=== PATIENT | female | born 1960 | race Caucasian/White ===

== ENCOUNTER → 2016-10-02 | Outpatient (CLI) | payer MEDICAID ==
--- NOTE | 2016-10-05 10:38 | CR ---
EXAM DATE: 10/02/16 PATIENT'S AGE: 55 Patient: EMILY ESCOBAR Facility: [place], [place] Site . Site : 1960 Study: XRay Extremity Right [id number]/10/2017 10:13:00 AM Ordering Physician: Clovis Ruvalcaba Final Report: Indication: Fracture of right lower leg. Technique: Right ankle three views. Comparison: Right ankle September 01, 2016. Findings: Lateral plate and screw fixation of the distal fibula shows no evidence of complication. No evidence of acute fracture or hardware complication. Mild degenerative changes of the tibiotalar joint. Calcaneal enthesopathy. Soft tissues as imaged are unremarkable. Impression: No evidence of hardware complication. Dictated by Omar Jackman MD @ Oct 05 2016 12:32AM (Electronic Signature) Report Signed by Proxy and Original Signed Document filed in the Medical Record. MTDRosa
== END ==
LOC: MW.CHORTHO 07:53
PROVIDERS: ATTEND Physician Assistant
DX: S82.891A Other fracture of right lower leg, initial encounter for closed fracture (principal); Z96.7 Presence of other bone and tendon implants
CPT/HCPCS: 73610-26-RT; 73610-RT

== ENCOUNTER 2016-10-26 15:06 | Emergency (ER) | payer MEDICAID ==
--- NOTE | 2016-10-26 16:01 | EDM.PDOC ---
ED HISTORY OF PRESENT ILLNESS - General Chief Complaint: Respiratory Problem Stated Complaint: HARD TIME BREATHING Time Seen by Provider: 10/26/16 15:40 Source of Information: Reports: Patient History Limitations: Reports: No limitations - History of Present Illness INITIAL COMMENTS - FREE TEXT/NARRATIVE: History of present illness: [55-year-old female comes in complaining of a sharp painful cough. Patient has been seen by her PCP and has started on antibiotics but she perceives the cough to be stronger and now her throat is sore. Patient does have an inhaler that she started this morning that she acknowledged was helpful but she has come for cough relief] Review of systems: As per history of present illness and below otherwise all systems reviewed and negative. Past medical history: As per history of present illness and as reviewed below otherwise noncontributory. Surgical history: As per history of present illness and as reviewed below otherwise noncontributory. Social history: No reported history of drug or alcohol abuse. Family history: As per history of present illness and as reviewed below otherwise noncontributory. Physical exam: HEENT: Atraumatic, normocephalic, pupils reactive, negative for conjunctival pallor or scleral icterus, mucous membranes moist, throat clear, neck supple, nontender, trachea midline. Lungs: Clear to auscultation, breath sounds equal bilaterally, chest nontender. Heart: S1S2, regular, negative for clicks, rubs, or JVD. Abdomen: Soft, nondistended, nontender. Negative for masses or hepatosplenomegaly. Negative for costovertebral tenderness. Pelvis: Stable nontender. 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: Deferred. Rectal: Deferred. Extremities: Atraumatic, negative for cords or calf pain. Neurovascular unremarkable. Neuro: Awake, alert, oriented. Cranial nerves II through XII unremarkable. Cerebellum unremarkable. Motor and sensory unremarkable throughout. Exam nonfocal. Gen. assessment is benign save for a random brief cough Diagnostics: [] Therapeutics: [] Impression: [Cough] Plan: [spacer for inhaler, Tessalon José Miguel, followup tomorrow as it] Definitive disposition and diagnosis as appropriate pending reevaluation and review of above. - Related Data Allergies/ADRs: Allergies Allergy/AdvReac Type Severity Reaction Status Date / Time doxepin [Doxepin] Allergy Blurred Verified 09/01/16 11:10 Vision lisinopril Allergy Rash Verified 09/01/16 11:10 Plpswae-Ukt-Ogd Reductase Allergy Cannot Verified 09/01/16 11:10 Inhibitor Remember Home Meds: Home Meds Estrogens, Conjugated [Premarin Vaginal Crm] 1 applic VAG Q48H 12/14/13 [History ] Losartan/Hydrochlorothiazide [Losartan-HCTZ 100-12.5 MG] 1 each PO DAILY [History] Levothyroxine Sodium [Synthroid] 25 mcg PO ACBREAKFAST 04/06/14 [History] Levothyroxine Sodium [Synthroid] 200 mcg PO ACBREAKFAST 04/06/14 [History] ALPRAZolam [Xanax] 2 mg PO TID PRN 04/17/14 [History] Rosuvastatin [Crestor] 20 mg PO BEDTIME 04/17/14 [History] metFORMIN [Glucophage] 1,000 mg PO BID 04/17/14 [History] traMADol [Ultram] 50 mg PO Q6H PRN 04/17/14 [History] Celecoxib [CeleBREX] 100 mg PO BID PRN 04/01/15 [History] Sertraline HCl 100 mg PO DAILY 04/01/15 [History] Prochlorperazine Maleate 10 mg PO DAILY PRN 12/20/15 [History] amLODIPine Besylate [Norvasc] 5 mg PO DAILY 12/20/15 [History] Lidocaine 5% [Lidoderm 5%] 1 each TOP ASDIRECTED PRN 01/04/16 [History] Ranitidine HCl [Zantac] 300 mg PO BEDTIME 01/07/16 [History] Mometasone/Formoterol [Dulera 100-5 MCG] 2 puff INH BID PRN 07/31/16 [History] Benzonatate 100 - 200 mg PO TID PRN 08/26/16 [History] Elviteg/Lucero/Emtric/Tenofo Ala [Genvoya Tablet] 1 each PO DAILY 08/26/16 [ History] Erythromycin Base [Erythromycin 0.5% Ophth Oint] 0.5 gm EYEBOTH BEDTIME [History] Levocetirizine Dihydrochloride 5 mg PO BEDTIME 08/26/16 [History] Orphenadrine Citrate 100 mg PO BID PRN 02/01/17 [History] Benzonatate [Tessalon Perles] 200 mg PO TID #45 cap 10/26/16 [Rx] Inhaler, Assist Devices [Space Chamber Plus] 1 each ASDIRECTED #1 spacer 10/09 [Rx] Past Medical History - Past Health History Medical/Surgical History: Denies Medical/Surgical History HEENT History: Reports: Impaired vision Other HEENT History: uses reading glasses, has upper and lower dentures but only uses the upper Cardiovascular History: Reports: High cholesterol, Hypertension Respiratory History: Reports: Asthma Other Respiratory History: recent sinus infection, just finished antibiotic Gastrointestinal History: Reports: GERD, Hemorrhoids 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 History: Reports: None 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: Musculoskeletal History: Reports: Back pain, chronic, Fracture Other Musculoskeletal History: hx fx right ankle Neurological History: Reports: Other (see below) Other Neuro History: was told she had a "mini stroke" many years ago, no residual Psychiatric History: Reports: Anxiety, Depression Endocrine/Metabolic History: Reports: Diabetes, type II, Hypothyroidism, Obesity /BMI 30+ Hematologic History: Reports: None Immunologic History: Reports: HIV Oncologic (Cancer) History: Reports: Basal cell carcinoma Dermatologic History: Reports: None - Infectious Disease History Infectious Disease History: Reports: Chicken pox - Past Surgical History Head Surgeries/Procedures: Reports: None HEENT Surgical History: Reports: Adenoidectomy, Tonsillectomy Cardiovascular Surgical History: Reports: None Respiratory Surgical History: Reports: None Female Surgical History: Reports: Hysterectomy, Salpingo-oophorectomy Endocrine Surgical History: Reports: None Neurological Surgical History: Reports: None Social & Family History - Family History Family Medical History: Noncontributory - Tobacco Use Smoking Status *Q: Never Smoker Years of Tobacco use: 25 Used Tobacco, but Quit: Yes Month Tobacco Last Used: 15 years Second Hand Smoke Exposure: No - Caffeine Use Caffeine Use: Reports: Coffee Caffeine Use Comment: 2/day - Alcohol Use Days Per Week of Alcohol Use: 0 Number of Drinks Per Day: 0 Total Drinks Per Week: 0 - Recreational Drug Use Recreational Drug Use: No Drug Use in Last 12 Months: No ED ROS GENERAL - Review of Systems Review Of Systems: See Below (History of present illness) ED EXAM, GENERAL - Physical Exam Exam: See Below (The history of present illness) Departure - Departure Time of Disposition: 16:00 Disposition: Home, Self-Care 01 Condition: good Clinical Impression: Cough in adult patient Prescriptions: Benzonatate [Tessalon Perles] 200 mg PO TID #45 cap Inhaler, Assist Devices [Space Chamber Plus] 1 each ASDIRECTED #1 spacer Forms: ED Department Discharge Additional Instructions: The following information is given to patients seen in the emergency department who are being discharged to home. This information is to outline your options for follow-up care. We provide all patients seen in our emergency department with a follow-up referral. The need for follow-up, as well as the timing and circumstances, are variable depending upon the specifics of your emergency department visit. If you don't have a primary care physician on staff, we will provide you with a referral. We always advise you to contact your personal physician following an emergency department visit to inform them of the circumstance of the visit and for follow-up with them and/or the need for any referrals to a consulting specialist. The emergency department will also refer you to a specialist when appropriate. This referral assures that you have the opportunity for follow-up care with a specialist. All of these measure are taken in an effort to provide you with optimal care, which includes your follow-up. Under all circumstances we always encourage you to contact your private physician who remains a resource for coordinating your care. When calling for follow-up care, please make the office aware that this follow-up is from your recent emergency room visit. If for any reason you are refused follow-up, please contact the [facility] Emergency Department at and asked to speak to the emergency department charge nurse. 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
[2016-10-26 16:19] VITALS: BP 143/75
== END 2016-10-26 16:14 | disposition home or self-care (01) ==
LOC: MW.ED 15:06
DX: R05 Cough (principal); I10 Essential (primary) hypertension; E78.00 Pure hypercholesterolemia, unspecified; K21.9 Gastro-esophageal reflux disease without esophagitis; F41.8 Other specified anxiety disorders; E11.9 Type 2 diabetes mellitus without complications; E03.9 Hypothyroidism, unspecified; E66.9 Obesity, unspecified; Z68.30 Body mass index [BMI] 30.0-30.9, adult; Z87.891 Personal history of nicotine dependence; Z90.710 Acquired absence of both cervix and uterus; Z98.890 Other specified postprocedural states; Z79.899 Other long term (current) drug therapy; Z79.84 Long term (current) use of oral hypoglycemic drugs; Z88.8 Allergy status to other drugs, medicaments and biological substances
CPT/HCPCS: 99282

== ENCOUNTER 2016-10-31 17:21 | Emergency (ER) | payer MEDICAID ==
[2016-10-31] MEDS ORDERED: Ketorolac 60 MG/2 ML SDV IM ONE (17:48)
--- NOTE | 2016-10-31 17:54 | EDM.PDOC ---
ED HISTORY OF PRESENT ILLNESS - General Chief Complaint: Respiratory Problem Stated Complaint: SHORTNESS OF BREATH Time Seen by Provider: 10/31/16 17:26 - History of Present Illness INITIAL COMMENTS - FREE TEXT/NARRATIVE: HISTORY AND PHYSICAL: History of present illness: The patient is a 55-year-old female with a history of hypertension hypercholesterolemia [id number] diabetes hypothyroidism and HIV who is taken care of in our family practice clinic and presents with a two-week history of cough congestion feeling short of breath on-and-off and feeling like she has difficulty moving air on and off. The patient states has been constant for 2 weeks and she's become more congested and has had more nasal sinus pressure over last few days. The patient was seen in the clinic on October 26 and placed on [address] Mitchell and has also been using an inhaler and nebulizer which she states has been helping. Patient was then seen later that evening here in the ER for a cough which she was given Tessalon Perles. The patient followed up in the clinic on October 28 and had a negative influenza swab and presents today for symptoms which have been persistent for 2 weeks and she does not feel that they are improving. She finished her antibiotic course yesterday. She has no anterior chest pain and has some bodyaches including lower back pain and extremity discomfort but she is more concerned about the cough and shortness of breath. The patient denies any abdominal pain or vomiting and has had some loose stools but not excessive amount. She denies any urinary complaints or flank pain. She has had some inner ear pressure and hasn't nasal drainage/postnasal drip. She does not have a sore throat or neck pain and no headache. She has no lower extremity swelling or asymmetry. Patient states that she has not had a chest x-ray or blood work performed with this treatment that has been finished yesterday Review of systems: As per history of present illness and below otherwise all systems reviewed and negative. Past medical history: As per history of present illness and as reviewed below otherwise noncontributory. Surgical history: As per history of present illness and as reviewed below otherwise noncontributory. Social history: No reported history of drug or alcohol abuse. Family history: As per history of present illness and as reviewed below otherwise noncontributory. Physical exam: General: Well-developed overweight female who is nontoxic and speaking clearly in the ER without breathlessness but she does have nasal quality to voice. Vital signs of been noted by me and she is in no respiratory distress. HEENT: Atraumatic, normocephalic, pupils reactive, negative for conjunctival pallor or scleral icterus, mucous membranes moist, throat clear, neck supple, nontender, trachea midline. There is no cervical adenopathy or nuchal rigidity. The patient has no focal sinus tenderness on palpation but does complain of sinus pressure and nasal turbinates are mildly boggy bilaterally with clear drainage Lungs: Clear to auscultation, breath sounds equal bilaterally, chest nontender. There is no work or breathing or sensory muscle use stridor or wheezing Heart: S1S2, regular, negative for clicks, rubs, or JVD. Abdomen: Soft, nondistended, nontender. Negative for masses or hepatosplenomegaly. Negative for costovertebral tenderness. Pelvis: Stable nontender. 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: Deferred. Rectal: Deferred. Extremities: Atraumatic, negative for cords or calf pain. Neurovascular unremarkable. No pedal edema or leg asymmetry Neuro: Awake, alert, oriented. Cranial nerves II through XII unremarkable. Cerebellum unremarkable. Motor and sensory unremarkable throughout. Exam nonfocal. Diagnostics: CBC CMP lactic acid UA urine culture indicated chest x-ray Therapeutics: Toradol All testing results were discussed with the patient and recommendation for followup with primary care next week was made. I will go ahead and treat her sinusitis. It is unclear what antibiotic the patient took for 5 days as the pharmacy is closed and unable to obtain that information the patient is unsure. Impression: Sinusitis, bronchitis Definitive disposition and diagnosis as appropriate pending reevaluation and review of above. - Related Data Allergies/ADRs: Allergies Allergy/AdvReac Type Severity Reaction Status Date / Time doxepin [Doxepin] Allergy Blurred Verified 09/01/16 11:10 Vision lisinopril Allergy Rash Verified 09/01/16 11:10 Ienzowg-Znq-Sfw Reductase Allergy Cannot Verified 09/01/16 11:10 Inhibitor Remember Home Meds: Home Meds Estrogens, Conjugated [Premarin Vaginal Crm] 1 applic VAG Q48H 12/14/13 [History ] Losartan/Hydrochlorothiazide [Losartan-HCTZ 100-12.5 MG] 1 each PO DAILY [History] Levothyroxine Sodium [Synthroid] 25 mcg PO ACBREAKFAST 04/06/14 [History] Levothyroxine Sodium [Synthroid] 200 mcg PO ACBREAKFAST 04/06/14 [History] ALPRAZolam [Xanax] 2 mg PO TID PRN 04/17/14 [History] Rosuvastatin [Crestor] 20 mg PO BEDTIME 04/17/14 [History] metFORMIN [Glucophage] 1,000 mg PO BID 04/17/14 [History] traMADol [Ultram] 50 mg PO Q6H PRN 04/17/14 [History] Celecoxib [CeleBREX] 100 mg PO BID PRN 04/01/15 [History] Sertraline HCl 100 mg PO DAILY 04/01/15 [History] Prochlorperazine Maleate 10 mg PO DAILY PRN 12/20/15 [History] amLODIPine Besylate [Norvasc] 5 mg PO DAILY 12/20/15 [History] Lidocaine 5% [Lidoderm 5%] 1 each [facility] ASDIRECTED PRN 01/04/16 [History] Ranitidine HCl [Zantac] 300 mg PO BEDTIME 01/07/16 [History] Mometasone/Formoterol [Dulera 100-5 MCG] 2 puff INH BID PRN 07/31/16 [History] Benzonatate 100 - 200 mg PO TID PRN 08/26/16 [History] Elviteg/Lucero/Emtric/Tenofo Ala [Genvoya Tablet] 1 each PO DAILY 08/26/16 [ History] Erythromycin Base [Erythromycin 0.5% Ophth Oint] 0.5 gm EYEBOTH BEDTIME [History] Levocetirizine Dihydrochloride 5 mg PO BEDTIME 08/26/16 [History] Orphenadrine Citrate 100 mg PO BID PRN 08/26/16 [History] Benzonatate [Tessalon Perles] 200 mg PO TID #45 cap 10/26/16 [Rx] Inhaler, Assist Devices [Space Chamber Plus] 1 each MC ASDIRECTED #1 spacer 10/09 [Rx] Albuterol Sulfate 1 - 2 puff INH Q4H PRN 10/31/16 [History] Past Medical History - Past Health History Medical/Surgical History: Denies Medical/Surgical History HEENT History: Reports: Impaired vision Other HEENT History: uses reading glasses, has upper and lower dentures but only uses the upper Cardiovascular History: Reports: High cholesterol, Hypertension Respiratory History: Reports: Other (see below) Other Respiratory History: recent sinus infection Gastrointestinal History: Reports: GERD, Hemorrhoids 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 History: Reports: None 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: Musculoskeletal History: Reports: Back pain, chronic, Fracture Other Musculoskeletal History: hx fx right ankle Neurological History: Reports: Other (see below) Other Neuro History: was told she had a "mini stroke" many years ago, no residual Psychiatric History: Reports: Anxiety, Depression Endocrine/Metabolic History: Reports: Diabetes, type II, Hypothyroidism, Obesity /BMI 30+ Hematologic History: Reports: None Immunologic History: Reports: HIV Oncologic (Cancer) History: Reports: Basal cell carcinoma Dermatologic History: Reports: None - Infectious Disease History Infectious Disease History: Reports: HIV-Human immunodeficiency virus - Past Surgical History Head Surgeries/Procedures: Reports: None HEENT Surgical History: Reports: Adenoidectomy, Tonsillectomy Cardiovascular Surgical History: Reports: None Female Surgical History: Reports: Hysterectomy, Salpingo-oophorectomy Endocrine Surgical History: Reports: None Neurological Surgical History: Reports: None Social & Family History - Family History Family Medical History: Noncontributory - Tobacco Use Smoking Status *Q: Former Smoker Years of Tobacco use: 25 Packs/Tins Daily: 2.5 Used Tobacco, but Quit: Yes Month Tobacco Last Used: 17 years ago Second Hand Smoke Exposure: No - Caffeine Use Caffeine Use: Reports: Coffee Caffeine Use Comment: 2/day - Alcohol Use Days Per Week of Alcohol Use: 0 Number of Drinks Per Day: 0 Total Drinks Per Week: 0 - Recreational Drug Use Recreational Drug Use: No Drug Use in Last 12 Months: No ED ROS GENERAL - Review of Systems Review Of Systems: ROS reveals no pertinent complaints other than HPI. ED EXAM, GENERAL - Physical Exam Exam: See Below (See dictation) Course - Vital Signs Last Recorded V/S: Last Vital Signs Temp 35.8 C 10/31/16 17:30 Pulse 90 10/31/16 17:30 Resp 16 10/31/16 17:30 BP 161/82 H 10/31/16 17:30 Pulse Ox 95 10/31/16 17:30 - Orders/Labs/Meds Orders: Active Orders 24 hr Category Date Time Status Chest 2V [CR] Stat Exams 10/31/16 17:48 Taken Labs: Laboratory Tests 10/31/16 10/31/16 10/31/16 Range/Units 17:55 18:00 18:00 WBC 7.73 (4.0-11.0) K/uL RBC 3.87 L (4.30-5.90) M/uL Hgb 11.5 L (12.0-16.0) g/dL Hct 35.2 L (36.0-46.0) % MCV 91.0 (80.0-98.0) fL MCH 29.7 (27.0-32.0) pg MCHC 32.7 (31.0-37.0) g/dL RDW Std Deviation 46.4 (28.0-62.0) fl RDW Coeff of Edgar 14 (11.0-15.0) % Plt Count 186 (150-400) K/uL MPV 9.40 (7.40-12.00) fL Neut % (Auto) 71.1 (48.0-80.0) % Lymph % (Auto) 23.5 (16.0-40.0) % [place] % (Auto) 3.2 (0.0-15.0) % Eos % (Auto) 1.9 (0.0-7.0) % Baso % (Auto) 0.3 (0.0-1.5) % Neut # (Auto) 5.5 (1.4-5.7) K/uL Lymph # (Auto) 1.8 (0.6-2.4) K/uL [place] # (Auto) 0.3 (0.0-0.8) K/uL Eos # (Auto) 0.2 (0.0-0.7) K/uL Baso # (Auto) 0.0 (0.0-0.1) K/uL Nucleated RBC % 0.0 /100WBC Nucleated RBCs # 0 K/uL Lactate 1.7 (0.20-2.00) mmol/L Sodium (136-146) mmol/L Potassium (3.5-5.1) mmol/L Chloride (98-110) mmol/L Carbon Dioxide (21-31) mmol/L BUN (6.0-23.0) mg/dL Creatinine (0.6-1.5) mg/dL Est Cr Clr Drug Dosing mL/min Estimated GFR (MDRD) ml/min Glucose (60-110) mg/dL Calcium (8.8-10.8) mg/dL Total Bilirubin (0.1-1.5) mg/dL AST (5-40) IU/L ALT (8-54) IU/L Alkaline Phosphatase (40-150) Total Protein (6.0-8.0) g/dL Albumin (3.5-5.0) g/dL Globulin (2.0-3.5) g/dL Albumin/Globulin Ratio (1.3-2.8) Urine Color YELLOW Urine Appearance CLEAR Urine pH 5.5 (5.0-8.0) Ur Specific [place] >= 1.030 (1.001-1.035) Urine Protein NEGATIVE (NEGATIVE) mg/dL Urine Glucose (UA) 250 H (NEGATIVE) mg/dL Urine Ketones NEGATIVE (NEGATIVE) mg/dL Urine Occult Blood NEGATIVE (NEGATIVE) Urine Nitrite NEGATIVE (NEGATIVE) Urine Bilirubin NEGATIVE (NEGATIVE) Urine Urobilinogen 0.2 (<2.0) EU/dL Ur Leukocyte Esterase NEGATIVE (NEGATIVE) Urine RBC 0-1 (0-2/HPF) Urine WBC 0-2 (0-5/HPF) Ur Epithelial Cells FEW (NONE-FEW) Calcium Oxalate Crystal FEW (NEGATIVE) Urine Bacteria FEW (NEGATIVE) 10/31/16 Range/Units 18:00 WBC (4.0-11.0) K/uL RBC (4.30-5.90) M/uL Hgb (12.0-16.0) g/dL Hct (36.0-46.0) % MCV (80.0-98.0) fL MCH (27.0-32.0) pg MCHC (31.0-37.0) g/dL RDW Std Deviation (28.0-62.0) fl RDW Coeff of Edgar (11.0-15.0) % Plt Count (150-400) K/uL MPV (7.40-12.00) fL Neut % (Auto) (48.0-80.0) % Lymph % (Auto) (16.0-40.0) % [place] % (Auto) (0.0-15.0) % Eos % (Auto) (0.0-7.0) % Baso % (Auto) (0.0-1.5) % Neut # (Auto) (1.4-5.7) K/uL Lymph # (Auto) (0.6-2.4) K/uL [place] # (Auto) (0.0-0.8) K/uL Eos # (Auto) (0.0-0.7) K/uL Baso # (Auto) (0.0-0.1) K/uL Nucleated RBC % /100WBC Nucleated RBCs # K/uL Lactate (0.20-2.00) mmol/L Sodium 142 (136-146) mmol/L Potassium 4.2 (3.5-5.1) mmol/L Chloride 109 (98-110) mmol/L Carbon Dioxide 23 (21-31) mmol/L BUN 14 (6.0-23.0) mg/dL Creatinine 0.9 (0.6-1.5) mg/dL Est Cr Clr Drug Dosing 66.12 mL/min Estimated GFR (MDRD) > 60.0 ml/min Glucose 274 H (60-110) mg/dL Calcium 9.1 (8.8-10.8) mg/dL Total Bilirubin 0.3 (0.1-1.5) mg/dL AST 17 (5-40) IU/L ALT 23 (8-54) IU/L Alkaline Phosphatase 66 (40-150) Total Protein 6.9 (6.0-8.0) g/dL Albumin 3.7 (3.5-5.0) g/dL Globulin 3.2 (2.0-3.5) g/dL Albumin/Globulin Ratio 1.2 L (1.3-2.8) Urine Color Urine Appearance Urine pH (5.0-8.0) Ur Specific [place] (1.001-1.035) Urine Protein (NEGATIVE) mg/dL Urine Glucose (UA) (NEGATIVE) mg/dL Urine Ketones (NEGATIVE) mg/dL Urine Occult Blood (NEGATIVE) Urine Nitrite (NEGATIVE) Urine Bilirubin (NEGATIVE) Urine Urobilinogen (<2.0) EU/dL Ur Leukocyte Esterase (NEGATIVE) Urine RBC (0-2/HPF) Urine WBC (0-5/HPF) Ur Epithelial Cells (NONE-FEW) Calcium Oxalate Crystal (NEGATIVE) Urine Bacteria (NEGATIVE) Meds: Medications Discontinued Medications Generic Name Dose Route Start Last Admin Trade Name Jrq PRN Reason Stop Dose Admin Ketorolac Tromethamine 60 mg 10/31/16 17:48 10/31/16 18:01 Toradol IM 10/31/16 17:49 60 mg ONETIME ONE Administration Departure - Departure Time of Disposition: 18:42 Disposition: Home, Self-Care 01 Condition: good Clinical Impression: Bronchitis Sinusitis Qualifiers: Sinusitis location: other Chronicity: unspecified Qualified Code(s): J32.9 - Chronic sinusitis, unspecified Forms: ED Department Discharge Additional Instructions: The following information is given to patients seen in the emergency department who are being discharged to home. This information is to outline your options for follow-up care. We provide all patients seen in our emergency department with a follow-up referral. The need for follow-up, as well as the timing and circumstances, are variable depending upon the specifics of your emergency department visit. If you don't have a primary care physician on staff, we will provide you with a referral. We always advise you to contact your personal physician following an emergency department visit to inform them of the circumstance of the visit and for follow-up with them and/or the need for any referrals to a consulting specialist. The emergency department will also refer you to a specialist when appropriate. This referral assures that you have the opportunity for followup care with a specialist. All of these measure are taken in an effort to provide you with optimal care, which includes your followup. Under all circumstances we always encourage you to contact your private physician who remains a resource for coordinating your care. When calling for followup care, please make the office aware that this follow-up is from your recent emergency room visit. If for any reason you are refused follow-up, please contact the [facility] emergency department at and ask to speak to the emergency department charge nurse. [facility] Primary care- Internal Medicine and Family [address] [id number] Please continue to use the nebulizer and inhaler for cough every 6-8 hours. Push hydration and take antibiotics as directed. Please followup with primary care provider next week and return to ER as needed and as discussed. Use the Tessalon Perles were given earlier this week for cough and cold mist humidifier at sleep times. - My Orders Last 24 Hours: My Active Orders 10/31/16 17:48 Chest 2V [CR] Stat - Assessment/Plan Last 24 Hours: My Active Orders 10/31/16 17:48 Chest 2V [CR] Stat
[2016-10-31 18:31] LABS: CHLORIDE,CL 109 mmol/L (98-110); SODIUM,NA 142 mmol/L (136-146)
[2016-10-31 19:08] VITALS: BP 124/69
--- NOTE | 2016-11-02 10:43 | CR ---
EXAM DATE: 10/31/16 PATIENT'S AGE: 55 Patient: EMILY ESCOBAR Facility: [place], [place] Site . Site : 1960 Study: XRay Chest [id number]/8/2017 6:23:50 PM Ordering Physician: Tatiana Lisa Final Report: CHEST 2 VIEWS INDICATION: Cough. COMPARISON: July 2016. IMPRESSION: Lungs are clear. No pneumothorax or pleural abnormality. Possible mild some pulmonary vascular engorgement. The azygos vein is slightly prominent. Early fluid overload or congestive heart failure could be considered. Heart upper normal size. No change. No consolidation or effusions. Dictated by Raheem Barajas MD @ Oct 31 2016 6:34PM (Electronic Signature) Report Signed by Proxy and Original Signed Document filed in the Medical Record. MTDD
== END 2016-10-31 19:05 | disposition home or self-care (01) ==
LOC: MW.ED 17:21
DX: J32.9 Chronic sinusitis, unspecified (principal); J40 Bronchitis, not specified as acute or chronic; E78.00 Pure hypercholesterolemia, unspecified; I10 Essential (primary) hypertension; K21.9 Gastro-esophageal reflux disease without esophagitis; E11.9 Type 2 diabetes mellitus without complications; E03.9 Hypothyroidism, unspecified; E66.9 Obesity, unspecified; Z88.6 Allergy status to analgesic agent; Z88.8 Allergy status to other drugs, medicaments and biological substances; Z79.899 Other long term (current) drug therapy; Z68.30 Body mass index [BMI] 30.0-30.9, adult; Z90.89 Acquired absence of other organs; Z98.890 Other specified postprocedural states; Z90.710 Acquired absence of both cervix and uterus; Z87.891 Personal history of nicotine dependence
CPT/HCPCS: 36415; 71020; 80053; 81001; 83605; 85025; 96372; 99283; J1885

== ENCOUNTER 2017-02-07 21:53 | Emergency (ER) | payer MEDICAID ==
[2017-02-07] MEDS ORDERED: Ketorolac 60 MG/2 ML SDV IM ONE (22:41)
--- NOTE | 2017-02-07 22:45 | EDM.PDOC ---
ED HPI GENERAL MEDICAL PROBLEM - General Chief Complaint: Lower Extremity Injury/Pain Stated Complaint: LEFT LEG AND FOOT SWOLLEN Time Seen by Provider: 02/07/17 22:32 - History of Present Illness INITIAL COMMENTS - FREE TEXT/NARRATIVE: HISTORY AND PHYSICAL: History of present illness: The patient is a 56-year-old female with a history of hypertension hypercholesterolemia diabetes hypothyroidism anxiety and is well known to the ER and myself for frequent ER visits and presents with complaints of pain to her left lower leg and ankle that started 3 days ago after she had a fall. According to the patient she is in the process of moving and in that process she fell landing on all fours but did not pass out or black out. She had immediate pain to her lower leg or ankle and has been using a walker keep pressure off of it. She's been using vhpd-gba-amntigl pain medications and she denies any associated injury to the other extremities and no head neck or back pain and no loss of consciousness. Neurosensory is intact in the distal foot and there is no proximal knee thigh or hip pain on that side. The patient states she has been laying in bed for the last 3 days not doing much activity and there still swelling and pain. She has no history of injury to that leg or ankle in the past. Review of systems: As per history of present illness and below otherwise all systems reviewed and negative. Past medical history: As per history of present illness and as reviewed below otherwise noncontributory. Surgical history: As per history of present illness and as reviewed below otherwise noncontributory. Social history: No reported history of drug or alcohol abuse. Family history: As per history of present illness and as reviewed below otherwise noncontributory. Physical exam: Gen.: Well-developed overweight female who is nontoxic and speaking clearly and easily in the ED. Vital signs have been reviewed by me HEENT: Atraumatic, normocephalic, negative for conjunctival pallor or scleral icterus, mucous membranes moist, throat clear, neck supple, nontender, trachea midline. Lungs: Clear to auscultation, breath sounds equal bilaterally, chest nontender. Heart: S1S2, regular rate and rhythm no overt murmurs Abdomen: Soft, nondistended, nontender. NABS Pelvis: Stable nontender. 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: Deferred. Rectal: Deferred. Extremities: Atraumatic appearing with the exception of the left lower leg where distally there is some soft tissue swelling and ill-defined erythema and tenderness on palpation without any bony deformities. The ankle has some diffuse soft tissue swelling and tenderness but it does not lateralize and there is no distal foot tenderness defects or deformities and neurovascular is intact. There is dependent edema and some dependent ecchymosis seen at the foot. There is no proximal tib-fib discomfort knee pain on palpation or proximal thigh or hip tenderness. All other extremities have full range of motion without defects or deficits. The legs are, negative for cords or calf pain. Neurovascular unremarkable. Neuro: Awake, alert, oriented. Cranial nerves II through XII unremarkable. Cerebellum unremarkable. Motor and sensory unremarkable throughout. Exam nonfocal. Diagnostics: X-ray of left tib-fib and ankle Therapeutics: Toradol Patient is aware of testing results and need to continue to ice and elevate use her walker and follow-up with her provider in the clinic Impression: Left lower leg/ankle contusion subacute stable Definitive disposition and diagnosis as appropriate pending reevaluation and review of above. Left Lower Ankle Pain Score (Numeric/FACES): 10 - Related Data Allergies Allergy/AdvReac Type Severity Reaction Status Date / Time doxepin [Doxepin] Allergy Blurred Verified 02/07/17 22:42 Vision lisinopril Allergy Rash Verified 02/07/17 22:42 Qvdeujl-Bgv-Nix Reductase Allergy Cannot Verified 02/07/17 22:42 Inhibitor Remember Home Meds: Home Meds Estrogens, Conjugated [Premarin Vaginal Crm] 1 applic VAG Q48H 12/14/13 [History ] Losartan/Hydrochlorothiazide [Losartan-HCTZ 100-12.5 MG] 1 each PO DAILY [History] Levothyroxine Sodium [Synthroid] 25 mcg PO ACBREAKFAST 04/06/14 [History] Levothyroxine Sodium [Synthroid] 200 mcg PO ACBREAKFAST 04/06/14 [History] ALPRAZolam [Xanax] 2 mg PO TID PRN 04/17/14 [History] Rosuvastatin [Crestor] 20 mg PO BEDTIME 04/17/14 [History] metFORMIN [Glucophage] 1,000 mg PO BID 04/17/14 [History] traMADol [Ultram] 50 mg PO Q6H PRN 04/17/14 [History] Celecoxib [CeleBREX] 100 mg PO BID PRN 04/01/15 [History] Sertraline HCl 100 mg PO DAILY 04/01/15 [History] Prochlorperazine Maleate 10 mg PO DAILY PRN 12/20/15 [History] amLODIPine Besylate [Norvasc] 5 mg PO DAILY 12/20/15 [History] Lidocaine 5% [Lidoderm 5%] 1 each [facility] ASDIRECTED PRN 01/04/16 [History] Ranitidine HCl [Zantac] 300 mg PO BEDTIME 01/07/16 [History] Mometasone/Formoterol [Dulera 100-5 MCG] 2 puff INH BID PRN 07/31/16 [History] Benzonatate 100 - 200 mg PO TID PRN 08/26/16 [History] Elviteg/Lucero/Emtric/Tenofo Ala [Genvoya Tablet] 1 each PO DAILY 08/26/16 [ History] Erythromycin Base [Erythromycin 0.5% Ophth Oint] 0.5 gm EYEBOTH BEDTIME [History] Levocetirizine Dihydrochloride 5 mg PO BEDTIME 08/26/16 [History] Orphenadrine Citrate 100 mg PO BID PRN 08/26/16 [History] Benzonatate [Tessalon Perles] 200 mg PO TID #45 cap 10/26/16 [Rx] Inhaler, Assist Devices [Space Chamber Plus] 1 each ASDIRECTED #1 spacer 10/09 [Rx] Albuterol Sulfate 1 - 2 puff INH Q4H PRN 10/31/16 [History] Past Medical History - Past Health History Medical/Surgical History: Denies Medical/Surgical History HEENT History: Reports: Impaired Vision Other HEENT History: uses reading glasses, has upper and lower dentures but only uses the upper Cardiovascular History: Reports: High Cholesterol, Hypertension Respiratory History: Reports: Other (See Below) Other Respiratory History: recent sinus infection Gastrointestinal History: Reports: GERD, Hemorrhoids 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 History: Reports: None [employer]STER History: Reports: Musculoskeletal History: Reports: Back Pain, Chronic, Fracture Other Musculoskeletal History: hx fx right ankle Neurological History: Reports: Other (See Below) Other Neuro History: was told she had a "mini stroke" many years ago, no residual Psychiatric History: Reports: Anxiety, Depression Endocrine/Metabolic History: Reports: Diabetes, Type II, Hypothyroidism, Obesity /BMI 30+ Hematologic History: Reports: None Immunologic History: Reports: HIV Oncologic (Cancer) History: Reports: Basal Cell Carcinoma Dermatologic History: Reports: None - Infectious Disease History Infectious Disease History: Reports: HIV-Human Immunodeficiency Virus - Past Surgical History Female Surgical History: Reports: Hysterectomy, Salpingo-Oophorectomy Dermatological Surgical History: Reports: Other (See Below) Social & Family History - Family History Family Medical History: Noncontributory - Tobacco Use Smoking Status *Q: Former Smoker Years of Tobacco use: 25 Packs/Tins Daily: 2.5 Used Tobacco, but Quit: Yes Month Tobacco Last Used: 17 years ago Second Hand Smoke Exposure: No - Caffeine Use Caffeine Use: Reports: Coffee Caffeine Use Comment: 2/day - Alcohol Use Days Per Week of Alcohol Use: 0 Number of Drinks Per Day: 0 Total Drinks Per Week: 0 - Recreational Drug Use Recreational Drug Use: No Drug Use in Last 12 Months: No Review of Systems - Review of Systems Review Of Systems: ROS reveals no pertinent complaints other than HPI. ED EXAM, GENERAL - Physical Exam Exam: See Below (See dictation) Course - Vital Signs Last Recorded V/S: Last Vital Signs Temp 36.2 C 02/07/17 22:38 Pulse 94 02/07/17 22:38 Resp 20 02/07/17 22:38 BP 138/78 02/07/17 22:38 Pulse Ox 96 02/07/17 22:38 - Orders/Labs/Meds Orders: Active Orders 24 hr Category Date Time Status Ankle Min 3V Lt [CR] Stat Exams 02/07/17 22:41 Taken Tibia Fibula Lt [CR] Stat Exams 02/07/17 22:41 Taken Meds: Medications Discontinued Medications Generic Name Dose Route Start Last Admin Trade Name Freq PRN Reason Stop Dose Admin Ketorolac Tromethamine 60 mg 02/07/17 22:41 02/07/17 22:47 Toradol IM 02/07/17 22:42 60 mg ONETIME ONE Administration Departure - Departure Time of Disposition: 23:59 Disposition: Home, Self-Care 01 Condition: Good Clinical Impression: Contusion of leg, left Qualifiers: Encounter type: initial encounter Qualified Code(s): S80.12XA - Contusion of left lower leg, initial encounter Contusion of ankle, left Qualifiers: Encounter type: initial encounter Qualified Code(s): S90.02XA - Contusion of left ankle, initial encounter - Discharge Information Forms: ED Department Discharge Additional Instructions: The following information is given to patients seen in the emergency department who are being discharged to home. This information is to outline your options for follow-up care. We provide all patients seen in our emergency department with a follow-up referral. The need for follow-up, as well as the timing and circumstances, are variable depending upon the specifics of your emergency department visit. If you don't have a primary care physician on staff, we will provide you with a referral. We always advise you to contact your personal physician following an emergency department visit to inform them of the circumstance of the visit and for follow-up with them and/or the need for any referrals to a consulting specialist. The emergency department will also refer you to a specialist when appropriate. This referral assures that you have the opportunity for followup care with a specialist. All of these measure are taken in an effort to provide you with optimal care, which includes your followup. Under all circumstances we always encourage you to contact your private physician who remains a resource for coordinating your care. When calling for followup care, please make the office aware that this follow-up is from your recent emergency room visit. If for any reason you are refused follow-up, please contact the [facility] emergency department at and ask to speak to the emergency department charge nurse. Primary care- Internal Medicine and Family [place] [phone] Please call and follow-up with your provider this week as needed and ice and elevate the area as we discussed. Continue to use the walker but also tried to put some weight on it and start using the leg slowly. Return to ER as needed and as discussed. Continue to use atsx-nhf-facevqw medications such as Tylenol and ibuprofen for pain. - My Orders Last 24 Hours: My Active Orders 02/07/17 22:41 Ankle Min 3V Lt [CR] Stat Tibia Fibula Lt [CR] Stat - Assessment/Plan Last 24 Hours: My Active Orders 02/07/17 22:41 Ankle Min 3V Lt [CR] Stat Tibia Fibula Lt [CR] Stat
[2017-02-08 01:49] VITALS: BP 140/68
--- NOTE | 2017-02-08 12:57 | CR ---
EXAM DATE: 02/07/17 PATIENT'S AGE: 56 Patient: EMILY ESCOBAR Facility: [place], [place] Site . Site : 1960 Study: XRay Extremity Left ANKLE [id number]/16/2017 11:34:15 PM Ordering Physician: Tatiana Lisa Final Report: Indication: Fall 3 days ago. Pain. Technique: Left ankle three views. Comparison: Left ankle November 19, 2015. Findings: No acute fracture or dislocation. Cortical irregularities about the medial malleolus consistent with prior trauma or unfused secondary ossification centers. Calcaneal enthesopathy as before. No additional osseous abnormality. Soft tissue swelling about the ankle. Impression: No acute osseous abnormality. Soft tissue swelling about the ankle. Dictated by Omar Jackman MD @ 02/07/2017 11:54:27 PM Dictated by: Omar Jackman MD @ 02/07/2017 23:54:34 (Electronic Signature) Report Signed by Proxy. NARCISO
--- NOTE | 2017-02-08 12:58 | CR ---
EXAM DATE: 02/07/17 PATIENT'S AGE: 56 Patient: EMILY ESCOBAR Facility: [place], [place] Site . Site : 1960 Study: XRay Extremity Left TIB FIB [id number]/16/2017 11:34:48 PM Ordering Physician: Tatiana Lisa Final Report: Indication: Fall 3 days ago. Pain. Technique: Left tibia fibula two views. Comparison: Left ankle same day. Findings: No acute fracture or dislocation. No additional osseous abnormality. No radio- opaque foreign body evident in the soft tissues. Impression: No acute osseous abnormality. Dictated by Omar Jackman MD @ 02/07/2017 11:56:01 PM Dictated by: Omar Jackman MD @ 02/07/2017 23:56:09 (Electronic Signature) Report Signed by Proxy. NARCISO
== END 2017-02-08 00:45 | disposition home or self-care (01) ==
LOC: MW.ED 21:53
DX: S80.12XA Contusion of left lower leg, initial encounter (principal); S90.02XA Contusion of left ankle, initial encounter; I10 Essential (primary) hypertension; E78.00 Pure hypercholesterolemia, unspecified; E03.9 Hypothyroidism, unspecified; F41.9 Anxiety disorder, unspecified; K21.9 Gastro-esophageal reflux disease without esophagitis; E11.9 Type 2 diabetes mellitus without complications; E66.9 Obesity, unspecified; Z88.8 Allergy status to other drugs, medicaments and biological substances; Z79.899 Other long term (current) drug therapy; Z79.84 Long term (current) use of oral hypoglycemic drugs; Z90.710 Acquired absence of both cervix and uterus; Z87.891 Personal history of nicotine dependence; Z68.42 Body mass index [BMI] 45.0-49.9, adult; W19.XXXA Unspecified fall, initial encounter
CPT/HCPCS: 73590; 73610; 96372; 99283; J1885

== ENCOUNTER 2017-02-12 01:41 | Emergency (ER) | payer MEDICAID ==
[2017-02-12] MEDS ORDERED: Ketorolac 30 MG/ML SDV IM ONE (02:50)
--- NOTE | 2017-02-12 02:51 | EDM.PDOC ---
ED HPI GENERAL MEDICAL PROBLEM - General Chief Complaint: Lower Extremity Injury/Pain Stated Complaint: PAIN/SWELLING IN BOTH KNEES,ANKLES,LEGS Time Seen by Provider: 02/12/17 02:47 Source of Information: Reports: Patient - History of Present Illness INITIAL COMMENTS - FREE TEXT/NARRATIVE: she was seen earlier t his week after a fall . Soft tissue injury left ankle suspected. Now with right ankle pain. She had prior ORIF right ankle fracture both feet and both knees Pain Score (Numeric/FACES): 9 - Related Data Allergies Allergy/AdvReac Type Severity Reaction Status Date / Time doxepin [Doxepin] Allergy Blurred Verified 02/12/17 02:02 Vision lisinopril Allergy Rash Verified 02/12/17 02:02 Hlncayn-Kbu-Yog Reductase Allergy Cannot Verified 02/12/17 02:02 Inhibitor Remember Home Meds: Home Meds Estrogens, Conjugated [Premarin Vaginal Crm] 1 applic VAG Q48H 12/14/13 [History ] Losartan/Hydrochlorothiazide [Losartan-HCTZ 100-12.5 MG] 1 each PO DAILY [History] Levothyroxine Sodium [Synthroid] 25 mcg PO ACBREAKFAST 04/06/14 [History] Levothyroxine Sodium [Synthroid] 200 mcg PO ACBREAKFAST 04/06/14 [History] ALPRAZolam [Xanax] 2 mg PO TID PRN 04/17/14 [History] Rosuvastatin [Crestor] 20 mg PO BEDTIME 04/17/14 [History] metFORMIN [Glucophage] 1,000 mg PO BID 04/17/14 [History] traMADol [Ultram] 50 mg PO Q6H PRN 04/17/14 [History] Celecoxib [CeleBREX] 100 mg PO BID PRN 04/01/15 [History] Sertraline HCl 100 mg PO DAILY 04/01/15 [History] Prochlorperazine Maleate 10 mg PO DAILY PRN 12/20/15 [History] amLODIPine Besylate [Norvasc] 5 mg PO DAILY 12/20/15 [History] Lidocaine 5% [Lidoderm 5%] 1 each [facility] ASDIRECTED PRN 01/04/16 [History] Ranitidine HCl [Zantac] 300 mg PO BEDTIME 01/07/16 [History] Mometasone/Formoterol [Dulera 100-5 MCG] 2 puff INH BID PRN 07/31/16 [History] Benzonatate 100 - 200 mg PO TID PRN 08/26/16 [History] Elviteg/Lucero/Emtric/Tenofo Ala [Genvoya Tablet] 1 each PO DAILY 08/26/16 [ History] Erythromycin Base [Erythromycin 0.5% Ophth Oint] 0.5 gm EYEBOTH BEDTIME [History] Levocetirizine Dihydrochloride 5 mg PO BEDTIME 08/26/16 [History] Orphenadrine Citrate 100 mg PO BID PRN 08/26/16 [History] Benzonatate [Tessalon Perles] 200 mg PO TID #45 cap 10/26/16 [Rx] Inhaler, Assist Devices [Space Chamber Plus] 1 each [facility] ASDIRECTED #1 spacer 10/09 [Rx] Albuterol Sulfate 1 - 2 puff INH Q4H PRN 10/31/16 [History] Past Medical History - Past Health History Medical/Surgical History: Denies Medical/Surgical History HEENT History: Reports: Impaired Vision Other HEENT History: uses reading glasses, has upper and lower dentures but only uses the upper Cardiovascular History: Reports: High Cholesterol, Hypertension Respiratory History: Reports: Asthma, Other (See Below) Other Respiratory History: recent sinus infection Gastrointestinal History: Reports: GERD, Hemorrhoids 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 History: Reports: None [employer]ING [employer]IP History: Reports: Musculoskeletal History: Reports: Back Pain, Chronic, Fracture Other Musculoskeletal History: hx fx right ankle Neurological History: Reports: Other (See Below) Other Neuro History: was told she had a "mini stroke" many years ago, no residual Psychiatric History: Reports: Anxiety, Depression Endocrine/Metabolic History: Reports: Diabetes, Type II, Hypothyroidism, Obesity /BMI 30+ Hematologic History: Reports: None Immunologic History: Reports: HIV Oncologic (Cancer) History: Reports: Basal Cell Carcinoma Dermatologic History: Reports: None - Infectious Disease History Infectious Disease History: Reports: HIV-Human Immunodeficiency Virus - Past Surgical History Head Surgeries/Procedures: Reports: None Female Surgical History: Reports: Hysterectomy, Salpingo-Oophorectomy Dermatological Surgical History: Reports: Other (See Below) Social & Family History - Family History Family Medical History: Noncontributory - Tobacco Use Smoking Status *Q: Never Smoker Years of Tobacco use: 25 Packs/Tins Daily: 2.5 Used Tobacco, but Quit: Yes Month Tobacco Last Used: 17 years ago Second Hand Smoke Exposure: No - Caffeine Use Caffeine Use: Reports: Coffee Caffeine Use Comment: 2/day - Alcohol Use Days Per Week of Alcohol Use: 0 Number of Drinks Per Day: 0 Total Drinks Per Week: 0 - Recreational Drug Use Recreational Drug Use: No Drug Use in Last 12 Months: No Review of Systems - Review of Systems Review Of Systems: See Below (she states that she hit her back with a door knob tonight; she is able to ambulate.) ED EXAM, GENERAL - Physical Exam Exam: See Below Free Text/Narrative:: alert 2 plus bilateral ankle edema able to bear weight both lower extremities surgical scar lateral right ankle right ankle without bony tenderness or deformity low back: without bony tenderness Course - Vital Signs Last Recorded V/S: Last Vital Signs Temp 97 F 02/12/17 02:00 Pulse 88 02/12/17 02:00 Resp 18 02/12/17 02:00 BP 151/81 H 02/12/17 02:00 Pulse Ox 94 L 02/12/17 02:00 - Orders/Labs/Meds Orders: Active Orders 24 hr Category Date Time Status Ankle 2V Rt [CR] Stat Exams 02/12/17 02:46 Taken Meds: Medications Discontinued Medications Generic Name Dose Route Start Last Admin Trade Name Tierra PRN Reason Stop Dose Admin Ketorolac Tromethamine 30 mg 02/12/17 02:50 02/12/17 03:14 Toradol IM 02/12/17 02:51 30 mg ONETIME ONE Administration - Re-Assessments/Exams Free Text/Narrative Re-Assessment/Exam: 02/12/17 03:15 XRay shows surgical changes; no acute bony injury Departure - Departure Time of Disposition: 03:21 Disposition: Home, Self-Care 01 Condition: Fair Clinical Impression: Right ankle pain - Discharge Information Referrals: PCP,None [Primary Care Provider] - Forms: ED Department Discharge Additional Instructions: your blood pressure was elevated tonight; a recheck with your doctor is recommended no new prescriptions; recheck as needed - My Orders Last 24 Hours: My Active Orders 02/12/17 02:46 Ankle 2V Rt [CR] Stat - Assessment/Plan Last 24 Hours: My Active Orders 02/12/17 02:46 Ankle 2V Rt [CR] Stat
[2017-02-12 03:54] VITALS: BP 133/80
--- NOTE | 2017-02-12 09:37 | CR ---
EXAM DATE: 02/12/17 PATIENT'S AGE: 56 Patient: EMILY ESCOBAR Facility: [place], [place] Site . Site : 1960 Study: XRay Extremity Right [id number]/21/2017 3:06:16 AM Ordering Physician: Doctor Fitzgerald Final Report: INDICATION: prior ORIF, now with pain TECHNIQUE: Two views of the right ankle COMPARISON: October 02, 2016. FINDINGS/IMPRESSION: Bones: Stable prior ORIF of the distal fibula with no evidence of hardware complication. Age indeterminate nonunited fracture fragment along the posterior malleolus which is new when compared to the previous examination. Enthesophyte formation on the plantar aspect of the calcaneus and Achilles tendon insertion to the calcaneus. Joint spaces: Unremarkable. Soft tissues: Unremarkable. Dictated by Jerry Pitts MD @ 02/12/2017 3:12:50 AM Dictated by: Jerry Pitts MD @ 02/12/2017 03:12:56 (Electronic Signature) Report Signed by Proxy. NARCISO
== END 2017-02-12 03:40 | disposition home or self-care (01) ==
LOC: MW.ED 01:41
DX: M25.571 Pain in right ankle and joints of right foot (principal); E78.00 Pure hypercholesterolemia, unspecified; I10 Essential (primary) hypertension; J45.909 Unspecified asthma, uncomplicated; F41.9 Anxiety disorder, unspecified; F32.9 Major depressive disorder, single episode, unspecified; K21.9 Gastro-esophageal reflux disease without esophagitis; E11.9 Type 2 diabetes mellitus without complications; E03.9 Hypothyroidism, unspecified; E66.9 Obesity, unspecified; Z88.8 Allergy status to other drugs, medicaments and biological substances; Z79.84 Long term (current) use of oral hypoglycemic drugs; Z79.899 Other long term (current) drug therapy; Z90.710 Acquired absence of both cervix and uterus
CPT/HCPCS: 73600; 96372; 99283; J1885

== ENCOUNTER 2017-03-21 00:14 | Emergency (ER) | payer MEDICAID ==
--- NOTE | 2017-03-21 00:53 | EDM.PDOC ---
ED HPI GENERAL MEDICAL PROBLEM - General Chief Complaint: General Stated Complaint: SICK WITH COLD Time Seen by Provider: 03/21/17 00:30 - History of Present Illness INITIAL COMMENTS - FREE TEXT/NARRATIVE: HISTORY AND PHYSICAL: History of present illness: Patient is 56-year-old white female presents with concern of nonproductive cough and congestion over last several days her daughters had the same no fever chills nausea vomiting or other complaints Review of systems: As per history of present illness and below otherwise all systems reviewed and negative. Past medical history: As per history of present illness and as reviewed below otherwise noncontributory. Surgical history: As per history of present illness and as reviewed below otherwise noncontributory. Social history: No reported history of drug or alcohol abuse. Family history: As per history of present illness and as reviewed below otherwise noncontributory. Physical exam: HEENT: Atraumatic, normocephalic, pupils reactive, negative for conjunctival pallor or scleral icterus, mucous membranes moist, throat clear, neck supple, nontender, trachea midline. Lungs: Clear to auscultation, breath sounds equal bilaterally, chest nontender. Heart: S1S2, regular, negative for clicks, rubs, or JVD. Abdomen: Soft, nondistended, nontender. Negative for masses or hepatosplenomegaly. Negative for costovertebral tenderness. Pelvis: Stable nontender. 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: Deferred. Rectal: Deferred. Extremities: Atraumatic, negative for cords or calf pain. Neurovascular unremarkable. Neuro: Awake, alert, oriented. Cranial nerves II through XII unremarkable. Cerebellum unremarkable. Motor and sensory unremarkable throughout. Exam nonfocal. Diagnostics: Chest x-ray Therapeutics: None Impression: #1 pneumonitis Definitive disposition and diagnosis as appropriate pending reevaluation and review of above. - Related Data Allergies Allergy/AdvReac Type Severity Reaction Status Date / Time doxepin [Doxepin] Allergy Blurred Verified 02/12/17 02:02 Vision lisinopril Allergy Rash Verified 02/12/17 02:02 Vejdkrb-Hgp-Dri Reductase Allergy Cannot Verified 02/12/17 02:02 Inhibitor Remember Home Meds: Home Meds Estrogens, Conjugated [Premarin Vaginal Crm] 1 applic VAG Q48H 12/14/13 [History ] Losartan/Hydrochlorothiazide [Losartan-HCTZ 100-12.5 MG] 1 each PO DAILY [History] Levothyroxine Sodium [Synthroid] 25 mcg PO ACBREAKFAST 04/06/14 [History] Levothyroxine Sodium [Synthroid] 200 mcg PO ACBREAKFAST 04/06/14 [History] ALPRAZolam [Xanax] 2 mg PO TID PRN 04/17/14 [History] Rosuvastatin [Crestor] 20 mg PO BEDTIME 04/17/14 [History] metFORMIN [Glucophage] 1,000 mg PO BID 04/17/14 [History] traMADol [Ultram] 50 mg PO Q6H PRN 04/17/14 [History] Celecoxib [CeleBREX] 100 mg PO BID PRN 04/01/15 [History] Sertraline HCl 100 mg PO DAILY 04/01/15 [History] Prochlorperazine Maleate 10 mg PO DAILY PRN 12/20/15 [History] amLODIPine Besylate [Norvasc] 5 mg PO DAILY 12/20/15 [History] Lidocaine 5% [Lidoderm 5%] 1 each [facility] ASDIRECTED PRN 01/04/16 [History] Ranitidine HCl [Zantac] 300 mg PO BEDTIME 01/07/16 [History] Mometasone/Formoterol [Dulera 100-5 MCG] 2 puff INH BID PRN 07/31/16 [History] Benzonatate 100 - 200 mg PO TID PRN 08/26/16 [History] Elviteg/Lucero/Emtric/Tenofo Ala [Genvoya Tablet] 1 each PO DAILY 08/26/16 [ History] Erythromycin Base [Erythromycin 0.5% Ophth Oint] 0.5 gm EYEBOTH BEDTIME [History] Levocetirizine Dihydrochloride 5 mg PO BEDTIME 08/26/16 [History] Orphenadrine Citrate 100 mg PO BID PRN 08/26/16 [History] Benzonatate [Tessalon Perles] 200 mg PO TID #45 cap 10/26/16 [Rx] Inhaler, Assist Devices [Space Chamber Plus] 1 each ASDIRECTED #1 spacer 10/09 [Rx] Albuterol Sulfate 1 - 2 puff INH Q4H PRN 10/31/16 [History] Past Medical History - Past Health History Medical/Surgical History: Denies Medical/Surgical History HEENT History: Reports: Impaired Vision Other HEENT History: uses reading glasses, has upper and lower dentures but only uses the upper Cardiovascular History: Reports: High Cholesterol, Hypertension Respiratory History: Reports: Asthma, Other (See Below) Other Respiratory History: recent sinus infection Gastrointestinal History: Reports: GERD, Hemorrhoids 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 History: Reports: None 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: Musculoskeletal History: Reports: Back Pain, Chronic, Fracture Other Musculoskeletal History: hx fx right ankle Neurological History: Reports: Other (See Below) Other Neuro History: was told she had a "mini stroke" many years ago, no residual Psychiatric History: Reports: Anxiety, Depression Endocrine/Metabolic History: Reports: Diabetes, Type II, Hypothyroidism, Obesity /BMI 30+ Hematologic History: Reports: None Immunologic History: Reports: HIV Oncologic (Cancer) History: Reports: Basal Cell Carcinoma Dermatologic History: Reports: None - Infectious Disease History Infectious Disease History: Reports: HIV-Human Immunodeficiency Virus - Past Surgical History Head Surgeries/Procedures: Reports: None Female Surgical History: Reports: Hysterectomy, Salpingo-Oophorectomy Dermatological Surgical History: Reports: Other (See Below) Social & Family History - Family History Family Medical History: Noncontributory - Tobacco Use Smoking Status *Q: Never Smoker Years of Tobacco use: 25 Packs/Tins Daily: 2.5 Used Tobacco, but Quit: Yes Month Tobacco Last Used: 17 years ago Second Hand Smoke Exposure: No - Caffeine Use Caffeine Use: Reports: Coffee Caffeine Use Comment: 2/day - Alcohol Use Days Per Week of Alcohol Use: 0 Number of Drinks Per Day: 0 Total Drinks Per Week: 0 - Recreational Drug Use Recreational Drug Use: No Drug Use in Last 12 Months: No ED ROS GENERAL - Review of Systems Review Of Systems: ROS reveals no pertinent complaints other than HPI. ED EXAM, GENERAL - Physical Exam Exam: See Below (See dictation) Course - Orders/Labs/Meds Orders: Active Orders 24 hr Category Date Time Status Chest 2V [CR] Stat Exams 03/21/17 00:32 Ordered Departure - Departure Time of Disposition: 00:52 Disposition: Home, Self-Care 01 Condition: Good Clinical Impression: Pneumonitis - Discharge Information Referrals: Chas Mitchell MD [Primary Care Provider] - Additional Instructions: The following information is given to patients seen in the emergency department who are being discharged to home. This information is to outline your options for follow-up care. We provide all patients seen in our emergency department with a follow-up referral. The need for follow-up, as well as the timing and circumstances, are variable depending upon the specifics of your emergency department visit. If you don't have a primary care physician on staff, we will provide you with a referral. We always advise you to contact your personal physician following an emergency department visit to inform them of the circumstance of the visit and for follow-up with them and/or the need for any referrals to a consulting specialist. The emergency department will also refer you to a specialist when appropriate. This referral assures that you have the opportunity for followup care with a specialist. All of these measure are taken in an effort to provide you with optimal care, which includes your followup. Under all circumstances we always encourage you to contact your private physician who remains a resource for coordinating your care. When calling for followup care, please make the office aware that this follow-up is from your recent emergency room visit. If for any reason you are refused follow-up, please contact the emergency department at and asked to speak to the emergency department charge nurse. Z-Junito as prescribed follow-up primary medical doctor wanted today's return as needed as discussed - My Orders Last 24 Hours: My Active Orders 03/21/17 00:32 Chest 2V [CR] Stat - Assessment/Plan Last 24 Hours: My Active Orders 03/21/17 00:32 Chest 2V [CR] Stat
[2017-03-21 02:21] VITALS: BP 153/68
--- NOTE | 2017-03-22 13:09 | CR ---
EXAM DATE: 03/21/17 PATIENT'S AGE: 56 Patient: EMILY ESCOBAR Facility: [place], [place] Site . Site : [id number] Study: XRay Chest [id number]/27/2017 12:54:38 AM Ordering Physician: Brayan Benoit Final Report: INDICATIONS: Cough. Cold. Shortness of breath. TECHNIQUE: Chest 2 view. COMPARISON: Chest radiograph October 31, 2016. FINDINGS: No pneumothorax, pleural effusion or airspace consolidation. Cardiac and mediastinal contours are within normal limits. Upper abdomen and osseous structures show no acute abnormality. IMPRESSION: No evidence of acute cardiopulmonary disease. Dictated by Omar Jackman MD @ 03/21/2017 1:50:00 AM Dictated by: Omar Jackman MD @ 03/21/2017 01:50:03 (Electronic Signature) Report Signed by Proxy. NARCISO
== END 2017-03-21 02:06 | disposition home or self-care (01) ==
LOC: MW.ED 00:14
DX: J18.9 Pneumonia, unspecified organism (principal); E78.00 Pure hypercholesterolemia, unspecified; I10 Essential (primary) hypertension; K21.9 Gastro-esophageal reflux disease without esophagitis; F41.9 Anxiety disorder, unspecified; F32.9 Major depressive disorder, single episode, unspecified; E11.9 Type 2 diabetes mellitus without complications; E03.9 Hypothyroidism, unspecified; E66.9 Obesity, unspecified; Z88.8 Allergy status to other drugs, medicaments and biological substances; Z79.899 Other long term (current) drug therapy; Z79.84 Long term (current) use of oral hypoglycemic drugs; Z90.710 Acquired absence of both cervix and uterus
CPT/HCPCS: 71020; 71020-26; 99284

== ENCOUNTER 2017-04-14 10:20 | Emergency (ER) | payer MEDICAID ==
[2017-04-14] MEDS ORDERED: Ketorolac 30 MG/ML SDV IVPUSH ONE (10:34)
--- NOTE | 2017-04-14 10:44 | EDM.PDOC ---
ED HPI GENERAL MEDICAL PROBLEM - General Chief Complaint: Chest Pain Stated Complaint: CHEST PAIN Time Seen by Provider: 04/14/17 10:25 Source of Information: Reports: Patient History Limitations: Reports: No Limitations - History of Present Illness INITIAL COMMENTS - FREE TEXT/NARRATIVE: History of present illness: []Patient was the [employer] line for bread when she developed at 9 AM left- sided upper chest pain that was sharp. She stated she felt her usual anxiety.She denies any shortness of breath, dizziness, nausea, vomiting or syncope. She takes alprazolam every morning for anxiety and did not take her meds this morning. He is recently seen here and diagnosed with pneumonitis put on a Z-Junito. She followed up in clinic in her antibiotics were changed to doxycycline which she feels is working better. She denies any fevers, cough, chills or diarrhea. Her pain is 0 out of 10 while in the ED. Review of systems: As per history of present illness and below otherwise all systems reviewed and negative. Past medical history: As per history of present illness and as reviewed below otherwise noncontributory. Surgical history: As per history of present illness and as reviewed below otherwise noncontributory. Social history: No reported history of drug or alcohol abuse. Family history: As per history of present illness and as reviewed below otherwise noncontributory. Physical exam: General: Well developed, well nourished in NAD HEENT: Atraumatic, normocephalic, pupils reactive, negative for conjunctival pallor or scleral icterus, mucous membranes moist, throat clear, neck supple, nontender, trachea midline. Lungs: Clear to auscultation, breath sounds equal bilaterally, chest with reproducible chest pain with palpation of the left upper chest there is no crepitance or ecchymosis. Heart: S1S2, regular, negative for clicks, rubs, or JVD. Abdomen: Soft, nondistended, nontender. Negative for masses or hepatosplenomegaly. Negative for costovertebral tenderness. Pelvis: Stable nontender. 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: Deferred. Rectal: Deferred. Extremities: Atraumatic, negative for cords or calf pain. Neurovascular unremarkable. Neuro: Awake, alert, oriented. Cranial nerves II through XII unremarkable. Cerebellum unremarkable. Motor and sensory unremarkable throughout. Exam nonfocal. Diagnostics: []EKG shows normal sinus rhythm without ischemic changes, Reviewed chart from previous visit, patient is well-known to this ED and is stable Therapeutics: []Toradol Impression: []Anxiety with chest wall pain Plan: []Follow-up PMD Definitive disposition and diagnosis as appropriate pending reevaluation and review of above. chest Pain Score (Numeric/FACES): 3 - Related Data Allergies Allergy/AdvReac Type Severity Reaction Status Date / Time doxepin [Doxepin] Allergy Blurred Verified 04/14/17 10:23 Vision lisinopril Allergy Rash Verified 04/14/17 10:23 Lnmdpbk-Aew-Qyb Reductase Allergy Cannot Verified 04/14/17 10:23 Inhibitor Remember Home Meds: Home Meds Estrogens, Conjugated [Premarin Vaginal Crm] 1 applic VAG Q48H 12/14/13 [History ] Losartan/Hydrochlorothiazide [Losartan-HCTZ 100-12.5 MG] 1 each PO DAILY [History] Levothyroxine Sodium [Synthroid] 25 mcg PO ACBREAKFAST 04/06/14 [History] Levothyroxine Sodium [Synthroid] 200 mcg PO ACBREAKFAST 04/06/14 [History] ALPRAZolam [Xanax] 2 mg PO TID PRN 04/17/14 [History] Rosuvastatin [Crestor] 20 mg PO BEDTIME 04/17/14 [History] metFORMIN [Glucophage] 1,000 mg PO BID 04/17/14 [History] traMADol [Ultram] 50 mg PO Q6H PRN 04/17/14 [History] Celecoxib [CeleBREX] 100 mg PO BID PRN 04/01/15 [History] Sertraline HCl 100 mg PO DAILY 04/01/15 [History] Prochlorperazine Maleate 10 mg PO DAILY PRN 12/20/15 [History] amLODIPine Besylate [Norvasc] 5 mg PO DAILY 12/20/15 [History] Lidocaine 5% [Lidoderm 5%] 1 each [facility] ASDIRECTED PRN 01/04/16 [History] Ranitidine HCl [Zantac] 300 mg PO BEDTIME 01/07/16 [History] Mometasone/Formoterol [Dulera 100-5 MCG] 2 puff INH BID PRN 07/31/16 [History] Benzonatate 100 - 200 mg PO TID PRN 08/26/16 [History] Elviteg/Lucero/Emtric/Tenofo Ala [Genvoya Tablet] 1 each PO DAILY 08/26/16 [ History] Erythromycin Base [Erythromycin 0.5% Ophth Oint] 0.5 gm EYEBOTH BEDTIME [History] Levocetirizine Dihydrochloride 5 mg PO BEDTIME 08/26/16 [History] Orphenadrine Citrate 100 mg PO BID PRN 08/26/16 [History] Benzonatate [Tessalon Perles] 200 mg PO TID #45 cap 10/26/16 [Rx] Inhaler, Assist Devices [Space Chamber Plus] 1 each [facility] ASDIRECTED #1 spacer 10/09 [Rx] Albuterol Sulfate 1 - 2 puff INH Q4H PRN 10/31/16 [History] Past Medical History - Past Health History Medical/Surgical History: Denies Medical/Surgical History HEENT History: Reports: Impaired Vision Other HEENT History: uses reading glasses, has upper and lower dentures but only uses the upper Cardiovascular History: Reports: High Cholesterol, Hypertension Respiratory History: Reports: Asthma, Pneumonia, Recurrent, Other (See Below) Other Respiratory History: recent sinus infection Gastrointestinal History: Reports: GERD, Hemorrhoids 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 History: Reports: 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: Musculoskeletal History: Reports: Back Pain, Chronic, Fracture Other Musculoskeletal History: hx fx right ankle Neurological History: Reports: Other (See Below) Other Neuro History: was told she had a "mini stroke" many years ago, no residual Psychiatric History: Reports: Anxiety, Depression Endocrine/Metabolic History: Reports: Diabetes, Type II, Hypothyroidism, Obesity /BMI 30+ Hematologic History: Reports: None Immunologic History: Reports: HIV Oncologic (Cancer) History: Reports: Basal Cell Carcinoma Dermatologic History: Reports: None - Infectious Disease History Infectious Disease History: Reports: HIV-Human Immunodeficiency Virus - Past Surgical History Head Surgeries/Procedures: Reports: None Female Surgical History: Reports: Hysterectomy, Salpingo-Oophorectomy Dermatological Surgical History: Reports: Other (See Below) Social & Family History - Family History Family Medical History: Noncontributory - Tobacco Use Smoking Status *Q: Never Smoker Years of Tobacco use: 25 Packs/Tins Daily: 2.5 Used Tobacco, but Quit: Yes Month Tobacco Last Used: 17 years ago Second Hand Smoke Exposure: No - Caffeine Use Caffeine Use: Reports: Coffee Caffeine Use Comment: 2/day - Alcohol Use Days Per Week of Alcohol Use: 0 Number of Drinks Per Day: 0 Total Drinks Per Week: 0 - Recreational Drug Use Recreational Drug Use: No Drug Use in Last 12 Months: No ED ROS GENERAL - Review of Systems Review Of Systems: See Below (See history of present illness) ED EXAM, GENERAL - Physical Exam Exam: See Below (See history of present illness) Course - Vital Signs Last Recorded V/S: Last Vital Signs Temp 36.1 C 04/14/17 10:24 Pulse 69 04/14/17 10:24 Resp 18 04/14/17 10:24 BP 153/92 H 04/14/17 10:24 Pulse Ox 96 04/14/17 10:24 - Orders/Labs/Meds Orders: Active Orders 24 hr Category Date Time Status EKG Documentation Completion [RC] STAT Care 04/14/17 10:33 Active Meds: Medications Discontinued Medications Generic Name Dose Route Start Last Admin Trade Name Tierra PRN Reason Stop Dose Admin Ketorolac Tromethamine 30 mg 04/14/17 10:34 Toradol IVPUSH 04/14/17 10:35 ONETIME ONE Departure - Departure Time of Disposition: 10:42 Disposition: Home, Self-Care 01 Condition: Good Clinical Impression: Chest wall pain - Discharge Information Referrals: PCP,Unknown [Primary Care Provider] - Additional Instructions: The following information is given to patients seen in the emergency department who are being discharged to home. This information is to outline your options for follow-up care. We provide all patients seen in our emergency department with a follow-up referral. The need for follow-up, as well as the timing and circumstances, are variable depending upon the specifics of your emergency department visit. If you don't have a primary care physician on staff, we will provide you with a referral. We always advise you to contact your personal physician following an emergency department visit to inform them of the circumstance of the visit and for follow-up with them and/or the need for any referrals to a consulting specialist. The emergency department will also refer you to a specialist when appropriate. This referral assures that you have the opportunity for follow-up care with a specialist. All of these measure are taken in an effort to provide you with optimal care, which includes your follow-up. Under all circumstances we always encourage you to contact your private physician who remains a resource for coordinating your care. When calling for follow-up care, please make the office aware that this follow-up is from your recent emergency room visit. If for any reason you are refused follow-up, please contact the [facility] Emergency Department at and asked to speak to the emergency department charge nurse. Continue meds as directed Return if symptoms worsen or change - My Orders Last 24 Hours: My Active Orders 04/14/17 10:33 EKG Documentation Completion [RC] STAT - Assessment/Plan Last 24 Hours: My Active Orders 04/14/17 10:33 EKG Documentation Completion [RC] STAT
[2017-04-14 11:09] VITALS: BP 147/69
== END 2017-04-14 11:02 | disposition home or self-care (01) ==
LOC: MW.ED 10:20
DX: F41.9 Anxiety disorder, unspecified (principal); R07.89 Other chest pain; B20 Human immunodeficiency virus [HIV] disease; I10 Essential (primary) hypertension; E78.00 Pure hypercholesterolemia, unspecified; J45.909 Unspecified asthma, uncomplicated; K21.9 Gastro-esophageal reflux disease without esophagitis; F32.9 Major depressive disorder, single episode, unspecified; E11.9 Type 2 diabetes mellitus without complications; E03.9 Hypothyroidism, unspecified; E66.9 Obesity, unspecified; Z85.828 Personal history of other malignant neoplasm of skin; Z90.710 Acquired absence of both cervix and uterus; Z87.891 Personal history of nicotine dependence; Z79.84 Long term (current) use of oral hypoglycemic drugs; Z79.899 Other long term (current) drug therapy; Z88.8 Allergy status to other drugs, medicaments and biological substances; Z68.42 Body mass index [BMI] 45.0-49.9, adult
CPT/HCPCS: 93005; 96374; 99284; J1885; 99283

== ENCOUNTER 2017-06-16 18:05 | Emergency (ER) | payer MEDICAID ==
--- NOTE | 2017-06-16 18:17 | EDM.PDOC ---
ED HPI GENERAL MEDICAL PROBLEM - General Stated Complaint: FALL/PAIN HIP Time Seen by Provider: 06/16/17 18:12 Source of Information: Reports: Patient, EMS, EMS Notes Reviewed History Limitations: Reports: No Limitations - History of Present Illness INITIAL COMMENTS - FREE TEXT/NARRATIVE: HISTORY AND PHYSICAL: []56-year-old female presenting with injury to her right leg History of Present Illness: []Patient states that she fell on her stairs and pain is noted to the lower right leg. She is also complaining of right hip pain, after some discussion she states that the pain in her right hip started 2 days ago feels worse now after she fell. Ambulance states the patient met them walking outside Review of Systems: As per history of present illness and below otherwise all systems reviewed and negative. Past medical history: As per history of present illness and as reviewed below otherwise noncontributory. Surgical history: As per history of present illness and as reviewed below otherwise noncontributory. Social history: No reported history of drug or alcohol abuse. Family history: As per history of present illness and as reviewed below otherwise noncontributory. Physical exam: Alert and oriented female denies any loss of consciousness. Speaking in full sentences without any shortness of breath. HEENT: Atraumatic, normocehpalic, pupils reactive, negative for conjunctival pallor or scleral icterus, mucous membranes moist, throat clear, neck supple, nontender, trachea midline. Lungs: Clear to auscultation, breath sounds equal bilaterally, chest non tender. Heart: S1S2, regular, negative for clicks, rubs, or JVD. Abdomen: Soft, nondistended, nontender. Negative for masses or hepatossplenmegaly. Negative for costovertebral tenderness. Pelvis: Stable nontender. 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: Deferred. Rectal: Deferred Extremities: Ecchymosis noted to the lower right leg anterior, negative for cords or calf pain. Tenderness noted to the right hip with palpation for range of motion is present. Good flexion and extension to her foot very minimal edema at the lateral malleolus. Skin is warm and dry. No heat radiating no erythema. Neurovascular unremarkable. Neuro: Awake, alert, oriented. Cranial nerves II through XII., neurological intact unremarkable. Cerebellum unremarkable. Motor and sensory unremarkable throughout. Exam nonfocal. Discussed with patient no fractures or dislocations were noted on x-ray examination Diagnostics: [1 view AP right hip x-ray Tib-fib right] Therapeutics: [] Impression: [Injury contusion to right lower leg Right hip pain] Plan: [Follow-up with your primary care provider Tylenol alternating with ibuprofen [id number] as needed for pain every 3- 4 hours.] Definitive disposition and diagnosis as appropriate pending reevaluation and review of above. left leg Pain Score (Numeric/FACES): 8 - Related Data Allergies Allergy/AdvReac Type Severity Reaction Status Date / Time doxepin [Doxepin] Allergy Blurred Verified 04/14/17 10:23 Vision lisinopril Allergy Rash Verified 04/14/17 10:23 [id number]-Vio-[id number] Reductase Allergy Cannot Verified 04/14/17 10:23 Inhibitor Remember Home Meds: Home Meds Estrogens, Conjugated [Premarin Vaginal Crm] 1 applic VAG Q48H 12/14/13 [History ] Losartan/Hydrochlorothiazide [Losartan-HCTZ 100-12.5 MG] 1 each PO DAILY [History] Levothyroxine Sodium [Synthroid] 25 mcg PO ACBREAKFAST 04/06/14 [History] Levothyroxine Sodium [Synthroid] 200 mcg PO ACBREAKFAST 04/06/14 [History] ALPRAZolam [Xanax] 2 mg PO TID PRN 04/17/14 [History] Rosuvastatin [Crestor] 20 mg PO BEDTIME 04/17/14 [History] metFORMIN [Glucophage] 1,000 mg PO BID 04/17/14 [History] traMADol [Ultram] 50 mg PO Q6H PRN 04/17/14 [History] Celecoxib [CeleBREX] 100 mg PO BID PRN 04/01/15 [History] Sertraline HCl 100 mg PO DAILY 04/01/15 [History] Prochlorperazine Maleate 10 mg PO DAILY PRN 12/20/15 [History] amLODIPine Besylate [Norvasc] 5 mg PO DAILY 12/20/15 [History] Lidocaine 5% [Lidoderm 5%] 1 each TOP ASDIRECTED PRN 01/04/16 [History] Ranitidine HCl [Zantac] 300 mg PO BEDTIME 01/07/16 [History] Mometasone/Formoterol [Dulera 100-5 MCG] 2 puff INH BID PRN 07/31/16 [History] Benzonatate 100 - 200 mg PO TID PRN 08/26/16 [History] Elviteg/Lucero/Emtric/Tenofo Ala [Genvoya Tablet] 1 each PO DAILY 08/26/16 [ History] Erythromycin Base [Erythromycin 0.5% Ophth Oint] 0.5 gm EYEBOTH BEDTIME [History] Levocetirizine Dihydrochloride 5 mg PO BEDTIME 08/26/16 [History] Orphenadrine Citrate 100 mg PO BID PRN 08/26/16 [History] Benzonatate [Tessalon Perles] 200 mg PO TID #45 cap 10/26/16 [Rx] Inhaler, Assist Devices [Space Chamber Plus] 1 each MC ASDIRECTED #1 spacer 10/09 [Rx] Albuterol Sulfate 1 - 2 puff INH Q4H PRN 10/31/16 [History] Past Medical History - Past Health History Medical/Surgical History: Denies Medical/Surgical History HEENT History: Reports: Impaired Vision Other HEENT History: uses reading glasses, has upper and lower dentures but only uses the upper Cardiovascular History: Reports: High Cholesterol, Hypertension Respiratory History: Reports: Asthma, Pneumonia, Recurrent, Other (See Below) Other Respiratory History: recent sinus infection Gastrointestinal History: Reports: GERD, Hemorrhoids 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 History: Reports: None 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: Musculoskeletal History: Reports: Back Pain, Chronic, Fracture Other Musculoskeletal History: hx fx right ankle Neurological History: Reports: Other (See Below) Other Neuro History: was told she had a "mini stroke" many years ago, no residual Psychiatric History: Reports: Anxiety, Depression Endocrine/Metabolic History: Reports: Diabetes, Type II, Hypothyroidism, Obesity /BMI 30+ Hematologic History: Reports: None Immunologic History: Reports: HIV Oncologic (Cancer) History: Reports: Basal Cell Carcinoma Dermatologic History: Reports: None - Infectious Disease History Infectious Disease History: Reports: HIV-Human Immunodeficiency Virus - Past Surgical History Female Surgical History: Reports: Hysterectomy, Salpingo-Oophorectomy Dermatological Surgical History: Reports: Other (See Below) Social & Family History - Family History Family Medical History: Noncontributory - Tobacco Use Smoking Status *Q: Never Smoker Years of Tobacco use: 25 Packs/Tins Daily: 2.5 Used Tobacco, but Quit: Yes Month Tobacco Last Used: 17 years ago Second Hand Smoke Exposure: No - Caffeine Use Caffeine Use: Reports: Coffee Caffeine Use Comment: 2/day - Alcohol Use Days Per Week of Alcohol Use: 0 Number of Drinks Per Day: 0 Total Drinks Per Week: 0 - Recreational Drug Use Recreational Drug Use: No Drug Use in Last 12 Months: No Review of Systems - Review of Systems Review Of Systems: ROS reveals no pertinent complaints other than HPI. ED EXAM, GENERAL - Physical Exam Exam: See Below (See dictation) Course - Vital Signs Last Recorded V/S: Last Vital Signs Temp 36.3 C 06/16/17 18:14 Pulse 84 06/16/17 18:14 Resp 18 06/16/17 18:14 BP 137/68 06/16/17 18:14 Pulse Ox 99 06/16/17 18:14 - Orders/Labs/Meds Orders: Active Orders 24 hr Category Date Time Status Hip Min 1V Rt [CR] Stat Exams 06/16/17 18:11 Taken Tibia Fibula Rt [CR] Stat Exams 06/16/17 18:11 Taken Departure - Departure Time of Disposition: 19:05 Disposition: Home, Self-Care 01 Condition: Good Clinical Impression: Contusion of hip, Contusion - Discharge Information - My Orders Last 24 Hours: My Active Orders 06/16/17 18:11 Hip Min 1V Rt [CR] Stat Tibia Fibula Rt [CR] Stat - Assessment/Plan Last 24 Hours: My Active Orders 06/16/17 18:11 Hip Min 1V Rt [CR] Stat Tibia Fibula Rt [CR] Stat
[2017-06-16] MEDS ORDERED: Ketorolac 60 MG/2 ML SDV IM ONE (19:09)
[2017-06-16 19:17] VITALS: BP 137/64
--- NOTE | 2017-06-18 11:40 | CR ---
EXAM DATE: 06/16/17 PATIENT'S AGE: 56 Patient: EMILY ESCOBAR Facility: [place], [place] Site . Site : 1960 Study: XRay Extremity tib/fib [id number]/22/2017 6:32:38 PM Ordering Physician: Doctor Fitzgerald Final Report: INDICATION: Fall, leg pain TECHNIQUE: Tibia-fibula radiograph 2 views COMPARISON: 02/15/2017 FINDINGS: Bones: There is a nondisplaced fracture in the posterior malleolus present without interval change. ORIF of the distal fibula and lateral malleolus with metallic side plate and multiple cortical screws are noted without interval change. Joints: The visualized knee and ankle joints are unremarkable. No significant joint effusion is seen. Soft tissue: Unremarkable. No radiopaque foreign bodies are seen. IMPRESSION: 1. No acute osseous injuries or abnormalities are noted. Dictated by Moo Mcdermott MD @ 06/16/2017 7:24:29 PM Dictated by: Moo Mcdermott MD @ 06/16/2017 19:24:32 (Electronic Signature) Report Signed by Proxy. [facility]
--- NOTE | 2017-06-18 11:41 | CR ---
EXAM DATE: 06/16/17 PATIENT'S AGE: 56 Patient: EMILY ESCOBAR Facility: [place], [place] Site . Site : 1960 Study: XRay Hip [id number]/22/2017 6:32:58 PM Ordering Physician: Doctor Fitzgerald Final Report: INDICATION: Fall, hip pain TECHNIQUE: Hip radiograph 1 view right COMPARISON: None FINDINGS: Bones: No acute fractures or aggressive bone lesions are identified. Joints: The hip joint is unremarkable. No significant hip effusion is seen. The visualized sacroiliac joints are unremarkable in appearance. The pubic symphysis is normal in appearance. Soft tissues: Unremarkable. No radiopaque foreign bodies are seen. IMPRESSIONS: 1. No acute osseous injuries or abnormalities are noted. 2. Complete radiographic assessment will require at least 1 additional orthogonal view of the hip. Dictated by Moo Mcdermott MD @ 06/16/2017 7:25:38 PM Dictated by: Moo Mcdermott MD @ 06/16/2017 19:25:43 (Electronic Signature) Report Signed by Proxy. [facility]
== END 2017-06-16 19:25 | disposition home or self-care (01) ==
LOC: MW.ED 18:05
DX: S80.11XA Contusion of right lower leg, initial encounter (principal); S70.01XA Contusion of right hip, initial encounter; I10 Essential (primary) hypertension; E11.9 Type 2 diabetes mellitus without complications; Z88.8 Allergy status to other drugs, medicaments and biological substances; Z79.899 Other long term (current) drug therapy; Z79.84 Long term (current) use of oral hypoglycemic drugs; W10.9XXA Fall (on) (from) unspecified stairs and steps, initial encounter
CPT/HCPCS: 73501; 73590; 96372; 99283; J1885

== ENCOUNTER 2017-06-27 10:02 | Emergency (ER) | payer MEDICAID ==
[2017-06-27] MEDS ORDERED: Albuterol/Ipratropium 3.0-0.5 MG/3 ML Neb Soln NEB ONE (10:21)
--- NOTE | 2017-06-27 10:24 | EDM.PDOC ---
ED HPI GENERAL MEDICAL PROBLEM - General Chief Complaint: Respiratory Problem Stated Complaint: HARD TIME BREATHING Time Seen by Provider: 06/27/17 10:17 Source of Information: Reports: Patient History Limitations: Reports: No Limitations - History of Present Illness INITIAL COMMENTS - FREE TEXT/NARRATIVE: HISTORY AND PHYSICAL: []56-year-old female presenting with cough and sinus pressure, sob History of Present Illness: []Patient isn't sick for approximately 1 week and is is worsening in her symptoms Review of Systems: As per history of present illness and below otherwise all systems reviewed and negative. Past medical history: As per history of present illness and as reviewed below otherwise noncontributory. Surgical history: As per history of present illness and as reviewed below otherwise noncontributory. Social history: No reported history of drug or alcohol abuse. Family history: As per history of present illness and as reviewed below otherwise noncontributory. Physical exam: Alert and oriented female who sounds worse when she is speaking she is speaking about 4 words sentences slight shortness of breath HEENT: Atraumatic, normocehpalic, pupils reactive, negative for conjunctival pallor or scleral icterus, mucous membranes moist, throat red, neck supple, nontender, trachea midline. Sinuses are exquisitely tender upon palpation tympanic membrane on the left is mildly erythematous . Lungs: Clear to auscultation, breath sounds equal bilaterally, chest non tender. Poor inspiratory eccentric effort Heart: S1S2, regular, negative for clicks, rubs, or JVD. Abdomen: Soft, nondistended, nontender. Negative for masses or hepatossplenmegaly. Negative for costovertebral tenderness. Pelvis: Stable nontender. 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: Deferred. Rectal: Deferred Extremities: Atraumatic, negative for cords or calf pain. Neurovascular unremarkable. Neuro: Awake, alert, oriented. Cranial nerves II through XII unremarkable. Cerebellum unremarkable. Motor and sensory unremarkable throughout. Exam nonfocal. Diagnostics: [] Therapeutics: [RT treatments DuoNeb] Impression: [1 acute sinusitis 2 bronchitis] Plan: [] Definitive disposition and diagnosis as appropriate pending reevaluation and review of above. Headache Pain Score (Numeric/FACES): 8 - Related Data Allergies Allergy/AdvReac Type Severity Reaction Status Date / Time doxepin [Doxepin] Allergy Blurred Verified 06/27/17 10:14 Vision lisinopril Allergy Rash Verified 06/27/17 10:14 [id number]-Bvr-Qbf Reductase Allergy Cannot Verified 06/27/17 10:14 Inhibitor Remember Home Meds: Home Meds Estrogens, Conjugated [Premarin Vaginal Crm] 1 applic VAG Q48H 12/14/13 [History ] Losartan/Hydrochlorothiazide [Losartan-HCTZ 100-12.5 MG] 1 each PO DAILY [History] Levothyroxine Sodium [Synthroid] 25 mcg PO ACBREAKFAST 04/06/14 [History] Levothyroxine Sodium [Synthroid] 200 mcg PO ACBREAKFAST 04/06/14 [History] ALPRAZolam [Xanax] 2 mg PO TID PRN 04/17/14 [History] Rosuvastatin [Crestor] 20 mg PO BEDTIME 04/17/14 [History] metFORMIN [Glucophage] 1,000 mg PO BID 04/17/14 [History] traMADol [Ultram] 50 mg PO Q6H PRN 04/17/14 [History] Celecoxib [CeleBREX] 100 mg PO BID PRN 04/01/15 [History] Sertraline HCl 100 mg PO DAILY 04/01/15 [History] Prochlorperazine Maleate 10 mg PO DAILY PRN 12/20/15 [History] amLODIPine Besylate [Norvasc] 5 mg PO DAILY 12/20/15 [History] Lidocaine 5% [Lidoderm 5%] 1 each TOP ASDIRECTED PRN 01/04/16 [History] Ranitidine HCl [Zantac] 300 mg PO BEDTIME 01/07/16 [History] Mometasone/Formoterol [Dulera 100-5 MCG] 2 puff INH BID PRN 07/31/16 [History] Benzonatate 100 - 200 mg PO TID PRN 08/26/16 [History] Elviteg/Lucero/Emtric/Tenofo Ala [Genvoya Tablet] 1 each PO DAILY 08/26/16 [ History] Erythromycin Base [Erythromycin 0.5% Ophth Oint] 0.5 gm EYEBOTH BEDTIME [History] Levocetirizine Dihydrochloride 5 mg PO BEDTIME 08/26/16 [History] Orphenadrine Citrate 100 mg PO BID PRN 08/26/16 [History] Benzonatate [Tessalon Perles] 200 mg PO TID #45 cap 10/26/16 [Rx] Inhaler, Assist Devices [Space Chamber Plus] 1 each MC ASDIRECTED #1 spacer 10/09 [Rx] Albuterol Sulfate 1 - 2 puff INH Q4H PRN 10/31/16 [History] Amoxicillin/Potassium Clav [Augmentin 875-125 Tablet] 1 each PO BID #14 tablet 06/27/17 [Rx] Benzonatate [Tessalon Perles] 100 mg PO QID #40 cap 06/27/17 [Rx] methylPREDNISolone [Medrol] 4 mg PO ASDIRECTED #1 dosepk 06/27/17 [Rx] Past Medical History - Past Health History Medical/Surgical History: Denies Medical/Surgical History HEENT History: Reports: Impaired Vision Other HEENT History: uses reading glasses, has upper and lower dentures but only uses the upper Cardiovascular History: Reports: High Cholesterol, Hypertension Respiratory History: Reports: Asthma, Pneumonia, Recurrent, Other (See Below) Other Respiratory History: recent sinus infection Gastrointestinal History: Reports: GERD, Hemorrhoids 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 History: Reports: None 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: Musculoskeletal History: Reports: Back Pain, Chronic, Fracture Other Musculoskeletal History: hx fx right ankle Neurological History: Reports: Other (See Below) Other Neuro History: was told she had a "mini stroke" many years ago, no residual Psychiatric History: Reports: Anxiety, Depression Endocrine/Metabolic History: Reports: Diabetes, Type II, Hypothyroidism, Obesity /BMI 30+ Hematologic History: Reports: None Immunologic History: Reports: HIV Oncologic (Cancer) History: Reports: Basal Cell Carcinoma Dermatologic History: Reports: None - Infectious Disease History Infectious Disease History: Reports: Chicken Pox, HIV-Human Immunodeficiency Virus, Measles, Mumps - Past Surgical History Head Surgeries/Procedures: Reports: None Female Surgical History: Reports: Hysterectomy, Salpingo-Oophorectomy Social & Family History - Family History Family Medical History: Noncontributory - Tobacco Use Smoking Status *Q: Never Smoker Years of Tobacco use: 25 Packs/Tins Daily: 2.5 Used Tobacco, but Quit: Yes Month Tobacco Last Used: 17 years ago Second Hand Smoke Exposure: No - Caffeine Use Caffeine Use: Reports: Coffee Caffeine Use Comment: 2/day - Alcohol Use Days Per Week of Alcohol Use: 0 Number of Drinks Per Day: 0 Total Drinks Per Week: 0 - Recreational Drug Use Recreational Drug Use: No Drug Use in Last 12 Months: No ED ROS GENERAL - Review of Systems Review Of Systems: ROS reveals no pertinent complaints other than HPI. ED EXAM, GENERAL - Physical Exam Exam: See Below (see dictation) Course - Vital Signs Last Recorded V/S: Last Vital Signs Temp 36.2 C 06/27/17 10:12 Pulse 75 06/27/17 10:12 Resp 20 06/27/17 10:12 BP 139/67 06/27/17 10:12 Pulse Ox 93 L 06/27/17 10:12 Departure - Departure Time of Disposition: 10:24 Disposition: Home, Self-Care 01 Condition: Good Clinical Impression: Bronchitis Sinusitis Qualifiers: Sinusitis location: frontal Chronicity: acute Recurrence: not specified as recurrent Qualified Code(s): J01.10 - Acute frontal sinusitis, unspecified - Discharge Information Prescriptions: Amoxicillin/Potassium Clav [Augmentin 875-125 Tablet] 1 each PO BID #14 tablet Benzonatate [Tessalon Perles] 100 mg PO QID #40 cap methylPREDNISolone [Medrol] 4 mg PO ASDIRECTED #1 dosepk Instructions: Upper Respiratory Infection, Adult, [id number] Referrals: PCP,None [Primary Care Provider] - Additional Instructions: The following information is given to patients seen in the emergency department who are being discharged to home. This information is to outline your options for follow-up care. We provide all patients seen in our emergency department with a follow-up referral. The need for follow-up, as well as the timing and circumstances, are variable depending upon the specifics of your emergency department visit. If you don't have a primary care physician on staff, we will provide you with a referral. We always advise you to contact your personal physician following an emergency department visit to inform them of the circumstance of the visit and for follow-up with them and/or the need for any referrals to a consulting specialist. The emergency department will also refer you to a specialist when appropriate. This referral assures that you have the opportunity for followup care with a specialist. All of these measure are taken in an effort to provide you with optimal care, which includes your followup. Under all circumstances we always encourage you to contact your private physician who remains a resource for coordinating your care. When calling for followup care, please make the office aware that this follow-up is from your recent emergency room visit. If for any reason you are refused follow-up, please contact the [facility] emergency department at and asked to speak to the emergency department charge nurse. On your visit to the emergency room today your found to have acute sinusitis, and an upper respiratory infection History of cough been prescribed Tessalon José Miguel Infection process within prescribed Augmentin Medrol Dosepak is to reduce the inflammation that is in her chest and lungs Follow-up with your primary care provider next week
[2017-06-27 10:56] VITALS: BP 156/74
== END 2017-06-27 10:53 | disposition home or self-care (01) ==
LOC: MW.ED 10:02
DX: J01.90 Acute sinusitis, unspecified (principal); J40 Bronchitis, not specified as acute or chronic; E78.00 Pure hypercholesterolemia, unspecified; I10 Essential (primary) hypertension; E11.9 Type 2 diabetes mellitus without complications; Z88.8 Allergy status to other drugs, medicaments and biological substances; Z79.84 Long term (current) use of oral hypoglycemic drugs; Z79.899 Other long term (current) drug therapy
CPT/HCPCS: 94640; 99282; 99283-25

== ENCOUNTER 2017-09-22 22:15 | Emergency (ER) | payer MEDICAID ==
--- NOTE | 2017-09-22 22:29 | EDM.PDOC ---
ED HPI GENERAL MEDICAL PROBLEM - General Chief Complaint: Lower Extremity Injury/Pain Stated Complaint: AMB Time Seen by Provider: 09/22/17 22:27 - History of Present Illness INITIAL COMMENTS - FREE TEXT/NARRATIVE: HISTORY AND PHYSICAL: History of present illness: Patient 56-year-old white female presents status post fall at home which she injured her right lower extremity this is restricted to her leg patient is some chronic foot pain from prior fracture she denies any head or neck pain or trauma other concern she states this was strictly a mechanical fall Review of systems: As per history of present illness and below otherwise all systems reviewed and negative. Past medical history: As per history of present illness and as reviewed below otherwise noncontributory. Surgical history: As per history of present illness and as reviewed below otherwise noncontributory. Social history: No reported history of drug or alcohol abuse. Family history: As per history of present illness and as reviewed below otherwise noncontributory. Physical exam: HEENT: Atraumatic, normocephalic, pupils reactive, negative for conjunctival pallor or scleral icterus, mucous membranes moist, throat clear, neck supple, nontender, trachea midline. Lungs: Clear to auscultation, breath sounds equal bilaterally, chest nontender. Heart: S1S2, regular, negative for clicks, rubs, or JVD. Abdomen: Soft, nondistended, nontender. Negative for masses or hepatosplenomegaly. Negative for costovertebral tenderness. Pelvis: Stable nontender. 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: Deferred. Rectal: Deferred. Extremities: Patient had some mild tenderness to palpation of her leg and foot this is without gross deformity without point tenderness CMS in neurovascular exams unremarkable is no significant swelling or erythema Neuro: Awake, alert, oriented. Cranial nerves II through XII unremarkable. Cerebellum unremarkable. Motor and sensory unremarkable throughout. Exam nonfocal. Diagnostics: X-ray right foot/tib-fib Therapeutics: To be determined Impression: #1 observation status post fall #2 acute right lower extremity injury Definitive disposition and diagnosis as appropriate pending reevaluation and review of above. right arm/leg Pain Score (Numeric/FACES): 10 - Related Data Allergies Allergy/AdvReac Type Severity Reaction Status Date / Time doxepin [Doxepin] Allergy Blurred Verified 09/22/17 22:22 Vision lisinopril Allergy Rash Verified 09/22/17 22:22 Ayauirn-Xsz-Ydv Reductase Allergy Cannot Verified 09/22/17 22:22 Inhibitor Remember Home Meds: Home Meds Estrogens, Conjugated [Premarin Vaginal Crm] 1 applic VAG Q48H 12/14/13 [History ] Losartan/Hydrochlorothiazide [Losartan-HCTZ 100-12.5 MG] 1 each PO DAILY [History] Levothyroxine Sodium [Synthroid] 25 mcg PO ACBREAKFAST 04/06/14 [History] Levothyroxine Sodium [Synthroid] 200 mcg PO ACBREAKFAST 04/06/14 [History] ALPRAZolam [Xanax] 2 mg PO TID PRN 04/17/14 [History] Rosuvastatin [Crestor] 20 mg PO BEDTIME 04/17/14 [History] metFORMIN [Glucophage] 1,000 mg PO BID 04/17/14 [History] traMADol [Ultram] 50 mg PO Q6H PRN 04/17/14 [History] Celecoxib [CeleBREX] 100 mg PO BID PRN 04/01/15 [History] Sertraline HCl 100 mg PO DAILY 04/01/15 [History] Prochlorperazine Maleate 10 mg PO DAILY PRN 12/20/15 [History] amLODIPine Besylate [Norvasc] 5 mg PO DAILY 12/20/15 [History] Lidocaine 5% [Lidoderm 5%] 1 each TOP ASDIRECTED PRN 01/04/16 [History] Ranitidine HCl [Zantac] 300 mg PO BEDTIME 01/07/16 [History] Mometasone/Formoterol [Dulera 100-5 MCG] 2 puff INH BID PRN 07/31/16 [History] Benzonatate 100 - 200 mg PO TID PRN 08/26/16 [History] Elviteg/Lucero/Emtric/Tenofo Ala [Genvoya Tablet] 1 each PO DAILY 08/26/16 [ History] Erythromycin Base [Erythromycin 0.5% Ophth Oint] 0.5 gm EYEBOTH BEDTIME [History] Levocetirizine Dihydrochloride 5 mg PO BEDTIME 08/26/16 [History] Orphenadrine Citrate 100 mg PO BID PRN 08/26/16 [History] Benzonatate [Tessalon Perles] 200 mg PO TID #45 cap 10/26/16 [Rx] Inhaler, Assist Devices [Space Chamber Plus] 1 each MC ASDIRECTED #1 spacer 10/09 [Rx] Albuterol Sulfate 1 - 2 puff INH Q4H PRN 10/31/16 [History] Amoxicillin/Potassium Clav [Augmentin 875-125 Tablet] 1 each PO BID #14 tablet 06/27/17 [Rx] Benzonatate [Tessalon Perles] 100 mg PO QID #40 cap 06/27/17 [Rx] methylPREDNISolone [Medrol] 4 mg PO ASDIRECTED #1 dosepk 06/27/17 [Rx] Past Medical History - Past Health History Medical/Surgical History: Denies Medical/Surgical History HEENT History: Reports: Impaired Vision Other HEENT History: uses reading glasses, has upper and lower dentures but only uses the upper Cardiovascular History: Reports: High Cholesterol, Hypertension Respiratory History: Reports: Asthma, Pneumonia, Recurrent, Other (See Below) Other Respiratory History: recent sinus infection Gastrointestinal History: Reports: GERD, Hemorrhoids 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 History: Reports: None BAKER BREAD History: Reports: Musculoskeletal History: Reports: Back Pain, Chronic, Fracture Other Musculoskeletal History: hx fx right ankle Neurological History: Reports: Other (See Below) Other Neuro History: was told she had a "mini stroke" many years ago, no residual Psychiatric History: Reports: Anxiety, Depression Endocrine/Metabolic History: Reports: Diabetes, Type II, Hypothyroidism, Obesity /BMI 30+ Hematologic History: Reports: None Immunologic History: Reports: HIV Oncologic (Cancer) History: Reports: Basal Cell Carcinoma Dermatologic History: Reports: None - Infectious Disease History Infectious Disease History: Reports: HIV-Human Immunodeficiency Virus - Past Surgical History Head Surgeries/Procedures: Reports: None Female Surgical History: Reports: Hysterectomy, Salpingo-Oophorectomy Social & Family History - Family History Family Medical History: Noncontributory - Tobacco Use Smoking Status *Q: Never Smoker Years of Tobacco use: 25 Packs/Tins Daily: 2.5 Used Tobacco, but Quit: Yes Month Tobacco Last Used: 17 years ago Second Hand Smoke Exposure: No - Caffeine Use Caffeine Use: Reports: None Caffeine Use Comment: 2/day - Alcohol Use Days Per Week of Alcohol Use: 0 Number of Drinks Per Day: 0 Total Drinks Per Week: 0 - Recreational Drug Use Recreational Drug Use: No Drug Use in Last 12 Months: No Review of Systems - Review of Systems Review Of Systems: ROS reveals no pertinent complaints other than HPI. ED EXAM, GENERAL - Physical Exam Exam: See Below (The dictation) Course - Vital Signs Last Recorded V/S: Last Vital Signs Temp 36.6 C 09/23/17 00:10 Pulse 78 09/23/17 00:10 Resp 20 09/23/17 00:10 BP 121/62 09/23/17 00:10 Pulse Ox 94 L 09/23/17 00:10 - Orders/Labs/Meds Orders: Active Orders 24 hr Category Date Time Status Chest 1V Frontal [CR] Stat Exams 09/22/17 22:41 Taken Foot 2V Rt [CR] Stat Exams 09/22/17 22:41 Taken Pelvis 1V or 2V [CR] Stat Exams 09/22/17 22:41 Taken Tibia Fibula Rt [CR] Stat Exams 09/22/17 22:30 Taken Meds: Medications Discontinued Medications Generic Name Dose Route Start Last Admin Trade Name Tierra PRN Reason Stop Dose Admin Acetaminophen 1,000 mg 09/23/17 00:02 09/23/17 00:07 Tylenol Extra Strength PO 09/23/17 00:03 1,000 mg ONETIME ONE Administration Departure - Departure Time of Disposition: 00:47 Disposition: Home, Self-Care 01 Clinical Impression: Pain of right lower leg, Fall - Discharge Information Instructions: Fall Prevention in the Home, [id number], Hip Pain, Ankle Pain Referrals: Chas Mitchell MD [Primary Care Provider] - Forms: ED Department Discharge - My Orders Last 24 Hours: My Active Orders 09/22/17 22:30 Tibia Fibula Rt [CR] Stat 09/22/17 22:41 Chest 1V Frontal [CR] Stat Foot 2V Rt [CR] Stat Pelvis 1V or 2V [CR] Stat - Assessment/Plan Last 24 Hours: My Active Orders 09/22/17 22:30 Tibia Fibula Rt [CR] Stat 09/22/17 22:41 Chest 1V Frontal [CR] Stat Foot 2V Rt [CR] Stat Pelvis 1V or 2V [CR] Stat
[2017-09-23] MEDS ORDERED: Acetaminophen 500 MG Tab PO ONE (00:02)
[2017-09-23 00:14] VITALS: BP 121/62
--- NOTE | 2017-09-23 11:16 | CR ---
EXAM DATE: 09/22/17 PATIENT'S AGE: 56 Patient: EMILY ESCOBAR Facility: [place], [place] Site . Site : 1960 Study: XRay Pelvis [id number]/28/2018 11:23:43 PM Ordering Physician: Brayan Benoit Final Report: INDICATION: injury from fall TECHNIQUE: Single AP view of the bony pelvis COMPARISON: None FINDINGS: Bones: No fractures or bone lesions. Joint spaces: Degenerative changes. Soft tissues: Unremarkable. IMPRESSION: No gross evidence for acute bony abnormality on this single AP view of the bony pelvis. Dictated by Jerry Pitts MD @ 09/22/2017 11:25:51 PM Dictated by: Jerry Pitts MD @ 09/22/2017 23:26:04 (Electronic Signature) Report Signed by Proxy. [facility]
--- NOTE | 2017-09-23 11:17 | CR ---
EXAM DATE: 09/22/17 PATIENT'S AGE: 56 Patient: EMILY ESCOBAR Facility: [place], [place] Site . Site : 1960 Study: XRay Chest [id number]/28/2018 11:24:15 PM Ordering Physician: Brayan Benoit Final Report: INDICATION: fell TECHNIQUE: Chest 1 view COMPARISON: March 21, 2017 FINDINGS: Cardiovascular and mediastinum: Heart size and vasculature are normal in caliber and appearance. Mediastinum is within normal limits. Lungs and pleural space: No focal consolidation. No sign of pleural effusion. No pneumothorax. Bones and soft tissues: No significant findings. IMPRESSION: No acute cardiopulmonary disease. Dictated by Jerry Pitts MD @ 09/22/2017 11:27:19 PM Dictated by: Jerry Pitts MD @ 09/22/2017 23:27:27 (Electronic Signature) Report Signed by Proxy. [facility]
--- NOTE | 2017-09-23 11:18 | CR ---
EXAM DATE: 09/22/17 PATIENT'S AGE: 56 Patient: EMILY ESCOBAR Facility: [place], [place] Site . Site : 1960 Study: XRay Extremity Right [id number]/28/2018 11:25:10 PM Ordering Physician: Brayan Benoit Final Report: INDICATION: fell TECHNIQUE: Two views of the right foot COMPARISON: December 16, 2015 FINDINGS: Bones: Partially imaged prior ORIF of the distal fibula. Remote posttraumatic deformity of the posterior malleolus. Enthesophyte formation along the plantar aspect of the calcaneus and Achilles tendon insertion to the calcaneus. No fractures or bone lesions. Joint spaces: Hallux valgus deformity with associated bunion. Soft tissues: Unremarkable. IMPRESSION: No acute bony abnormality Dictated by Jerry Pitts MD @ 09/22/2017 11:30:09 PM Dictated by: Jerry Pitts MD @ 09/22/2017 23:31:00 (Electronic Signature) Report Signed by Proxy. NARC[facility]
--- NOTE | 2017-09-23 11:19 | CR ---
EXAM DATE: 09/22/17 PATIENT'S AGE: 56 Patient: EMILY ESCOBAR Facility: [place], [place] Site . Site : 1960 Study: XRay Extremity Right [id number]/28/2018 11:27:11 PM Ordering Physician: Brayan Benoit Final Report: INDICATION: fell TECHNIQUE: Right tibia/ fibula radiographs COMPARISON: Right foot radiographs performed earlier the same day FINDINGS: Bones: Partially imaged prior ORIF of the distal fibula. Remote posttraumatic deformity of the posterior malleolus. No fractures or bone lesions. Enthesophyte formation along the plantar aspect of the calcaneus and Achilles tendon insertion to the calcaneus. Joint spaces: Degenerative changes Soft tissues: Unremarkable. IMPRESSION: No acute bony abnormality. Dictated by Jerry Pitts MD @ 09/22/2017 11:32:51 PM Dictated by: Jerry Pitts MD @ 09/22/2017 23:33:20 (Electronic Signature) Report Signed by Proxy. NARC[facility]
== END 2017-09-23 00:10 | disposition home or self-care (01) ==
LOC: MW.ED 22:15
DX: S89.91XA Unspecified injury of right lower leg, initial encounter (principal); E78.00 Pure hypercholesterolemia, unspecified; I10 Essential (primary) hypertension; E11.9 Type 2 diabetes mellitus without complications; E03.9 Hypothyroidism, unspecified; Z88.8 Allergy status to other drugs, medicaments and biological substances; Z79.84 Long term (current) use of oral hypoglycemic drugs; Z79.899 Other long term (current) drug therapy; Z87.891 Personal history of nicotine dependence; W19.XXXA Unspecified fall, initial encounter
CPT/HCPCS: 71045; 72170; 73590; 73620; 99283; A9270; 99284

== ENCOUNTER 2017-10-21 11:20 | Emergency (ER) | payer MEDICAID ==
--- NOTE | 2017-10-21 11:32 | EDM.PDOC ---
ED HPI GENERAL MEDICAL PROBLEM - General Chief Complaint: General Stated Complaint: PAT. FELLED Time Seen by Provider: 10/21/17 11:31 Source of Information: Reports: Patient History Limitations: Reports: No Limitations - History of Present Illness INITIAL COMMENTS - FREE TEXT/NARRATIVE: HISTORY AND PHYSICAL: History of present illness: Patient is a 56-year-old female who presents to the emergency room with complaints of generalized body pain and concern of a "brain bleed" after a fall. Patient states she was using her walker to get up out of bed when she tripped and fell landing on her left side. She states that she hit her head on the floor but did not have any loss of consciousness. She is here requesting a head CT further evaluation. She denies any change in vision, headache, nausea or vomiting. She denies any chest pain, shortness of breath, abdominal pain or GI/ symptoms. She denies any fever or chills. Past medical history of retention, hypothyroidism, anxiety, diabetes, HIV, and chronic back pain. Review of systems: As per history of present illness and below otherwise all systems reviewed and negative. Past medical history: As per history of present illness and as reviewed below otherwise noncontributory. Surgical history: As per history of present illness and as reviewed below otherwise noncontributory. Social history: No reported history of drug or alcohol abuse. Family history: As per history of present illness and as reviewed below otherwise noncontributory. Physical exam: General: Well-developed and well-nourished 56-year-old female. Alert and oriented. Nontoxic appearing and in no acute distress. HEENT: Nontender with palpation no obvious deformities or crepitus noted. Normocephalic, pupils equal and reactive bilaterally, negative for conjunctival pallor or scleral icterus, mucous membranes moist, throat clear, neck supple, nontender, trachea midline. No drooling or trismus noted. No meningeal signs Lungs: Clear to auscultation, breath sounds equal bilaterally, chest nontender. Heart: S1S2, regular rate and rhythm without overt murmur Abdomen: Soft, nondistended, nontender. Negative for masses or hepatosplenomegaly. Negative for costovertebral tenderness. Pelvis: Stable nontender. 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: Deferred. Rectal: Deferred. Skin: Intact, warm, dry. No lesions or rashes noted. Extremities: Moves all extremities per self. She does use a walker for ambulation. No tenderness with palpation of upper or lower extremities. She is negative for cords or calf pain. Neurovascular unremarkable. C-spine/Back: Pending point vertebral tenderness upon palpation. No crepitus, step-offs or obvious deformities noted. Patient is ambulatory with her walker. Neuro: Awake, alert, oriented. Cranial nerves II through XII unremarkable. Cerebellum unremarkable. Motor and sensory unremarkable throughout. Exam nonfocal. Notes: Physical examination is within normal limits. She does complain of chronic knee pain which she has had for several months and sees Dr. Pardo for routinely. No tenderness or pain with weightbearing/ambulation. At this time she is agreeable for a head CT (per her request). Head CT shows no acute intracranial findings. I did review supportive care measures with her to do at home. For her generalized body aches and pains, this appears chronic and encouraged her to continue seeing the orthopedic provider. Agreeable to plan of care. Voices understanding. Denies any questions at this time. Diagnostics: Head CT Therapeutics: Toradol IM Impression: Head Injury Fall Plan: 1. Rest, ice, elevate the affected extremities. Please review the head injury instructions that have been printed for you 2. Tylenol and/or ibuprofen as needed for pain management. 3. Follow-up with your primary caregiver in the next days. Return to the ED as needed and as discussed. Definitive disposition and diagnosis as appropriate pending reevaluation and review of above. Onset: Today Duration: Hour(s): Location: Reports: Head Generalized Pain Score (Numeric/FACES): 8 - Related Data Allergies Allergy/AdvReac Type Severity Reaction Status Date / Time doxepin [Doxepin] Allergy Blurred Verified 10/21/17 11:32 Vision lisinopril Allergy Rash Verified 10/21/17 11:32 Tsmhivo-Mam-Zaf Reductase Allergy Cannot Verified 10/21/17 11:32 Inhibitor Remember Home Meds: Home Meds Estrogens, Conjugated [Premarin Vaginal Crm] 1 applic VAG Q48H 12/14/13 [History ] Losartan/Hydrochlorothiazide [Losartan-HCTZ 100-12.5 MG] 1 each PO DAILY [History] Levothyroxine Sodium [Synthroid] 25 mcg PO ACBREAKFAST 04/06/14 [History] Levothyroxine Sodium [Synthroid] 200 mcg PO ACBREAKFAST 04/06/14 [History] ALPRAZolam [Xanax] 2 mg PO TID PRN 04/17/14 [History] Rosuvastatin [Crestor] 20 mg PO BEDTIME 04/17/14 [History] metFORMIN [Glucophage] 1,000 mg PO BID 04/17/14 [History] traMADol [Ultram] 50 mg PO Q6H PRN 04/17/14 [History] Celecoxib [CeleBREX] 100 mg PO BID PRN 04/01/15 [History] Sertraline HCl 100 mg PO DAILY 04/01/15 [History] Prochlorperazine Maleate 10 mg PO DAILY PRN 12/20/15 [History] amLODIPine Besylate [Norvasc] 5 mg PO DAILY 12/20/15 [History] Lidocaine 5% [Lidoderm 5%] 1 each [facility] ASDIRECTED PRN 01/04/16 [History] Ranitidine HCl [Zantac] 300 mg PO BEDTIME 01/07/16 [History] Mometasone/Formoterol [Dulera 100-5 MCG] 2 puff INH BID PRN 07/31/16 [History] Benzonatate 100 - 200 mg PO TID PRN 08/26/16 [History] Elviteg/Lucero/Emtric/Tenofo Ala [Genvoya Tablet] 1 each PO DAILY 08/26/16 [ History] Erythromycin Base [Erythromycin 0.5% Ophth Oint] 0.5 gm EYEBOTH BEDTIME [History] Levocetirizine Dihydrochloride 5 mg PO BEDTIME 08/26/16 [History] Orphenadrine Citrate 100 mg PO BID PRN 08/26/16 [History] Benzonatate [Tessalon Perles] 200 mg PO TID #45 cap 10/26/16 [Rx] Inhaler, Assist Devices [Space Chamber Plus] 1 each ASDIRECTED #1 spacer 10/09 [Rx] Albuterol Sulfate 1 - 2 puff INH Q4H PRN 10/31/16 [History] Benzonatate [Tessalon Perles] 100 mg PO QID #40 cap 06/27/17 [Rx] methylPREDNISolone [Medrol] 4 mg PO ASDIRECTED #1 dosepk 06/27/17 [Rx] Past Medical History - Past Health History Medical/Surgical History: Denies Medical/Surgical History HEENT History: Reports: Impaired Vision Other HEENT History: uses reading glasses, has upper and lower dentures but only uses the upper Cardiovascular History: Reports: High Cholesterol, Hypertension Respiratory History: Reports: Asthma, Pneumonia, Recurrent, Other (See Below) Other Respiratory History: recent sinus infection Gastrointestinal History: Reports: GERD, Hemorrhoids 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 History: Reports: None 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: Musculoskeletal History: Reports: Back Pain, Chronic, Fracture Other Musculoskeletal History: hx fx right ankle Neurological History: Reports: Other (See Below) Other Neuro History: was told she had a "mini stroke" many years ago, no residual Psychiatric History: Reports: Anxiety, Depression Endocrine/Metabolic History: Reports: Diabetes, Type II, Hypothyroidism, Obesity /BMI 30+ Hematologic History: Reports: None Immunologic History: Reports: HIV Oncologic (Cancer) History: Reports: Basal Cell Carcinoma Dermatologic History: Reports: None - Infectious Disease History Infectious Disease History: Reports: HIV-Human Immunodeficiency Virus - Past Surgical History Head Surgeries/Procedures: Reports: None Female Surgical History: Reports: Hysterectomy, Salpingo-Oophorectomy Social & Family History - Family History Family Medical History: Noncontributory - Tobacco Use Smoking Status *Q: Never Smoker Years of Tobacco use: 25 Packs/Tins Daily: 2.5 Used Tobacco, but Quit: Yes Month/Year Tobacco Last Used: 17 years ago Second Hand Smoke Exposure: No - Caffeine Use Caffeine Use: Reports: None Caffeine Use Comment: 2/day - Alcohol Use Days Per Week of Alcohol Use: 0 Number of Drinks Per Day: 0 Total Drinks Per Week: 0 - Recreational Drug Use Recreational Drug Use: No Drug Use in Last 12 Months: No ED ROS GENERAL - Review of Systems Review Of Systems: ROS reveals no pertinent complaints other than HPI. ED EXAM, GENERAL - Physical Exam Exam: See Below (See dictation) Course - Vital Signs Last Recorded V/S: Last Vital Signs Temp 97.2 F 10/21/17 11:36 Pulse 98 10/21/17 11:36 Resp 14 10/21/17 11:36 BP 130/80 10/21/17 11:36 Pulse Ox 95 10/21/17 11:36 - Orders/Labs/Meds Orders: Active Orders 24 hr Category Date Time Status Head wo Cont [CT] Stat Exams 10/21/17 11:42 Taken Meds: Medications Discontinued Medications Generic Name Dose Route Start Last Admin Trade Name Tierra PRN Reason Stop Dose Admin Ketorolac Tromethamine 60 mg 10/21/17 11:55 10/21/17 12:05 Toradol IM 10/21/17 11:56 60 mg ONETIME ONE Administration Departure - Departure Time of Disposition: 13:15 Disposition: Home, Self-Care 01 Clinical Impression: Head injury Qualifiers: Encounter type: initial encounter Qualified Code(s): S09.90XA - Unspecified injury of head, initial encounter Fall at home Qualifiers: Encounter type: initial encounter Qualified Code(s): W19.XXXA - Unspecified fall, initial encounter - Discharge Information Referrals: PCP,Unknown [Primary Care Provider] - Forms: ED Department Discharge Additional Instructions: The following information is given to patients seen in the emergency department who are being discharged to home. This information is to outline your options for follow-up care. We provide all patients seen in our emergency department with a follow-up referral. The need for follow-up, as well as the timing and circumstances, are variable depending upon the specifics of your emergency department visit. If you don't have a primary care physician on staff, we will provide you with a referral. We always advise you to contact your personal physician following an emergency department visit to inform them of the circumstance of the visit and for follow-up with them and/or the need for any referrals to a consulting specialist. The emergency department will also refer you to a specialist when appropriate. This referral assures that you have the opportunity for follow-up care with a specialist. All of these measure are taken in an effort to provide you with optimal care, which includes your follow-up. Under all circumstances we always encourage you to contact your private physician who remains a resource for coordinating your care. When calling for follow-up care, please make the office aware that this follow-up is from your recent emergency room visit. If for any reason you are refused follow-up, please contact the [facility] Emergency Department at and asked to speak to the emergency department charge nurse. [facility] [address] [place] [id number] 1. Rest, ice, elevate the affected extremities. Please review the head injury instructions that have been printed for you 2. Tylenol and/or ibuprofen as needed for pain management. 3. Follow-up with your primary caregiver in the next days. Return to the ED as needed and as discussed. - My Orders Last 24 Hours: My Active Orders 10/21/17 11:42 Head wo Cont [CT] Stat - Assessment/Plan Last 24 Hours: My Active Orders 10/21/17 11:42 Head wo Cont [CT] Stat
[2017-10-21] MEDS ORDERED: Ketorolac 60 MG/2 ML SDV IM ONE (11:55)
--- NOTE | 2017-10-21 13:48 | CT ---
EXAMINATION: Non contrast CT head. Coronal and sagittal reformats. HISTORY: Pain FINDINGS: No evidence of intra or extra axial hemorrhage, mass, midline shift, hydrocephalus or edema. Old rig ht frontal lacunar infarct. Mild periventricular white matter hypodensities noted. No hypoattenuation changes in the major vascular territories to suggest acute infarct. No abnormal intracranial calcifications are detected. No evidence of substantial vascular calcificat ions. Paranasal sinuses and mastoid air cells are well aerated without substantial findings. Pituitary fossa appears unremarkable. Calvarium is intact. No evidence of skull fracture. IMPRESSION: 1. No acute intracranial findings. 2. Small old right frontal lacunar infarct and mild small vessel ischemic changes.
[2017-10-21 14:21] VITALS: BP 128/61
== END 2017-10-21 13:32 | disposition home or self-care (01) ==
LOC: MW.ED 11:20
DX: S09.90XA Unspecified injury of head, initial encounter (principal); M25.569 Pain in unspecified knee; E78.00 Pure hypercholesterolemia, unspecified; I10 Essential (primary) hypertension; E11.9 Type 2 diabetes mellitus without complications; E03.9 Hypothyroidism, unspecified; Z88.8 Allergy status to other drugs, medicaments and biological substances; Z79.899 Other long term (current) drug therapy; Z79.84 Long term (current) use of oral hypoglycemic drugs; Z87.891 Personal history of nicotine dependence; W06.XXXA Fall from bed, initial encounter; Y92.009 Unspecified place in unspecified non-institutional (private) residence as the place of occurrence of the external cause
CPT/HCPCS: 70450; 96372; 99283; J1885

== ENCOUNTER 2017-12-12 15:27 | Emergency (ER) | payer MEDICAID ==
--- NOTE | 2017-12-12 15:46 | EDM.PDOC ---
ED HPI GENERAL MEDICAL PROBLEM - General Chief Complaint: Respiratory Problem Stated Complaint: TROUBLE BREATHING Time Seen by Provider: 12/12/17 15:46 Source of Information: Reports: Patient History Limitations: Reports: No Limitations - History of Present Illness INITIAL COMMENTS - FREE TEXT/NARRATIVE: HISTORY AND PHYSICAL: []57-year-old female presenting with complaints of sinus pain and thinks she has a sinusitis History of Present Illness: []Recently this patient has been treated for C. difficile and that has seemed to resolve with refusal of her physician to administer antibiotics for her sinusitis a week ago. She has been taking her medications she denies any diarrhea denies any abdominal pain Complaining the exudate in her throat makes it difficult breathing Review of Systems: As per history of present illness and below otherwise all systems reviewed and negative. Past medical history: As per history of present illness and as reviewed below otherwise noncontributory. Surgical history: As per history of present illness and as reviewed below otherwise noncontributory. Social history: No reported history of drug or alcohol abuse. Family history: As per history of present illness and as reviewed below otherwise noncontributory. Physical exam: This patient has allergies and is on medication for this she is speaking in full sentences with out any shortness of breath she has been sniffling during this examination. HEENT: Atraumatic, normocehpalic, pupils reactive, negative for conjunctival pallor or scleral icterus, mucous membranes moist, throat clear, neck supple, nontender, trachea midline. Exquisitely tender across her maxillary sinus area. Membranes are dull bilaterally. No cervical adenopathy. Lungs: Clear to auscultation, breath sounds equal bilaterally, chest non tender. Low breath sounds Heart: S1S2, regular, negative for clicks, rubs, or JVD. Abdomen: Soft, nondistended, nontender. Negative for masses or hepatossplenmegaly. Negative for costovertebral tenderness. Pelvis: Stable nontender. 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: Deferred. Rectal: Deferred Extremities: Atraumatic, negative for cords or calf pain. Neurovascular unremarkable. Neuro: Awake, alert, oriented. Cranial nerves II through XII unremarkable. Cerebellum unremarkable. Motor and sensory unremarkable throughout. Exam nonfocal. This consolidation to the maxillary area also to the right nare Diagnostics: []Sinus x-rays Therapeutics: [] Impression: []Acute sinusitis Plan: []Discharge home Amoxicillin Follow-up with your primary care provider next week Definitive disposition and diagnosis as appropriate pending reevaluation and review of above. Onset: Gradual Duration: Day(s):, Getting Worse Location: Reports: Head, Face Quality: Reports: Ache, Pressure Severity: Moderate Improves with: Reports: None Worsens with: Reports: None throat Pain Score (Numeric/FACES): 8 - Related Data Allergies Allergy/AdvReac Type Severity Reaction Status Date / Time doxepin [Doxepin] Allergy Blurred Verified 10/21/17 11:32 Vision lisinopril Allergy Rash Verified 10/21/17 11:32 Nfaqxll-Rqr-Fjs Reductase Allergy Cannot Verified 10/21/17 11:32 Inhibitor Remember Home Meds: Home Meds Estrogens, Conjugated [Premarin Vaginal Crm] 1 applic VAG Q48H 12/14/13 [History ] Losartan/Hydrochlorothiazide [Losartan-HCTZ 100-12.5 MG] 1 each PO DAILY [History] Levothyroxine Sodium [Synthroid] 25 mcg PO ACBREAKFAST 04/06/14 [History] Levothyroxine Sodium [Synthroid] 200 mcg PO ACBREAKFAST 04/06/14 [History] ALPRAZolam [Xanax] 2 mg PO TID PRN 04/17/14 [History] Rosuvastatin [Crestor] 20 mg PO BEDTIME 04/17/14 [History] metFORMIN [Glucophage] 1,000 mg PO BID 04/17/14 [History] traMADol [Ultram] 50 mg PO Q6H PRN 04/17/14 [History] Celecoxib [CeleBREX] 100 mg PO BID PRN 04/01/15 [History] Sertraline HCl 100 mg PO DAILY 04/01/15 [History] Prochlorperazine Maleate 10 mg PO DAILY PRN 12/20/15 [History] amLODIPine Besylate [Norvasc] 5 mg PO DAILY 12/20/15 [History] Lidocaine 5% [Lidoderm 5%] 1 each TOP ASDIRECTED PRN 01/04/16 [History] Ranitidine HCl [Zantac] 300 mg PO BEDTIME 01/07/16 [History] Mometasone/Formoterol [Dulera 100-5 MCG] 2 puff INH BID PRN 07/31/16 [History] Benzonatate 100 - 200 mg PO TID PRN 08/26/16 [History] Elviteg/Lucero/Emtric/Tenofo Ala [Genvoya Tablet] 1 each PO DAILY 08/26/16 [ History] Erythromycin Base [Erythromycin 0.5% Ophth Oint] 0.5 gm EYEBOTH BEDTIME [History] Levocetirizine Dihydrochloride 5 mg PO BEDTIME 08/26/16 [History] Orphenadrine Citrate 100 mg PO BID PRN 08/26/16 [History] Benzonatate [Tessalon Perles] 200 mg PO TID #45 cap 10/26/16 [Rx] Inhaler, Assist Devices [Space Chamber Plus] 1 each MC ASDIRECTED #1 spacer 10/09 [Rx] Albuterol Sulfate 1 - 2 puff INH Q4H PRN 10/31/16 [History] Benzonatate [Tessalon Perles] 100 mg PO QID #40 cap 06/27/17 [Rx] methylPREDNISolone [Medrol] 4 mg PO ASDIRECTED #1 dosepk 06/27/17 [Rx] Amoxicillin 875 mg PO BID #28 tablet 12/12/17 [Rx] Past Medical History - Past Health History Medical/Surgical History: Denies Medical/Surgical History HEENT History: Reports: Impaired Vision Other HEENT History: uses reading glasses, has upper and lower dentures but only uses the upper Cardiovascular History: Reports: High Cholesterol, Hypertension Respiratory History: Reports: Asthma, Pneumonia, Recurrent, Other (See Below) Other Respiratory History: recent sinus infection Gastrointestinal History: Reports: GERD, Hemorrhoids 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 History: Reports: 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: Musculoskeletal History: Reports: Back Pain, Chronic, Fracture Other Musculoskeletal History: hx fx right ankle Neurological History: Reports: Other (See Below) Other Neuro History: was told she had a "mini stroke" many years ago, no residual Psychiatric History: Reports: Anxiety, Depression Endocrine/Metabolic History: Reports: Diabetes, Type II, Hypothyroidism, Obesity /BMI 30+ Hematologic History: Reports: None Immunologic History: Reports: HIV Oncologic (Cancer) History: Reports: Basal Cell Carcinoma Dermatologic History: Reports: None - Infectious Disease History Infectious Disease History: Reports: HIV-Human Immunodeficiency Virus - Past Surgical History Head Surgeries/Procedures: Reports: None Female Surgical History: Reports: Hysterectomy, Salpingo-Oophorectomy Social & Family History - Family History Family Medical History: Noncontributory - Caffeine Use Caffeine Use: Reports: None Caffeine Use Comment: 2/day ED ROS GENERAL - Review of Systems Review Of Systems: ROS reveals no pertinent complaints other than HPI. ED EXAM, GENERAL - Physical Exam Exam: See Below (see dictation) Course - Vital Signs Last Recorded V/S: Last Vital Signs Temp 36.3 C 12/12/17 15:57 Pulse 86 12/12/17 15:57 Resp 16 12/12/17 15:57 BP 135/74 12/12/17 15:57 Pulse Ox 94 L 12/12/17 15:57 - Orders/Labs/Meds Orders: Active Orders 24 hr Category Date Time Status Sinus Comp Min 3V [CR] Stat Exams 12/12/17 15:52 Taken Departure - Departure Time of Disposition: 16:48 Disposition: Home, Self-Care 01 Condition: Good Clinical Impression: Sinusitis, acute maxillary Qualifiers: Recurrence: not specified as recurrent Qualified Code(s): J01.00 - Acute maxillary sinusitis, unspecified - Discharge Information Prescriptions: Amoxicillin 875 mg PO BID #28 tablet Referrals: PCP,None [Primary Care Provider] - Forms: ED Department Discharge Additional Instructions: HISTORY AND PHYSICAL: [] The following information is given to patients seen in the emergency department who are being discharged to home. This information is to outline your options for follow-up care. We provide all patients seen in our emergency department with a follow-up referral. The need for follow-up, as well as the timing and circumstances, are variable depending upon the specifics of your emergency department visit. If you don't have a primary care physician on staff, we will provide you with a referral. We always advise you to contact your personal physician following an emergency department visit to inform them of the circumstance of the visit and for follow-up with them and/or the need for any referrals to a consulting specialist. The emergency department will also refer you to a specialist when appropriate. This referral assures that you have the opportunity for followup care with a specialist. All of these measure are taken in an effort to provide you with optimal care, which includes your followup. Under all circumstances we always encourage you to contact your private physician who remains a resource for coordinating your care. When calling for followup care, please make the office aware that this follow-up is from your recent emergency room visit. If for any reason you are refused follow-up, please contact the [facility] emergency department at and asked to speak to the emergency department charge nurse. Therapeutics: []Amoxicillin 875 by mouth in the emergency room prescription written for filled tomorrow Impression: []Acute sinusitis Plan: []Discharged home Follow up with your primary care next week Return to emergency department as is redirected and discussed Definitive disposition and diagnosis as appropriate pending reevaluation and review of above. - My Orders Last 24 Hours: My Active Orders 12/12/17 15:52 Sinus Comp Min 3V [CR] Stat - Assessment/Plan Last 24 Hours: My Active Orders 12/12/17 15:52 Sinus Comp Min 3V [CR] Stat
[2017-12-12] MEDS ORDERED: Amoxicillin 500 MG Cap PO ONE (16:52)
[2017-12-12 17:24] VITALS: BP 137/79
--- NOTE | 2017-12-13 14:49 | CR ---
EXAM DATE: 12/12/17 PATIENT'S AGE: 57 Patient: EMILY ESCOBAR Facility: [place], [place] Site . Site : 1960 Study: XRay Sinus [id number]/20/2018 4:40:02 PM Ordering Physician: Doctor Fitzgerald Final Report: HISTORY: Sinus pressure and pain. TECHNIQUE: Three views of the paranasal sinuses. COMPARISON: No prior. FINDINGS: The right maxillary sinus appears clear. The left maxillary sinus is likely partially opacified which may indicate changes of sinusitis. The frontal sinuses are grossly clear. Multiple absent teeth. IMPRESSION: Suspected partial opacification of the left maxillary sinus which may indicate sinusitis changes. Dictated by Roderick Esquivel MD @ 12/12/2017 5:05:16 PM Dictated by: Roderick Esquivel MD @ 12/12/2017 17:05:20 (Electronic Signature) Report Signed by Proxy. NARCISO
== END 2017-12-12 17:15 | disposition home or self-care (01) ==
LOC: MW.ED 15:27
DX: J01.00 Acute maxillary sinusitis, unspecified (principal); E78.00 Pure hypercholesterolemia, unspecified; I10 Essential (primary) hypertension; J45.909 Unspecified asthma, uncomplicated; F41.9 Anxiety disorder, unspecified; F32.9 Major depressive disorder, single episode, unspecified; K21.9 Gastro-esophageal reflux disease without esophagitis; E11.9 Type 2 diabetes mellitus without complications; E03.9 Hypothyroidism, unspecified; Z79.899 Other long term (current) drug therapy; Z87.01 Personal history of pneumonia (recurrent); Z90.710 Acquired absence of both cervix and uterus; Z79.84 Long term (current) use of oral hypoglycemic drugs; Z88.8 Allergy status to other drugs, medicaments and biological substances
CPT/HCPCS: 70220; 99283; A9270

== ENCOUNTER 2017-12-19 12:08 | Emergency (ER) | payer MEDICAID ==
--- NOTE | 2017-12-19 12:23 | EDM.PDOC ---
ED HPI GENERAL MEDICAL PROBLEM - General Stated Complaint: LEFT SIDE ABDOMINAL PAIN Time Seen by Provider: 12/19/17 12:17 - History of Present Illness INITIAL COMMENTS - FREE TEXT/NARRATIVE: HISTORY AND PHYSICAL: History of present illness: The patient is a 57-year-old female who is well known to this emergency department and has multiple medical problems including hypertension atypical chest pain hypercholesterolemia dkg-pyqgycj-kfzkbbuiy diabetes multiple extremity complaints and issues in the past, hypothyroidism, C. difficile and was seen here just one week ago for sinusitis and placed on antibiotics; Patient presents today with complaints of pain in her left lower abdomen/pelvic area that started when she woke up this morning. The patient uses a walker regularly because she has had gait instability and frequent falls and says that she has not had a fall recently and although she told triage that she was having hip pain she indicates her abdomen as the site of the discomfort. She has no joint pain in her hip no recent trauma and no pain with range of motion at her left hip. The patient that she came today because she is concerned about her intestines as she had a history of C. difficile and still has loose stools because of it. The patient tells me that the loose stools are not new or different and they are not black or bloody. She is also stating to me that she still has her sinus complaints and a cough which she realizes that she is on antibiotics prescribed a week ago here and she has one more week of care plan to complete. She has not seen Dr. hebert in the last 1 weeks since she was seen here. She has no flank pain no back pain no extremity complaints and no weakness in her extremities. She is not lightheaded or dizzy and has no chest pain or shortness of breath. She is eating and drinking normally. Patient denies any urinary complaints. Review of systems: As per history of present illness and below otherwise all systems reviewed and negative. Past medical history: As per history of present illness and as reviewed below otherwise noncontributory. Surgical history: As per history of present illness and as reviewed below otherwise noncontributory. Social history: No reported history of drug or alcohol abuse. Family history: As per history of present illness and as reviewed below otherwise noncontributory. Physical exam: General: Well-developed well-nourished overweight female who is nontoxic and who was up and walking around the ED, on my entrance into her room, without difficulty or ataxia. She is not exhibiting any sign of a limp comfort. Vital signs are noted by me HEENT: Atraumatic, normocephalic, pupils reactive, negative for conjunctival pallor or scleral icterus, mucous membranes moist, throat clear, neck supple, nontender, trachea midline. Lungs: Clear to auscultation, breath sounds equal bilaterally, chest nontender. Heart: S1S2, regular rate and rhythm no overt murmurs Abdomen: Soft, nondistended, bowel sounds are hypoactive and on deep palpation on the left side of her abdomen there is no tenderness rebound or guarding appreciated. When I percuss there is tympany in the left upper mid and lower quadrants. Negative for masses or hepatosplenomegaly. Negative for costovertebral tenderness. Pelvis: Stable nontender. 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: Deferred. Rectal: Deferred. Extremities: Atraumatic, negative for cords or calf pain. Neurovascular unremarkable. The patient has full range of motion at the left hip both passively and actively and has no discomfort with full flexion and internal or external rotation. There are no palpable deformities or tenderness of the pelvis or the left hip femur knee or tib-fib. Neuro: Awake, alert, oriented. Cranial nerves II through XII unremarkable. Cerebellum unremarkable. Motor and sensory unremarkable throughout. Exam nonfocal. Diagnostics: CBC CMP abdominal x-rays Therapeutics: Toradol Impression: Right lower quadrant pain/colicky pain with history of diarrhea stable Definitive disposition and diagnosis as appropriate pending reevaluation and review of above. left hip Pain Score (Numeric/FACES): 9 - Related Data Allergies Allergy/AdvReac Type Severity Reaction Status Date / Time doxepin [Doxepin] Allergy Blurred Verified 12/19/17 12:19 Vision lisinopril Allergy Rash Verified 12/19/17 12:19 Qecqdoe-Nyn-Krk Reductase Allergy Cannot Verified 12/19/17 12:19 Inhibitor Remember Home Meds: Home Meds Estrogens, Conjugated [Premarin Vaginal Crm] 1 applic VAG Q48H 12/14/13 [History ] Losartan/Hydrochlorothiazide [Losartan-HCTZ 100-12.5 MG] 1 each PO DAILY [History] Levothyroxine Sodium [Synthroid] 25 mcg PO ACBREAKFAST 04/06/14 [History] Levothyroxine Sodium [Synthroid] 200 mcg PO ACBREAKFAST 04/06/14 [History] ALPRAZolam [Xanax] 2 mg PO TID PRN 04/17/14 [History] Rosuvastatin [Crestor] 20 mg PO BEDTIME 04/17/14 [History] metFORMIN [Glucophage] 1,000 mg PO BID 04/17/14 [History] traMADol [Ultram] 50 mg PO Q6H PRN 04/17/14 [History] Celecoxib [CeleBREX] 100 mg PO BID PRN 04/01/15 [History] Sertraline HCl 100 mg PO DAILY 04/01/15 [History] Prochlorperazine Maleate 10 mg PO DAILY PRN 12/20/15 [History] amLODIPine Besylate [Norvasc] 5 mg PO DAILY 12/20/15 [History] Lidocaine 5% [Lidoderm 5%] 1 each [facility] ASDIRECTED PRN 01/04/16 [History] Ranitidine HCl [Zantac] 300 mg PO BEDTIME 01/07/16 [History] Mometasone/Formoterol [Dulera 100-5 MCG] 2 puff INH BID PRN 07/31/16 [History] Benzonatate 100 - 200 mg PO TID PRN 08/26/16 [History] Elviteg/Lucero/Emtric/Tenofo Ala [Genvoya Tablet] 1 each PO DAILY 08/26/16 [ History] Erythromycin Base [Erythromycin 0.5% Ophth Oint] 0.5 gm EYEBOTH BEDTIME [History] Levocetirizine Dihydrochloride 5 mg PO BEDTIME 08/26/16 [History] Orphenadrine Citrate 100 mg PO BID PRN 08/26/16 [History] Benzonatate [Tessalon Perles] 200 mg PO TID #45 cap 10/26/16 [Rx] Inhaler, Assist Devices [Space Chamber Plus] 1 each ASDIRECTED #1 spacer 10/09 [Rx] Albuterol Sulfate 1 - 2 puff INH Q4H PRN 10/31/16 [History] Benzonatate [Tessalon Perles] 100 mg PO QID #40 cap 06/27/17 [Rx] methylPREDNISolone [Medrol] 4 mg PO ASDIRECTED #1 dosepk 06/27/17 [Rx] Amoxicillin 875 mg PO BID #28 tablet 12/12/17 [Rx] Amoxicillin 875 mg PO BID 12/19/17 [History] Past Medical History - Past Health History Medical/Surgical History: Denies Medical/Surgical History HEENT History: Reports: Impaired Vision Other HEENT History: uses reading glasses, has upper and lower dentures but only uses the upper Cardiovascular History: Reports: High Cholesterol, Hypertension Respiratory History: Reports: Asthma, Pneumonia, Recurrent, Other (See Below) Other Respiratory History: recent sinus infection Gastrointestinal History: Reports: GERD, Hemorrhoids 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 History: Reports: 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: Musculoskeletal History: Reports: Back Pain, Chronic, Fracture Other Musculoskeletal History: hx fx right ankle Neurological History: Reports: Other (See Below) Other Neuro History: was told she had a "mini stroke" many years ago, no residual Psychiatric History: Reports: Anxiety, Depression Endocrine/Metabolic History: Reports: Diabetes, Type II, Hypothyroidism, Obesity /BMI 30+ Hematologic History: Reports: None Immunologic History: Reports: HIV Oncologic (Cancer) History: Reports: Basal Cell Carcinoma Dermatologic History: Reports: None - Infectious Disease History Infectious Disease History: Reports: HIV-Human Immunodeficiency Virus - Past Surgical History Head Surgeries/Procedures: Reports: None Female Surgical History: Reports: Hysterectomy, Salpingo-Oophorectomy Social & Family History - Family History Family Medical History: Noncontributory - Caffeine Use Caffeine Use: Reports: None Caffeine Use Comment: 2/day ED ROS GENERAL - Review of Systems Review Of Systems: ROS reveals no pertinent complaints other than HPI. ED EXAM, GENERAL - Physical Exam Exam: See Below (See dictation) Course - Vital Signs Last Recorded V/S: Last Vital Signs Temp 35.3 C 12/19/17 12:22 Pulse 84 12/19/17 13:20 Resp 16 12/19/17 13:20 BP 113/63 12/19/17 13:20 Pulse Ox 95 12/19/17 13:20 - Orders/Labs/Meds Orders: Active Orders 24 hr Category Date Time Status Abdomen 2V AP Flat Upright [CR] Stat Exams 12/19/17 12:35 Taken Labs: Laboratory Tests 12/19/17 12/19/17 Range/Units 12:45 12:45 WBC 10.05 (4.0-11.0) K/uL RBC 5.00 (4.30-5.90) M/uL Hgb 14.7 (12.0-16.0) g/dL Hct 44.6 (36.0-46.0) % MCV 89.2 (80.0-98.0) fL MCH 29.4 (27.0-32.0) pg MCHC 33.0 (31.0-37.0) g/dL RDW Std Deviation 48.7 (28.0-62.0) fl RDW Coeff of Degar 15 (11.0-15.0) % Plt Count 199 (150-400) K/uL MPV 9.60 (7.40-12.00) fL Neut % (Auto) 73.7 (48.0-80.0) % Lymph % (Auto) 21.7 (16.0-40.0) % [place] % (Auto) 3.0 (0.0-15.0) % Eos % (Auto) 1.4 (0.0-7.0) % Baso % (Auto) 0.2 (0.0-1.5) % Neut # (Auto) 7.4 H (1.4-5.7) K/uL Lymph # (Auto) 2.2 (0.6-2.4) K/uL [place] # (Auto) 0.3 (0.0-0.8) K/uL Eos # (Auto) 0.1 (0.0-0.7) K/uL Baso # (Auto) 0.0 (0.0-0.1) K/uL Nucleated RBC % 0.0 /100WBC Nucleated RBCs # 0 K/uL Sodium 140 (136-145) mmol/L Potassium 4.3 (3.5-5.1) mmol/L Chloride 102 (98-107) mmol/L Carbon Dioxide 29.8 (21.0-32.0) mmol/L BUN 19 H (7.0-18.0) mg/dL Creatinine 1.0 (0.6-1.0) mg/dL Est Cr Clr Drug Dosing 58.11 mL/min Estimated GFR (MDRD) 57.1 ml/min Glucose 219 H (74-106) mg/dL Calcium 9.4 (8.5-10.1) mg/dL Total Bilirubin 0.4 (0.2-1.0) mg/dL AST 19 (15-37) IU/L ALT 31 (14-63) IU/L Alkaline Phosphatase 77 (46-116) U/L Total Protein 7.7 (6.4-8.2) g/dL Albumin 3.6 (3.4-5.0) g/dL Globulin 4.1 H (2.0-3.5) g/dL Albumin/Globulin Ratio 0.9 L (1.3-2.8) Meds: Medications Discontinued Medications Generic Name Dose Route Start Last Admin Trade Name Freq PRN Reason Stop Dose Admin Ketorolac Tromethamine 60 mg 12/19/17 12:35 12/19/17 12:51 Toradol IM 12/19/17 12:36 60 mg ONETIME ONE Administration Departure - Departure Time of Disposition: 13:40 Disposition: Home, Self-Care 01 Condition: Good Clinical Impression: Colicky LLQ abdominal pain - Discharge Information Additional Instructions: The following information is given to patients seen in the emergency department who are being discharged to home. This information is to outline your options for follow-up care. We provide all patients seen in our emergency department with a follow-up referral. The need for follow-up, as well as the timing and circumstances, are variable depending upon the specifics of your emergency department visit. If you don't have a primary care physician on staff, we will provide you with a referral. We always advise you to contact your personal physician following an emergency department visit to inform them of the circumstance of the visit and for follow-up with them and/or the need for any referrals to a consulting specialist. The emergency department will also refer you to a specialist when appropriate. This referral assures that you have the opportunity for followup care with a specialist. All of these measure are taken in an effort to provide you with optimal care, which includes your followup. Under all circumstances we always encourage you to contact your private physician who remains a resource for coordinating your care. When calling for followup care, please make the office aware that this follow-up is from your recent emergency room visit. If for any reason you are refused follow-up, please contact the [facility] emergency department at and ask to speak to the emergency department charge nurse. [facility] Primary care- Internal Medicine and Family [facility] [address] [place] [phone] Please call and follow-up with your provider in the clinic over the next few days and continue all home medications. You may add the Bentyl you have been prescribed today as needed for crampy abdominal pain. Please try to reduce coffee intake as well as constipating foods and gas producing foods. Return to ER as needed and as discussed. Return to ER as needed and as discussed - My Orders Last 24 Hours: My Active Orders 12/19/17 12:35 Abdomen 2V AP Flat Upright [CR] Stat - Assessment/Plan Last 24 Hours: My Active Orders 12/19/17 12:35 Abdomen 2V AP Flat Upright [CR] Stat
[2017-12-19] MEDS ORDERED: Ketorolac 60 MG/2 ML SDV IM ONE (12:35)
[2017-12-19 14:21] VITALS: BP 122/50
--- NOTE | 2017-12-21 13:13 | CR ---
EXAM DATE: 12/19/17 PATIENT'S AGE: 57 Patient: EMILY ESCOBAR Facility: [place], [place] Site . Site : 1960 Study: XRay Abdomen [id number]/27/2018 12:56:17 PM Ordering Physician: Tatiana Lisa Final Report: INDICATION: abd pain FINDINGS: Two views of the abdomen show no dilated loops of bowel. No evidence of free intraperitoneal air. No other bony or soft tissue abnormalities identified. Impression : 1. Nonobstructive nonspecific bowel gas pattern. Dictated by Prashant Peralta MD @ 12/19/2017 1:26:31 PM Dictated by: Prashant Peralta MD @ 12/19/2017 13:26:40 (Electronic Signature) Report Signed by Proxy. [facility]
== END 2017-12-19 14:17 | disposition home or self-care (01) ==
LOC: MW.ED 12:08
DX: R10.32 Left lower quadrant pain (principal); R10.31 Right lower quadrant pain; E78.00 Pure hypercholesterolemia, unspecified; I10 Essential (primary) hypertension; E11.9 Type 2 diabetes mellitus without complications; E03.9 Hypothyroidism, unspecified; Z88.8 Allergy status to other drugs, medicaments and biological substances; Z79.84 Long term (current) use of oral hypoglycemic drugs; Z79.899 Other long term (current) drug therapy
CPT/HCPCS: 36415; 74019; 80053; 85025; 96372; 99284; J1885; 99283

== ENCOUNTER 2018-02-14 15:48 | Emergency (ER) | payer MEDICAID ==
[2018-02-14 16:18] VITALS: BP 118/58
[2018-02-14] MEDS ORDERED: Ketorolac 60 MG/2 ML SDV IM ONE (16:23)
--- NOTE | 2018-02-14 16:23 | EDM.PDOC ---
ED HPI GENERAL MEDICAL PROBLEM - General Chief Complaint: General Stated Complaint: FALL Time Seen by Provider: 02/14/18 15:49 Source of Information: Reports: Patient History Limitations: Reports: No Limitations - History of Present Illness INITIAL COMMENTS - FREE TEXT/NARRATIVE: HISTORY AND PHYSICAL: History of present illness: Patient is a 57-year-old female who is well-known for emergency room. Today she had tripped while walking on uneven concrete landing on her left knee and onto her side. She is complaining of generalized body pain, left knee pain and left rib pain and a small bump to her left scalp. She did not lose consciousness. To the emergency room. Denies any fever, chills, chest pain or shortness of breath. His any abdominal pain, nausea, vomiting, diarrhea or constipation. He denies any headache or change in vision. Review of systems: As per history of present illness and below otherwise all systems reviewed and negative. Past medical history: As per history of present illness and as reviewed below otherwise noncontributory. Surgical history: As per history of present illness and as reviewed below otherwise noncontributory. Social history: No reported history of drug or alcohol abuse. Family history: As per history of present illness and as reviewed below otherwise noncontributory. Physical exam: General: Well-developed and well-nourished 57-year-old female. Alert and oriented. Nontoxic appearing and in no acute distress. HEENT: Nontender to palpation normocephalic, pupils equal and reactive bilaterally, negative for conjunctival pallor or scleral icterus, mucous membranes moist, throat clear, neck supple, nontender, trachea midline. No drooling or trismus noted. No meningeal signs Lungs: Clear to auscultation, breath sounds equal bilaterally, chest nontender. Heart: S1S2, regular rate and rhythm without overt murmur Abdomen: Soft, nondistended, nontender. Negative for masses or hepatosplenomegaly. Negative for costovertebral tenderness. Pelvis: Stable nontender. 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: Deferred. Rectal: Deferred. Skin: Intact, warm, dry. No lesions or rashes noted. Extremities: Tenderness to palpating over the left patella, and no knee instability. Patient is fully ambulatory without difficulty. Moves all extremities per self. negative for cords or calf pain. Neurovascular unremarkable. Neuro: Awake, alert, oriented. Cranial nerves II through XII unremarkable. Cerebellum unremarkable. Motor and sensory unremarkable throughout. Exam nonfocal. Notes: Discussed with patient imaging. At this time we do not need to perform a head CT as she did not lose consciousness and has no symptoms. Vital signs are stable. We'll give her shot of Toradol at this time for discomfort. X-ray shows no evidence of fracture or dislocation. We'll provide her with a atilio wrap. She already uses a walker for ambulation. Supportive care measures were reviewed and discussed. Encouraged her to follow-up with the orthopedic provider if she continues to have pain or problems. He voices understanding and is agreeable to plan of care. Denies any further questions or concerns at this time. Diagnostics: X-ray left knee, chest x-ray Therapeutics: Toradol Impression: Knee Injury, right Plan: 1. Rest, ice, elevate the painful extremities. 2. Tylenol and/or ibuprofen as needed for pain management. You may use the Tramadol for moderate to severe pain. This medication may cause drowsiness a do not take it will driving her needing to be functioning outside of the house. 3. Follow-up with your primary caregiver in the next 1-2 days. Return to the ED as needed and as discussed. Definitive disposition and diagnosis as appropriate pending reevaluation and review of above. - Related Data Allergies Allergy/AdvReac Type Severity Reaction Status Date / Time doxepin [Doxepin] Allergy Blurred Verified 02/14/18 16:17 Vision lisinopril Allergy Rash Verified 02/14/18 16:17 Rrltxqj-Iba-Ycw Reductase Allergy Cannot Verified 02/14/18 16:17 Inhibitor Remember Home Meds: Home Meds Estrogens, Conjugated [Premarin Vaginal Crm] 1 applic VAG Q48H 12/14/13 [History ] Losartan/Hydrochlorothiazide [Losartan-HCTZ 100-12.5 MG] 1 each PO DAILY [History] Levothyroxine Sodium [Synthroid] 200 mcg PO ACBREAKFAST 04/06/14 [History] ALPRAZolam [Xanax] 2 mg PO TID PRN 04/17/14 [History] Rosuvastatin [Crestor] 20 mg PO BEDTIME 04/17/14 [History] metFORMIN [Glucophage] 1,000 mg PO BID 04/17/14 [History] traMADol [Ultram] 50 mg PO Q6H PRN 04/17/14 [History] Sertraline HCl 100 mg PO DAILY 04/01/15 [History] Prochlorperazine Maleate 10 mg PO DAILY PRN 12/20/15 [History] amLODIPine Besylate [Norvasc] 5 mg PO DAILY 12/20/15 [History] Lidocaine 5% [Lidoderm 5%] 1 each TOP ASDIRECTED PRN 01/04/16 [History] Ranitidine HCl [Zantac] 300 mg PO BEDTIME 01/07/16 [History] Mometasone/Formoterol [Dulera 100-5 MCG] 2 puff INH BID PRN 07/31/16 [History] Benzonatate 100 - 200 mg PO TID PRN 08/26/16 [History] Elviteg/Lucero/Emtric/Tenofo Ala [Genvoya Tablet] 1 each PO DAILY 08/26/16 [ History] Levocetirizine Dihydrochloride 5 mg PO BEDTIME 08/26/16 [History] Orphenadrine Citrate 100 mg PO BID PRN 08/26/16 [History] Inhaler, Assist Devices [Space Chamber Plus] 1 each MC ASDIRECTED #1 spacer 10/09 [Rx] Albuterol Sulfate 1 - 2 puff INH Q4H PRN 10/31/16 [History] Past Medical History - Past Health History Medical/Surgical History: Denies Medical/Surgical History HEENT History: Reports: Impaired Vision Other HEENT History: uses reading glasses, has upper and lower dentures but only uses the upper Cardiovascular History: Reports: High Cholesterol, Hypertension Respiratory History: Reports: Asthma, Pneumonia, Recurrent, Other (See Below) Other Respiratory History: recent sinus infection Gastrointestinal History: Reports: GERD, Hemorrhoids 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 History: Reports: None [employer] History: Reports: Musculoskeletal History: Reports: Back Pain, Chronic, Fracture Other Musculoskeletal History: hx fx right ankle Neurological History: Reports: Other (See Below) Other Neuro History: was told she had a "mini stroke" many years ago, no residual Psychiatric History: Reports: Anxiety, Depression Endocrine/Metabolic History: Reports: Diabetes, Type II, Hypothyroidism, Obesity /BMI 30+ Hematologic History: Reports: None Immunologic History: Reports: HIV Oncologic (Cancer) History: Reports: Basal Cell Carcinoma Dermatologic History: Reports: None - Infectious Disease History Infectious Disease History: Reports: HIV-Human Immunodeficiency Virus - Past Surgical History Head Surgeries/Procedures: Reports: None Female Surgical History: Reports: Hysterectomy, Salpingo-Oophorectomy Social & Family History - Family History Family Medical History: Noncontributory - Caffeine Use Caffeine Use: Reports: None Caffeine Use Comment: 2/day ED ROS GENERAL - Review of Systems Review Of Systems: ROS reveals no pertinent complaints other than HPI. ED EXAM, GENERAL - Physical Exam Exam: See Below (See dictation) Course - Vital Signs Last Recorded V/S: Last Vital Signs Temp 96.0 F 02/14/18 16:14 Pulse 98 02/14/18 16:14 Resp 18 02/14/18 16:14 BP 118/58 L 02/14/18 16:14 Pulse Ox 95 02/14/18 16:14 - Orders/Labs/Meds Orders: Active Orders 24 hr Category Date Time Status Chest 2V [CR] Stat Exams 02/14/18 16:18 Taken Knee 3V Lt [CR] Stat Exams 02/14/18 16:18 Ordered DME for Discharge [COMM] Stat Oth 02/14/18 16:55 Ordered Meds: Medications Discontinued Medications Generic Name Dose Route Start Last Admin Trade Name Tierra PRN Reason Stop Dose Admin Ketorolac Tromethamine 60 mg 02/14/18 16:23 02/14/18 16:57 Toradol IM 02/14/18 16:24 60 mg ONETIME ONE Administration Departure - Departure Time of Disposition: 16:57 Disposition: Home, Self-Care 01 Clinical Impression: Knee injury Qualifiers: Encounter type: initial encounter Laterality: left Qualified Code(s): S89.92XA - Unspecified injury of left lower leg, initial encounter - Discharge Information Referrals: PCP,None [Primary Care Provider] - Forms: ED Department Discharge Additional Instructions: The following information is given to patients seen in the emergency department who are being discharged to home. This information is to outline your options for follow-up care. We provide all patients seen in our emergency department with a follow-up referral. The need for follow-up, as well as the timing and circumstances, are variable depending upon the specifics of your emergency department visit. If you don't have a primary care physician on staff, we will provide you with a referral. We always advise you to contact your personal physician following an emergency department visit to inform them of the circumstance of the visit and for follow-up with them and/or the need for any referrals to a consulting specialist. The emergency department will also refer you to a specialist when appropriate. This referral assures that you have the opportunity for follow-up care with a specialist. All of these measure are taken in an effort to provide you with optimal care, which includes your follow-up. Under all circumstances we always encourage you to contact your private physician who remains a resource for coordinating your care. When calling for follow-up care, please make the office aware that this follow-up is from your recent emergency room visit. If for any reason you are refused follow-up, please contact the [facility] Emergency Department at and asked to speak to the emergency department charge nurse. [facility] [address] [place] [id number] 1. Rest, ice, elevate the painful extremities. 2. Tylenol and/or ibuprofen as needed for pain management. You may use the Tramadol for moderate to severe pain. This medication may cause drowsiness a do not take it will driving her needing to be functioning outside of the house. 3. Follow-up with your primary caregiver in the next 1-2 days. Return to the ED as needed and as discussed. - My Orders Last 24 Hours: My Active Orders 02/14/18 16:18 Chest 2V [CR] Stat Knee 3V Lt [CR] Stat 02/14/18 16:55 DME for Discharge [COMM] Stat - Assessment/Plan Last 24 Hours: My Active Orders 02/14/18 16:18 Chest 2V [CR] Stat Knee 3V Lt [CR] Stat 02/14/18 16:55 DME for Discharge [COMM] Stat
--- NOTE | 2018-02-15 09:17 | CR ---
EXAM DATE: 02/14/18 PATIENT'S AGE: 57 Patient: EMILY ESCOBAR Facility: [place], [place] Site . Site : 1960 Study: XRay Chest [id number]/[id number] 4:58:51 PM Ordering Physician: Doctor Fitzgerald Final Report: INDICATION: Chest pain and shortness of breath TECHNIQUE: Chest 2 views COMPARISON: September 22, 2017 FINDINGS: Cardiovascular and mediastinum: Heart size and vasculature are normal in caliber and appearance. Lungs and pleural spaces: Lungs are clear. No sign of infiltrate or mass. No sign of pleural effusion. No pneumothorax. Bones and soft tissues: No significant findings. IMPRESSION: No acute findings and no significant changes from the prior exam. Dictated by Miguel Tse MD @ Feb 14 2018 5:09PM (Electronic Signature) Report Signed by Proxy. NARCISO
--- NOTE | 2018-02-15 09:19 | CR ---
EXAM DATE: 02/14/18 PATIENT'S AGE: 57 Patient: EMILY ESCOBAR Facility: [place], [place] Site . Site : 1960 Study: XRay Knee [id number]/23/[id number] 5:00:02 PM Ordering Physician: Doctor Fitzgerald Final Report: INDICATION: PAIN TECHNIQUE: Three views of the left knee COMPARISON: None FINDINGS: Bones: No fractures or bone lesions. Joint spaces: Mild degenerative changes of the patellofemoral compartment. Soft tissues: Unremarkable. IMPRESSION: No acute bony abnormality. Dictated by Jerry Pitts MD @ 02/14/2018 5:15:17 PM Dictated by: Jerry Pitts MD @ 02/14/2018 17:15:22 (Electronic Signature) Report Signed by Proxy. [facility]ITAL[facility]
== END 2018-02-14 17:35 | disposition home or self-care (01) ==
LOC: MW.ED 15:48
DX: S89.92XA Unspecified injury of left lower leg, initial encounter (principal); K21.9 Gastro-esophageal reflux disease without esophagitis; E78.00 Pure hypercholesterolemia, unspecified; I10 Essential (primary) hypertension; J45.909 Unspecified asthma, uncomplicated; E03.9 Hypothyroidism, unspecified; E11.9 Type 2 diabetes mellitus without complications; F32.9 Major depressive disorder, single episode, unspecified; F41.9 Anxiety disorder, unspecified; Z21 Asymptomatic human immunodeficiency virus [HIV] infection status; Z87.01 Personal history of pneumonia (recurrent); Z88.8 Allergy status to other drugs, medicaments and biological substances; Z79.899 Other long term (current) drug therapy; W01.0XXA Fall on same level from slipping, tripping and stumbling without subsequent striking against object, initial encounter; Z79.84 Long term (current) use of oral hypoglycemic drugs
CPT/HCPCS: 71046; 73562; 96372; 99283; J1885

== ENCOUNTER 2018-04-19 16:27 | Emergency (ER) | payer MEDICAID ==
[2018-04-19 17:04] VITALS: BP 140/77
--- NOTE | 2018-04-19 17:14 | EDM.PDOC ---
ED HPI GENERAL MEDICAL PROBLEM - General Chief Complaint: ENT Problem Stated Complaint: SINUS INFECTION Time Seen by Provider: 04/19/18 17:10 Source of Information: Reports: Patient History Limitations: Reports: No Limitations - History of Present Illness INITIAL COMMENTS - FREE TEXT/NARRATIVE: HISTORY AND PHYSICAL: History of present illness: Patient is a 57-year-old female here with concern for possible sinus infection. She states she has had sinus pressure and nasal congestion x 2 weeks. She states she can feel the drainage in her throat which is causing her to cough. She reports she's felt chills on and off. She denies any chest pain, SOB, productive cough, nausea, vomiting, abdominal pain. She is taking tylenol for her sinus pain which she states is no longer helping. Review of systems: As per history of present illness and below otherwise all systems reviewed and negative. Past medical history: As per history of present illness and as reviewed below otherwise noncontributory. Surgical history: As per history of present illness and as reviewed below otherwise noncontributory. Social history: No reported history of drug or alcohol abuse. Family history: As per history of present illness and as reviewed below otherwise noncontributory. Physical exam: General: Patient sitting comfortably in no acute distress and nontoxic appearing HEENT: Maxillary sinus tenderness to palpation bilaterally. Nasal turbinates are edematous with purulent drainage. Atraumatic, normocephalic, pupils reactive , negative for conjunctival pallor or scleral icterus, mucous membranes moist, throat clear, neck supple, nontender, trachea midline. No meningeal signs. Lungs: Clear to auscultation, breath sounds equal bilaterally, chest nontender. Heart: S1S2, regular, negative for clicks, rubs, or overt murmur. Abdomen: Soft, nondistended, nontender. Negative for masses or hepatosplenomegaly. Negative for costovertebral tenderness. Pelvis: Stable nontender. 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: Deferred. Rectal: Deferred. Extremities: Atraumatic, negative for cords or calf pain. Neurovascular unremarkable. Neuro: Awake, alert, oriented. Cranial nerves II through XII unremarkable. Cerebellum unremarkable. Motor and sensory unremarkable throughout. Exam nonfocal. Notes: Diagnostics: None Therapeutics: None Prescriptions: Augmentin Impression: Acute sinusitis Plan: 1. Take antibiotic as directed, decongestants as needed 2. Follow up with primary care provider 3. Return to ED as needed as discussed Definitive disposition and diagnosis as appropriate pending reevaluation and review of above. sinuses/headache Pain Score (Numeric/FACES): 8 - Related Data Allergies Allergy/AdvReac Type Severity Reaction Status Date / Time doxepin [Doxepin] Allergy Blurred Verified 04/19/18 17:04 Vision lisinopril Allergy Rash Verified 04/19/18 17:04 Rembunq-Pdh-Rzh Reductase Allergy Cannot Verified 04/19/18 17:04 Inhibitor Remember sulfamethoxazole Allergy Weakness Verified 04/19/18 17:04 [From Bactrim] trimethoprim [From Bactrim] Allergy Weakness Verified 04/19/18 17:04 Home Meds: Home Meds Estrogens, Conjugated [Premarin Vaginal Crm] 1 applic VAG Q48H 12/14/13 [History ] Losartan/Hydrochlorothiazide [Losartan-HCTZ 100-12.5 MG] 1 each PO DAILY [History] Levothyroxine Sodium [Synthroid] 200 mcg PO ACBREAKFAST 04/06/14 [History] ALPRAZolam [Xanax] 2 mg PO TID PRN 04/17/14 [History] Rosuvastatin [Crestor] 20 mg PO BEDTIME 04/17/14 [History] metFORMIN [Glucophage] 1,000 mg PO BID 04/17/14 [History] traMADol [Ultram] 50 mg PO Q6H PRN 04/17/14 [History] Sertraline HCl 100 mg PO DAILY 04/01/15 [History] Prochlorperazine Maleate 10 mg PO DAILY PRN 12/20/15 [History] amLODIPine Besylate [Norvasc] 5 mg PO DAILY 12/20/15 [History] Lidocaine 5% [Lidoderm 5%] 1 each TOP ASDIRECTED PRN 01/04/16 [History] Ranitidine HCl [Zantac] 300 mg PO BEDTIME 01/07/16 [History] Mometasone/Formoterol [Dulera 100-5 MCG] 2 puff INH BID PRN 07/31/16 [History] Benzonatate 100 - 200 mg PO TID PRN 08/26/16 [History] Elviteg/Lucero/Emtric/Tenofo Ala [Genvoya Tablet] 1 each PO DAILY 08/26/16 [ History] Levocetirizine Dihydrochloride 5 mg PO BEDTIME 08/26/16 [History] Orphenadrine Citrate 100 mg PO BID PRN 08/26/16 [History] Inhaler, Assist Devices [Space Chamber Plus] 1 each MC ASDIRECTED #1 spacer 10/09 [Rx] Albuterol Sulfate 1 - 2 puff INH Q4H PRN 10/31/16 [History] Amoxicillin/Clavulanate K [Augmentin 875-125 MG] 1 tab PO BID 7 Days #14 tablet 04/19/18 [Rx] Past Medical History - Past Health History Medical/Surgical History: Denies Medical/Surgical History HEENT History: Reports: Impaired Vision Other HEENT History: uses reading glasses, has upper and lower dentures but only uses the upper Cardiovascular History: Reports: High Cholesterol, Hypertension Respiratory History: Reports: Asthma, Pneumonia, Recurrent, Other (See Below) Other Respiratory History: recent sinus infection Gastrointestinal History: Reports: GERD, Hemorrhoids 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 History: Reports: None [employer] DIRECTOR History: Reports: Musculoskeletal History: Reports: Back Pain, Chronic, Fracture Other Musculoskeletal History: hx fx right ankle Neurological History: Reports: Other (See Below) Other Neuro History: was told she had a "mini stroke" many years ago, no residual Psychiatric History: Reports: Anxiety, Depression Endocrine/Metabolic History: Reports: Diabetes, Type II, Hypothyroidism, Obesity /BMI 30+ Hematologic History: Reports: None Immunologic History: Reports: HIV Oncologic (Cancer) History: Reports: Basal Cell Carcinoma Dermatologic History: Reports: None - Infectious Disease History Infectious Disease History: Reports: HIV-Human Immunodeficiency Virus - Past Surgical History Head Surgeries/Procedures: Reports: None Female Surgical History: Reports: Hysterectomy, Salpingo-Oophorectomy Social & Family History - Family History Family Medical History: Noncontributory - Tobacco Use Smoking Status *Q: Never Smoker Second Hand Smoke Exposure: No - Caffeine Use Caffeine Use: Reports: None Caffeine Use Comment: 2/day - Recreational Drug Use Recreational Drug Use: No ED ROS ENT - Review of Systems Review Of Systems: ROS reveals no pertinent complaints other than HPI. ED EXAM, ENT - Physical Exam Exam: See Below (see dictation) Course - Vital Signs Last Recorded V/S: Last Vital Signs Temp 35.6 C 04/19/18 17:02 Pulse 93 04/19/18 17:02 Resp 20 04/19/18 17:02 BP 140/77 04/19/18 17:02 Pulse Ox 94 L 04/19/18 17:02 Departure - Departure Time of Disposition: 17:13 Disposition: Home, Self-Care 01 Condition: Good Clinical Impression: Acute sinusitis - Discharge Information Prescriptions: Amoxicillin/Clavulanate K [Augmentin 875-125 MG] 1 tab PO BID 7 Days #14 tablet Referrals: PCP,None [Primary Care Provider] - Additional Instructions: The following information is given to patients seen in the emergency department who are being discharged to home. This information is to outline your options for follow-up care. We provide all patients seen in our emergency department with a follow-up referral. The need for follow-up, as well as the timing and circumstances, are variable depending upon the specifics of your emergency department visit. If you don't have a primary care physician on staff, we will provide you with a referral. We always advise you to contact your personal physician following an emergency department visit to inform them of the circumstance of the visit and for follow-up with them and/or the need for any referrals to a consulting specialist. The emergency department will also refer you to a specialist when appropriate. This referral assures that you have the opportunity for follow-up care with a specialist. All of these measure are taken in an effort to provide you with optimal care, which includes your follow-up. Under all circumstances we always encourage you to contact your private physician who remains a resource for coordinating your care. When calling for follow-up care, please make the office aware that this follow-up is from your recent emergency room visit. If for any reason you are refused follow-up, please contact the [facility] Emergency Department at and asked to speak to the emergency department charge nurse. [facility] [address] [place] [phone] 1. Take antibiotic as directed, decongestants as needed 2. Follow up with primary care provider 3. Return to ED as needed as discussed
== END 2018-04-19 17:38 | disposition home or self-care (01) ==
LOC: MW.ED 16:27
DX: J01.90 Acute sinusitis, unspecified (principal); I10 Essential (primary) hypertension; E11.9 Type 2 diabetes mellitus without complications; E03.9 Hypothyroidism, unspecified; E78.00 Pure hypercholesterolemia, unspecified; K21.9 Gastro-esophageal reflux disease without esophagitis; Z21 Asymptomatic human immunodeficiency virus [HIV] infection status; Z88.2 Allergy status to sulfonamides; Z88.1 Allergy status to other antibiotic agents; Z88.8 Allergy status to other drugs, medicaments and biological substances; Z79.84 Long term (current) use of oral hypoglycemic drugs; Z79.899 Other long term (current) drug therapy
CPT/HCPCS: 99282; 99283

== ENCOUNTER 2018-10-31 17:51 | Emergency (ER) | payer MEDICARE, MEDICAID ==
[2018-10-31 18:19] VITALS: BP 158/78
[2018-10-31] MEDS ORDERED: Ketorolac 60 MG/2 ML SDV IM ONE (18:28)
--- NOTE | 2018-10-31 18:30 | EDM.PDOC ---
ED HPI GENERAL MEDICAL PROBLEM - General Chief Complaint: ENT Problem Stated Complaint: SINUS INFECTION Time Seen by Provider: 10/31/18 18:17 Source of Information: Reports: Patient History Limitations: Reports: No Limitations - History of Present Illness INITIAL COMMENTS - FREE TEXT/NARRATIVE: HISTORY AND PHYSICAL: History of present illness: Patient is a 57-year-old female who presents to the ED today for concern for sinus pain 14 days. Patient states she is taking [id number] Mucinex without relief of symptoms. Patient does have an appointment tomorrow with her primary care provider but states that she wanted to be treated today. Patient denies any other symptoms at this time. Patient denies fever, chills, chest pain, shortness of breath, or cough. Denies headache, neck stiff ness, change in vision, syncope, or near syncope. Denies nausea, vomiting, abdominal pain, diarrhea, constipation, or dysuria. Has not noted any blood in urine or stool. Patient has been eating and drinking appropriately. Patient does have a history of diabetes. Review of systems: As per history of present illness and below otherwise all systems reviewed and negative. Past medical history: As per history of present illness and as reviewed below otherwise noncontributory. Surgical history: As per history of present illness and as reviewed below otherwise noncontributory. Social history: See social history for further information Family history: As per history of present illness and as reviewed below otherwise noncontributory. Physical exam: General: Patient is alert, oriented, and in no acute distress. Patient sitting comfortably on exam table. HEENT: Atraumatic, normocephalic, pupils equal and reactive bilaterally, negative for conjunctival pallor or scleral icterus, mucous membranes moist, TMs normal bilaterally, throat clear, neck supple, nontender, trachea midline. No drooling or trismus noted. No meningeal signs. No hot potato voice noted. Moderate pain to palpation of the maxillary sinuses. The frontal sinuses are negative pain to palpation. Clear nasal drainage bilaterally. Lungs: Clear to auscultation, breath sounds equal bilaterally, chest nontender. Heart: S1S2, regular rate and rhythm. Patient does have a grade 3 systolic ejection murmur best heard at the right upper sternal border. Abdomen: Morbidly obese, soft, nondistended, nontender. Negative for masses or hepatosplenomegaly. Negative for costovertebral tenderness. Pelvis: Stable nontender. 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: Deferred. Rectal: Deferred. Skin: Intact, warm, dry. No lesions or rashes noted. Extremities: Atraumatic, negative for cords or calf pain. Neurovascular unremarkable. Neuro: Awake, alert, oriented. Cranial nerves II through XII unremarkable. Cerebellum unremarkable. Motor and sensory unremarkable throughout. Exam nonfocal. Notes: Discussed the importance for follow-up with a primary care provider. Supportive care measures were reviewed and discussed. Voices understanding and is agreeable to plan of care. Denies any further questions or concerns at this time. Diagnostics: None Therapeutics: Toradol Prescription: Augmentin Impression: Acute sinusitis, maxillary Plan: 1. Take medication as prescribed. You can alternate ibuprofen and Tylenol as directed for pain and discomfort. 2. Follow-up with the primary care provider as discussed. 3. Return to the ED as needed and as discussed. Definitive disposition and diagnosis as appropriate pending reevaluation and review of above. Right Face/Facial Pain Score (Numeric/FACES): 8 - Related Data Allergies Allergy/AdvReac Type Severity Reaction Status Date / Time doxepin [Doxepin] Allergy Blurred Verified 10/31/18 18:20 Vision lisinopril Allergy Rash Verified 10/31/18 18:20 Awriarr-Htm-Zdb Reductase Allergy Cannot Verified 10/31/18 18:20 Inhibitor Remember sulfamethoxazole Allergy Weakness Verified 10/31/18 18:20 [From Bactrim] trimethoprim [From Bactrim] Allergy Weakness Verified 10/31/18 18:20 Home Meds: Home Meds Estrogens, Conjugated [Premarin Vaginal Crm] 1 applic VAG Q48H 12/14/13 [History ] Losartan/Hydrochlorothiazide [Losartan-HCTZ 100-12.5 MG] 1 each PO DAILY [History] Levothyroxine Sodium [Synthroid] 300 mcg PO ACBREAKFAST 04/06/14 [History] ALPRAZolam [Xanax] 2 mg PO TID PRN 04/17/14 [History] Rosuvastatin [Crestor] 20 mg PO BEDTIME 04/17/14 [History] metFORMIN [Glucophage] 1,000 mg PO BID 04/17/14 [History] traMADol [Ultram] 50 mg PO Q6H PRN 04/17/14 [History] Sertraline HCl 100 mg PO DAILY 04/01/15 [History] Prochlorperazine Maleate 10 mg PO DAILY PRN 12/20/15 [History] amLODIPine Besylate [Norvasc] 5 mg PO DAILY 12/20/15 [History] Lidocaine 5% [Lidoderm 5%] 1 each TOP ASDIRECTED PRN 01/04/16 [History] Ranitidine HCl [Zantac] 300 mg PO BEDTIME 01/07/16 [History] Mometasone/Formoterol [Dulera 100-5 MCG] 2 puff INH BID PRN 07/31/16 [History] Elviteg/Lucero/Emtric/Tenofo Ala [Genvoya Tablet] 1 each PO DAILY 08/26/16 [ History] Levocetirizine Dihydrochloride 5 mg PO BEDTIME 08/26/16 [History] Albuterol Sulfate 1 - 2 puff INH Q4H PRN 10/31/16 [History] Amoxicillin/Potassium Clav [Augmentin 875-125 Tablet] 1 each PO BID 5 Days #10 tablet 10/31/18 [Rx] Past Medical History - Past Health History Medical/Surgical History: Denies Medical/Surgical History HEENT History: Reports: Impaired Vision Other HEENT History: uses reading glasses, has upper and lower dentures but only uses the upper Cardiovascular History: Reports: High Cholesterol, Hypertension Respiratory History: Reports: Asthma, Pneumonia, Recurrent, Other (See Below) Other Respiratory History: recent sinus infection Gastrointestinal History: Reports: GERD, Hemorrhoids 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 History: Reports: None 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: Musculoskeletal History: Reports: Back Pain, Chronic, Fracture Other Musculoskeletal History: hx fx right ankle Neurological History: Reports: Other (See Below) Other Neuro History: was told she had a "mini stroke" many years ago, no residual Psychiatric History: Reports: Anxiety, Depression Endocrine/Metabolic History: Reports: Diabetes, Type II, Hypothyroidism, Obesity /BMI 30+ Hematologic History: Reports: None Immunologic History: Reports: HIV Oncologic (Cancer) History: Reports: Basal Cell Carcinoma Dermatologic History: Reports: None - Infectious Disease History Infectious Disease History: Reports: HIV-Human Immunodeficiency Virus - Past Surgical History Head Surgeries/Procedures: Reports: None Female Surgical History: Reports: Hysterectomy, Salpingo-Oophorectomy Social & Family History - Family History Family Medical History: Noncontributory - Tobacco Use Smoking Status *Q: Former Smoker Used Tobacco, but Quit: Yes Month/Year Tobacco Last Used: 2000 - Caffeine Use Caffeine Use: Reports: Coffee, Energy Drinks Caffeine Use Comment: 2/day - Recreational Drug Use Recreational Drug Use: No ED ROS ENT - Review of Systems Review Of Systems: ROS reveals no pertinent complaints other than HPI. ED EXAM, ENT - Physical Exam Exam: See Below (see dictation) Course - Vital Signs Last Recorded V/S: Last Vital Signs Temp 35.6 C 10/31/18 18:17 Pulse 92 10/31/18 18:17 Resp BP 158/78 H 10/31/18 18:17 Pulse Ox 95 10/31/18 18:17 - Orders/Labs/Meds Meds: Medications Discontinued Medications Generic Name Dose Route Start Last Admin Trade Name Freq PRN Reason Stop Dose Admin Ketorolac Tromethamine 60 mg 10/31/18 18:28 10/31/18 18:43 Toradol IM 10/31/18 18:29 60 mg ONETIME ONE Administration Departure - Departure Time of Disposition: 18:36 Disposition: Home, Self-Care 01 Clinical Impression: Acute sinusitis Qualifiers: Sinusitis location: maxillary Recurrence: not specified as recurrent Qualified Code(s): J01.00 - Acute maxillary sinusitis, unspecified - Discharge Information Prescriptions: Amoxicillin/Potassium Clav [Augmentin 875-125 Tablet] 1 each PO BID 5 Days #10 tablet Referrals: Chas Mitchell MD [Primary Care Provider] - Forms: ED Department Discharge Additional Instructions: The following information is given to patients seen in the emergency department who are being discharged to home. This information is to outline your options for follow-up care. We provide all patients seen in our emergency department with a follow-up referral. The need for follow-up, as well as the timing and circumstances, are variable depending upon the specifics of your emergency department visit. If you don't have a primary care physician on staff, we will provide you with a referral. We always advise you to contact your personal physician following an emergency department visit to inform them of the circumstance of the visit and for follow-up with them and/or the need for any referrals to a consulting specialist. The emergency department will also refer you to a specialist when appropriate. This referral assures that you have the opportunity for follow-up care with a specialist. All of these measure are taken in an effort to provide you with optimal care, which includes your follow-up. Under all circumstances we always encourage you to contact your private physician who remains a resource for coordinating your care. When calling for follow-up care, please make the office aware that this follow-up is from your recent emergency room visit. If for any reason you are refused follow-up, please contact the [facility] Emergency Department at and asked to speak to the emergency department charge nurse. [facility] [address] [place] [id number] [facility] [address] [place] [id number] 1. Take medication as prescribed. You can alternate ibuprofen and Tylenol as directed for pain and discomfort. 2. Follow-up with the primary care provider as discussed. 3. Return to the ED as needed and as discussed.
== END 2018-10-31 19:11 | disposition home or self-care (01) ==
LOC: MW.ED 17:51
DX: J01.00 Acute maxillary sinusitis, unspecified (principal); E78.00 Pure hypercholesterolemia, unspecified; I10 Essential (primary) hypertension; K21.9 Gastro-esophageal reflux disease without esophagitis; F41.9 Anxiety disorder, unspecified; F32.9 Major depressive disorder, single episode, unspecified; Z87.891 Personal history of nicotine dependence; Z88.8 Allergy status to other drugs, medicaments and biological substances; Z79.899 Other long term (current) drug therapy
CPT/HCPCS: 96372; 99282; J1885

== ENCOUNTER 2018-11-04 17:41 | Emergency (ER) | payer MEDICARE, MEDICAID ==
[2018-11-04 18:01] VITALS: BP 108/60
--- NOTE | 2018-11-04 18:35 | EDM.PDOC ---
ED HPI GENERAL MEDICAL PROBLEM - General Chief Complaint: Headache Stated Complaint: HEADACHES Time Seen by Provider: 11/04/18 18:33 Source of Information: Reports: Patient - History of Present Illness INITIAL COMMENTS - FREE TEXT/NARRATIVE: HISTORY AND PHYSICAL: History of present illness: []Patient with sinus infection on Levaquin presents with headache 5 out of 10 nonradiating no fever nausea vomiting chills sweats no chest pain shortness breath dizziness or palpitation no bowel or urine symptoms Reproduce or worsen headache with pushing on supraorbital sinuses as well as maxillary sinus left greater than right Review of systems: As per history of present illness and below otherwise all systems reviewed and negative. Past medical history: As per history of present illness and as reviewed below otherwise noncontributory. Surgical history: As per history of present illness and as reviewed below otherwise noncontributory. Social history: No reported history of drug or alcohol abuse. Family history: As per history of present illness and as reviewed below otherwise noncontributory. Physical exam: HEENT: Atraumatic, normocephalic, pupils reactive, negative for conjunctival pallor or scleral icterus, mucous membranes moist, throat clear, neck supple, nontender, trachea midline.Pansinusitis/tenderness on exam Lungs: Clear to auscultation, breath sounds equal bilaterally, chest nontender. Heart: S1S2, regular, negative for clicks, rubs, or JVD. Abdomen: Soft, nondistended, nontender. Negative for masses or hepatosplenomegaly. Negative for costovertebral tenderness. Pelvis: Stable nontender. 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: Deferred. Rectal: Deferred. Extremities: Atraumatic, negative for cords or calf pain. Neurovascular unremarkable. Neuro: Awake, alert, oriented. Cranial nerves II through XII unremarkable. Cerebellum unremarkable. Motor and sensory unremarkable throughout. Exam nonfocal. Diagnostics: [Clinical] Therapeutics: [Continue Levaquin Tylenol No. 3 ] Impression: [Sinusitis Headache secondary to above] Definitive disposition and diagnosis as appropriate pending reevaluation and review of above. Headache Pain Score (Numeric/FACES): 9 - Related Data Allergies Allergy/AdvReac Type Severity Reaction Status Date / Time doxepin [Doxepin] Allergy Blurred Verified 11/04/18 18:01 Vision lisinopril Allergy Rash Verified 11/04/18 18:01 Aekrqzy-Ars-Che Reductase Allergy Cannot Verified 11/04/18 18:01 Inhibitor Remember sulfamethoxazole Allergy Weakness Verified 11/04/18 18:01 [From Bactrim] trimethoprim [From Bactrim] Allergy Weakness Verified 11/04/18 18:01 Home Meds: Home Meds Estrogens, Conjugated [Premarin Vaginal Crm] 1 applic VAG Q48H 12/14/13 [History ] Losartan/Hydrochlorothiazide [Losartan-HCTZ 100-12.5 MG] 1 each PO DAILY [History] Levothyroxine Sodium [Synthroid] 300 mcg PO ACBREAKFAST 04/06/14 [History] ALPRAZolam [Xanax] 2 mg PO TID PRN 04/17/14 [History] Rosuvastatin [Crestor] 20 mg PO BEDTIME 04/17/14 [History] metFORMIN [Glucophage] 1,000 mg PO BID 04/17/14 [History] traMADol [Ultram] 50 mg PO Q6H PRN 04/17/14 [History] Sertraline HCl 100 mg PO DAILY 04/01/15 [History] Prochlorperazine Maleate 10 mg PO DAILY PRN 12/20/15 [History] amLODIPine Besylate [Norvasc] 5 mg PO DAILY 12/20/15 [History] Lidocaine 5% [Lidoderm 5%] 1 each TOP ASDIRECTED PRN 01/04/16 [History] Ranitidine HCl [Zantac] 300 mg PO BEDTIME 01/07/16 [History] Mometasone/Formoterol [Dulera 100-5 MCG] 2 puff INH BID PRN 07/31/16 [History] Elviteg/Lucero/Emtric/Tenofo Ala [Genvoya Tablet] 1 each PO DAILY 08/26/16 [ History] Levocetirizine Dihydrochloride 5 mg PO BEDTIME 08/26/16 [History] Albuterol Sulfate 1 - 2 puff INH Q4H PRN 10/31/16 [History] Amoxicillin/Potassium Clav [Augmentin 875-125 Tablet] 1 each PO BID 5 Days #10 tablet 10/31/18 [Rx] Past Medical History - Past Health History Medical/Surgical History: Denies Medical/Surgical History HEENT History: Reports: Impaired Vision Other HEENT History: uses reading glasses, has upper and lower dentures but only uses the upper Cardiovascular History: Reports: High Cholesterol, Hypertension Respiratory History: Reports: Asthma, Pneumonia, Recurrent, Other (See Below) Other Respiratory History: recent sinus infection Gastrointestinal History: Reports: GERD, Hemorrhoids 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 History: Reports: 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: Musculoskeletal History: Reports: Back Pain, Chronic, Fracture Other Musculoskeletal History: hx fx right ankle Neurological History: Reports: Other (See Below) Other Neuro History: was told she had a "mini stroke" many years ago, no residual Psychiatric History: Reports: Anxiety, Depression Endocrine/Metabolic History: Reports: Diabetes, Type II, Hypothyroidism, Obesity /BMI 30+ Hematologic History: Reports: None Immunologic History: Reports: HIV Oncologic (Cancer) History: Reports: Basal Cell Carcinoma Dermatologic History: Reports: None - Infectious Disease History Infectious Disease History: Reports: HIV-Human Immunodeficiency Virus - Past Surgical History Head Surgeries/Procedures: Reports: None Female Surgical History: Reports: Hysterectomy, Salpingo-Oophorectomy Social & Family History - Family History Family Medical History: Noncontributory - Tobacco Use Smoking Status *Q: Never Smoker Second Hand Smoke Exposure: No - Caffeine Use Caffeine Use: Reports: None Caffeine Use Comment: 2/day - Recreational Drug Use Recreational Drug Use: No ED ROS GENERAL - Review of Systems Review Of Systems: See Below ED EXAM, GENERAL - Physical Exam Exam: See Below Course - Vital Signs Last Recorded V/S: Last Vital Signs Temp 98.2 F 11/04/18 18:00 Pulse 97 11/04/18 18:00 Resp 20 11/04/18 18:00 BP 108/60 11/04/18 18:00 Pulse Ox 98 11/04/18 18:00 Departure - Departure Time of Disposition: 18:35 Disposition: Home, Self-Care 01 Condition: Good Clinical Impression: Sinus headache Sinusitis Qualifiers: Sinusitis location: frontal Chronicity: acute Recurrence: not specified as recurrent Qualified Code(s): J01.10 - Acute frontal sinusitis, unspecified - Discharge Information Referrals: PCP,None [Primary Care Provider] - Additional Instructions: The following information is given to patients seen in the emergency department who are being discharged to home. This information is to outline your options for follow-up care. We provide all patients seen in our emergency department with a follow-up referral. The need for follow-up, as well as the timing and circumstances, are variable depending upon the specifics of your emergency department visit. If you don't have a primary care physician on staff, we will provide you with a referral. We always advise you to contact your personal physician following an emergency department visit to inform them of the circumstance of the visit and for follow-up with them and/or the need for any referrals to a consulting specialist. The emergency department will also refer you to a specialist when appropriate. This referral assures that you have the opportunity for follow-up care with a specialist. All of these measure are taken in an effort to provide you with optimal care, which includes your follow-up. Under all circumstances we always encourage you to contact your private physician who remains a resource for coordinating your care. When calling for follow-up care, please make the office aware that this follow-up is from your recent emergency room visit. If for any reason you are refused follow-up, please contact the [facility] emergency department at and asked to speak to the emergency department charge nurse.
[2018-11-04] MEDS ORDERED: Ketorolac 30 MG/ML SDV IM ONE (18:48)
== END 2018-11-04 19:12 | disposition home or self-care (01) ==
LOC: MW.ED 17:41
DX: J01.10 Acute frontal sinusitis, unspecified (principal); E11.9 Type 2 diabetes mellitus without complications; E03.9 Hypothyroidism, unspecified; I10 Essential (primary) hypertension; E78.00 Pure hypercholesterolemia, unspecified; F41.9 Anxiety disorder, unspecified; F32.9 Major depressive disorder, single episode, unspecified; K21.9 Gastro-esophageal reflux disease without esophagitis; Z88.8 Allergy status to other drugs, medicaments and biological substances; Z88.2 Allergy status to sulfonamides; Z88.1 Allergy status to other antibiotic agents; Z79.899 Other long term (current) drug therapy; Z79.84 Long term (current) use of oral hypoglycemic drugs
CPT/HCPCS: 96372; 99283; J1885

== ENCOUNTER 2019-03-06 17:33 | Emergency (ER) | payer MEDICARE, MEDICAID ==
[2019-03-06] MEDS ORDERED: Sodium Chloride 0.9% 1,000 ML IV ONE (17:59)
[2019-03-06 18:30] LABS: BLOOD UREA NITROGEN,BUN 17 mg/dL (7.0-18.0); CARBON DIOXIDE,CO2 31.9 mmol/L (21.0-32.0); CHLORIDE,CL 106 mmol/L (98-107); GLUCOSE RANDOM 224 mg/dL (74-106); POTASSIUM,K 4.2 mmol/L (3.5-5.1); SODIUM,NA 144 mmol/L (136-145)
[2019-03-06] MEDS ORDERED: Ketorolac 30 MG/ML SDV IVPUSH ONE (19:23)
--- NOTE | 2019-03-06 19:25 | EDM.PDOC ---
ED HPI GENERAL MEDICAL PROBLEM - General Chief Complaint: General Stated Complaint: COUGH, CHEST PAIN Time Seen by Provider: 03/06/19 17:40 Source of Information: Reports: Patient History Limitations: Reports: No Limitations - History of Present Illness INITIAL COMMENTS - FREE TEXT/NARRATIVE: HISTORY AND PHYSICAL: History of present illness: Patient is a 58-year-old female who presents to the emergency room with complaints of cough, chest pain and shortness of breath 3-4 days. She states that she recently quit smoking and since then has been having a painful cough. States the chest pain is associated with her cough. Feels like she is short of breath with ambulation or physical activity. Does have a nebulizer which she has been using over the past 2 days without much improvement. The chest pain is localized to the left anterior chest and does not radiate, only present with coughing. Patient also states that she has had some dysuria, concerned she may have a UTI as she does frequently get these. Patient denies any fever, chills, headache, change in vision, syncope or near syncope. Denies any neck or back pain. Denies any abdominal pain, nausea, vomiting, diarrhea, or constipation. Has not noted any blood in urine or stool. Patient has been eating and drinking appropriately. Review of systems: As per history of present illness and below otherwise all systems reviewed and negative. Past medical history: As per history of present illness and as reviewed below otherwise noncontributory. Surgical history: As per history of present illness and as reviewed below otherwise noncontributory. Social history: See social history for further information Family history: As per history of present illness and as reviewed below otherwise noncontributory. Physical exam: General: Well-developed and well-nourished 59-year-old female. Alert and oriented. Nontoxic appearing and in no acute distress. HEENT: Atraumatic, normocephalic, pupils equal and reactive bilaterally, negative for conjunctival pallor or scleral icterus, mucous membranes moist, TMs normal bilaterally, throat clear, neck supple, nontender, trachea midline. No drooling or trismus noted. No meningeal signs. No hot potato voice noted. Lungs: Fine expiratory wheezes noted to bases bilaterally, breath sounds equal bilaterally, chest nontender. Heart: S1S2, regular rate and rhythm without overt murmur Abdomen: Soft, nondistended, nontender. Negative for masses or hepatosplenomegaly. Negative for costovertebral tenderness. Pelvis: Stable nontender. 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: Deferred. Rectal: Deferred. Skin: Intact, warm, dry. No lesions or rashes noted. Extremities: Atraumatic, moves all extremities per self without difficulty or deficits, negative for cords or calf pain. Neurovascular unremarkable. Neuro: Awake, alert, oriented. Cranial nerves II through XII unremarkable. Cerebellum unremarkable. Motor and sensory unremarkable throughout. Exam nonfocal. Notes: Lab work is unremarkable chest x-ray shows no acute findings. EKG is within normal limits. Her vital signs remain stable. Admission was offered to patient, she declines. Due to patient's history and will treat her with azithromycin. Continues to be chest pain free. Supportive care measures were reviewed and discussed. Voices understanding and is agreeable to plan of care. Denies any further questions or concerns at this time. Diagnostics: CBC, CMP, EKG, 2 view chest, troponin, UA Therapeutics: IV fluids, Toradol Prescription: Zithromax Impression: Chest pain, nonspecific Bronchitis Plan: 1. Good job on quitting smoking. Continue to abstain from tobacco use. 2. Take the antibiotic as directed. Use your inhaler and nebulizer at home as needed 3. Follow up with your primary care provider. Return to the ED as needed as discussed. Definitive disposition and diagnosis as appropriate pending reevaluation and review of above. Chest Pain Score (Numeric/FACES): 9 - Related Data Allergies Allergy/AdvReac Type Severity Reaction Status Date / Time doxepin [Doxepin] Allergy Blurred Verified 11/04/18 18:01 Vision lisinopril Allergy Rash Verified 11/04/18 18:01 Osrudgn-Ytr-Coa Reductase Allergy Cannot Verified 11/04/18 18:01 Inhibitor Remember sulfamethoxazole Allergy Weakness Verified 11/04/18 18:01 [From Bactrim] trimethoprim [From Bactrim] Allergy Weakness Verified 11/04/18 18:01 Home Meds: Home Meds Estrogens, Conjugated [Premarin Vaginal Crm] 1 applic VAG Q48H 12/14/13 [History ] Losartan/Hydrochlorothiazide [Losartan-HCTZ 100-12.5 MG] 1 each PO DAILY [History] Levothyroxine Sodium [Synthroid] 300 mcg PO ACBREAKFAST 04/06/14 [History] ALPRAZolam [Xanax] 2 mg PO TID PRN 04/17/14 [History] Rosuvastatin [Crestor] 20 mg PO BEDTIME 04/17/14 [History] metFORMIN [Glucophage] 1,000 mg PO BID 04/17/14 [History] traMADol [Ultram] 50 mg PO Q6H PRN 04/17/14 [History] Sertraline HCl 100 mg PO DAILY 04/01/15 [History] Prochlorperazine Maleate 10 mg PO DAILY PRN 12/20/15 [History] amLODIPine Besylate [Norvasc] 5 mg PO DAILY 12/20/15 [History] Lidocaine 5% [Lidoderm 5%] 1 each TOP ASDIRECTED PRN 01/04/16 [History] Ranitidine HCl [Zantac] 300 mg PO BEDTIME 01/07/16 [History] Mometasone/Formoterol [Dulera 100-5 MCG] 2 puff INH BID PRN 07/31/16 [History] Elviteg/Lucero/Emtric/Tenofo Ala [Genvoya Tablet] 1 each PO DAILY 08/26/16 [ History] Levocetirizine Dihydrochloride 5 mg PO BEDTIME 08/26/16 [History] Albuterol Sulfate 1 - 2 puff INH Q4H PRN 10/31/16 [History] Amoxicillin/Potassium Clav [Augmentin 875-125 Tablet] 1 each PO BID 5 Days #10 tablet 10/31/18 [Rx] Azithromycin [Zithromax] 250 mg PO DAILY 4 Days #4 tab 03/06/19 [Rx] Past Medical History - Past Health History Medical/Surgical History: Denies Medical/Surgical History HEENT History: Reports: Impaired Vision Other HEENT History: uses reading glasses, has upper and lower dentures but only uses the upper Cardiovascular History: Reports: High Cholesterol, Hypertension Respiratory History: Reports: Asthma, Pneumonia, Recurrent, Other (See Below) Other Respiratory History: recent sinus infection Gastrointestinal History: Reports: GERD, Hemorrhoids 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 History: Reports: 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: Musculoskeletal History: Reports: Back Pain, Chronic, Fracture Other Musculoskeletal History: hx fx right ankle Neurological History: Reports: Other (See Below) Other Neuro History: was told she had a "mini stroke" many years ago, no residual Psychiatric History: Reports: Anxiety, Depression Endocrine/Metabolic History: Reports: Diabetes, Type II, Hypothyroidism, Obesity /BMI 30+ Hematologic History: Reports: None Immunologic History: Reports: HIV Oncologic (Cancer) History: Reports: Basal Cell Carcinoma Dermatologic History: Reports: None - Infectious Disease History Infectious Disease History: Reports: None - Past Surgical History Head Surgeries/Procedures: Reports: None Female Surgical History: Reports: Hysterectomy, Salpingo-Oophorectomy Social & Family History - Family History Family Medical History: Noncontributory - Tobacco Use Smoking Status *Q: Former Smoker Used Tobacco, but Quit: Yes Month/Year Tobacco Last Used: 2018 - Caffeine Use Caffeine Use: Reports: Coffee, Energy Drinks Caffeine Use Comment: 2/day - Recreational Drug Use Recreational Drug Use: No ED ROS GENERAL - Review of Systems Review Of Systems: ROS reveals no pertinent complaints other than HPI. ED EXAM, GENERAL - Physical Exam Exam: See Below (See dictation) Course - Vital Signs Last Recorded V/S: Last Vital Signs Temp 97.0 F 03/06/19 19:58 Pulse 81 03/06/19 19:58 Resp 18 03/06/19 19:58 BP 113/45 L 03/06/19 19:58 Pulse Ox 93 L 03/06/19 19:58 - Orders/Labs/Meds Orders: Active Orders 24 hr Category Date Time Status EKG 12 Lead [EKG Documentation Completion] [RC] STAT Care 03/06/19 17:54 Active CULTURE URINE [RM] Stat Lab 03/06/19 17:38 Received Labs: Laboratory Tests 03/06/19 03/06/19 03/06/19 Range/Units 17:38 17:55 17:55 WBC 11.51 H (4.0-11.0) K/uL RBC 4.41 (4.30-5.90) M/uL Hgb 12.6 (12.0-16.0) g/dL Hct 38.9 (36.0-46.0) % MCV 88.2 (80.0-98.0) fL MCH 28.6 (27.0-32.0) pg MCHC 32.4 (31.0-37.0) g/dL RDW Std Deviation 55.1 (28.0-62.0) fl RDW Coeff of Edgar 17 H (11.0-15.0) % Plt Count 202 (150-400) K/uL MPV 9.70 (7.40-12.00) fL Neut % (Auto) 77.0 (48.0-80.0) % Lymph % (Auto) 18.2 (16.0-40.0) % [place] % (Auto) 2.9 (0.0-15.0) % Eos % (Auto) 1.6 (0.0-7.0) % Baso % (Auto) 0.3 (0.0-1.5) % Neut # (Auto) 8.9 H (1.4-5.7) K/uL Lymph # (Auto) 2.1 (0.6-2.4) K/uL [place] # (Auto) 0.3 (0.0-0.8) K/uL Eos # (Auto) 0.2 (0.0-0.7) K/uL Baso # (Auto) 0.0 (0.0-0.1) K/uL Nucleated RBC % 0.0 /100WBC Nucleated RBCs # 0 K/uL Sodium 144 (136-145) mmol/L Potassium 4.2 (3.5-5.1) mmol/L Chloride 106 (98-107) mmol/L Carbon Dioxide 31.9 (21.0-32.0) mmol/L BUN 17 (7.0-18.0) mg/dL Creatinine 0.7 (0.6-1.0) mg/dL Est Cr Clr Drug Dosing 82.01 mL/min Estimated GFR (MDRD) > 60.0 ml/min Glucose 224 H (74-106) mg/dL Calcium 9.2 (8.5-10.1) mg/dL Total Bilirubin 0.2 (0.2-1.0) mg/dL AST 12 L (15-37) IU/L ALT 25 (14-63) IU/L Alkaline Phosphatase 67 (46-116) U/L Troponin I < 0.050 (0.000-0.056) ng/mL Total Protein 6.5 (6.4-8.2) g/dL Albumin 3.0 L (3.4-5.0) g/dL Globulin 3.5 (2.6-4.0) g/dL Albumin/Globulin Ratio 0.9 (0.9-1.6) Urine Color YELLOW Urine Appearance SLT CLOUDY Urine pH 6.5 (5.0-8.0) Ur Specific [place] 1.020 (1.001-1.035) Urine Protein NEGATIVE (NEGATIVE) mg/dL Urine Glucose (UA) NEGATIVE (NEGATIVE) mg/dL Urine Ketones NEGATIVE (NEGATIVE) mg/dL Urine Occult Blood NEGATIVE (NEGATIVE) Urine Nitrite NEGATIVE (NEGATIVE) Urine Bilirubin NEGATIVE (NEGATIVE) Urine Urobilinogen 0.2 (<2.0) EU/dL Ur Leukocyte Esterase TRACE H (NEGATIVE) Urine RBC 0-2 (0-2/HPF) Urine WBC 0-2 (0-5/HPF) Ur Epithelial Cells FEW (NONE-FEW) Urine Bacteria FEW (NEGATIVE) Meds: Medications Discontinued Medications Generic Name Dose Route Start Last Admin Trade Name Freq PRN Reason Stop Dose Admin Azithromycin 500 mg 03/06/19 19:39 03/06/19 19:48 Zithromax PO 03/06/19 19:40 500 mg NOW STA Administration Sodium Chloride 1,000 mls @ 125 mls/hr 03/06/19 17:59 03/06/19 18:44 Normal Saline IV 03/07/19 01:58 125 mls/hr STAT ONE Administration Ketorolac Tromethamine 30 mg 03/06/19 19:23 03/06/19 19:36 Toradol IVPUSH 03/06/19 19:24 30 mg ONETIME ONE Administration Departure - Departure Time of Disposition: 19:48 Disposition: Home, Self-Care 01 Clinical Impression: Bronchitis, Nonspecific chest pain - Discharge Information Prescriptions: Azithromycin [Zithromax] 250 mg PO DAILY 4 Days #4 tab Instructions: Acute Bronchitis, Adult Referrals: PCP,Unknown [Primary Care Provider] - Forms: ED Department Discharge Additional Instructions: The following information is given to patients seen in the emergency department who are being discharged to home. This information is to outline your options for follow-up care. We provide all patients seen in our emergency department with a follow-up referral. The need for follow-up, as well as the timing and circumstances, are variable depending upon the specifics of your emergency department visit. If you don't have a primary care physician on staff, we will provide you with a referral. We always advise you to contact your personal physician following an emergency department visit to inform them of the circumstance of the visit and for follow-up with them and/or the need for any referrals to a consulting specialist. The emergency department will also refer you to a specialist when appropriate. This referral assures that you have the opportunity for follow-up care with a specialist. All of these measure are taken in an effort to provide you with optimal care, which includes your follow-up. Under all circumstances we always encourage you to contact your private physician who remains a resource for coordinating your care. When calling for follow-up care, please make the office aware that this follow-up is from your recent emergency room visit. If for any reason you are refused follow-up, please contact the [facility] Emergency Department at and asked to speak to the emergency department charge nurse. [facility] [address] [place] [id number] [place] [address] 1. Good job on quitting smoking. Continue to abstain from tobacco use. 2. Take the antibiotic as directed. Use your inhaler and nebulizer at home as needed 3. Follow up with your primary care provider. Return to the ED as needed as discussed.
--- NOTE | 2019-03-06 19:31 | CR ---
INDICATION: cough, chest pain TECHNIQUE: Chest 2 views. COMPARISON: 02/14/18 FINDINGS: Cardiovascular and mediastinum: Heart size and vasculature are normal in caliber and appearance. Mediastinum is within normal limits. Lungs and pleural spaces: Lungs are clear. No sign of infiltrate or mass. No sign of pleural effusion. No pneumothorax. Bones and soft tissues: No significant findings. IMPRESSION: Unremarkable chest. Dictated by: Chavo Davis MD @ 03/06/2019 19:29:30 (Electronically Signed)
[2019-03-06] MEDS ORDERED: Azithromycin 250 MG Tab PO STA (19:39)
[2019-03-06 19:58] VITALS: BP 113/45; PULSE 81
== END 2019-03-06 19:59 | disposition home or self-care (01) ==
LOC: MW.ED 17:33
DX: J40 Bronchitis, not specified as acute or chronic (principal); E78.00 Pure hypercholesterolemia, unspecified; I10 Essential (primary) hypertension; K21.9 Gastro-esophageal reflux disease without esophagitis; F41.9 Anxiety disorder, unspecified; F32.9 Major depressive disorder, single episode, unspecified; E11.9 Type 2 diabetes mellitus without complications; E03.9 Hypothyroidism, unspecified; Z88.8 Allergy status to other drugs, medicaments and biological substances; Z79.899 Other long term (current) drug therapy; Z79.84 Long term (current) use of oral hypoglycemic drugs; Z87.891 Personal history of nicotine dependence; Z88.1 Allergy status to other antibiotic agents; Z88.2 Allergy status to sulfonamides
CPT/HCPCS: 36415; 71046; 80053; 81001; 84484; 85025; 87086; 87088; 87186; 93005; 96361; 96374; 99285; A9270; J1885; J7040; 99283

== ENCOUNTER 2019-03-31 12:31 | Emergency (ER) | payer MEDICARE, MEDICAID ==
--- NOTE | 2019-03-31 13:12 | EDM.PDOC ---
ED HPI GENERAL MEDICAL PROBLEM - General Chief Complaint: 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 Problem Stated Complaint: UTI Time Seen by Provider: 03/31/19 12:36 Source of Information: Reports: Patient History Limitations: Reports: No Limitations - History of Present Illness INITIAL COMMENTS - FREE TEXT/NARRATIVE: HISTORY AND PHYSICAL: History of present illness: Patient is a 58-year-old female who presents to the emergency room today with complaints of dysuria. She states that she does have a history of frequent UTIs and is concerned she has a bladder infection currently. Patient denies any fever , chills, headache, change in vision, syncope or near syncope. Denies any chest pain, back pain, shortness of breath or cough. Denies any abdominal pain, nausea , vomiting, diarrhea, constipation. She denies any vaginal discharge or bleeding. Has not noted any blood in urine or stool. Patient has been eating and drinking appropriately. Review of systems: As per history of present illness and below otherwise all systems reviewed and negative. Past medical history: As per history of present illness and as reviewed below otherwise noncontributory. Surgical history: As per history of present illness and as reviewed below otherwise noncontributory. Social history: See social history for further information Family history: As per history of present illness and as reviewed below otherwise noncontributory. Physical exam: General: Well-developed and well-nourished 58 year old female. Alert and oriented. Nontoxic appearing and in no acute distress. HEENT: Atraumatic, normocephalic, pupils equal and reactive bilaterally, negative for conjunctival pallor or scleral icterus, mucous membranes moist, trachea midline. No drooling or trismus noted. No meningeal signs. No hot potato voice noted. Lungs: Clear to auscultation, breath sounds equal bilaterally, chest nontender. Heart: S1S2, regular rate and rhythm without overt murmur Abdomen: Soft, nondistended, nontender. Negative for masses or hepatosplenomegaly. Negative for costovertebral tenderness. Pelvis: Stable nontender. Skin: Intact, warm, dry. No lesions or rashes noted. Extremities: Atraumatic, moves all extremities per self without difficulty or deficits, negative for cords or calf pain. Neurovascular unremarkable. Neuro: Awake, alert, oriented. Cranial nerves II through XII unremarkable. Cerebellum unremarkable. Motor and sensory unremarkable throughout. Exam nonfocal. Notes: Since the patient does have frequent urinary tract infections and may be leaning towards a UTI will treat with short course of Cipro. She is taken this in the past with good results. Supportive care measures were reviewed and discussed. Voices understanding and is agreeable to plan of care. Denies any further questions or concerns at this time. Diagnostics: UA Therapeutics: None Prescription: Cipro Diflucan Impression: Dysuria Plan: 1. Please use Tylenol and/or Ibuprofen as needed for pain and fever management. 2. Get plenty of Rest. Encourage fluids to prevent dehydration. Take the antibiotic as prescribed. You may use Azo [id number] for symptom relief. 3. Please follow up with your primary care provider. Return to the ED as needed as discussed. Definitive disposition and diagnosis as appropriate pending reevaluation and review of above. Bladder Pain Score (Numeric/FACES): 9 - Related Data Allergies Allergy/AdvReac Type Severity Reaction Status Date / Time doxepin [Doxepin] Allergy Blurred Verified 03/31/19 13:18 Vision lisinopril Allergy Rash Verified 03/31/19 13:18 Awhryhm-Tph-Obb Reductase Allergy Cannot Verified 03/31/19 13:18 Inhibitor Remember sulfamethoxazole Allergy Weakness Verified 03/31/19 13:18 [From Bactrim] trimethoprim [From Bactrim] Allergy Weakness Verified 03/31/19 13:18 Home Meds: Home Meds Estrogens, Conjugated [Premarin Vaginal Crm] 1 applic VAG Q48H 12/14/13 [History ] Losartan/Hydrochlorothiazide [Losartan-HCTZ 100-12.5 MG] 1 each PO DAILY [History] Levothyroxine Sodium [Synthroid] 300 mcg PO ACBREAKFAST 04/06/14 [History] ALPRAZolam [Xanax] 2 mg PO TID PRN 04/17/14 [History] Rosuvastatin [Crestor] 20 mg PO BEDTIME 04/17/14 [History] metFORMIN [Glucophage] 1,000 mg PO BID 04/17/14 [History] traMADol [Ultram] 50 mg PO Q6H PRN 04/17/14 [History] Sertraline HCl 100 mg PO DAILY 04/01/15 [History] Prochlorperazine Maleate 10 mg PO DAILY PRN 12/20/15 [History] amLODIPine Besylate [Norvasc] 5 mg PO DAILY 12/20/15 [History] Lidocaine 5% [Lidoderm 5%] 1 each TOP ASDIRECTED PRN 01/04/16 [History] Ranitidine HCl [Zantac] 300 mg PO BEDTIME 01/07/16 [History] Mometasone/Formoterol [Dulera 100-5 MCG] 2 puff INH BID PRN 07/31/16 [History] Elviteg/Lucero/Emtric/Tenofo Ala [Genvoya Tablet] 1 each PO DAILY 08/26/16 [ History] Levocetirizine Dihydrochloride 5 mg PO BEDTIME 08/26/16 [History] Albuterol Sulfate 1 - 2 puff INH Q4H PRN 10/31/16 [History] Amoxicillin/Potassium Clav [Augmentin 875-125 Tablet] 1 each PO BID 5 Days #10 tablet 10/31/18 [Rx] Azithromycin [Zithromax] 250 mg PO DAILY 4 Days #4 tab 03/06/19 [Rx] Ciprofloxacin HCl [Cipro] 500 mg PO BID 5 Days #10 tablet 03/31/19 [Rx] Fluconazole [Diflucan] 150 mg PO ONETIME #1 tab 03/31/19 [Rx] Past Medical History - Past Health History Medical/Surgical History: Denies Medical/Surgical History HEENT History: Reports: Impaired Vision Other HEENT History: uses reading glasses, has upper and lower dentures but only uses the upper Cardiovascular History: Reports: High Cholesterol, Hypertension Respiratory History: Reports: Asthma, Pneumonia, Recurrent, Other (See Below) Other Respiratory History: recent sinus infection Gastrointestinal History: Reports: GERD, Hemorrhoids 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 History: Reports: 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: Musculoskeletal History: Reports: Back Pain, Chronic, Fracture Other Musculoskeletal History: hx fx right ankle Neurological History: Reports: Other (See Below) Other Neuro History: was told she had a "mini stroke" many years ago, no residual Psychiatric History: Reports: Anxiety, Depression Endocrine/Metabolic History: Reports: Diabetes, Type II, Hypothyroidism, Obesity /BMI 30+ Hematologic History: Reports: None Immunologic History: Reports: HIV Oncologic (Cancer) History: Reports: Basal Cell Carcinoma Dermatologic History: Reports: None - Infectious Disease History Infectious Disease History: Reports: None - Past Surgical History Head Surgeries/Procedures: Reports: None Female Surgical History: Reports: Hysterectomy, Salpingo-Oophorectomy Social & Family History - Family History Family Medical History: Noncontributory - Caffeine Use Caffeine Use: Reports: Coffee, Energy Drinks Caffeine Use Comment: 2/day ED ROS GENERAL - Review of Systems Review Of Systems: ROS reveals no pertinent complaints other than HPI. ED EXAM, RENAL/ - Physical Exam Exam: See Below (See dictation) Course - Vital Signs Last Recorded V/S: Last Vital Signs Temp Pulse 80 03/31/19 13:15 Resp 18 03/31/19 13:15 BP 154/84 H 03/31/19 13:15 Pulse Ox 93 L 03/31/19 13:15 - Orders/Labs/Meds Labs: Laboratory Tests 03/31/19 Range/Units 13:01 Urine Color YELLOW Urine Appearance HAZY Urine pH 5.0 (5.0-8.0) Ur Specific [place] >= 1.030 (1.001-1.035) Urine Protein NEGATIVE (NEGATIVE) mg/dL Urine Glucose (UA) NEGATIVE (NEGATIVE) mg/dL Urine Ketones TRACE H (NEGATIVE) mg/dL Urine Occult Blood TRACE-INTACT H (NEGATIVE) Urine Nitrite NEGATIVE (NEGATIVE) Urine Bilirubin NEGATIVE (NEGATIVE) Urine Urobilinogen 0.2 (<2.0) EU/dL Ur Leukocyte Esterase NEGATIVE (NEGATIVE) Urine RBC 2-4 (0-2/HPF) Urine WBC 0-3 (0-5/HPF) Ur Epithelial Cells FEW (NONE-FEW) Urine Bacteria RARE (NEGATIVE) Urine Mucus LIGHT (NONE-MOD) Departure - Departure Time of Disposition: 13:53 Disposition: Home, Self-Care 01 Clinical Impression: Dysuria - Discharge Information Prescriptions: Ciprofloxacin HCl [Cipro] 500 mg PO BID 5 Days #10 tablet Fluconazole [Diflucan] 150 mg PO ONETIME #1 tab Instructions: Dysuria Referrals: PCP,Unknown [Primary Care Provider] - Forms: ED Department Discharge Additional Instructions: The following information is given to patients seen in the emergency department who are being discharged to home. This information is to outline your options for follow-up care. We provide all patients seen in our emergency department with a follow-up referral. The need for follow-up, as well as the timing and circumstances, are variable depending upon the specifics of your emergency department visit. If you don't have a primary care physician on staff, we will provide you with a referral. We always advise you to contact your personal physician following an emergency department visit to inform them of the circumstance of the visit and for follow-up with them and/or the need for any referrals to a consulting specialist. The emergency department will also refer you to a specialist when appropriate. This referral assures that you have the opportunity for follow-up care with a specialist. All of these measure are taken in an effort to provide you with optimal care, which includes your follow-up. Under all circumstances we always encourage you to contact your private physician who remains a resource for coordinating your care. When calling for follow-up care, please make the office aware that this follow-up is from your recent emergency room visit. If for any reason you are refused follow-up, please contact the [facility] Emergency Department at and asked to speak to the emergency department charge nurse. [facility] [address] [place] [id number] [id number] 1. Please use Tylenol and/or Ibuprofen as needed for pain and fever management. 2. Get plenty of Rest. Encourage fluids to prevent dehydration. Take the antibiotic as prescribed. You may use Azo [id number] for symptom relief. 3. Please follow up with your primary care provider. Return to the ED as needed as discussed.
[2019-03-31 14:15] VITALS: BP 154/89
== END 2019-03-31 14:15 | disposition home or self-care (01) ==
LOC: MW.ED 12:31
DX: R30.0 Dysuria (principal); I10 Essential (primary) hypertension; E78.00 Pure hypercholesterolemia, unspecified; K21.9 Gastro-esophageal reflux disease without esophagitis; F41.9 Anxiety disorder, unspecified; F32.9 Major depressive disorder, single episode, unspecified; E11.9 Type 2 diabetes mellitus without complications; E03.9 Hypothyroidism, unspecified; Z21 Asymptomatic human immunodeficiency virus [HIV] infection status; Z88.8 Allergy status to other drugs, medicaments and biological substances; Z88.2 Allergy status to sulfonamides; Z88.1 Allergy status to other antibiotic agents; Z79.899 Other long term (current) drug therapy; Z79.84 Long term (current) use of oral hypoglycemic drugs
CPT/HCPCS: 81001; 99283

== ENCOUNTER 2019-05-01 14:41 | Emergency (ER) | payer MEDICARE, MEDICAID ==
--- NOTE | 2019-05-01 15:02 | EDM.PDOC ---
ED HPI GENERAL MEDICAL PROBLEM - General Chief Complaint: Respiratory Problem Stated Complaint: SHPRTNESS OF BREATH, COUGH Time Seen by Provider: 05/01/19 15:02 Source of Information: Reports: Patient History Limitations: Reports: No Limitations - History of Present Illness INITIAL COMMENTS - FREE TEXT/NARRATIVE: HISTORY AND PHYSICAL: History of present illness: Patient is a 58-year-old female presents to the ED with complaint of cough and chest pain. She states she has had a cough x 1 week, developed shortness of breath and chest pain x 3 days. She states she is having nasal congestion and sinus pressure as well. She denies fevers, chills, nausea, vomiting, abdominal pain. Past medical history of hypertension, diabetes. Review of systems: As per history of present illness and below otherwise all systems reviewed and negative. Past medical history: As per history of present illness and as reviewed below otherwise noncontributory. Surgical history: As per history of present illness and as reviewed below otherwise noncontributory. Social history: No reported history of drug or alcohol abuse. Family history: As per history of present illness and as reviewed below otherwise noncontributory. Physical exam: General: Patient sitting comfortably in no acute distress and nontoxic appearing HEENT: Atraumatic, normocephalic, pupils reactive, negative for conjunctival pallor or scleral icterus, mucous membranes moist, throat clear, neck supple, nontender, trachea midline. No meningeal signs. Lungs: wheezing noted at lung bases, chest nontender. Heart: S1S2, regular, negative for clicks, rubs, or overt murmur. Abdomen: Soft, nondistended, nontender. Negative for masses or hepatosplenomegaly. Negative for costovertebral tenderness. No rigidity, rebound , guarding. Pelvis: Stable nontender. 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: Deferred. Rectal: Deferred. Extremities: Atraumatic, negative for cords or calf pain. Neurovascular unremarkable. Neuro: Awake, alert, oriented. Cranial nerves II through XII unremarkable. Cerebellum unremarkable. Motor and sensory unremarkable throughout. Exam nonfocal. Notes: Patient offered admission for chest pain which she declined. Diagnostics: CBC, CMP, troponin, EKG, CXR Therapeutics: DuoNeb Prescriptions: Azithromycin Impression: Acute bronchitis Plan: Take antibiotic as instructed. Continue nebulizer or inhaler as discussed. Follow up with primary care provider Return to ED as needed as discussed Definitive disposition and diagnosis as appropriate pending reevaluation and review of above. Chest Pain Score (Numeric/FACES): 9 - Related Data Allergies Allergy/AdvReac Type Severity Reaction Status Date / Time doxepin [Doxepin] Allergy Blurred Verified 05/01/19 14:53 Vision lisinopril Allergy Rash Verified 05/01/19 14:53 [id number]-Cas-Uqx Reductase Allergy Cannot Verified 05/01/19 14:53 Inhibitor Remember sulfamethoxazole Allergy Weakness Verified 05/01/19 14:53 [From Bactrim] trimethoprim [From Bactrim] Allergy Weakness Verified 05/01/19 14:53 Home Meds: Home Meds Estrogens, Conjugated [Premarin Vaginal Crm] 1 applic VAG Q48H 12/14/13 [History ] Losartan/Hydrochlorothiazide [Losartan-HCTZ 100-12.5 MG] 1 each PO DAILY [History] Levothyroxine Sodium [Synthroid] 300 mcg PO ACBREAKFAST 04/06/14 [History] ALPRAZolam [Xanax] 2 mg PO TID PRN 04/17/14 [History] Rosuvastatin [Crestor] 20 mg PO BEDTIME 04/17/14 [History] metFORMIN [Glucophage] 1,000 mg PO BID 04/17/14 [History] traMADol [Ultram] 50 mg PO Q6H PRN 04/17/14 [History] Sertraline HCl 100 mg PO DAILY 04/01/15 [History] Prochlorperazine Maleate 10 mg PO DAILY PRN 12/20/15 [History] amLODIPine Besylate [Norvasc] 5 mg PO DAILY 12/20/15 [History] Lidocaine 5% [Lidoderm 5%] 1 each TOP ASDIRECTED PRN 01/04/16 [History] Ranitidine HCl [Zantac] 300 mg PO BEDTIME 01/07/16 [History] Mometasone/Formoterol [Dulera 100-5 MCG] 2 puff INH BID PRN 07/31/16 [History] Elviteg/Lucero/Emtric/Tenofo Ala [Genvoya Tablet] 1 each PO DAILY 08/26/16 [ History] Levocetirizine Dihydrochloride 5 mg PO BEDTIME 08/26/16 [History] Albuterol Sulfate 1 - 2 puff INH Q4H PRN 10/31/16 [History] Fluconazole [Diflucan] 150 mg PO ONETIME #1 tab 03/31/19 [Rx] Azithromycin [Zithromax] 250 mg PO ASDIRECTED #1 dosepk 05/01/19 [Rx] Past Medical History - Past Health History Medical/Surgical History: Denies Medical/Surgical History HEENT History: Reports: Impaired Vision Other HEENT History: uses reading glasses, has upper and lower dentures but only uses the upper Cardiovascular History: Reports: High Cholesterol, Hypertension Respiratory History: Reports: Asthma, Pneumonia, Recurrent, Other (See Below) Other Respiratory History: recent sinus infection Gastrointestinal History: Reports: GERD, Hemorrhoids 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 History: Reports: 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: Musculoskeletal History: Reports: Back Pain, Chronic, Fracture Other Musculoskeletal History: hx fx right ankle Neurological History: Reports: Other (See Below) Other Neuro History: was told she had a "mini stroke" many years ago, no residual Psychiatric History: Reports: Anxiety, Depression Endocrine/Metabolic History: Reports: Diabetes, Type II, Hypothyroidism, Obesity /BMI 30+ Hematologic History: Reports: None Immunologic History: Reports: HIV Oncologic (Cancer) History: Reports: Basal Cell Carcinoma Dermatologic History: Reports: None - Infectious Disease History Infectious Disease History: Reports: None - Past Surgical History Head Surgeries/Procedures: Reports: None Female Surgical History: Reports: Hysterectomy, Salpingo-Oophorectomy Social & Family History - Family History Family Medical History: Noncontributory - Tobacco Use Smoking Status *Q: Current Every Day Smoker Years of Tobacco use: 25 Packs/Tins Daily: 1 - Caffeine Use Caffeine Use: Reports: Coffee, Energy Drinks Caffeine Use Comment: 2/day ED ROS GENERAL - Review of Systems Review Of Systems: ROS reveals no pertinent complaints other than HPI. ED EXAM, GENERAL - Physical Exam Exam: See Below (see dictation) Course - Vital Signs Last Recorded V/S: Last Vital Signs Temp 95.5 F 05/01/19 14:50 Pulse 105 H 05/01/19 14:50 Resp 18 05/01/19 14:50 BP 165/81 H 05/01/19 14:50 Pulse Ox 95 05/01/19 14:50 - Orders/Labs/Meds Orders: Active Orders 24 hr Category Date Time Status EKG Documentation Completion [RC] STAT Care 05/01/19 14:57 Active RT Aerosol Therapy [RC] ASDIRECTED Care 05/01/19 15:45 Active Labs: Laboratory Tests 05/01/19 05/01/19 05/01/19 Range/Units 15:04 15:04 15:04 WBC 11.92 H (4.0-11.0) K/uL RBC 5.04 (4.30-5.90) M/uL Hgb 14.7 (12.0-16.0) g/dL Hct 44.7 (36.0-46.0) % MCV 88.7 (80.0-98.0) fL MCH 29.2 (27.0-32.0) pg MCHC 32.9 (31.0-37.0) g/dL RDW Std Deviation 50.9 (28.0-62.0) fl RDW Coeff of Edgar 16 H (11.0-15.0) % Plt Count 229 (150-400) K/uL MPV 9.80 (7.40-12.00) fL Neut % (Auto) 77.2 (48.0-80.0) % Lymph % (Auto) 18.2 (16.0-40.0) % [place] % (Auto) 2.8 (0.0-15.0) % Eos % (Auto) 1.6 (0.0-7.0) % Baso % (Auto) 0.2 (0.0-1.5) % Neut # (Auto) 9.2 H (1.4-5.7) K/uL Lymph # (Auto) 2.2 (0.6-2.4) K/uL [place] # (Auto) 0.3 (0.0-0.8) K/uL Eos # (Auto) 0.2 (0.0-0.7) K/uL Baso # (Auto) 0.0 (0.0-0.1) K/uL Nucleated RBC % 0.0 /100WBC Nucleated RBCs # 0 K/uL INR 0.99 Sodium 141 (136-145) mmol/L Potassium 3.5 (3.5-5.1) mmol/L Chloride 105 (98-107) mmol/L Carbon Dioxide 25.8 (21.0-32.0) mmol/L BUN 13 (7.0-18.0) mg/dL Creatinine 0.8 (0.6-1.0) mg/dL Est Cr Clr Drug Dosing 68.97 mL/min Estimated GFR (MDRD) > 60.0 ml/min Glucose 207 H (74-106) mg/dL Calcium 8.9 (8.5-10.1) mg/dL Total Bilirubin 0.3 (0.2-1.0) mg/dL AST 11 L (15-37) IU/L ALT 19 (14-63) IU/L Alkaline Phosphatase 67 (46-116) U/L Troponin I < 0.050 (0.000-0.056) ng/mL Total Protein 6.8 (6.4-8.2) g/dL Albumin 3.0 L (3.4-5.0) g/dL Globulin 3.8 (2.6-4.0) g/dL Albumin/Globulin Ratio 0.8 L (0.9-1.6) Meds: Medications Discontinued Medications Generic Name Dose Route Start Last Admin Trade Name Freq PRN Reason Stop Dose Admin Albuterol/Ipratropium 3 ml 05/01/19 15:45 05/01/19 15:58 Duoneb 3.0-0.5 Mg/3 Ml NEB 05/01/19 15:46 3 ml ONETIME ONE Administration Departure - Departure Time of Disposition: 16:09 Disposition: Home, Self-Care 01 Condition: Good Clinical Impression: Acute bronchitis - Discharge Information Prescriptions: Azithromycin [Zithromax] 250 mg PO ASDIRECTED #1 dosepk Instructions: Acute Bronchitis, Adult, [id number] Referrals: PCP,Unknown [Primary Care Provider] - Forms: ED Department Discharge Additional Instructions: The following information is given to patients seen in the emergency department who are being discharged to home. This information is to outline your options for follow-up care. We provide all patients seen in our emergency department with a follow-up referral. The need for follow-up, as well as the timing and circumstances, are variable depending upon the specifics of your emergency department visit. If you don't have a primary care physician on staff, we will provide you with a referral. We always advise you to contact your personal physician following an emergency department visit to inform them of the circumstance of the visit and for follow-up with them and/or the need for any referrals to a consulting specialist. The emergency department will also refer you to a specialist when appropriate. This referral assures that you have the opportunity for follow-up care with a specialist. All of these measure are taken in an effort to provide you with optimal care, which includes your follow-up. Under all circumstances we always encourage you to contact your private physician who remains a resource for coordinating your care. When calling for follow-up care, please make the office aware that this follow-up is from your recent emergency room visit. If for any reason you are refused follow-up, please contact the [facility] Emergency Department at and asked to speak to the emergency department charge nurse. [facility] [address] [place] [id number] [place] [address] Take antibiotic as instructed. Continue nebulizer or inhaler as discussed. Follow up with primary care provider Return to ED as needed as discussed - My Orders Last 24 Hours: My Active Orders 05/01/19 14:57 EKG Documentation Completion [RC] STAT 05/01/19 15:45 RT Aerosol Therapy [RC] ASDIRECTED - Assessment/Plan Last 24 Hours: My Active Orders 05/01/19 14:57 EKG Documentation Completion [RC] STAT 05/01/19 15:45 RT Aerosol Therapy [RC] ASDIRECTED
[2019-05-01 15:37] LABS: BLOOD UREA NITROGEN,BUN 13 mg/dL (7.0-18.0); CARBON DIOXIDE,CO2 25.8 mmol/L (21.0-32.0); CHLORIDE,CL 105 mmol/L (98-107); GLUCOSE RANDOM 207 mg/dL (74-106); POTASSIUM,K 3.5 mmol/L (3.5-5.1); SODIUM,NA 141 mmol/L (136-145)
[2019-05-01] MEDS ORDERED: Albuterol/Ipratropium 3.0-0.5 MG/3 ML Neb Soln NEB ONE (15:45)
--- NOTE | 2019-05-01 15:45 | CR ---
Chest: PA view of the chest was obtained. Comparison: Previous chest x-ray of 03/06/19. Heart size is normal. Upper mediastinum is normal. Lungs show no acute parenchymal change. Bony structures are grossly intact. Impression: Nothing acute is seen on PA chest x-ray. Diagnostic code #1 MTDD
[2019-05-01 16:26] VITALS: BP 147/73; PULSE 90
== END 2019-05-01 16:26 | disposition home or self-care (01) ==
LOC: MW.ED 14:41
DX: J20.9 Acute bronchitis, unspecified (principal); I10 Essential (primary) hypertension; E11.9 Type 2 diabetes mellitus without complications; E78.00 Pure hypercholesterolemia, unspecified; J45.909 Unspecified asthma, uncomplicated; E03.9 Hypothyroidism, unspecified; K21.9 Gastro-esophageal reflux disease without esophagitis; F41.9 Anxiety disorder, unspecified; F32.9 Major depressive disorder, single episode, unspecified; F17.210 Nicotine dependence, cigarettes, uncomplicated; E66.9 Obesity, unspecified; Z68.41 Body mass index [BMI] 40.0-44.9, adult; Z21 Asymptomatic human immunodeficiency virus [HIV] infection status; Z88.8 Allergy status to other drugs, medicaments and biological substances; Z88.1 Allergy status to other antibiotic agents; Z79.899 Other long term (current) drug therapy; Z85.9 Personal history of malignant neoplasm, unspecified; Z79.890 Hormone replacement therapy; Z79.84 Long term (current) use of oral hypoglycemic drugs; Z86.73 Personal history of transient ischemic attack (TIA), and cerebral infarction without residual deficits
CPT/HCPCS: 36415; 71045; 71045-26; 80053; 84484; 85025; 85610; 87804; 93005; 94640; 99285-25; J7620-GY

== ENCOUNTER 2019-05-12 13:10 | Emergency (ER) | payer MEDICARE, MEDICAID ==
--- NOTE | 2019-05-12 14:12 | CR ---
Chest: Two views of the chest were obtained. Comparison: Previous chest x-ray of 05/01/19. Heart size and mediastinum are normal. Lungs are clear. Bony structures show slight degenerative change scattered within the spine. Impression: Nothing acute is seen on two-view chest x-ray. Diagnostic code #2 MTDD
[2019-05-12 14:23] LABS: BLOOD UREA NITROGEN,BUN 14 mg/dL (7.0-18.0); CARBON DIOXIDE,CO2 26.8 mmol/L (21.0-32.0); CHLORIDE,CL 104 mmol/L (98-107); GLUCOSE RANDOM 212 mg/dL (74-106); POTASSIUM,K 3.3 mmol/L (3.5-5.1); SODIUM,NA 140 mmol/L (136-145)
--- NOTE | 2019-05-12 14:41 | EDM.PDOC ---
ED HPI GENERAL MEDICAL PROBLEM - General Chief Complaint: Respiratory Problem Stated Complaint: BRONCHITIS Time Seen by Provider: 05/12/19 13:25 - History of Present Illness INITIAL COMMENTS - FREE TEXT/NARRATIVE: HISTORY AND PHYSICAL: History of present illness: Patient is a 58-year-old female presents to the ED with complaint of cough and sinus pressure x 3 weeks. She was seen in the ED 10 days ago and given azithromycin for acute bronchitis, she reports some improvement with this. She reports body aches and some shortness of breath with coughing. She has been using her nebulizer 3-4 times per day with some relief. She denies fevers, chills, nausea, vomiting, chest pain. Review of systems: As per history of present illness and below otherwise all systems reviewed and negative. Past medical history: As per history of present illness and as reviewed below otherwise noncontributory. Surgical history: As per history of present illness and as reviewed below otherwise noncontributory. Social history: No reported history of drug or alcohol abuse. Family history: As per history of present illness and as reviewed below otherwise noncontributory. Physical exam: General: Patient sitting comfortably in no acute distress and nontoxic appearing HEENT: Atraumatic, normocephalic, pupils reactive, negative for conjunctival pallor or scleral icterus, mucous membranes moist, throat clear, neck supple, nontender, trachea midline. No meningeal signs. Lungs: Clear to auscultation, breath sounds equal bilaterally, chest nontender. Heart: S1S2, regular, negative for clicks, rubs, or overt murmur. Abdomen: Soft, nondistended, nontender. Negative for masses or hepatosplenomegaly. Negative for costovertebral tenderness. No rigidity, rebound , guarding. Pelvis: Stable nontender. 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: Deferred. Rectal: Deferred. Extremities: Atraumatic, negative for cords or calf pain. Neurovascular unremarkable. Neuro: Awake, alert, oriented. Cranial nerves II through XII unremarkable. Cerebellum unremarkable. Motor and sensory unremarkable throughout. Exam nonfocal. Notes: Diagnostics: CBC, CMP, Chest x-ray, influenza. Therapeutics: [] Prescriptions: Augmentin, medrol dosepak Impression: Bronchitis, acute sinusitis Plan: Take medications as instructed Follow up with primary care provider Return to ED as needed as discussed Definitive disposition and diagnosis as appropriate pending reevaluation and review of above. bodyaches Pain Score (Numeric/FACES): 9 - Related Data Allergies Allergy/AdvReac Type Severity Reaction Status Date / Time doxepin [Doxepin] Allergy Blurred Verified 05/12/19 13:25 Vision lisinopril Allergy Rash Verified 05/12/19 13:25 Eqormov-Vpi-Btt Reductase Allergy Cannot Verified 05/12/19 13:25 Inhibitor Remember sulfamethoxazole Allergy Weakness Verified 05/12/19 13:25 [From Bactrim] trimethoprim [From Bactrim] Allergy Weakness Verified 05/12/19 13:25 Home Meds: Home Meds Estrogens, Conjugated [Premarin Vaginal Crm] 1 applic VAG Q48H 12/14/13 [History ] Losartan/Hydrochlorothiazide [Losartan-HCTZ 100-12.5 MG] 1 each PO DAILY [History] Levothyroxine Sodium [Synthroid] 300 mcg PO ACBREAKFAST 04/06/14 [History] ALPRAZolam [Xanax] 2 mg PO TID PRN 04/17/14 [History] Rosuvastatin [Crestor] 20 mg PO BEDTIME 04/17/14 [History] metFORMIN [Glucophage] 1,000 mg PO BID 04/17/14 [History] traMADol [Ultram] 50 mg PO Q6H PRN 04/17/14 [History] Sertraline HCl 100 mg PO DAILY 04/01/15 [History] Prochlorperazine Maleate 10 mg PO DAILY PRN 12/20/15 [History] amLODIPine Besylate [Norvasc] 5 mg PO DAILY 12/20/15 [History] Lidocaine 5% [Lidoderm 5%] 1 each TOP ASDIRECTED PRN 01/04/16 [History] raNITIdine HCl [Zantac] 300 mg PO BEDTIME 01/07/16 [History] Mometasone/Formoterol [Dulera 100-5 MCG] 2 puff INH BID PRN 07/31/16 [History] Elviteg/Lucero/Emtric/Tenofo Ala [Genvoya Tablet] 1 each PO DAILY 08/26/16 [ History] Levocetirizine Dihydrochloride 5 mg PO BEDTIME 08/26/16 [History] Albuterol Sulfate 1 - 2 puff INH Q4H PRN 10/31/16 [History] Fluconazole [Diflucan] 150 mg PO ONETIME #1 tab 03/31/19 [Rx] Azithromycin [Zithromax] 250 mg PO ASDIRECTED #1 dosepk 05/01/19 [Rx] Amoxicillin/Potassium Clav [Augmentin 875-125 Tablet] 1 each PO BID 7 Days #14 tablet 05/12/19 [Rx] methylPREDNISolone [Medrol] 4 mg PO ASDIRECTED #1 tab.ds.pk 05/12/19 [Rx] Past Medical History - Past Health History Medical/Surgical History: Denies Medical/Surgical History HEENT History: Reports: Impaired Vision Other HEENT History: uses reading glasses, has upper and lower dentures but only uses the upper Cardiovascular History: Reports: High Cholesterol, Hypertension Respiratory History: Reports: Asthma, Pneumonia, Recurrent, Other (See Below) Other Respiratory History: recent sinus infection Gastrointestinal History: Reports: GERD, Hemorrhoids 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 History: Reports: None 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: Musculoskeletal History: Reports: Back Pain, Chronic, Fracture Other Musculoskeletal History: hx fx right ankle Neurological History: Reports: Other (See Below) Other Neuro History: was told she had a "mini stroke" many years ago, no residual Psychiatric History: Reports: Anxiety, Depression Endocrine/Metabolic History: Reports: Diabetes, Type II, Hypothyroidism, Obesity /BMI 30+ Hematologic History: Reports: None Immunologic History: Reports: HIV Oncologic (Cancer) History: Reports: Basal Cell Carcinoma Dermatologic History: Reports: None - Infectious Disease History Infectious Disease History: Reports: HIV-Human Immunodeficiency Virus - Past Surgical History Head Surgeries/Procedures: Reports: None Female Surgical History: Reports: Hysterectomy, Salpingo-Oophorectomy Social & Family History - Family History Family Medical History: Noncontributory - Tobacco Use Smoking Status *Q: Current Every Day Smoker Years of Tobacco use: 1 Packs/Tins Daily: 1 - Caffeine Use Caffeine Use: Reports: Coffee, Energy Drinks Caffeine Use Comment: 2/day - Recreational Drug Use Recreational Drug Use: No ED ROS GENERAL - Review of Systems Review Of Systems: ROS reveals no pertinent complaints other than HPI. ED EXAM, GENERAL - Physical Exam Exam: See Below (see dictation) Course - Vital Signs Last Recorded V/S: Last Vital Signs Temp 96.3 F 05/12/19 13:24 Pulse 84 05/12/19 15:03 Resp 17 05/12/19 15:03 BP 114/50 L 05/12/19 15:03 Pulse Ox 96 05/12/19 15:03 - Orders/Labs/Meds Labs: Laboratory Tests 05/12/19 05/12/19 Range/Units 13:41 13:41 WBC 9.74 (4.0-11.0) K/uL RBC 4.92 (4.30-5.90) M/uL Hgb 14.2 (12.0-16.0) g/dL Hct 43.5 (36.0-46.0) % MCV 88.4 (80.0-98.0) fL MCH 28.9 (27.0-32.0) pg MCHC 32.6 (31.0-37.0) g/dL RDW Std Deviation 49.7 (28.0-62.0) fl RDW Coeff of Edgar 15 (11.0-15.0) % Plt Count 231 (150-400) K/uL MPV 10.20 (7.40-12.00) fL Neut % (Auto) 70.9 (48.0-80.0) % Lymph % (Auto) 23.3 (16.0-40.0) % [place] % (Auto) 2.9 (0.0-15.0) % Eos % (Auto) 2.6 (0.0-7.0) % Baso % (Auto) 0.3 (0.0-1.5) % Neut # (Auto) 6.9 H (1.4-5.7) K/uL Lymph # (Auto) 2.3 (0.6-2.4) K/uL [place] # (Auto) 0.3 (0.0-0.8) K/uL Eos # (Auto) 0.3 (0.0-0.7) K/uL Baso # (Auto) 0.0 (0.0-0.1) K/uL Nucleated RBC % 0.0 /100WBC Nucleated RBCs # 0 K/uL Sodium 140 (136-145) mmol/L Potassium 3.3 L (3.5-5.1) mmol/L Chloride 104 (98-107) mmol/L Carbon Dioxide 26.8 (21.0-32.0) mmol/L BUN 14 (7.0-18.0) mg/dL Creatinine 0.9 (0.6-1.0) mg/dL Est Cr Clr Drug Dosing 63.78 mL/min Estimated GFR (MDRD) > 60.0 ml/min Glucose 212 H (74-106) mg/dL Calcium 8.4 L (8.5-10.1) mg/dL Total Bilirubin 0.2 (0.2-1.0) mg/dL AST 16 (15-37) IU/L ALT 19 (14-63) IU/L Alkaline Phosphatase 69 (46-116) U/L Total Protein 6.6 (6.4-8.2) g/dL Albumin 2.9 L (3.4-5.0) g/dL Globulin 3.7 (2.6-4.0) g/dL Albumin/Globulin Ratio 0.8 L (0.9-1.6) Departure - Departure Time of Disposition: 14:31 Disposition: Home, Self-Care 01 Condition: Good Clinical Impression: Bronchitis - Discharge Information Prescriptions: Amoxicillin/Potassium Clav [Augmentin 875-125 Tablet] 1 each PO BID 7 Days #14 tablet methylPREDNISolone [Medrol] 4 mg PO ASDIRECTED #1 tab.ds.pk Instructions: Acute Bronchitis, Adult, [id number] Referrals: Chas Mitchell MD [Primary Care Provider] - Forms: ED Department Discharge Additional Instructions: The following information is given to patients seen in the emergency department who are being discharged to home. This information is to outline your options for follow-up care. We provide all patients seen in our emergency department with a follow-up referral. The need for follow-up, as well as the timing and circumstances, are variable depending upon the specifics of your emergency department visit. If you don't have a primary care physician on staff, we will provide you with a referral. We always advise you to contact your personal physician following an emergency department visit to inform them of the circumstance of the visit and for follow-up with them and/or the need for any referrals to a consulting specialist. The emergency department will also refer you to a specialist when appropriate. This referral assures that you have the opportunity for follow-up care with a specialist. All of these measure are taken in an effort to provide you with optimal care, which includes your follow-up. Under all circumstances we always encourage you to contact your private physician who remains a resource for coordinating your care. When calling for follow-up care, please make the office aware that this follow-up is from your recent emergency room visit. If for any reason you are refused follow-up, please contact the [facility] Emergency Department at and asked to speak to the emergency department charge nurse. [facility] [address] [place] [id number] [address] Take medications as instructed Follow up with primary care provider Return to ED as needed as discussed
[2019-05-12 15:04] VITALS: BP 114/50; PULSE 84
== END 2019-05-12 15:04 | disposition home or self-care (01) ==
LOC: MW.ED 13:10
DX: J40 Bronchitis, not specified as acute or chronic (principal); J01.90 Acute sinusitis, unspecified; I10 Essential (primary) hypertension; E78.00 Pure hypercholesterolemia, unspecified; E11.9 Type 2 diabetes mellitus without complications; E03.9 Hypothyroidism, unspecified; F32.9 Major depressive disorder, single episode, unspecified; F41.9 Anxiety disorder, unspecified; J45.909 Unspecified asthma, uncomplicated; F17.210 Nicotine dependence, cigarettes, uncomplicated; Z21 Asymptomatic human immunodeficiency virus [HIV] infection status; Z79.84 Long term (current) use of oral hypoglycemic drugs; Z79.890 Hormone replacement therapy; Z79.899 Other long term (current) drug therapy; Z88.2 Allergy status to sulfonamides; Z88.8 Allergy status to other drugs, medicaments and biological substances; Z88.1 Allergy status to other antibiotic agents
CPT/HCPCS: 36415; 71046; 71046-26; 80053; 85025; 87804; 99285-25

== ENCOUNTER 2019-07-03 11:39 | Emergency (ER) | payer MEDICARE, MEDICAID ==
[2019-07-03] MEDS ORDERED: Sodium Chloride 0.9% 10 ML Syringe FLUSH PRN (11:49)
[2019-07-03] MEDS ORDERED: Sodium Chloride 0.9% 2.5 ML Syringe FLUSH PRN (11:49)
[2019-07-03] MEDS ORDERED: Albuterol/Ipratropium 3.0-0.5 MG/3 ML Neb Soln NEB ONE (12:01)
[2019-07-03] MEDS ORDERED: methylPREDNISolone Sodium Succinate 125 MG/2 ML SDV IVPUSH ONE (12:01)
[2019-07-03] MEDS ORDERED: Aspirin 81 MG Tab.Chew PO ONE (12:16)
--- NOTE | 2019-07-03 12:18 | EDM.PDOC ---
ED HPI GENERAL MEDICAL PROBLEM - General Chief Complaint: Cardiovascular Problem Stated Complaint: HEART FLUTTERS Time Seen by Provider: 07/03/19 11:40 Source of Information: Reports: Patient History Limitations: Reports: No Limitations - History of Present Illness INITIAL COMMENTS - FREE TEXT/NARRATIVE: HISTORY AND PHYSICAL: History of present illness: Patient is a 50-year-old female who presents to the ED today with concern of palpitations since last night. Patient states she's been having the palpitations off and on and started this morning she had some chest discomfort associated with the palpitations. Patient states she is not currently having the palpitations at this time or chest discomfort. Patient states she also has had a cough since onset of symptoms. Patient states she does smoke about a pack a day and just started back up and november and prior to that had not been smoking for 17 years. Patient denies taking any medications or any other symptoms or concerns. Patient has a history of hypertension, hyperlipidemia, asthma, GERD, type 2 diabetes, hypothyroidism, anxiety and depression. Patient denies fever, chills, shortness of breath. Denies headache, neck stiff ness, change in vision, syncope, or near syncope. Denies nausea, vomiting, abdominal pain, diarrhea, constipation, or dysuria. Has not noted any blood in urine or stool. Patient has been eating and drinking appropriately. Review of systems: As per history of present illness and below otherwise all systems reviewed and negative. Past medical history: As per history of present illness and as reviewed below otherwise noncontributory. Surgical history: As per history of present illness and as reviewed below otherwise noncontributory. Social history: See social history for further information Family history: As per history of present illness and as reviewed below otherwise noncontributory. Physical exam: General: Patient is alert, oriented, and in no acute distress. Patient sitting comfortably on exam table. HEENT: Atraumatic, normocephalic, pupils equal and reactive bilaterally, negative for conjunctival pallor or scleral icterus, mucous membranes moist, TMs normal bilaterally, throat clear, neck supple, nontender, trachea midline. No drooling or trismus noted. No meningeal signs. No hot potato voice noted. Lungs: Diffuse wheezing to auscultation, breath sounds equal bilaterally, chest nontender. Heart: S1S2, regular rate and rhythm without overt murmur Abdomen: Soft, nondistended, nontender. Negative for masses or hepatosplenomegaly. Negative for costovertebral tenderness. Pelvis: Stable nontender. 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: Deferred. Rectal: Deferred. Skin: Intact, warm, dry. No lesions or rashes noted. Extremities: Atraumatic, negative for cords or calf pain. Neurovascular unremarkable. Neuro: Awake, alert, oriented. Cranial nerves II through XII unremarkable. Cerebellum unremarkable. Motor and sensory unremarkable throughout. Exam nonfocal. Notes: Patient states she has an appointment this coming Wednesday with her primary care provider. Discussed the importance of keeping this appointment for followup. Admission for observation was offered to patient but she declines at this time. All risks versus benefits discussed with patient expresses understanding. Voices understanding and is agreeable to plan of care. Denies any further questions or concerns at this time. Diagnostics: CBC, CMP, UA, EKG, chest x-ray, troponin, TSH Therapeutics: Solumedrol, Duoneb, ASA Prescription: Medrol dose pack (patient has albuterol inhaler available to her) Impression: H/O palpitations H/O chest pain Hyperthyroid Wheezing Plan: 1. Take medication as prescribed. Use her at-home inhalers as prescribed to you as directed and as discussed. 2. Follow-up with your primary care provider as scheduled and as discussed for repeat lab work. Return to the ED as needed and as discussed. 3. You can alternate ibuprofen and Tylenol as directed for pain and discomfort. Definitive disposition and diagnosis as appropriate pending reevaluation and review of above. Left Arm Pain Score (Numeric/FACES): 3 - Related Data Allergies Allergy/AdvReac Type Severity Reaction Status Date / Time doxepin [Doxepin] Allergy Blurred Verified 07/03/19 11:50 Vision lisinopril Allergy Rash Verified 07/03/19 11:50 Mltfime-Tia-Exu Reductase Allergy Cannot Verified 07/03/19 11:50 Inhibitor Remember sulfamethoxazole Allergy Weakness Verified 07/03/19 11:50 [From Bactrim] trimethoprim [From Bactrim] Allergy Weakness Verified 07/03/19 11:50 Home Meds: Home Meds Estrogens, Conjugated [Premarin Vaginal Crm] 1 applic VAG Q48H 12/14/13 [History ] Losartan/Hydrochlorothiazide [Losartan-HCTZ 100-12.5 MG] 1 each PO DAILY [History] Levothyroxine Sodium [Synthroid] 300 mcg PO ACBREAKFAST 04/06/14 [History] ALPRAZolam [Xanax] 2 mg PO TID PRN 04/17/14 [History] Rosuvastatin [Crestor] 20 mg PO BEDTIME 04/17/14 [History] metFORMIN [Glucophage] 1,000 mg PO BID 04/17/14 [History] traMADol [Ultram] 50 mg PO Q6H PRN 04/17/14 [History] Sertraline HCl 100 mg PO DAILY 04/01/15 [History] Prochlorperazine Maleate 10 mg PO DAILY PRN 12/20/15 [History] amLODIPine Besylate [Norvasc] 5 mg PO DAILY 12/20/15 [History] Lidocaine 5% [Lidoderm 5%] 1 each TOP ASDIRECTED PRN 01/04/16 [History] raNITIdine HCl [Zantac] 300 mg PO BEDTIME 01/07/16 [History] Mometasone/Formoterol [Dulera 100-5 MCG] 2 puff INH BID PRN 07/31/16 [History] Elviteg/Lucero/Emtric/Tenofo Ala [Genvoya Tablet] 1 each PO DAILY 08/26/16 [ History] Levocetirizine Dihydrochloride 5 mg PO BEDTIME 08/26/16 [History] Albuterol Sulfate 1 - 2 puff INH Q4H PRN 10/31/16 [History] Past Medical History - Past Health History Medical/Surgical History: Denies Medical/Surgical History HEENT History: Reports: Impaired Vision Other HEENT History: uses reading glasses, has upper and lower dentures but only uses the upper Cardiovascular History: Reports: High Cholesterol, Hypertension Respiratory History: Reports: Asthma, Pneumonia, Recurrent, Other (See Below) Other Respiratory History: recent sinus infection Gastrointestinal History: Reports: GERD, Hemorrhoids 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 History: Reports: None [employer] History: Reports: Musculoskeletal History: Reports: Back Pain, Chronic, Fracture Other Musculoskeletal History: hx fx right ankle Neurological History: Reports: Other (See Below) Other Neuro History: was told she had a "mini stroke" many years ago, no residual Psychiatric History: Reports: Anxiety, Depression Endocrine/Metabolic History: Reports: Diabetes, Type II, Hypothyroidism, Obesity /BMI 30+ Hematologic History: Reports: None Immunologic History: Reports: HIV Oncologic (Cancer) History: Reports: Basal Cell Carcinoma Dermatologic History: Reports: None - Infectious Disease History Infectious Disease History: Reports: None - Past Surgical History Head Surgeries/Procedures: Reports: None Female Surgical History: Reports: Hysterectomy, Salpingo-Oophorectomy Social & Family History - Family History Family Medical History: Noncontributory - Tobacco Use Smoking Status *Q: Current Every Day Smoker Years of Tobacco use: 1 Packs/Tins Daily: 1 - Caffeine Use Caffeine Use: Reports: Coffee, Energy Drinks Caffeine Use Comment: 2/day - Recreational Drug Use Recreational Drug Use: No ED ROS GENERAL - Review of Systems Review Of Systems: Comprehensive ROS is negative, except as noted in HPI. ED EXAM, GENERAL - Physical Exam Exam: See Below (see dictation) Course - Vital Signs Last Recorded V/S: Last Vital Signs Temp 97.4 F 07/03/19 11:47 Pulse 73 07/03/19 12:57 Resp 18 07/03/19 12:57 BP 153/79 H 07/03/19 12:57 Pulse Ox 94 L 07/03/19 12:57 - Orders/Labs/Meds Orders: Active Orders 24 hr Category Date Time Status EKG Documentation Completion [RC] STAT Care 07/03/19 11:49 Active RT Aerosol Therapy [RC] ASDIRECTED Care 07/03/19 12:01 Active Sodium Chloride 0.9% [Saline Flush] Med 07/03/19 11:49 Active 10 ml FLUSH ASDIRECTED PRN Sodium Chloride 0.9% [Saline Flush] Med 07/03/19 11:49 Active 2.5 ml FLUSH ASDIRECTED PRN Saline Lock Insert [OM.PC] Stat Oth 07/03/19 11:49 Ordered Medication Orders Sodium Chloride (Saline Flush) 10 ml FLUSH ASDIRECTED PRN PRN Reason: Keep Vein Open Last Admin: 07/03/19 12:12 Dose: 10 ml Sodium Chloride (Saline Flush) 2.5 ml FLUSH ASDIRECTED PRN PRN Reason: Keep Vein Open Last Admin: 07/03/19 12:13 Dose: 2.5 ml Labs: Laboratory Tests 12/09/19 12/09/19 12/09/19 Range/Units 11:55 11:55 11:55 WBC 13.59 H (4.0-11.0) K/uL RBC 5.25 (4.30-5.90) M/uL Hgb 14.8 (12.0-16.0) g/dL Hct 44.6 (36.0-46.0) % MCV 85.0 (80.0-98.0) fL MCH 28.2 (27.0-32.0) pg MCHC 33.2 (31.0-37.0) g/dL RDW Std Deviation 47.6 (28.0-62.0) fl RDW Coeff of Edgar 16 H (11.0-15.0) % Plt Count 202 (150-400) K/uL MPV 10.70 (7.40-12.00) fL Neut % (Auto) 80.0 (48.0-80.0) % Lymph % (Auto) 16.1 (16.0-40.0) % Gillespie % (Auto) 3.5 (0.0-15.0) % Eos % (Auto) 0.3 (0.0-7.0) % Baso % (Auto) 0.1 (0.0-1.5) % Neut # (Auto) 10.9 H (1.4-5.7) K/uL Lymph # (Auto) 2.2 (0.6-2.4) K/uL Gillespie # (Auto) 0.5 (0.0-0.8) K/uL Eos # (Auto) 0.0 (0.0-0.7) K/uL Baso # (Auto) 0.0 (0.0-0.1) K/uL Nucleated RBC % 0.0 /100WBC Nucleated RBCs # 0 K/uL Sodium 139 (136-145) mmol/L Potassium 4.1 (3.5-5.1) mmol/L Chloride 102 (98-107) mmol/L Carbon Dioxide 28.3 (21.0-32.0) mmol/L BUN 26 H (7.0-18.0) mg/dL Creatinine 0.8 (0.6-1.0) mg/dL Est Cr Clr Drug Dosing 70.36 mL/min Estimated GFR (MDRD) > 60.0 ml/min Glucose 228 H (74-106) mg/dL Calcium 9.1 (8.5-10.1) mg/dL Total Bilirubin 0.2 (0.2-1.0) mg/dL AST 12 L (15-37) IU/L ALT 22 (14-63) IU/L Alkaline Phosphatase 58 (46-116) U/L Troponin I < 0.050 (0.000-0.056) ng/mL Total Protein 6.7 (6.4-8.2) g/dL Albumin 3.4 (3.4-5.0) g/dL Globulin 3.3 (2.6-4.0) g/dL Albumin/Globulin Ratio 1.0 (0.9-1.6) TSH 3rd Generation 0.12 L (0.36-3.74) uIU/mL Urine Color Urine Appearance Urine pH (5.0-8.0) Ur Specific [place] (1.001-1.035) Urine Protein (NEGATIVE) mg/dL Urine Glucose (UA) (NEGATIVE) mg/dL Urine Ketones (NEGATIVE) mg/dL Urine Occult Blood (NEGATIVE) Urine Nitrite (NEGATIVE) Urine Bilirubin (NEGATIVE) Urine Urobilinogen (<2.0) EU/dL Ur Leukocyte Esterase (NEGATIVE) 07/03/19 Range/Units 12:47 WBC (4.0-11.0) K/uL RBC (4.30-5.90) M/uL Hgb (12.0-16.0) g/dL Hct (36.0-46.0) % MCV (80.0-98.0) fL MCH (27.0-32.0) pg MCHC (31.0-37.0) g/dL RDW Std Deviation (28.0-62.0) fl RDW Coeff of Edgar (11.0-15.0) % Plt Count (150-400) K/uL MPV (7.40-12.00) fL Neut % (Auto) (48.0-80.0) % Lymph % (Auto) (16.0-40.0) % Gillespie % (Auto) (0.0-15.0) % Eos % (Auto) (0.0-7.0) % Baso % (Auto) (0.0-1.5) % Neut # (Auto) (1.4-5.7) K/uL Lymph # (Auto) (0.6-2.4) K/uL Gillespie # (Auto) (0.0-0.8) K/uL Eos # (Auto) (0.0-0.7) K/uL Baso # (Auto) (0.0-0.1) K/uL Nucleated RBC % /100WBC Nucleated RBCs # K/uL Sodium (136-145) mmol/L Potassium (3.5-5.1) mmol/L Chloride (98-107) mmol/L Carbon Dioxide (21.0-32.0) mmol/L BUN (7.0-18.0) mg/dL Creatinine (0.6-1.0) mg/dL Est Cr Clr Drug Dosing mL/min Estimated GFR (MDRD) ml/min Glucose (74-106) mg/dL Calcium (8.5-10.1) mg/dL Total Bilirubin (0.2-1.0) mg/dL AST (15-37) IU/L ALT (14-63) IU/L Alkaline Phosphatase (46-116) U/L Troponin I (0.000-0.056) ng/mL Total Protein (6.4-8.2) g/dL Albumin (3.4-5.0) g/dL Globulin (2.6-4.0) g/dL Albumin/Globulin Ratio (0.9-1.6) TSH 3rd Generation (0.36-3.74) uIU/mL Urine Color YELLOW Urine Appearance CLEAR Urine pH 5.5 (5.0-8.0) Ur Specific [place] 1.010 (1.001-1.035) Urine Protein NEGATIVE (NEGATIVE) mg/dL Urine Glucose (UA) NEGATIVE (NEGATIVE) mg/dL Urine Ketones NEGATIVE (NEGATIVE) mg/dL Urine Occult Blood NEGATIVE (NEGATIVE) Urine Nitrite NEGATIVE (NEGATIVE) Urine Bilirubin NEGATIVE (NEGATIVE) Urine Urobilinogen 0.2 (<2.0) EU/dL Ur Leukocyte Esterase NEGATIVE (NEGATIVE) Meds: Medications Generic Name Dose Route Start Last Admin Trade Name Freq PRN Reason Stop Dose Admin Sodium Chloride 10 ml 07/03/19 11:49 07/03/19 12:12 Saline Flush FLUSH 10 ml ASDIRECTED PRN Administration Keep Vein Open Sodium Chloride 2.5 ml 07/03/19 11:49 07/03/19 12:13 Saline Flush FLUSH 2.5 ml ASDIRECTED PRN Administration Keep Vein Open Discontinued Medications Generic Name Dose Route Start Last Admin Trade Name Tierra PRN Reason Stop Dose Admin Albuterol/Ipratropium 3 ml 07/03/19 12:01 07/03/19 12:12 Duoneb 3.0-0.5 Mg/3 Ml NEB 07/03/19 12:02 3 ml ONETIME ONE Administration Aspirin 324 mg 07/03/19 12:16 07/03/19 12:57 Aspirin PO 07/03/19 12:17 324 mg ONETIME ONE Administration Methylprednisolone Sodium Succinate 125 mg 07/03/19 12:01 07/03/19 12:13 Solu-Medrol IVPUSH 07/03/19 12:02 125 mg ONETIME ONE Administration Departure - Departure Time of Disposition: 13:31 Disposition: Home, Self-Care 01 Clinical Impression: History of palpitations, History of chest pain, Hyperthyroidism, Wheezing Referrals: Chas Mitchell MD [Primary Care Provider] - Forms: ED Department Discharge Additional Instructions: The following information is given to patients seen in the emergency department who are being discharged to home. This information is to outline your options for follow-up care. We provide all patients seen in our emergency department with a follow-up referral. The need for follow-up, as well as the timing and circumstances, are variable depending upon the specifics of your emergency department visit. If you don't have a primary care physician on staff, we will provide you with a referral. We always advise you to contact your personal physician following an emergency department visit to inform them of the circumstance of the visit and for follow-up with them and/or the need for any referrals to a consulting specialist. The emergency department will also refer you to a specialist when appropriate. This referral assures that you have the opportunity for follow-up care with a specialist. All of these measure are taken in an effort to provide you with optimal care, which includes your follow-up. Under all circumstances we always encourage you to contact your private physician who remains a resource for coordinating your care. When calling for follow-up care, please make the office aware that this follow-up is from your recent emergency room visit. If for any reason you are refused follow-up, please contact the [facility] Emergency Department at and asked to speak to the emergency department charge nurse. [facility] [address] [place] [address] [facility] [address] [place] [address] 1. Take medication as prescribed. Use her at-home inhalers as prescribed to you as directed and as discussed. 2. Follow-up with your primary care provider as scheduled and as discussed for repeat lab work. Return to the ED as needed and as discussed. 3. You can alternate ibuprofen and Tylenol as directed for pain and discomfort. - My Orders Last 24 Hours: My Active Orders 07/03/19 11:49 EKG Documentation Completion [RC] STAT Sodium Chloride 0.9% [Saline Flush] 10 ml FLUSH ASDIRECTED PRN Sodium Chloride 0.9% [Saline Flush] 2.5 ml FLUSH ASDIRECTED PRN Saline Lock Insert [OM.PC] Stat 07/03/19 12:01 RT Aerosol Therapy [RC] ASDIRECTED - Assessment/Plan Last 24 Hours: My Active Orders 07/03/19 11:49 EKG Documentation Completion [RC] STAT Sodium Chloride 0.9% [Saline Flush] 10 ml FLUSH ASDIRECTED PRN Sodium Chloride 0.9% [Saline Flush] 2.5 ml FLUSH ASDIRECTED PRN Saline Lock Insert [OM.PC] Stat 07/03/19 12:01 RT Aerosol Therapy [RC] ASDIRECTED
[2019-07-03 12:42] LABS: BLOOD UREA NITROGEN,BUN 26 mg/dL (7.0-18.0); CARBON DIOXIDE,CO2 28.3 mmol/L (21.0-32.0); CHLORIDE,CL 102 mmol/L (98-107); GLUCOSE RANDOM 228 mg/dL (74-106); POTASSIUM,K 4.1 mmol/L (3.5-5.1); SODIUM,NA 139 mmol/L (136-145)
[2019-07-03 12:58] VITALS: PULSE 73
--- NOTE | 2019-07-03 13:24 | CR ---
Chest: AP view of the chest was obtained. Comparison: Prior chest x-ray of 05/01/19. Heart size and mediastinum are within normal limits for portable technique. Lungs show no acute parenchymal change. Bony structures are grossly intact. Impression: Nothing acute is appreciated on portable chest x-ray. Diagnostic code #1 This report was dictated in [place] Standard Time MTDD
[2019-07-03 13:51] VITALS: BP 144/96
== END 2019-07-03 13:39 | disposition home or self-care (01) ==
LOC: MW.ED 11:39
DX: R06.2 Wheezing (principal); E05.90 Thyrotoxicosis, unspecified without thyrotoxic crisis or storm; I10 Essential (primary) hypertension; E78.00 Pure hypercholesterolemia, unspecified; E11.9 Type 2 diabetes mellitus without complications; K21.9 Gastro-esophageal reflux disease without esophagitis; F41.9 Anxiety disorder, unspecified; F32.9 Major depressive disorder, single episode, unspecified; E03.9 Hypothyroidism, unspecified; E66.9 Obesity, unspecified; Z68.41 Body mass index [BMI] 40.0-44.9, adult; F17.210 Nicotine dependence, cigarettes, uncomplicated; Z88.8 Allergy status to other drugs, medicaments and biological substances; Z88.2 Allergy status to sulfonamides; Z88.1 Allergy status to other antibiotic agents; Z79.84 Long term (current) use of oral hypoglycemic drugs; Z79.899 Other long term (current) drug therapy
CPT/HCPCS: 36415; 71045; 80053; 81003; 84443; 84484; 85025; 87804; 93005; 96374; 99285; A9270; J2930; 99284; J7620-GY

== ENCOUNTER 2019-07-03 19:44 | Emergency (ER) | payer MEDICARE, MEDICAID ==
--- NOTE | 2019-07-03 20:22 | EDM.PDOC ---
ED HPI GENERAL MEDICAL PROBLEM - General Chief Complaint: General Stated Complaint: bp too high Time Seen by Provider: 07/03/19 20:10 - History of Present Illness INITIAL COMMENTS - FREE TEXT/NARRATIVE: HISTORY AND PHYSICAL: History of present illness: Patient a 58-year-old female who presents with a concern of medical screening exam for elevated blood pressure she denies other complaints. Chest pain shows breath palpitations nausea vomiting diaphoresis or other concern. Review of systems: As per history of present illness and below otherwise all systems reviewed and negative. Past medical history: As per history of present illness and as reviewed below otherwise noncontributory. Surgical history: As per history of present illness and as reviewed below otherwise noncontributory. Social history: No reported history of drug or alcohol abuse. Family history: As per history of present illness and as reviewed below otherwise noncontributory. Physical exam: HEENT: Atraumatic, normocephalic, pupils reactive, negative for conjunctival pallor or scleral icterus, mucous membranes moist, throat clear, neck supple, nontender, trachea midline. Lungs: Clear to auscultation, breath sounds equal bilaterally, chest nontender. Heart: S1S2, regular, negative for clicks, rubs, or JVD. Abdomen: Soft, nondistended, nontender. Negative for masses or hepatosplenomegaly. Negative for costovertebral tenderness. Pelvis: Stable nontender. 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: Deferred. Rectal: Deferred. Extremities: Atraumatic, negative for cords or calf pain. Neurovascular unremarkable. Neuro: Awake, alert, oriented. Cranial nerves II through XII unremarkable. Cerebellum unremarkable. Motor and sensory unremarkable throughout. Exam nonfocal. Diagnostics: EKG Therapeutics: None Impression: 1 medical screening exam #2 history of hypertension #3 history of diabetes Definitive disposition and diagnosis as appropriate pending reevaluation and review of above. - Related Data Allergies Allergy/AdvReac Type Severity Reaction Status Date / Time doxepin [Doxepin] Allergy Blurred Verified 07/03/19 20:01 Vision lisinopril Allergy Rash Verified 07/03/19 20:01 Pvcnwid-Qup-Lze Reductase Allergy Cannot Verified 07/03/19 20:01 Inhibitor Remember sulfamethoxazole Allergy Weakness Verified 07/03/19 20:01 [From Bactrim] trimethoprim [From Bactrim] Allergy Weakness Verified 07/03/19 20:01 Home Meds: Home Meds Estrogens, Conjugated [Premarin Vaginal Crm] 1 applic VAG Q48H 12/14/13 [History ] Losartan/Hydrochlorothiazide [Losartan-HCTZ 100-12.5 MG] 1 each PO DAILY [History] Levothyroxine Sodium [Synthroid] 300 mcg PO ACBREAKFAST 04/06/14 [History] ALPRAZolam [Xanax] 2 mg PO TID PRN 04/17/14 [History] Rosuvastatin [Crestor] 20 mg PO BEDTIME 04/17/14 [History] metFORMIN [Glucophage] 1,000 mg PO BID 04/17/14 [History] traMADol [Ultram] 50 mg PO Q6H PRN 04/17/14 [History] Sertraline HCl 100 mg PO DAILY 04/01/15 [History] Prochlorperazine Maleate 10 mg PO DAILY PRN 12/20/15 [History] amLODIPine Besylate [Norvasc] 5 mg PO DAILY 12/20/15 [History] Lidocaine 5% [Lidoderm 5%] 1 each TOP ASDIRECTED PRN 01/04/16 [History] raNITIdine HCl [Zantac] 300 mg PO BEDTIME 01/07/16 [History] Mometasone/Formoterol [Dulera 100-5 MCG] 2 puff INH BID PRN 07/31/16 [History] Elviteg/Lucero/Emtric/Tenofo Ala [Genvoya Tablet] 1 each PO DAILY 08/26/16 [ History] Levocetirizine Dihydrochloride 5 mg PO BEDTIME 08/26/16 [History] Albuterol Sulfate 1 - 2 puff INH Q4H PRN 10/31/16 [History] methylPREDNISolone [Medrol] 4 mg PO ASDIRECTED #1 dosepk 07/03/19 [Rx] Past Medical History - Past Health History Medical/Surgical History: Denies Medical/Surgical History HEENT History: Reports: Impaired Vision Other HEENT History: uses reading glasses, has upper and lower dentures but only uses the upper Cardiovascular History: Reports: High Cholesterol, Hypertension Respiratory History: Reports: Asthma, Pneumonia, Recurrent, Other (See Below) Other Respiratory History: recent sinus infection Gastrointestinal History: Reports: GERD, Hemorrhoids 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 History: Reports: None 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: Musculoskeletal History: Reports: Back Pain, Chronic, Fracture Other Musculoskeletal History: hx fx right ankle Neurological History: Reports: Other (See Below) Other Neuro History: was told she had a "mini stroke" many years ago, no residual Psychiatric History: Reports: Anxiety, Depression Endocrine/Metabolic History: Reports: Diabetes, Type II, Hypothyroidism, Obesity /BMI 30+ Hematologic History: Reports: None Immunologic History: Reports: HIV Oncologic (Cancer) History: Reports: Basal Cell Carcinoma Dermatologic History: Reports: None - Infectious Disease History Infectious Disease History: Reports: None - Past Surgical History Head Surgeries/Procedures: Reports: None Female Surgical History: Reports: Hysterectomy, Salpingo-Oophorectomy Social & Family History - Family History Family Medical History: Noncontributory - Tobacco Use Smoking Status *Q: Current Every Day Smoker Years of Tobacco use: 1 Packs/Tins Daily: 1 - Caffeine Use Caffeine Use: Reports: Coffee, Energy Drinks Caffeine Use Comment: 2/day - Recreational Drug Use Recreational Drug Use: No ED ROS GENERAL - Review of Systems Review Of Systems: Comprehensive ROS is negative, except as noted in HPI. ED EXAM, GENERAL - Physical Exam Exam: See Below (The dictation) Course - Vital Signs Last Recorded V/S: Last Vital Signs Temp 35.6 C 07/03/19 19:59 Pulse 80 07/03/19 19:59 Resp 18 07/03/19 19:59 BP 155/74 H 07/03/19 19:59 Pulse Ox 95 07/03/19 19:59 - Orders/Labs/Meds Orders: Active Orders 24 hr Category Date Time Status EKG Documentation Completion [RC] STAT Care 07/03/19 20:17 Active Labs: Laboratory Tests 07/03/19 07/03/19 07/03/19 Range/Units 20:30 20:30 20:30 WBC 13.72 H (4.0-11.0) K/uL RBC 5.24 (4.30-5.90) M/uL Hgb 14.8 (12.0-16.0) g/dL Hct 44.5 (36.0-46.0) % MCV 84.9 (80.0-98.0) fL MCH 28.2 (27.0-32.0) pg MCHC 33.3 (31.0-37.0) g/dL RDW Std Deviation 47.6 (28.0-62.0) fl RDW Coeff of Edgar 15 (11.0-15.0) % Plt Count 200 (150-400) K/uL MPV 10.20 (7.40-12.00) fL Add Manual Diff YES Neutrophils % (Manual) 86 H (48.0-80.0) % Band Neutrophils % 2 % Lymphocytes % (Manual) 10 L (16.0-40.0) % Monocytes % (Manual) 2 (0.0-15.0) % Nucleated RBC % 0.0 /100WBC Absolute Seg Neuts 11.8 H (1.4-5.7) Band Neutrophils # 0.3 Lymphocytes # (Manual) 1.4 (0.6-2.4) Monocytes # (Manual) 0.3 (0.0-0.8) Nucleated RBCs # 0 K/uL VBG pH 7.40 (7.31-7.41) VBG pCO2 45 (35-45) mmHG VBG pO2 25 L (30-40) mmHG VBG HCO3 28 (22-30) mEq/L VBG Total CO2 25 L (41-51) mmol/L VBG Base Excess 2.3 (-3.0-3.0) Sodium 136 (136-145) mmol/L Potassium 4.9 (3.5-5.1) mmol/L Chloride 99 (98-107) mmol/L Carbon Dioxide 25.9 (21.0-32.0) mmol/L BUN 31 H (7.0-18.0) mg/dL Creatinine 1.1 H (0.6-1.0) mg/dL Est Cr Clr Drug Dosing 52.19 mL/min Estimated GFR (MDRD) 51.0 ml/min Glucose 366 H (74-106) mg/dL Calcium 9.0 (8.5-10.1) mg/dL Total Bilirubin 0.3 (0.2-1.0) mg/dL AST 8 L (15-37) IU/L ALT 24 (14-63) IU/L Alkaline Phosphatase 57 (46-116) U/L Total Protein 6.8 (6.4-8.2) g/dL Albumin 3.4 (3.4-5.0) g/dL Globulin 3.4 (2.6-4.0) g/dL Albumin/Globulin Ratio 1.0 (0.9-1.6) Departure - Departure Time of Disposition: 20:20 Disposition: Home, Self-Care 01 Condition: Good Clinical Impression: Encounter for medical screening examination, History of diabetes mellitus, History of hypertension - Discharge Information Referrals: Chas Mitchell MD [Primary Care Provider] - Forms: ED Department Discharge Additional Instructions: The following information is given to patients seen in the emergency department who are being discharged to home. This information is to outline your options for follow-up care. We provide all patients seen in our emergency department with a follow-up referral. The need for follow-up, as well as the timing and circumstances, are variable depending upon the specifics of your emergency department visit. If you don't have a primary care physician on staff, we will provide you with a referral. We always advise you to contact your personal physician following an emergency department visit to inform them of the circumstance of the visit and for follow-up with them and/or the need for any referrals to a consulting specialist. The emergency department will also refer you to a specialist when appropriate. This referral assures that you have the opportunity for followup care with a specialist. All of these measure are taken in an effort to provide you with optimal care, which includes your followup. Under all circumstances we always encourage you to contact your private physician who remains a resource for coordinating your care. When calling for followup care, please make the office aware that this follow-up is from your recent emergency room visit. If for any reason you are refused follow-up, please contact the [facility] emergency department at and asked to speak to the emergency department charge nurse. Continue current medications diet as discussed - My Orders Last 24 Hours: My Active Orders 07/03/19 20:17 EKG Documentation Completion [RC] STAT - Assessment/Plan Last 24 Hours: My Active Orders 07/03/19 20:17 EKG Documentation Completion [RC] STAT
[2019-07-03 21:01] LABS: CARBON DIOXIDE,CO2 25.9 mmol/L (21.0-32.0); POTASSIUM,K 4.9 mmol/L (3.5-5.1)
[2019-07-03 21:46] VITALS: BP 155/80; PULSE 74
== END 2019-07-03 21:40 | disposition home or self-care (01) ==
LOC: MW.ED 19:44
DX: I10 Essential (primary) hypertension (principal); E11.9 Type 2 diabetes mellitus without complications; E78.00 Pure hypercholesterolemia, unspecified; J45.909 Unspecified asthma, uncomplicated; K21.9 Gastro-esophageal reflux disease without esophagitis; F41.9 Anxiety disorder, unspecified; F32.9 Major depressive disorder, single episode, unspecified; E03.9 Hypothyroidism, unspecified; E66.9 Obesity, unspecified; Z68.41 Body mass index [BMI] 40.0-44.9, adult; F17.210 Nicotine dependence, cigarettes, uncomplicated; Z88.8 Allergy status to other drugs, medicaments and biological substances; Z88.2 Allergy status to sulfonamides; Z88.1 Allergy status to other antibiotic agents; Z79.899 Other long term (current) drug therapy; Z79.84 Long term (current) use of oral hypoglycemic drugs
CPT/HCPCS: 36415; 80053; 82803; 85025; 93005; 99282; 99283-25

== ENCOUNTER 2019-09-08 15:53 | Emergency (ER) | payer MEDICARE, MEDICAID ==
--- NOTE | 2019-09-08 17:07 | EDM.PDOC ---
ED HPI GENERAL MEDICAL PROBLEM - General Chief Complaint: General Stated Complaint: sinus infection head cold Time Seen by Provider: 09/08/19 15:58 Source of Information: Reports: Patient History Limitations: Reports: No Limitations - History of Present Illness INITIAL COMMENTS - FREE TEXT/NARRATIVE: HISTORY AND PHYSICAL: History of present illness: Patient is a 58-year-old female who presents to the ED today with concern of sinus congestion and cough x2-3 day. Patient states that she has had some sinus congestion and is dripping down the back of her throat which causes her to cough. Patient states over the past 2 weeks she is had a sore throat off and on. Patient was seen in the clinic by Dr. Irvin earlier today and at that time a strep swab was offered but patient declines. Patient was discharged with viral URI instructions and instructed to return if symptoms persisted for greater than 1 week. Patient states she is here in the ED today because she wants a "second opinion" as she desires antibiotics for her sinuses. Patient denies any other symptoms or concerns. Patient denies fever, chills, chest pain, shortness of breath. Denies headache, neck stiff ness, change in vision, syncope, or near syncope. Denies nausea, vomiting, abdominal pain, diarrhea, constipation, or dysuria. Has not noted any blood in urine or stool. Patient has been eating and drinking appropriately. Review of systems: As per history of present illness and below otherwise all systems reviewed and negative. Past medical history: As per history of present illness and as reviewed below otherwise noncontributory. Surgical history: As per history of present illness and as reviewed below otherwise noncontributory. Social history: See social history for further information Family history: As per history of present illness and as reviewed below otherwise noncontributory. Physical exam: General: Patient is alert, oriented, and in no acute distress. Patient sitting comfortably on exam table. HEENT: Atraumatic, normocephalic, pupils equal and reactive bilaterally, negative for conjunctival pallor or scleral icterus, mucous membranes moist, TMs normal bilaterally, throat clear, neck supple, nontender, trachea midline. No drooling or trismus noted. No meningeal signs. No hot potato voice noted. Mild tenderness to palpation of the maxillary sinuses. Bilateral nasal congestion. Lungs: Clear to auscultation, breath sounds equal bilaterally, chest nontender. Heart: S1S2, regular rate and rhythm without overt murmur Abdomen: Soft, nondistended, nontender. Negative for masses or hepatosplenomegaly. Negative for costovertebral tenderness. Pelvis: Stable nontender. 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: Deferred. Rectal: Deferred. Skin: Intact, warm, dry. No lesions or rashes noted. Extremities: Atraumatic, negative for cords or calf pain. Neurovascular unremarkable. Neuro: Awake, alert, oriented. Cranial nerves II through XII unremarkable. Cerebellum unremarkable. Motor and sensory unremarkable throughout. Exam nonfocal. Notes: Discussed importance for follow-up with a primary care provider. Voices understanding and is agreeable to plan of care. Denies any further questions or concerns at this time. Diagnostics: CBC, CMP, UA, EKG, CXR, Trop, Strep, Influenza Therapeutics: None Prescription: None Impression: Nasal congestion Viral syndrome Plan: 1. Use cough drops and/or other over the counter medications as needed for throat discomfort as discussed. Drink small but frequent sips of fluid to prevent dehydration. 2. Alternate Ibuprofen and Tylenol as directed for pain and discomfort. Use OTC flonase as directed and as discussed. 3. Follow up with a primary care provider as discussed. 4. Return to the ED as needed and as discussed. Definitive disposition and diagnosis as appropriate pending reevaluation and review of above. Headache Pain Score (Numeric/FACES): 9 - Related Data Allergies Allergy/AdvReac Type Severity Reaction Status Date / Time doxepin [Doxepin] Allergy Blurred Verified 09/08/19 16:17 Vision lisinopril Allergy Rash Verified 09/08/19 16:17 Jdlmndn-Lkb-Yjg Reductase Allergy Cannot Verified 09/08/19 16:17 Inhibitor Remember sulfamethoxazole Allergy Weakness Verified 09/08/19 16:17 [From Bactrim] trimethoprim [From Bactrim] Allergy Weakness Verified 09/08/19 16:17 Home Meds: Home Meds Estrogens, Conjugated [Premarin Vaginal Crm] 1 applic VAG Q48H 12/14/13 [History ] Losartan/Hydrochlorothiazide [Losartan-HCTZ 100-12.5 MG] 1 each PO DAILY [History] Levothyroxine Sodium [Synthroid] 300 mcg PO ACBREAKFAST 04/06/14 [History] ALPRAZolam [Xanax] 2 mg PO TID PRN 04/17/14 [History] Rosuvastatin [Crestor] 20 mg PO BEDTIME 04/17/14 [History] metFORMIN [Glucophage] 1,000 mg PO BID 04/17/14 [History] traMADol [Ultram] 50 mg PO Q6H PRN 04/17/14 [History] Sertraline HCl 100 mg PO DAILY 04/01/15 [History] Prochlorperazine Maleate 10 mg PO DAILY PRN 12/20/15 [History] amLODIPine Besylate [Norvasc] 5 mg PO DAILY 12/20/15 [History] Lidocaine 5% [Lidoderm 5%] 1 each TOP ASDIRECTED PRN 01/04/16 [History] raNITIdine HCl [Zantac] 300 mg PO BEDTIME 01/07/16 [History] Mometasone/Formoterol [Dulera 100-5 MCG] 2 puff INH BID PRN 07/31/16 [History] Elviteg/Lucero/Emtric/Tenofo Ala [Genvoya Tablet] 1 each PO DAILY 08/26/16 [ History] Levocetirizine Dihydrochloride 5 mg PO BEDTIME 08/26/16 [History] Albuterol Sulfate 1 - 2 puff INH Q4H PRN 10/31/16 [History] methylPREDNISolone [Medrol] 4 mg PO ASDIRECTED #1 dosepk 07/03/19 [Rx] Past Medical History - Past Health History Medical/Surgical History: Denies Medical/Surgical History HEENT History: Reports: Impaired Vision Other HEENT History: uses reading glasses, has upper and lower dentures but only uses the upper Cardiovascular History: Reports: High Cholesterol, Hypertension Respiratory History: Reports: Asthma, Pneumonia, Recurrent, Other (See Below) Other Respiratory History: recent sinus infection Gastrointestinal History: Reports: GERD, Hemorrhoids 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 History: Reports: 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: Musculoskeletal History: Reports: Back Pain, Chronic, Fracture Other Musculoskeletal History: hx fx right ankle Neurological History: Reports: Other (See Below) Other Neuro History: was told she had a "mini stroke" many years ago, no residual Psychiatric History: Reports: Anxiety, Depression Endocrine/Metabolic History: Reports: Diabetes, Type II, Hypothyroidism, Obesity /BMI 30+ Hematologic History: Reports: None Immunologic History: Reports: HIV Oncologic (Cancer) History: Reports: Basal Cell Carcinoma Dermatologic History: Reports: None - Infectious Disease History Infectious Disease History: Reports: HIV-Human Immunodeficiency Virus - Past Surgical History Head Surgeries/Procedures: Reports: None Female Surgical History: Reports: Hysterectomy, Salpingo-Oophorectomy Social & Family History - Family History Family Medical History: Noncontributory - Tobacco Use Smoking Status *Q: Current Every Day Smoker Years of Tobacco use: 1 Packs/Tins Daily: 1 - Caffeine Use Caffeine Use: Reports: None Caffeine Use Comment: 2/day - Recreational Drug Use Recreational Drug Use: No ED ROS GENERAL - Review of Systems Review Of Systems: Comprehensive ROS is negative, except as noted in HPI. ED EXAM, GENERAL - Physical Exam Exam: See Below (see dictation) Course - Vital Signs Last Recorded V/S: Last Vital Signs Temp 96.7 F L 09/08/19 16:22 Pulse 83 09/08/19 16:22 Resp 20 09/08/19 16:22 BP 136/70 09/08/19 16:22 Pulse Ox 95 09/08/19 16:22 - Orders/Labs/Meds Orders: Active Orders 24 hr Category Date Time Status EKG Documentation Completion [RC] STAT Care 09/08/19 17:03 Active CULTURE STREP A CONFIRMATION [] Stat Lab 09/08/19 17:20 Results STREP SCRN A RAPID W CULT CONF [] Stat Lab 09/08/19 17:20 Results Labs: Laboratory Tests 09/08/19 09/08/19 09/08/19 Range/Units 17:20 17:25 17:25 WBC 11.59 H (4.0-11.0) K/uL RBC 4.98 (4.30-5.90) M/uL Hgb 14.8 (12.0-16.0) g/dL Hct 43.1 (36.0-46.0) % MCV 86.5 (80.0-98.0) fL MCH 29.7 (27.0-32.0) pg MCHC 34.3 (31.0-37.0) g/dL RDW Std Deviation 53.9 (28.0-62.0) fl RDW Coeff of Edgar 17 H (11.0-15.0) % Plt Count 207 (150-400) K/uL MPV 10.50 (7.40-12.00) fL Neut % (Auto) 69.2 (48.0-80.0) % Lymph % (Auto) 24.7 (16.0-40.0) % [place] % (Auto) 4.2 (0.0-15.0) % Eos % (Auto) 1.6 (0.0-7.0) % Baso % (Auto) 0.3 (0.0-1.5) % Neut # (Auto) 8.0 H (1.4-5.7) K/uL Lymph # (Auto) 2.9 H (0.6-2.4) K/uL [place] # (Auto) 0.5 (0.0-0.8) K/uL Eos # (Auto) 0.2 (0.0-0.7) K/uL Baso # (Auto) 0.0 (0.0-0.1) K/uL Nucleated RBC % 0.0 /100WBC Nucleated RBCs # 0 K/uL Sodium 144 (136-145) mmol/L Potassium 3.5 (3.5-5.1) mmol/L Chloride 107 (98-107) mmol/L Carbon Dioxide 28.3 (21.0-32.0) mmol/L BUN 17 (7.0-18.0) mg/dL Creatinine 0.7 (0.6-1.0) mg/dL Est Cr Clr Drug Dosing 78.83 mL/min Estimated GFR (MDRD) > 60.0 ml/min Glucose 94 (74-106) mg/dL Calcium 9.4 (8.5-10.1) mg/dL Total Bilirubin 0.3 (0.2-1.0) mg/dL AST 17 (15-37) IU/L ALT 31 (14-63) IU/L Alkaline Phosphatase 59 (46-116) U/L Troponin I < 0.050 (0.000-0.056) ng/mL Total Protein 6.8 (6.4-8.2) g/dL Albumin 3.3 L (3.4-5.0) g/dL Globulin 3.5 (2.6-4.0) g/dL Albumin/Globulin Ratio 0.9 (0.9-1.6) Urine Color YELLOW Urine Appearance SLT CLOUDY Urine pH 5.0 (5.0-8.0) Ur Specific [place] >= 1.030 (1.001-1.035) Urine Protein NEGATIVE (NEGATIVE) mg/dL Urine Glucose (UA) NEGATIVE (NEGATIVE) mg/dL Urine Ketones TRACE H (NEGATIVE) mg/dL Urine Occult Blood NEGATIVE (NEGATIVE) Urine Nitrite NEGATIVE (NEGATIVE) Urine Bilirubin SMALL H (NEGATIVE) Urine Ictotest NEGATIVE Urine Urobilinogen 0.2 (<2.0) EU/dL Ur Leukocyte Esterase NEGATIVE (NEGATIVE) Departure - Departure Time of Disposition: 19:15 Disposition: Home, Self-Care 01 Clinical Impression: Nasal congestion, Viral syndrome - Discharge Information Referrals: Pato Harrington MD [Primary Care Provider] - Forms: ED Department Discharge Additional Instructions: The following information is given to patients seen in the emergency department who are being discharged to home. This information is to outline your options for follow-up care. We provide all patients seen in our emergency department with a follow-up referral. The need for follow-up, as well as the timing and circumstances, are variable depending upon the specifics of your emergency department visit. If you don't have a primary care physician on staff, we will provide you with a referral. We always advise you to contact your personal physician following an emergency department visit to inform them of the circumstance of the visit and for follow-up with them and/or the need for any referrals to a consulting specialist. The emergency department will also refer you to a specialist when appropriate. This referral assures that you have the opportunity for follow-up care with a specialist. All of these measure are taken in an effort to provide you with optimal care, which includes your follow-up. Under all circumstances we always encourage you to contact your private physician who remains a resource for coordinating your care. When calling for follow-up care, please make the office aware that this follow-up is from your recent emergency room visit. If for any reason you are refused follow-up, please contact the [facility] Emergency Department at and asked to speak to the emergency department charge nurse. [facility] Primary Care [address] [place] [id number] [facility] [address] [place] [id number] 1. Use cough drops and/or other over the counter medications as needed for throat discomfort as discussed. Drink small but frequent sips of fluid to prevent dehydration. 2. Alternate Ibuprofen and Tylenol as directed for pain and discomfort. Use OTC flonase as directed and as discussed. 3. Follow up with a primary care provider as discussed. 4. Return to the ED as needed and as discussed. Sepsis Event Note - Evaluation Sepsis Screening Result: No Definite Risk - Focused Exam Vital Signs: Vital Signs Temp Pulse Resp BP Pulse Ox 09/08/19 16:22 96.7 F L 83 20 136/70 95 Date Exam was Performed: 09/08/19 Time Exam was Performed: 19:13 - My Orders Last 24 Hours: My Active Orders 09/08/19 17:03 EKG Documentation Completion [RC] STAT 09/08/19 17:20 CULTURE STREP A CONFIRMATION [RM] Stat STREP SCRN A RAPID W CULT CONF [RM] Stat - Assessment/Plan Last 24 Hours: My Active Orders 09/08/19 17:03 EKG Documentation Completion [RC] STAT 09/08/19 17:20 CULTURE STREP A CONFIRMATION [RM] Stat STREP SCRN A RAPID W CULT CONF [] Stat
[2019-09-08 17:55] LABS: BLOOD UREA NITROGEN,BUN 17 mg/dL (7.0-18.0); CARBON DIOXIDE,CO2 28.3 mmol/L (21.0-32.0); CHLORIDE,CL 107 mmol/L (98-107); GLUCOSE RANDOM 94 mg/dL (74-106); POTASSIUM,K 3.5 mmol/L (3.5-5.1); SODIUM,NA 144 mmol/L (136-145)
--- NOTE | 2019-09-08 18:52 | CR ---
INDICATION: cough x2 wks, sore throat COMPARISON: 07/03/2019. FINDINGS: PA and lateral views of the chest demonstrate adequate inflation of the lungs. No focal airspace consolidation, pneumothorax or effusion. Probable mild scarring or atelectasis in the left lower lung. Heart size is normal. There are no acute osseous findings. IMPRESSION: No acute cardiopulmonary findings. Dictated by Raheem Candelario MD @ 09/08/2019 6:51:45 PM Dictated by: Raheem Candelario MD @ 09/08/2019 18:51:52 (Electronically Signed)
[2019-09-08 19:35] VITALS: BP 143/66; PULSE 86
== END 2019-09-08 19:30 | disposition home or self-care (01) ==
LOC: MW.ED 15:53
DX: B34.9 Viral infection, unspecified (principal); F17.210 Nicotine dependence, cigarettes, uncomplicated; E78.00 Pure hypercholesterolemia, unspecified; I10 Essential (primary) hypertension; J45.909 Unspecified asthma, uncomplicated; K21.9 Gastro-esophageal reflux disease without esophagitis; E11.9 Type 2 diabetes mellitus without complications; E03.9 Hypothyroidism, unspecified; E66.9 Obesity, unspecified; B20 Human immunodeficiency virus [HIV] disease; Z79.84 Long term (current) use of oral hypoglycemic drugs; Z88.2 Allergy status to sulfonamides; Z88.8 Allergy status to other drugs, medicaments and biological substances; F41.9 Anxiety disorder, unspecified; F32.9 Major depressive disorder, single episode, unspecified; Z68.41 Body mass index [BMI] 40.0-44.9, adult; Z79.899 Other long term (current) drug therapy
CPT/HCPCS: 36415; 71046; 71046-26; 80053; 81003; 84484; 85025; 87081; 87804; 87880-QW; 93005; 99283; 99284-25

== ENCOUNTER 2019-09-27 08:30 | Emergency (ER) | payer MEDICARE, MEDICAID ==
[2019-09-27] MEDS ORDERED: Dexamethasone 4 MG Tab PO ONE (08:51)
[2019-09-27] MEDS ORDERED: Albuterol/Ipratropium 3.0-0.5 MG/3 ML Neb Soln NEB ONE (08:51)
[2019-09-27] MEDS ORDERED: Ibuprofen 400 MG Tab PO ONE (08:52)
--- NOTE | 2019-09-27 09:01 | EDM.PDOC ---
ED HPI GENERAL MEDICAL PROBLEM - General Chief Complaint: Respiratory Problem Stated Complaint: CONGESTION IN CHEST Time Seen by Provider: 09/27/19 08:31 - History of Present Illness INITIAL COMMENTS - FREE TEXT/NARRATIVE: HPI 58-year-old morbidly obese female smoker with a history of RAD presents for evaluation of ~2 weeks of cough, sinus congestion, and mild sore throat that has recently worsened and is accompanied by a sensation of shortness breath; patient unable to identify a precipitating event for todays emergency department evaluation. No fevers, chills, denies a history of DVT, PE, immobilization, hemoptysis, recent surgery, exogenous estrogen usage. Patient uses an albuterol inhaler home, no spacer. Patient reports that she has chronic knee pain and would like a Toradol shot. Denies rash, neck stiffness, headache , changes in vision or hearing, or ear pain. M/S/F/SocHx notable for: please see HPI; remainder reviewed with patient and in chart. ROS: Negative constitutional, eye, cardiovascular, pulmonary, GI, , MSK, skin , neurologic, psychiatric, endocrine unless noted in the HPI. Exam HR 82, RR 20, BP 123/51, T 36.4C, SaO2 95% on room air at 8:42 AM. Gen: Pleasant, non-toxic appearing, resting comfortably. HEENT: Normocephalic, atraumatic. * Eyes - Bilateral eyes without injection, swelling, or discharge, no proptosis or periorbital erythema, swelling, warmth, or tenderness. * Mouth - Anterior oropharynx with MMM, no lesions appreciated, floor of the mouth is soft and without swelling. Posterior oropharynx with mild erythema but without swelling, exudate, lesions, uvula midline. * Nose - Nares with scant crusting and discharge. * Neck - Neck supple without posterior or anterior cervical chain lymphadenopathy bilaterally. Resp: diffuse fine scattered expiratory wheezing, otherwise clear to auscultation bilaterally, normal work of breathing without accessory muscle usage. Card: Regular rate and rhythm with no murmurs, rubs or gallops. Extremities warm and well perfused. GI: Non-tender to palpation throughout all quadrants, no masses or organomegaly appreciated. : Deferred MSK: No visible deformities, strength and tone without visually appreciable deficit. Neuro: alert and oriented 3, no facial asymmetry, vision and hearing WNL. Heme/Lymph: Deferred Skin: Normal color with no visible lesions (other than noted above). Psych: Mood and affect appropriate. Imaging: CXR: nothing acute was seen on 2 view chest x-ray. MDM Previous chart, nursing note, and vitals reviewed. A: 58-year-old morbidly obese female smoker with a history of RAD presents for evaluation of ~2 weeks of cough, sinus congestion, and mild sore throat that has recently worsened and is accompanied by a sensation of shortness breath; patient unable to identify a precipitating event for [facility] evaluation. DDx: viral rhinosinusitis, bacterial rhinosinusitis, pharyngitis (HSV vs viral NOS vs GAS vs bacterial NOS)], EBV, peritonsillar cellulitis, MANUFACTURING DIRECTOR, RPA, Albino' s angina, epiglottitis, pneumonia, PE. Evaluation: Overall presentation most consistent with a viral rhinosinutisis likely exacerbating underlying RAD, given the duration of symptoms and overall well compensated appearance, antibiotic treatment is not currently indicated. Patient was given albuterol DuoNeb and 10 mg dexamethasone PO. Suspect lack of improvement with albuterol inhaler at home due to lack of efficacy and drug delivery as the patient is not using a spacer. Patient instructed to obtain and use an inhaler spacer. With respect to PE, there are no identifiable risk features on history or exam, given alternate diagnosis further evaluation is not presently indicated. Chest x -ray and overall symptom constellation is without evidence of pneumonia. Furthermore, rapid strep not indicated, oral mucosa without lesions consistent with HSV or candidiasis, low suspicion for peritonsillar cellulitis or abscess given the absence of asymmetric swelling or uvular deviation, RPA is unlikely as the patient can comfortably flex and extend their neck and swallow without difficulty. As phonation is intact and breathing is unlabored doubt epiglottitis. The floor of the mouth is without evidence of Albino's angina. Lemierre's disease was considered but as the patient does not have signs of MANUFACTURING DIRECTOR or sepsis, further evaluation was not indicated. For convenience, the patient was given 400 mg ibuprofen for treatment of her chronic knee pain (PO medications given due to similar efficacy with IM Toradol) . Disposition: discharge with PCP follow-up recommended. Impression: rhinosinusitis, reactive airway disease, knee pain. knees Pain Score (Numeric/FACES): 6 - Related Data Allergies Allergy/AdvReac Type Severity Reaction Status Date / Time doxepin [Doxepin] Allergy Blurred Verified 09/08/19 16:17 Vision lisinopril Allergy Rash Verified 09/08/19 16:17 Wzmwikn-Fwb-Wjb Reductase Allergy Cannot Verified 09/08/19 16:17 Inhibitor Remember sulfamethoxazole Allergy Weakness Verified 09/08/19 16:17 [From Bactrim] trimethoprim [From Bactrim] Allergy Weakness Verified 09/08/19 16:17 Home Meds: Home Meds Estrogens, Conjugated [Premarin Vaginal Crm] 1 applic VAG Q48H 12/14/13 [History ] Losartan/Hydrochlorothiazide [Losartan-HCTZ 100-12.5 MG] 1 each PO DAILY [History] Levothyroxine Sodium [Synthroid] 200 mcg PO ACBREAKFAST 04/06/14 [History] ALPRAZolam [Xanax] 2 mg PO TID PRN 04/17/14 [History] Rosuvastatin [Crestor] 20 mg PO BEDTIME 04/17/14 [History] metFORMIN [Glucophage] 1,000 mg PO BID 04/17/14 [History] traMADol [Ultram] 100 mg PO TID PRN 04/17/14 [History] Sertraline HCl 200 mg PO DAILY 04/01/15 [History] Prochlorperazine Maleate 10 mg PO DAILY PRN 12/20/15 [History] amLODIPine Besylate [Norvasc] 5 mg PO DAILY 12/20/15 [History] Lidocaine 5% [Lidoderm 5%] 1 each TOP DAILY PRN 01/04/16 [History] Levocetirizine Dihydrochloride 5 mg PO BEDTIME 08/26/16 [History] Acetaminophen with Codeine [Tylenol with Codeine #3 Tablet] 1 tab PO Q6H PRN 11/12 [History] Albuterol Sulfate [Albuterol Sulfate Hfa] 18 gm IH Q4H PRN #1 hfa.aer.ad [Rx] Azelastine HCl 2 spray JONE BID 09/27/19 [History] Elviteg/Lucero/Emtric/Tenofo Ala [Genvoya Tablet] 1 tab PO DAILY 09/27/19 [History ] Exenatide Microspheres [Bydureon Pen] 2 mg SQ WEEKLY 09/27/19 [History] Fluticasone/Salmeterol [Advair 250-50 Diskus] 1 puff IH BID 09/27/19 [History] Gabapentin [Neurontin] 300 mg PO TID 09/27/19 [History] Ipratropium [Atrovent 0.06% Nasal [place]] 2 spray JONE TID 09/27/19 [History] Liothyronine [Cytomel] 10 mcg PO DAILY 09/27/19 [History] Past Medical History - Past Health History Medical/Surgical History: Denies Medical/Surgical History HEENT History: Reports: Impaired Vision Other HEENT History: uses reading glasses, has upper and lower dentures but only uses the upper Cardiovascular History: Reports: High Cholesterol, Hypertension Respiratory History: Reports: Asthma, Pneumonia, Recurrent, Other (See Below) Other Respiratory History: recent sinus infection Gastrointestinal History: Reports: GERD, Hemorrhoids 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 History: Reports: None 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: Musculoskeletal History: Reports: Back Pain, Chronic, Fracture Other Musculoskeletal History: hx fx right ankle Neurological History: Reports: Other (See Below) Other Neuro History: was told she had a "mini stroke" many years ago, no residual Psychiatric History: Reports: Anxiety, Depression Endocrine/Metabolic History: Reports: Diabetes, Type II, Hypothyroidism, Obesity /BMI 30+ Hematologic History: Reports: None Immunologic History: Reports: HIV Oncologic (Cancer) History: Reports: Basal Cell Carcinoma Dermatologic History: Reports: None - Infectious Disease History Infectious Disease History: Reports: HIV-Human Immunodeficiency Virus - Past Surgical History Head Surgeries/Procedures: Reports: None Female Surgical History: Reports: Hysterectomy, Salpingo-Oophorectomy Social & Family History - Family History Family Medical History: Noncontributory - Tobacco Use Smoking Status *Q: Current Every Day Smoker Years of Tobacco use: 1 Packs/Tins Daily: 1 - Caffeine Use Caffeine Use: Reports: None Caffeine Use Comment: 2/day - Recreational Drug Use Recreational Drug Use: No ED ROS GENERAL - Review of Systems Review Of Systems: See Below ED EXAM, GENERAL - Physical Exam Exam: See Below Course - Vital Signs Last Recorded V/S: Last Vital Signs Temp 36.4 C 09/27/19 08:42 Pulse 82 09/27/19 08:42 Resp 20 03/04/20 08:42 BP 123/51 L 09/27/19 08:42 Pulse Ox 95 09/27/19 08:42 - Orders/Labs/Meds Orders: Active Orders 24 hr Category Date Time Status RT Aerosol Therapy [RC] ASDIRECTED Care 09/27/19 08:51 Active Meds: Medications Discontinued Medications Generic Name Dose Route Start Last Admin Trade Name Freq PRN Reason Stop Dose Admin Albuterol/Ipratropium 3 ml 09/27/19 08:51 09/27/19 09:09 Duoneb 3.0-0.5 Mg/3 Ml NEB 09/27/19 08:52 3 ml ONETIME ONE Administration Dexamethasone 10 mg 09/27/19 08:51 09/27/19 09:14 Dexamethasone PO 09/27/19 08:52 10 mg ONETIME ONE Administration Ibuprofen 400 mg 09/27/19 08:52 09/27/19 09:15 Motrin PO 09/27/19 08:53 400 mg ONETIME ONE Administration Departure - Departure Time of Disposition: 09:57 Disposition: Home, Self-Care 01 Clinical Impression: Rhinosinusitis, Reactive airway disease, Knee pain - Discharge Information Prescriptions: Albuterol Sulfate [Albuterol Sulfate Hfa] 18 gm IH Q4H PRN #1 hfa.aer.ad PRN Reason: Wheezing Referrals: Chas Mitchell MD [Primary Care Provider] - Forms: ED Department Discharge Additional Instructions: You were in seen in the [facility] Emergency Department for evaluation of a cough, sore throat, and shortness breath. At time of your evaluation you were believed to have a viral upper respiratory tract infection worsening your underlying lung disease of asthma and reactive airway disease caused by smoking. Please purchase and utilize an qjst-yzh-sutahgp spacer with your albuterol inhaler. You have also been prescribed another inhaler and spacer should you not have one at home. Please read and follow all of the instructions below. Please follow up with your primary care physician within 48 hours repeat evaluation further care as needed. When calling for follow-up care, please make the office aware that this follow-up is from your recent emergency room visit. If for any reason you are refused follow-up, please contact the [facility] Emergency Department at and asked to speak to the emergency department charge nurse. Your care today was limited to identifying and treating emergent medical problems only. Many people have subtle differences in their test results that require follow up with their outpatient physician(s) to correctly determine if this represents a normal variation or concerning abnormality with respect to your specific health. The care given to you today was limited to identifying and treating emergent medical problems - you need to request a copy of all of your medical records from today's visit and follow up with your outpatient physician(s) to review both today's visit and your overall health. If you have any new symptoms or if you are at all concerned about your health please return immediately to the emergency department. Prescriptions: If you are uninsured or have financial difficulties with filling your prescription(s), you may consider using a free pharmacy discount service such as [employer] (Flux) or [employer] ([employer] Cheap Geeks). These services allow you to search for a medication on your phone (or computer) and obtain a coupon that usually has a significant discount from the list lyman at a pharmacy. Your physician as well as [facility] does not have a financial relationship with either of these services. You may also wish to speak with your physician to determine if lower cost prescriptions are possible. Obtaining primary care: 1. [facility] provides pediatrics (children), family medicine (children, adults, and some obstetrical care), and internal medicine (adults). Further specialty care is also available. Same day appointments are available. They may be contacted at [phone] and are open Wednesday through Wednesday 8 AM to [address] [facility] are located at [facility], [facility] [address], [place] [address]. 2. [facility] offers family medicine, internal medicine, womens health, and further specialty care. [facility] may be contacted at [phone]. [facility] is located at [address] [place], [address]. 3. If you have health insurance, please also contact your insurer for a list of accepting providers under your policy, you may contact these providers for further health care. Occupational health: Work related injuries may consider following up with [facility], . Occupational health services are located at [address] [place] [address] and are open Wednesday through Wednesday from 7: 30 am to 5:00 pm. Obstetrical and Gynecological Care: [facility], , Wednesday through Wednesday 8 AM to 5 PM. [address] [place] [address]. Eyecare: If you have an eye injury you should follow up with your pay clerk or with [facility], at [phone] or [phone] , they are located at [address] [place] [address]. Dental Care Michele Parrish DDS. [address] [place], [place]. Ph. [phone] Jayden Parrish DDS MS. [address] [facility] [address], [place], [place]. Ph. [phone] Darwin Jama DDS. 10 07/[address] [place] [address]. Ph. [phone] Harry Lou DDS. [address] [facility] [address] [place], [place]. Ph. [phone] Jesse Anderson DDS PC. [address] [facility] [address] [place], [place]. Ph. Iris Bains DDS. [address] [facility]. Ph. [phone] [facility]. [address] [place], [place]. Ph. [phone] [facility]. [address], [place], [place]. Ph. [phone] [facility] [address] [place] [phone]. Ph. [facility]. [address] [place] [address] [address] [place], [place]. Ph. [facility]. [address] [place], [place]. Ph. Albuterol (Brand Name: Salbutamol) This drug is used to open the airways in lung diseases where spasm may cause breathing problems. Please use this medication as prescribed. Please call your doctor if you are needing to use if more frequently than prescribed. Use your inhaler with a spacer every time. This medication may make you feel jittery and have a faster heart rate. If you have diabetes, please check your blood glucose more frequently as it may be higher. ALBUTEROL WARNING/CAUTION: Even though it may be rare, some people may have very bad and sometimes deadly side effects when taking a drug. Tell your doctor or get medical help right away if you have any of the following signs or symptoms that may be related to a very bad side effect: Signs of an allergic reaction, like rash; hives; itching; red, swollen, blistered, or peeling skin with or without fever; wheezing; tightness in the chest or throat; trouble breathing or talking; unusual hoarseness; or swelling of the mouth, face, lips, tongue, or throat. Signs of low potassium levels like muscle pain or weakness, muscle cramps, or a heartbeat that does not feel normal. If you are not able to get the breathing attack under control. Get help right away. Chest pain or pressure or a fast heartbeat. Very nervous and excitable. Very bad headache. Very bad dizziness or passing out. This drug may sometimes cause very bad breathing problems. This may be life- threatening. When this happens with a puffer (inhaler) or with liquid for breathing in, most of the time it happens right after a dose and after the first use of a new canister or vial of this drug. If you have trouble breathing , breathing that is worse, wheezing, or coughing, get medical help right away. ALBUTEROL WARNING/CAUTION: Even though it may be rare, some people may have very bad and sometimes deadly side effects when taking a drug. Tell your doctor or get medical help right away if you have any of the following signs or symptoms that may be related to a very bad side effect: Signs of an allergic reaction, like rash; hives; itching; red, swollen, blistered, or peeling skin with or without fever; wheezing; tightness in the chest or throat; trouble breathing or talking; unusual hoarseness; or swelling of the mouth, face, lips, tongue, or throat. Signs of low potassium levels like muscle pain or weakness, muscle cramps, or a heartbeat that does not feel normal. If you are not able to get the breathing attack under control. Get help right away. Chest pain or pressure or a fast heartbeat. This drug may sometimes cause very bad breathing problems. This may be life- threatening. When this happens with a puffer (inhaler) or with liquid for breathing in, most of the time it happens right after a dose and after the first use of a new canister or vial of this drug. If you have trouble breathing , breathing that is worse, wheezing, or coughing, get medical help right away. Pain when passing urine. Trouble passing urine. A very bad skin reaction (Hu-Jose syndrome/toxic epidermal necrolysis) may happen. It can cause very bad health problems that may not go away, and sometimes . Get medical help right away if you have signs like red, swollen , blistered, or peeling skin (with or without fever); red or irritated eyes; or sores in your mouth, throat, nose, or eyes. Cough Home Care Instructions You were seen in the emergency department today for evaluation of your cough. Based upon the evaluation today your cough does not appear to be caused by bacterial pneumonia, rather a virus is the cause of your cough. These types of infections cannot be treated by antibiotics, your body will fight this infection and clear the virus. Most people get better in 7-10 days. It is not uncommon to have a mild nonproductive cough last for up to several weeks following the resolution of your illness. If you continue have a cough beyond 7- 10 days please follow-up with your primary care physician. You may do the following treatments to reduce your symptoms: * Zscr-zfn-buqsapm cough medications containing dextromethorphan may reduce the frequency and severity of your coughing. Please take as directed on the bottle. Please read all warnings on the bottle. Do not take this medication if you have any allergies to any of the ingredients listed on the bottle. * Ibuprofen may be used to reduce fever, pain, and inflammation. You may take 600 mg (three 200 mg rujl-oxd-ftfovqj tablets) every 6-8 hours. Please read the warnings below regarding ibuprofen. Do not take this medication if you are or allergic to ibuprofen, Motrin, Aleve, or naproxen. * Please stay well-hydrated and get adequate rest. * If you are a smoker please stop smoking. * Istb-ues-swogowl lozenges or tea with honey may be used for sore throat. Please return to the emergency department if any of the following occur: * Increasing fever. * Worsening cough or a cough that becomes productive of thick sputum. * A cough that temporarily gets better and then over the several days get significantly worse. This may occur if you developed a bacterial pneumonia following your viral infection. This rarely occurs and there is no prevention at this point in your infection. * Chest pain. * Shortness of breath or difficulty breathing. * If you are otherwise concerned about your health. Sepsis Event Note - Evaluation Sepsis Screening Result: No Definite Risk - Focused Exam Vital Signs: Vital Signs Temp Pulse Resp BP Pulse Ox 09/27/19 08:42 36.4 C 82 20 123/51 L 95 Date Exam was Performed: 09/27/19 Time Exam was Performed: 09:56 - My Orders Last 24 Hours: My Active Orders 09/27/19 08:51 RT Aerosol Therapy [RC] ASDIRECTED - Assessment/Plan Last 24 Hours: My Active Orders 09/27/19 08:51 RT Aerosol Therapy [RC] ASDIRECTED
--- NOTE | 2019-09-27 09:47 | CR ---
Chest: 2 views of the chest were obtained. Comparison: Prior chest x-ray of 09/08/19. Heart size and mediastinum are within normal limits for technique. Lungs are clear with no acute parenchymal change. Bony structures show nothing acute. Impression: 1. Nothing acute is seen on 2 view chest x-ray. Diagnostic code #1 This report was dictated in Mountain Standard Time
[2019-09-27 11:14] VITALS: BP 127/41; PULSE 73
== END 2019-09-27 10:05 | disposition home or self-care (01) ==
LOC: MW.ED 08:30
DX: J45.909 Unspecified asthma, uncomplicated (principal); J32.9 Chronic sinusitis, unspecified; M25.569 Pain in unspecified knee; F17.210 Nicotine dependence, cigarettes, uncomplicated; Z88.8 Allergy status to other drugs, medicaments and biological substances; Z88.2 Allergy status to sulfonamides; Z79.899 Other long term (current) drug therapy
CPT/HCPCS: 71046; 94640; 99283; A9270; J8540; J7620-GY

== ENCOUNTER 2019-09-28 12:45 | Emergency (ER) | payer MEDICARE, MEDICAID ==
[2019-09-28] MEDS ORDERED: Albuterol/Ipratropium 3.0-0.5 MG/3 ML Neb Soln NEB ONE (13:24)
[2019-09-28] MEDS ORDERED: methylPREDNISolone Sodium Succinate 125 MG/2 ML SDV IM ONE (13:24)
--- NOTE | 2019-09-28 13:28 | EDM.PDOC ---
ED HPI GENERAL MEDICAL PROBLEM - General Chief Complaint: Respiratory Problem Stated Complaint: COUGH, WHEEZING Time Seen by Provider: 09/28/19 12:50 Source of Information: Reports: Patient History Limitations: Reports: No Limitations - History of Present Illness INITIAL COMMENTS - FREE TEXT/NARRATIVE: HISTORY AND PHYSICAL: History of present illness: Patient is a 58-year-old female who presents to the ED today with concern of worsening cough and wheezing since being evaluated yesterday. Patient states she was here in the ED yesterday for cough but the cough worsened overnight and she feels like she is wheezing more. Patient has a history of reactive airway disease and does smoke cigarettes but states she is planning to quit in 2 days and is working with the [employer]. Patient denies any precipitating events leading to evaluation today. Patient denies fever, chills, chest pain, shortness of breath. Denies headache, neck stiff ness, change in vision, syncope, or near syncope. Denies nausea, vomiting, abdominal pain, diarrhea, constipation, or dysuria. Has not noted any blood in urine or stool. Patient has been eating and drinking appropriately. Review of systems: As per history of present illness and below otherwise all systems reviewed and negative. Past medical history: As per history of present illness and as reviewed below otherwise noncontributory. Surgical history: As per history of present illness and as reviewed below otherwise noncontributory. Social history: See social history for further information Family history: As per history of present illness and as reviewed below otherwise noncontributory. Physical exam: General: Patient is alert, oriented, and in no acute distress. Patient sitting comfortably on exam table. HEENT: Atraumatic, normocephalic, pupils equal and reactive bilaterally, negative for conjunctival pallor or scleral icterus, mucous membranes moist, TMs normal bilaterally, throat clear, neck supple, nontender, trachea midline. No drooling or trismus noted. No meningeal signs. No hot potato voice noted. Lungs: Diffuse fine expiratory wheezing throughout all lung cevallos to auscultation, breath sounds equal bilaterally, chest nontender. Heart: S1S2, regular rate and rhythm without overt murmur Abdomen: Soft, nondistended, nontender. Negative for masses or hepatosplenomegaly. Negative for costovertebral tenderness. Pelvis: Stable nontender. 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: Deferred. Rectal: Deferred. Skin: Intact, warm, dry. No lesions or rashes noted. Extremities: Atraumatic, negative for cords or calf pain. Neurovascular unremarkable. Neuro: Awake, alert, oriented. Cranial nerves II through XII unremarkable. Cerebellum unremarkable. Motor and sensory unremarkable throughout. Exam nonfocal. Notes: Due to patient interaction of prednisone with her antiviral for HIV, suggests prednisolone over prednisone. Patient states she does have albuterol inhaler available to her at home. Discussed importance for follow-up with a primary care provider. Voices understanding and is agreeable to plan of care. Denies any further questions or concerns at this time. Diagnostics: CBC, CMP, EKG, Trop, Ddimer, CXR Therapeutics: Duoneb, Solumedrol Prescription: Prednisolone Impression: Reactive airway disease r/o COPD exacerbation Plan: 1. Take medication as prescribed. Use your at home albuterol inhaler as prescribed to you. 2. Follow up with a primary care provider as discussed. Return to the ED as needed and as discussed. 3. Quit smoking. Definitive disposition and diagnosis as appropriate pending reevaluation and review of above. - Related Data Allergies Allergy/AdvReac Type Severity Reaction Status Date / Time doxepin [Doxepin] Allergy Blurred Verified 09/08/19 16:17 Vision lisinopril Allergy Rash Verified 09/08/19 16:17 Euzsrbd-Mhr-Ngh Reductase Allergy Cannot Verified 09/08/19 16:17 Inhibitor Remember sulfamethoxazole Allergy Weakness Verified 09/08/19 16:17 [From Bactrim] trimethoprim [From Bactrim] Allergy Weakness Verified 09/08/19 16:17 Home Meds: Home Meds Estrogens, Conjugated [Premarin Vaginal Crm] 1 applic VAG Q48H 12/14/13 [History ] Losartan/Hydrochlorothiazide [Losartan-HCTZ 100-12.5 MG] 1 each PO DAILY [History] Levothyroxine Sodium [Synthroid] 200 mcg PO ACBREAKFAST 04/06/14 [History] ALPRAZolam [Xanax] 2 mg PO TID PRN 04/17/14 [History] Rosuvastatin [Crestor] 20 mg PO BEDTIME 04/17/14 [History] metFORMIN [Glucophage] 1,000 mg PO BID 04/17/14 [History] traMADol [Ultram] 100 mg PO TID PRN 04/17/14 [History] Sertraline HCl 200 mg PO DAILY 04/01/15 [History] Prochlorperazine Maleate 10 mg PO DAILY PRN 12/20/15 [History] amLODIPine Besylate [Norvasc] 5 mg PO DAILY 12/20/15 [History] Lidocaine 5% [Lidoderm 5%] 1 each TOP DAILY PRN 01/04/16 [History] Levocetirizine Dihydrochloride 5 mg PO BEDTIME 08/26/16 [History] Acetaminophen with Codeine [Tylenol with Codeine #3 Tablet] 1 tab PO Q6H PRN 11/12 [History] Albuterol Sulfate [Albuterol Sulfate Hfa] 18 gm IH Q4H PRN #1 hfa.aer.ad [Rx] Azelastine HCl 2 spray JONE BID 09/27/19 [History] Elviteg/Lucero/Emtric/Tenofo Ala [Genvoya Tablet] 1 tab PO DAILY 09/27/19 [History ] Exenatide Microspheres [Bydureon Pen] 2 mg SQ WEEKLY 09/27/19 [History] Fluticasone/Salmeterol [Advair 250-50 Diskus] 1 puff IH BID 09/27/19 [History] Gabapentin [Neurontin] 300 mg PO TID 09/27/19 [History] Ipratropium [Atrovent 0.06% [address]] 2 spray JONE TID 09/27/19 [History] Liothyronine [Cytomel] 10 mcg PO DAILY 09/27/19 [History] prednisoLONE [Millipred Dp] 5 mg PO ASDIRECTED #1 tab.ds.pk 09/28/19 [Rx] Past Medical History - Past Health History Medical/Surgical History: Denies Medical/Surgical History HEENT History: Reports: Impaired Vision Other HEENT History: uses reading glasses, has upper and lower dentures but only uses the upper Cardiovascular History: Reports: High Cholesterol, Hypertension Respiratory History: Reports: Asthma, Pneumonia, Recurrent, Other (See Below) Other Respiratory History: recent sinus infection Gastrointestinal History: Reports: GERD, Hemorrhoids 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 History: Reports: None [employer] History: Reports: Musculoskeletal History: Reports: Back Pain, Chronic, Fracture Other Musculoskeletal History: hx fx right ankle Neurological History: Reports: Other (See Below) Other Neuro History: was told she had a "mini stroke" many years ago, no residual Psychiatric History: Reports: Anxiety, Depression Endocrine/Metabolic History: Reports: Diabetes, Type II, Hypothyroidism, Obesity /BMI 30+ Hematologic History: Reports: None Immunologic History: Reports: HIV Oncologic (Cancer) History: Reports: Basal Cell Carcinoma Dermatologic History: Reports: None - Infectious Disease History Infectious Disease History: Reports: HIV-Human Immunodeficiency Virus - Past Surgical History Head Surgeries/Procedures: Reports: None Female Surgical History: Reports: Hysterectomy, Salpingo-Oophorectomy Social & Family History - Family History Family Medical History: Noncontributory - Tobacco Use Smoking Status *Q: Current Every Day Smoker Years of Tobacco use: 1 Packs/Tins Daily: 1 - Caffeine Use Caffeine Use: Reports: None Caffeine Use Comment: 2/day - Recreational Drug Use Recreational Drug Use: No ED ROS GENERAL - Review of Systems Review Of Systems: Comprehensive ROS is negative, except as noted in HPI. ED EXAM, GENERAL - Physical Exam Exam: See Below (see dictation) Course - Vital Signs Last Recorded V/S: Last Vital Signs Temp 97.3 F 09/28/19 12:58 Pulse 80 09/28/19 14:00 Resp 20 09/28/19 14:00 BP 117/49 L 09/28/19 14:00 Pulse Ox 96 09/28/19 14:00 - Orders/Labs/Meds Orders: Active Orders 24 hr Category Date Time Status EKG Documentation Completion [RC] STAT Care 09/28/19 13:24 Active RT Aerosol Therapy [RC] ASDIRECTED Care 09/28/19 13:25 Active Labs: Laboratory Tests 09/28/19 09/28/19 09/28/19 Range/Units 13:43 13:43 13:43 WBC 13.87 H (4.0-11.0) K/uL RBC 4.44 (4.30-5.90) M/uL Hgb 13.0 (12.0-16.0) g/dL Hct 39.3 (36.0-46.0) % MCV 88.5 (80.0-98.0) fL MCH 29.3 (27.0-32.0) pg MCHC 33.1 (31.0-37.0) g/dL RDW Std Deviation 52.8 (28.0-62.0) fl RDW Coeff of Edgar 16 H (11.0-15.0) % Plt Count 201 (150-400) K/uL MPV 9.90 (7.40-12.00) fL Neut % (Auto) 80.0 (48.0-80.0) % Lymph % (Auto) 14.4 L (16.0-40.0) % Wilkinson % (Auto) 5.6 (0.0-15.0) % Eos % (Auto) 0.0 (0.0-7.0) % Baso % (Auto) 0.0 (0.0-1.5) % Neut # (Auto) 11.1 H (1.4-5.7) K/uL Lymph # (Auto) 2.0 (0.6-2.4) K/uL Wilkinson # (Auto) 0.8 (0.0-0.8) K/uL Eos # (Auto) 0.0 (0.0-0.7) K/uL Baso # (Auto) 0.0 (0.0-0.1) K/uL Nucleated RBC % 0.0 /100WBC Nucleated RBCs # 0 K/uL D-Dimer, Quantitative 0.39 (0.0-0.50) mg/L FEU Sodium 143 (136-145) mmol/L Potassium 3.7 (3.5-5.1) mmol/L Chloride 103 (98-107) mmol/L Carbon Dioxide 32.8 H (21.0-32.0) mmol/L BUN 21 H (7.0-18.0) mg/dL Creatinine 0.7 (0.6-1.0) mg/dL Est Cr Clr Drug Dosing 78.83 mL/min Estimated GFR (MDRD) > 60.0 ml/min Glucose 160 H (74-106) mg/dL Calcium 9.2 (8.5-10.1) mg/dL Total Bilirubin 0.3 (0.2-1.0) mg/dL AST 10 L (15-37) IU/L ALT 29 (14-63) IU/L Alkaline Phosphatase 48 (46-116) U/L Troponin I < 0.050 (0.000-0.056) ng/mL Total Protein 6.3 L (6.4-8.2) g/dL Albumin 3.3 L (3.4-5.0) g/dL Globulin 3.0 (2.6-4.0) g/dL Albumin/Globulin Ratio 1.1 (0.9-1.6) Meds: Medications Discontinued Medications Generic Name Dose Route Start Last Admin Trade Name Tierra PRN Reason Stop Dose Admin Albuterol/Ipratropium 3 ml 09/28/19 13:24 09/28/19 13:33 Duoneb 3.0-0.5 Mg/3 Ml NEB 09/28/19 13:25 3 ml ONETIME ONE Administration Methylprednisolone Sodium Succinate 125 mg 09/28/19 13:24 09/28/19 14:01 Solu-Medrol IM 09/28/19 13:25 125 mg ONETIME ONE Administration Departure - Departure Time of Disposition: 15:12 Disposition: Home, Self-Care 01 Clinical Impression: Reactive airway disease with acute exacerbation Qualifiers: Asthma severity: mild Asthma persistence: intermittent Qualified Code(s): J45.21 - Mild intermittent asthma with (acute) exacerbation - Discharge Information Referrals: Chas Mitchell MD [Primary Care Provider] - Forms: ED Department Discharge Additional Instructions: The following information is given to patients seen in the emergency department who are being discharged to home. This information is to outline your options for follow-up care. We provide all patients seen in our emergency department with a follow-up referral. The need for follow-up, as well as the timing and circumstances, are variable depending upon the specifics of your emergency department visit. If you don't have a primary care physician on staff, we will provide you with a referral. We always advise you to contact your personal physician following an emergency department visit to inform them of the circumstance of the visit and for follow-up with them and/or the need for any referrals to a consulting specialist. The emergency department will also refer you to a specialist when appropriate. This referral assures that you have the opportunity for follow-up care with a specialist. All of these measure are taken in an effort to provide you with optimal care, which includes your follow-up. Under all circumstances we always encourage you to contact your private physician who remains a resource for coordinating your care. When calling for follow-up care, please make the office aware that this follow-up is from your recent emergency room visit. If for any reason you are refused follow-up, please contact the [facility] Emergency Department at and asked to speak to the emergency department charge nurse. [facility] [address] [place] [address] [facility] [address] [place] [id number] 1. Take medication as prescribed. Use your at home albuterol inhaler as prescribed to you. 2. Follow up with a primary care provider as discussed. Return to the ED as needed and as discussed. 3. Quit smoking. Sepsis Event Note - Evaluation Sepsis Screening Result: No Definite Risk - Focused Exam Vital Signs: Vital Signs Temp Pulse Resp BP Pulse Ox 09/28/19 14:00 80 20 117/49 L 96 09/28/19 12:58 97.3 F 89 24 H 141/54 H 95 Date Exam was Performed: 09/28/19 Time Exam was Performed: 15:05 - My Orders Last 24 Hours: My Active Orders 09/28/19 13:24 EKG Documentation Completion [RC] STAT 09/28/19 13:25 RT Aerosol Therapy [RC] ASDIRECTED - Assessment/Plan Last 24 Hours: My Active Orders 09/28/19 13:24 EKG Documentation Completion [RC] STAT 09/28/19 13:25 RT Aerosol Therapy [RC] ASDIRECTED
[2019-09-28 14:01] VITALS: BP 117/49
[2019-09-28 14:19] LABS: BLOOD UREA NITROGEN,BUN 21 mg/dL (7.0-18.0); CARBON DIOXIDE,CO2 32.8 mmol/L (21.0-32.0); CHLORIDE,CL 103 mmol/L (98-107); GLUCOSE RANDOM 160 mg/dL (74-106); POTASSIUM,K 3.7 mmol/L (3.5-5.1); SODIUM,NA 143 mmol/L (136-145)
--- NOTE | 2019-09-28 15:03 | CR ---
Chest: 2 views of the chest were obtained. Comparison: Prior chest x-ray of 09/27/19. Heart size is within normal limits. Upper mediastinum is within normal limits. Lungs show no acute parenchymal change. Bony structures are within normal limits for the patient's age. Impression: 1. Stable chest x-ray. 2. Nothing acute is appreciated. Diagnostic code #1 Study was dictated in [place] Standard Time
[2019-09-28 15:35] VITALS: PULSE 78
== END 2019-09-28 15:35 | disposition home or self-care (01) ==
LOC: MW.ED 12:45
DX: J45.21 Mild intermittent asthma with (acute) exacerbation (principal); E11.9 Type 2 diabetes mellitus without complications; F17.210 Nicotine dependence, cigarettes, uncomplicated; Z90.710 Acquired absence of both cervix and uterus; Z88.8 Allergy status to other drugs, medicaments and biological substances; Z88.2 Allergy status to sulfonamides; Z79.899 Other long term (current) drug therapy; Z79.84 Long term (current) use of oral hypoglycemic drugs
CPT/HCPCS: 36415; 71046; 80053; 84484; 85025; 85379; 93005; 96372; 99285; J2930; J7620-GY

== ENCOUNTER 2020-02-21 21:41 | Emergency (ER) | payer MEDICARE, MEDICAID ==
[2020-02-21] MEDS ORDERED: Sodium Chloride 0.9% 2.5 ML Syringe FLUSH PRN (22:48)
[2020-02-21] MEDS ORDERED: Sodium Chloride 0.9% 10 ML Syringe FLUSH PRN (22:48)
[2020-02-21 23:08] LABS: BLOOD UREA NITROGEN,BUN 20 mg/dL (7.0-18.0); CARBON DIOXIDE,CO2 29.4 mmol/L (21.0-32.0); CHLORIDE,CL 97 mmol/L (98-107); GLUCOSE RANDOM 140 mg/dL (74-106); POTASSIUM,K 3.2 mmol/L (3.5-5.1); SODIUM,NA 137 mmol/L (136-145)
[2020-02-22] MEDS ORDERED: Alum Hydrox/Mag Hydrox/Simeth 15 ML, Lidocaine 2% 5 ML PO ONE ×2 (00:23)
[2020-02-22] MEDS ORDERED: Ondansetron 4 MG Tab.DIS PO ONE (00:25)
[2020-02-22 00:30] VITALS: BP 136/65; PULSE 72
--- NOTE | 2020-02-22 00:30 | EDM.PDOC ---
ED HPI GENERAL MEDICAL PROBLEM - General Chief Complaint: Chest Pain Stated Complaint: CHEST PAIN Time Seen by Provider: 02/21/20 22:00 - History of Present Illness INITIAL COMMENTS - FREE TEXT/NARRATIVE: HISTORY AND PHYSICAL: History of present illness: This is a 56-year-old female with a history significant for hypertension, diabetes who is currently on metformin who presents ER today complaining of midepigastric abdominal burning sensation for approximately 2 weeks. Patient reports that whenever she takes her medication she starts feeling a burning sensation in her stomach. Patient reports today she had nausea vomiting after eating. Patient denies any history of liver, lung, kidney pounds. Patient denies any history of peptic ulcer disease or being on any PPIs. Patient denies any prior endoscopy is being performed. Patient reports he has allergies to Bactrim, doxepin, lisinopril. Patient denies any recent fevers, shakes, chills, diarrhea, dysuria, frequency, urgency. Patient reports that she is constipated which is not unusual for her. Patient reports no difficulty laying flat in bed and reports that the symptoms do not worsen with lying flat in bed. She does report that the symptoms do improve with sitting up and burping. Patient reports that the discomfort in her abdomen does not worsen with exertion or ambulation. Patient denies any diaphoresis, shortness of breath, pain radiating to her shoulders back or arms. Patient denies any melena, bright red blood per rectum, hematemesis, coffee-ground emesis. Review of systems: As per history of present illness and below otherwise all systems reviewed and negative. Past medical history: As per history of present illness and as reviewed below otherwise noncontributory. Surgical history: As per history of present illness and as reviewed below otherwise noncontributory. Social history: No reported history of drug or alcohol abuse. Family history: As per history of present illness and as reviewed below otherwise noncontributory. Physical exam: Constitutional: Patient is oriented to person, place, and time. Appears well- developed and well-nourished. No distress. HEENT: Moist mucous membranes Head: Normocephalic and atraumatic Eyes: Right eye exhibits no discharge. Left eye exhibits no discharge. No scleral icterus Neck: Normal range of motion. No tracheal deviation present. Cardiovascular: Normal rate and regular rhythm. Pulmonary: Effort normal, no respiratory distress. Abdominal: No distention Musculoskeletal: Normal range of motion Neurologic: Alert and oriented to person, place and time. Skin: [place], warm and dry. Psychiatric: Normal mood and affect. Behavior is normal. Judgment and thought content normal. Nursing note and vital signs have been reviewed Patient's ER physical exam is significant for mild midepigastric tenderness to palpation to palpation. Patient points to her left upper and right upper quadrant and midepigastric regions to the area of greatest discomfort. Abd: Soft, nondistended, no rebound/guarding, no psoas or obturator signs, no tenderness at Mcberney's point, no Whitaker's sign. Pt does not present with an exam that would be consistent with an acute surgical abdomen at this time. Diagnostics: EKG: Normal sinus rhythm heart rate of [address]-T wave abnormalities Normal axis No evidence of ST elevation NM As interpreted by ER physician: [employer]: Patient given GI cocktail in the ED with significant resolution in her discomfort. Assessment and plan: This is a 59-year-old female who presents ER today complaining of abdominal discomfort. Patient describes her discomfort as burning sensation. Patient symptomatology do not appear to be highly consistent with cardiac etiology of her chest pain. Patient's presentation appears to be more consistent with likely GI causes such as GERD/gastritis. Patient was given a GI cocktail here in the ED with significant improvement. Patient be discharged home with Prilosec as well as Zofran to assist with her nausea. Patient has been instructed to follow-up with her primary care physician within the next 1 to 2 days to be reevaluated. Patient's BUN/creatinine were noted to be slightly elevated. This was felt to be most likely secondary to dehydration secondary to her decreased p.o. intake and emesis. Patient has been instructed to follow-up with her doctor to have that reevaluated as well to. Reassessment at the time of disposition demonstrates that the patient is in no acute distress. The patient has remained stable throughout the entire ED visit and is without objective evidence for acute process requiring urgent intervention or hospitalization. The patient is stable for discharge, counseling is provided as documented above, discussed symptomatic treatment and specific conditions for return. I have spoken with the patient/caregive and discussed todays findings, in addition to providing specific details for the plan of care. Questions are answered and there is agreement with the plan. Epigastric Pain Score (Numeric/FACES): 8 - Related Data Allergies Allergy/AdvReac Type Severity Reaction Status Date / Time doxepin [Doxepin] Allergy Blurred Verified 02/21/20 21:55 Vision lisinopril Allergy Rash Verified 02/21/20 21:55 Lhjclcu-Jau-Sbf Reductase Allergy Cannot Verified 02/21/20 21:55 Inhibitor Remember sulfamethoxazole Allergy Weakness Verified 02/21/20 21:55 [From Bactrim] trimethoprim [From Bactrim] Allergy Weakness Verified 02/21/20 21:55 Home Meds: Home Meds Estrogens, Conjugated [Premarin Vaginal Crm] 1 applic VAG Q48H PRN 12/14/13 [History] Losartan/Hydrochlorothiazide [Losartan-HCTZ 100-12.5 MG] 1 each PO DAILY 12/14/13 [History] Levothyroxine Sodium [Synthroid] 200 mcg PO ACBREAKFAST 04/06/14 [History] ALPRAZolam [Xanax] 2 mg PO TID PRN 04/17/14 [History] Rosuvastatin [Crestor] 20 mg PO BEDTIME 04/17/14 [History] metFORMIN [Glucophage] 1,000 mg PO BID 04/17/14 [History] traMADol [Ultram] 100 mg PO TID PRN 04/17/14 [History] Sertraline HCl 200 mg PO DAILY 04/01/15 [History] Prochlorperazine Maleate 10 mg PO DAILY PRN 12/20/15 [History] amLODIPine Besylate [Norvasc] 5 mg PO DAILY 12/20/15 [History] Lidocaine 5% [Lidoderm 5%] 1 each TOP DAILY PRN 01/04/16 [History] Levocetirizine Dihydrochloride 5 mg PO BEDTIME 08/26/16 [History] Albuterol Sulfate [Albuterol Sulfate Hfa] 18 gm IH Q4H PRN #1 hfa.aer.ad 09/27/19 [Rx] Elviteg/Cob/Emtri/Tenof Alafen [Genvoya Tablet] 1 tab PO DAILY 09/27/19 [Histor y] Exenatide Microspheres [Bydureon Pen] 2 mg SQ WEEKLY 09/27/19 [History] Fluticasone Propion/Salmeterol [Advair 250-50 Diskus] 1 puff IH BID PRN 09/27/19 [History] Ipratropium [Atrovent 0.06% Nasal [place]] 2 spray JONE TID PRN 09/27/19 [History] Liothyronine [Cytomel] 10 mcg PO DAILY 09/27/19 [History] Furosemide [Lasix] 20 mg PO DAILY 02/21/20 [History] Omeprazole 20 mg PO DAILY 02/21/20 [History] Omeprazole Magnesium [Prilosec Otc] 20 mg PO DAILY #30 tablet.dr 02/22/20 [Rx] Ondansetron [Zofran ODT] 4 mg PO Q6H PRN #12 tab.dis 02/22/20 [Rx] Past Medical History - Past Health History Medical/Surgical History: Denies Medical/Surgical History HEENT History: Reports: Impaired Vision Other HEENT History: uses reading glasses, has upper and lower dentures but only uses the upper Cardiovascular History: Reports: High Cholesterol, Hypertension Respiratory History: Reports: Asthma, Pneumonia, Recurrent, Other (See Below) Other Respiratory History: recent sinus infection Gastrointestinal History: Reports: GERD, Hemorrhoids 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 History: Reports: 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: Musculoskeletal History: Reports: Back Pain, Chronic, Fracture Other Musculoskeletal History: hx fx right ankle Neurological History: Reports: Other (See Below) Other Neuro History: was told she had a "mini stroke" many years ago, no residual Psychiatric History: Reports: Anxiety, Depression Endocrine/Metabolic History: Reports: Diabetes, Type II, Hypothyroidism, Obesity/BMI 30+ Hematologic History: Reports: None Immunologic History: Reports: HIV Oncologic (Cancer) History: Reports: Basal Cell Carcinoma Dermatologic History: Reports: None - Infectious Disease History Infectious Disease History: Reports: HIV-Human Immunodeficiency Virus - Past Surgical History Head Surgeries/Procedures: Reports: None Female Surgical History: Reports: Hysterectomy, Salpingo-Oophorectomy Social & Family History - Family History Family Medical History: Noncontributory - Tobacco Use Smoking Status *Q: Current Every Day Smoker Years of Tobacco use: 1 Packs/Tins Daily: 1 - Caffeine Use Caffeine Use: Reports: None Caffeine Use Comment: 2/day - Recreational Drug Use Recreational Drug Use: No ED ROS GENERAL - Review of Systems Review Of Systems: Comprehensive ROS is negative, except as noted in HPI. ED EXAM, GENERAL - Physical Exam Exam: See Below Course - Vital Signs Last Recorded V/S: Last Vital Signs Temp 98.2 F 02/21/20 22:11 Pulse 72 02/22/20 00:29 Resp 16 02/22/20 00:29 BP 136/65 02/22/20 00:29 Pulse Ox 94 L 02/22/20 00:29 - Orders/Labs/Meds Orders: Active Orders 24 hr Category Date Time Status EKG Documentation Completion [RC] STAT Care 02/21/20 22:48 Active Saline Lock Insert [OM.PC] Stat Oth 02/21/20 22:48 Ordered Labs: Laboratory Tests 02/21/20 02/21/20 Range/Units 22:25 22:25 WBC 11.79 H (4.0-11.0) K/uL RBC 6.08 H (4.30-5.90) M/uL Hgb 17.8 H (12.0-16.0) g/dL Hct 51.3 H (36.0-46.0) % MCV 84.4 (80.0-98.0) fL MCH 29.3 (27.0-32.0) pg MCHC 34.7 (31.0-37.0) g/dL RDW Std Deviation 44.9 (28.0-62.0) fl RDW Coeff of Edgar 15 (11.0-15.0) % Plt Count 239 (150-400) K/uL MPV 10.60 (7.40-12.00) fL Neut % (Auto) 71.4 (48.0-80.0) % Lymph % (Auto) 23.3 (16.0-40.0) % [place] % (Auto) 4.4 (0.0-15.0) % Eos % (Auto) 0.7 (0.0-7.0) % Baso % (Auto) 0.2 (0.0-1.5) % Neut # (Auto) 8.4 H (1.4-5.7) K/uL Lymph # (Auto) 2.8 H (0.6-2.4) K/uL [place] # (Auto) 0.5 (0.0-0.8) K/uL Eos # (Auto) 0.1 (0.0-0.7) K/uL Baso # (Auto) 0.0 (0.0-0.1) K/uL Nucleated RBC % 0.0 /100WBC Nucleated RBCs # 0 K/uL Sodium 137 (136-145) mmol/L Potassium 3.2 L (3.5-5.1) mmol/L Chloride 97 L (98-107) mmol/L Carbon Dioxide 29.4 (21.0-32.0) mmol/L BUN 20 H (7.0-18.0) mg/dL Creatinine 1.4 H (0.6-1.0) mg/dL Est Cr Clr Drug Dosing 38.93 mL/min Estimated GFR (MDRD) 38.5 ml/min Glucose 140 H (74-106) mg/dL Calcium 9.1 (8.5-10.1) mg/dL Total Bilirubin 0.6 (0.2-1.0) mg/dL AST 22 (15-37) IU/L ALT 43 (14-63) IU/L Alkaline Phosphatase 80 (46-116) U/L Troponin I < 0.050 (0.000-0.056) ng/mL Total Protein 7.7 (6.4-8.2) g/dL Albumin 3.9 (3.4-5.0) g/dL Globulin 3.8 (2.6-4.0) g/dL Albumin/Globulin Ratio 1.0 (0.9-1.6) Meds: Medications Discontinued Medications Generic Name Dose Route Start Last Admin Trade Name Freq PRN Reason Stop Dose Admin Al Hydroxide/Mg Hydroxide 15 0 ml 02/22/20 00:23 02/22/20 00:27 ml/ Lidocaine HCl 5 ml PO 02/22/20 00:24 20 each ONETIME ONE Administration Ondansetron HCl 4 mg 02/22/20 00:25 02/22/20 00:29 Zofran Odt PO 02/22/20 00:26 4 mg ONETIME ONE Administration Sodium Chloride 10 ml 02/21/20 22:48 Saline Flush FLUSH ASDIRECTED PRN Keep Vein Open Sodium Chloride 2.5 ml 02/21/20 22:48 Saline Flush FLUSH ASDIRECTED PRN Keep Vein Open Departure - Departure Time of Disposition: 00:26 Disposition: Home, Self-Care 01 Condition: Good Clinical Impression: Gastroesophageal reflux disease, Dehydration, Gastritis - Discharge Information Prescriptions: Omeprazole Magnesium [Prilosec Otc] 20 mg PO DAILY #30 tablet. Ondansetron [Zofran ODT] 4 mg PO Q6H PRN #12 tab.dis PRN Reason: Nausea Instructions: Gastritis, Adult, [id number], Dehydration, Adult, [id number], Gastroesophageal Reflux Disease, Adult, [id number] Referrals: Chas Mitchell MD [Primary Care Provider] - Forms: ED Department Discharge Additional Instructions: You were seen and evaluated today in the ER secondary to the discomfort that you are having in your abdomen and the burning sensation that you are experiencing in your abdominal region. Your blood tests and EKG in the emergency department are all within normal limits. The discomfort that you are experiencing appears to be most likely related to gastritis or too much acid in your stomach. You will be given a prescription for Zofran to assist you with your nausea and vomiting as well as a prescription for Prilosec to help coat your stomach and decrease the amount of acid in your stomach. Please make an appointment to see your family doctor in 2 to 3 days to be reevaluated for your symptoms. The following information is given to patients seen in the emergency department who are being discharged to home. This information is to outline your options for follow-up care. We provide all patients seen in our emergency department with a follow-up referral. The need for follow-up, as well as the timing and circumstances, are variable depending upon the specifics of your emergency department visit. If you don't have a primary care physician on staff, we will provide you with a referral. We always advise you to contact your personal physician following an emergency department visit to inform them of the circumstance of the visit and for follow-up with them and/or the need for any referrals to a consulting specialist. The emergency department will also refer you to a specialist when appropriate. T his referral assures that you have the opportunity for follow-up care with a specialist. All of these measure are taken in an effort to provide you with optimal care, which includes your follow-up. Under all circumstances we always encourage you to contact your private physician who remains a resource for coordinating your care. When calling for follow-up care, please make the office aware that this follow-up is from your recent emergency room visit. If for any reason you are refused follow-up, please contact the [facility] Emergency Department at and asked to speak to the emergency department charge nurse. Sepsis Event Note (ED) - Evaluation Sepsis Screening Result: No Definite Risk - My Orders Last 24 Hours: My Active Orders 02/21/20 22:48 EKG Documentation Completion [RC] STAT Saline Lock Insert [OM.PC] Stat - Assessment/Plan Last 24 Hours: My Active Orders 02/21/20 22:48 EKG Documentation Completion [RC] STAT Saline Lock Insert [OM.PC] Stat
== END 2020-02-22 00:43 | disposition home or self-care (01) ==
LOC: MW.ED 21:41
DX: K29.70 Gastritis, unspecified, without bleeding (principal); K21.9 Gastro-esophageal reflux disease without esophagitis; E86.0 Dehydration; E78.00 Pure hypercholesterolemia, unspecified; I10 Essential (primary) hypertension; J45.909 Unspecified asthma, uncomplicated; F41.9 Anxiety disorder, unspecified; F32.9 Major depressive disorder, single episode, unspecified; F17.210 Nicotine dependence, cigarettes, uncomplicated; E11.9 Type 2 diabetes mellitus without complications; B20 Human immunodeficiency virus [HIV] disease; E03.9 Hypothyroidism, unspecified; E66.9 Obesity, unspecified; Z68.41 Body mass index [BMI] 40.0-44.9, adult; Z88.8 Allergy status to other drugs, medicaments and biological substances; Z88.2 Allergy status to sulfonamides; Z88.1 Allergy status to other antibiotic agents; Z79.899 Other long term (current) drug therapy
CPT/HCPCS: 36415; 80053; 84484; 85025; 93005; 99284; A9270; 99283

== ENCOUNTER 2020-03-10 00:44 | Emergency (ER) | payer MEDICARE, MEDICAID ==
[2020-03-10] MEDS ORDERED: Ibuprofen 600 MG Tab PO ONE (00:57)
[2020-03-10 00:58] VITALS: BP 128/75; PULSE 84
[2020-03-10] MEDS ORDERED: Penicillin V Potassium 500 MG Tab PO SCH (01:00)
--- NOTE | 2020-03-10 01:02 | EDM.PDOC ---
ED HPI GENERAL MEDICAL PROBLEM - General Chief Complaint: ENT Problem Stated Complaint: POSSIBLE TOOTH INFECTION Time Seen by Provider: 03/10/20 00:46 - History of Present Illness INITIAL COMMENTS - FREE TEXT/NARRATIVE: 59-year-old female with multiple medical problems and frequent presentations of her primary care doctor in the emergency department is presenting with 2 to 3 days of dental pain she reports moderate pain to tooth #25 that worsens with chewing pain does not radiate no sensation of abnormal swelling no difficulty swallowing or breathing. Patient reports that she has a local dentist office that she can follow-up with on Wednesday. No fevers no chills no neck pain no other symptoms. Lower Tooth/Teeth Pain Score (Numeric/FACES): 6 - Related Data Allergies Allergy/AdvReac Type Severity Reaction Status Date / Time doxepin [Doxepin] Allergy Blurred Verified 03/10/20 00:58 Vision lisinopril Allergy Rash Verified 03/10/20 00:58 [id number]-[id number] Reductase Allergy Cannot Verified 03/10/20 00:58 Inhibitor Remember sulfamethoxazole Allergy Weakness Verified 03/10/20 00:58 [From Bactrim] trimethoprim [From Bactrim] Allergy Weakness Verified 03/10/20 00:58 Home Meds: Home Meds Estrogens, Conjugated [Premarin Vaginal Crm] 1 applic VAG Q48H PRN 12/14/13 [History] Losartan/Hydrochlorothiazide [Losartan-HCTZ 100-12.5 MG] 1 each PO DAILY 12/14/13 [History] Levothyroxine Sodium [Synthroid] 200 mcg PO ACBREAKFAST 04/06/14 [History] ALPRAZolam [Xanax] 2 mg PO TID PRN 04/17/14 [History] Rosuvastatin [Crestor] 20 mg PO BEDTIME 04/17/14 [History] metFORMIN [Glucophage] 1,000 mg PO BID 04/17/14 [History] traMADol [Ultram] 100 mg PO TID PRN 04/17/14 [History] Sertraline HCl 200 mg PO DAILY 04/01/15 [History] Prochlorperazine Maleate 10 mg PO DAILY PRN 12/20/15 [History] amLODIPine Besylate [Norvasc] 5 mg PO DAILY 12/20/15 [History] Lidocaine 5% [Lidoderm 5%] 1 each TOP DAILY PRN 01/04/16 [History] Levocetirizine Dihydrochloride 5 mg PO BEDTIME 08/26/16 [History] Albuterol Sulfate [Albuterol Sulfate Hfa] 18 gm IH Q4H PRN #1 hfa.aer.ad 09/27/19 [Rx] Elviteg/Cob/Emtri/Tenof Alafen [Genvoya Tablet] 1 tab PO DAILY 09/27/19 [History] Exenatide Microspheres [Bydureon Pen] 2 mg SQ WEEKLY 09/27/19 [History] Fluticasone Propion/Salmeterol [Advair 250-50 Diskus] 1 puff IH BID PRN 09/27/19 [History] Ipratropium [Atrovent 0.06% Nasal [place]] 2 spray JONE TID PRN 09/27/19 [History] Liothyronine [Cytomel] 10 mcg PO DAILY 09/27/19 [History] Furosemide [Lasix] 20 mg PO DAILY 02/21/20 [History] Omeprazole 20 mg PO DAILY 02/21/20 [History] Omeprazole Magnesium [Prilosec Otc] 20 mg PO DAILY #30 tablet. 02/22/20 [Rx] Ondansetron [Zofran ODT] 4 mg PO Q6H PRN #12 tab.dis 02/22/20 [Rx] Penicillin V Potassium 500 mg PO Q6HR 7 Days #28 tab 03/10/20 [Rx] Past Medical History - Past Health History Medical/Surgical History: Denies Medical/Surgical History HEENT History: Reports: Impaired Vision Other HEENT History: uses reading glasses, has upper and lower dentures but only uses the upper Cardiovascular History: Reports: High Cholesterol, Hypertension Respiratory History: Reports: Asthma, Pneumonia, Recurrent, Other (See Below) Other Respiratory History: recent sinus infection Gastrointestinal History: Reports: GERD, Hemorrhoids 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 History: Reports: None 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: Musculoskeletal History: Reports: Back Pain, Chronic, Fracture Other Musculoskeletal History: hx fx right ankle Neurological History: Reports: Other (See Below) Other Neuro History: was told she had a "mini stroke" many years ago, no residual Psychiatric History: Reports: Anxiety, Depression Endocrine/Metabolic History: Reports: Diabetes, Type II, Hypothyroidism, Obesity/BMI 30+ Hematologic History: Reports: None Immunologic History: Reports: HIV Oncologic (Cancer) History: Reports: Basal Cell Carcinoma Dermatologic History: Reports: None - Infectious Disease History Infectious Disease History: Reports: HIV-Human Immunodeficiency Virus - Past Surgical History Head Surgeries/Procedures: Reports: None Female Surgical History: Reports: Hysterectomy, Salpingo-Oophorectomy Social & Family History - Family History Family Medical History: Noncontributory - Caffeine Use Caffeine Use: Reports: None Caffeine Use Comment: 2/day ED ROS GENERAL - Review of Systems Review Of Systems: See Below Free Text/Narrative/Comment: General: No fever. Eyes: No vision problems. ENT: Per HPI Neck: No neck stiffness. Respiratory: No shortness of breath. ED EXAM, GENERAL - Physical Exam Exam: See Below Free Text/Narrative:: General Appearance: No acute distress, appears comfortable Skin: No rash HEENT: Normocephalic/atraumatic, sclera anicteric, mucous membranes moist, multiple missing teeth, tenderness to percussion at tooth 25 but no signs of abscess no trismus no submental or sublingual swelling or tenderness no submental erythema no stridor no wheezing no uvular deviation or posterior oropharyngeal swelling noted Neck: Normal range of motion Psychiatric: Appropriate, cooperative Course - Vital Signs Last Recorded V/S: Last Vital Signs Temp 98.6 F 03/10/20 00:50 Pulse 84 03/10/20 00:50 Resp 16 03/10/20 00:50 BP 128/75 03/10/20 00:50 Pulse Ox 96 03/10/20 00:50 - Orders/Labs/Meds Orders: Active Orders 24 hr Category Date Time Status Penicillin V Potassium [Veetids] Med 03/10/20 01:00 Active 500 mg PO Q8H Medication Orders Penicillin V Potassium (Veetids) 500 mg PO Q8H GREGORY Meds: Medications Generic Name Dose Route Start Last Admin Trade Name Freq PRN Reason Stop Dose Admin Penicillin V Potassium 500 mg 03/10/20 01:00 Veetids PO Q8H GREGORY Discontinued Medications Generic Name Dose Route Start Last Admin Trade Name Freq PRN Reason Stop Dose Admin Ibuprofen 600 mg 03/10/20 00:57 Motrin PO 03/10/20 00:58 ONETIME ONE Departure - Departure Time of Disposition: 01:00 Disposition: Home, Self-Care 01 Condition: Good Clinical Impression: Pain, dental - Discharge Information *PRESCRIPTION DRUG MONITORING PROGRAM REVIEWED*: Not Applicable *COPY OF PRESCRIPTION DRUG MONITORING REPORT IN PATIENT JOSE: Not Applicable Prescriptions: Penicillin V Potassium 500 mg PO Q6HR 7 Days #28 tab Instructions: Diet and Dental Disease Referrals: PCP,Not In Area [Ordering Only Provider] - Forms: ED Department Discharge Additional Instructions: Please take the penicillin until you are able to follow-up with your dentist please be sure to call them on Wednesday. He would take the ibuprofen up to 3 times daily for pain. Sepsis Event Note (ED) - Focused Exam Vital Signs: Vital Signs Temp Pulse Resp BP Pulse Ox 03/10/20 00:50 98.6 F 84 16 128/75 96 - My Orders Last 24 Hours: My Active Orders 03/10/20 01:00 Penicillin V Potassium [Veetids] 500 mg PO Q8H - Assessment/Plan Last 24 Hours: My Active Orders 03/10/20 01:00 Penicillin V Potassium [Veetids] 500 mg PO Q8H Assessment:: Otherwise well nontoxic appearing 59-year-old female presenting with 2 to 3 days of dental pain would cover with penicillin however, given use of Lasix and other medications would not do standing ibuprofen for pain relief. Patient will call her dentist on Wednesday morning return precautions discussed and understood. No sign of dental abscess or other deep space infection of face or neck
== END 2020-03-10 01:21 | disposition home or self-care (01) ==
LOC: MW.ED 00:44
DX: K08.89 Other specified disorders of teeth and supporting structures (principal); B20 Human immunodeficiency virus [HIV] disease; E11.9 Type 2 diabetes mellitus without complications; E03.9 Hypothyroidism, unspecified; E66.9 Obesity, unspecified; Z68.39 Body mass index [BMI] 39.0-39.9, adult; F41.9 Anxiety disorder, unspecified; F32.9 Major depressive disorder, single episode, unspecified; K21.9 Gastro-esophageal reflux disease without esophagitis; J45.909 Unspecified asthma, uncomplicated; E78.00 Pure hypercholesterolemia, unspecified; I10 Essential (primary) hypertension; Z88.8 Allergy status to other drugs, medicaments and biological substances; Z88.2 Allergy status to sulfonamides; Z79.899 Other long term (current) drug therapy; Z79.84 Long term (current) use of oral hypoglycemic drugs
CPT/HCPCS: 99282; A9270

== ENCOUNTER 2020-03-23 15:45 | Emergency (ER) | payer MEDICARE, MEDICAID, OTHER ==
--- NOTE | 2020-03-23 16:57 | EDM.PDOC ---
ED HPI GENERAL MEDICAL PROBLEM - General Chief Complaint: Respiratory Problem Stated Complaint: SOB SINUS INFECTON Time Seen by Provider: 03/23/20 16:00 - History of Present Illness INITIAL COMMENTS - FREE TEXT/NARRATIVE: HISTORY AND PHYSICAL: History of present illness: This 59-year-old female with multiple medical problems presents emergency department complaining of cough, shortness of breath, runny nose, and sore throat. She also has body aches. She is concerned that she may have pneumonia or COVID-19. No other associated signs or symptoms. No other modifying, aggravating or alleviating factors. Review of systems: A 10-point review of systems, other than pertinent positives and negatives as stated per HPI, is otherwise negative. Past medical history: As per history of present illness and as reviewed below otherwise noncontributory. Surgical history: As per history of present illness and as reviewed below otherwise noncontributory. Social history: No reported history of drug or alcohol abuse. Family history: As per history of present illness and as reviewed below otherwise noncontributory. Physical exam: VITAL SIGNS: Reviewed. GENERAL: Appears anxious about her condition but not otherwise ill. HEAD: No signs of head trauma. EYES: Pupils are equal. Extraocular motions intact. EARS: Hearing grossly intact. MOUTH: Oropharynx is normal. NECK: No adenopathy, no JVD. CHEST: Chest with clear breath sounds bilaterally. No wheezes, rales, or rhonchi. CARDIAC: Regular rate and rhythm. Normal S1 and S2, without murmurs, gallops, or rubs. VASCULAR: Peripheral pulses normal and equal in all extremities. ABDOMEN: Soft, without detectable tenderness. No sign of distention. No rebound or guarding, and no masses palpated. MUSCULOSKELETAL: Good range of motion of all major joints. Extremities without clubbing, cyanosis or edema. NEUROLOGIC EXAM: Alert and oriented x 3. No focal sensory or motor deficits. Speech normal. Follows commands. PSYCHIATRIC: Mood normal. SKIN: No rash or lesions. Initial Differential Diagnosis & Plan: Differential diagnosis includes: bacteremia or early sepsis, influenza/influenza-like illness, viremia, respiratory or urinary infection. The patient does not appear to be septic. COVID-19 is in the differential. Influenza is very unlikely. We will check for chest x-ray and COVID-19 infection. No urinary symptoms to suggest urinary cause. Definitive disposition and diagnosis as appropriate pending reevaluation and review of above. - Related Data Allergies Allergy/AdvReac Type Severity Reaction Status Date / Time doxepin [Doxepin] Allergy Blurred Verified 03/23/20 17:05 Vision lisinopril Allergy Rash Verified 03/23/20 17:05 [id number]-[id number] Reductase Allergy Cannot Verified 03/23/20 17:05 Inhibitor Remember sulfamethoxazole Allergy Weakness Verified 03/23/20 17:05 [From Bactrim] trimethoprim [From Bactrim] Allergy Weakness Verified 03/23/20 17:05 Home Meds: Home Meds Estrogens, Conjugated [Premarin Vaginal Crm] 1 applic VAG Q48H PRN 12/14/13 [History] Losartan/Hydrochlorothiazide [Losartan-HCTZ 100-12.5 MG] 1 each PO DAILY 12/14/13 [History] Levothyroxine Sodium [Synthroid] 200 mcg PO ACBREAKFAST 04/06/14 [History] ALPRAZolam [Xanax] 2 mg PO TID PRN 04/17/14 [History] Rosuvastatin [Crestor] 20 mg PO BEDTIME 04/17/14 [History] metFORMIN [Glucophage] 1,000 mg PO BID 04/17/14 [History] traMADol [Ultram] 100 mg PO TID PRN 04/17/14 [History] Sertraline HCl 200 mg PO DAILY 04/01/15 [History] Prochlorperazine Maleate 10 mg PO DAILY PRN 12/20/15 [History] amLODIPine Besylate [Norvasc] 5 mg PO DAILY 12/20/15 [History] Lidocaine 5% [Lidoderm 5%] 1 each TOP DAILY PRN 01/04/16 [History] Levocetirizine Dihydrochloride 5 mg PO BEDTIME 08/26/16 [History] Albuterol Sulfate [Albuterol Sulfate Hfa] 18 gm IH Q4H PRN #1 hfa.aer.ad 09/27/19 [Rx] Elviteg/Cob/Emtri/Tenof Alafen [Genvoya Tablet] 1 tab PO DAILY 09/27/19 [Histor y] Exenatide Microspheres [Bydureon Pen] 2 mg SQ WEEKLY 09/27/19 [History] Fluticasone Propion/Salmeterol [Advair 250-50 Diskus] 1 puff IH BID PRN 09/27/19 [History] Ipratropium [Atrovent 0.06% Nasal [place]] 2 spray JONE TID PRN 09/27/19 [History] Liothyronine [Cytomel] 10 mcg PO DAILY 09/27/19 [History] Furosemide [Lasix] 20 mg PO DAILY 02/21/20 [History] Omeprazole 20 mg PO DAILY 02/21/20 [History] Omeprazole Magnesium [Prilosec Otc] 20 mg PO DAILY #30 tablet.dr 02/22/20 [Rx] Ondansetron [Zofran ODT] 4 mg PO Q6H PRN #12 tab.dis 02/22/20 [Rx] Penicillin V Potassium 500 mg PO Q6HR 7 Days #28 tab 03/10/20 [Rx] Albuterol Sulfate 2.5 mg IH TID 10 Days #30 ml 03/23/20 [Rx] Dm/Acetaminophen/Doxylamine [Vicks Nyquil Cold & Flu Liquid] 236 ml PO BEDTIME 5 Days #1 liquid 03/23/20 [Rx] Past Medical History - Past Health History Medical/Surgical History: Denies Medical/Surgical History HEENT History: Reports: Impaired Vision Other HEENT History: uses reading glasses, has upper and lower dentures but only uses the upper Cardiovascular History: Reports: High Cholesterol, Hypertension Respiratory History: Reports: Asthma, Pneumonia, Recurrent, Other (See Below) Other Respiratory History: recent sinus infection Gastrointestinal History: Reports: GERD, Hemorrhoids 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 History: Reports: None OFFICE ADMINISTRATION History: Reports: Musculoskeletal History: Reports: Back Pain, Chronic, Fracture Other Musculoskeletal History: hx fx right ankle Neurological History: Reports: Other (See Below) Other Neuro History: was told she had a "mini stroke" many years ago, no residual Psychiatric History: Reports: Anxiety, Depression Endocrine/Metabolic History: Reports: Diabetes, Type II, Hypothyroidism, Obesity/BMI 30+ Hematologic History: Reports: None Immunologic History: Reports: HIV Oncologic (Cancer) History: Reports: Basal Cell Carcinoma Dermatologic History: Reports: None - Infectious Disease History Infectious Disease History: Reports: HIV-Human Immunodeficiency Virus - Past Surgical History Head Surgeries/Procedures: Reports: None Female Surgical History: Reports: Hysterectomy, Salpingo-Oophorectomy Social & Family History - Family History Family Medical History: Noncontributory - Caffeine Use Caffeine Use: Reports: None Caffeine Use Comment: 2/day ED ROS GENERAL - Review of Systems Review Of Systems: See Below (noted) ED EXAM, GENERAL - Physical Exam Exam: See Below (noted) Course - Vital Signs Last Recorded V/S: Last Vital Signs Temp 97.3 F 03/23/20 16:08 Pulse 68 03/23/20 16:08 Resp 20 03/23/20 16:08 BP 137/86 03/23/20 16:08 Pulse Ox 96 03/23/20 16:08 - Orders/Labs/Meds Orders: Active Orders 24 hr Category Date Time Status Chest wo Cont [CT] Stat Exams 03/23/20 17:16 Taken Labs: Laboratory Tests 03/23/20 Range/Units 16:42 COVID-19 (DELL) NEGATIVE (NEGATIVE) Meds: Medications Discontinued Medications Generic Name Dose Route Start Last Admin Trade Name Freq PRN Reason Stop Dose Admin Cefdinir 600 mg 03/23/20 17:18 03/23/20 17:48 Omnicef PO 03/23/20 17:19 600 mg ONETIME ONE Administration Doxycycline Hyclate 200 mg 03/23/20 17:18 03/23/20 17:48 Vibramycin PO 03/23/20 17:19 200 mg ONETIME ONE Administration Departure - Departure Time of Disposition: 18:07 Disposition: Home, Self-Care 01 Clinical Impression: Bronchitis, Acute bronchitis, Acute bronchospasm due to viral infection - Discharge Information *PRESCRIPTION DRUG MONITORING PROGRAM REVIEWED*: Not Applicable *COPY OF PRESCRIPTION DRUG MONITORING REPORT IN PATIENT JOSE: Not Applicable Prescriptions: Albuterol Sulfate 2.5 mg IH TID 10 Days #30 ml Dm/Acetaminophen/Doxylamine [Vicks Nyquil Cold & Flu Liquid] 236 ml PO BEDTIME 5 Days #1 liquid Instructions: Viral Respiratory Infection, [id number] Referrals: Chas Mitchell MD [Primary Care Provider] - Forms: ED Department Discharge Additional Instructions: The following information is given to patients seen in the emergency department who are being discharged to home. This information is to outline your options for follow-up care. We provide all patients seen in our emergency department with a follow-up referral. The need for follow-up, as well as the timing and circumstances, are variable depending upon the specifics of your emergency department visit. If you don't have a primary care physician on staff, we will provide you with a referral. We always advise you to contact your personal physician following an emergency department visit to inform them of the circumstance of the visit and for follow-up with them and/or the need for any referrals to a consulting specialist. The emergency department will also refer you to a specialist when appropriate. This referral assures that you have the opportunity for follow-up care with a specialist. All of these measure are taken in an effort to provide you with optimal care, which includes your follow-up. Thank you for coming to the [facility] urgency department for your care today. It was Dr. Clarke's pleasure to take care of you. Your CAT scan does not show evidence of pneumonia. You were given initial antibiotics in the emergency department because your chest x-ray was suggestive of pneumonia. You do not have pneumonia on your CAT scan. This is the gold standard. You do not need antibiotics. Your COVID-19 test was negative. Please take these medications for your symptoms. Please see your doctor. Under all circumstances we always encourage you to contact your private physician who remains a resource for coordinating your care. When calling for follow-up care, please make the office aware that this follow-up is from your recent emergency room visit. If for any reason you are refused follow-up, please contact the [facility] Emergency Department at and asked to speak to the emergency department charge nurse. Sepsis Event Note (ED) - Evaluation Sepsis Screening Result: No Definite Risk - Focused Exam Vital Signs: Vital Signs Temp Pulse Resp BP Pulse Ox 03/23/20 16:08 97.3 F 68 20 137/86 96 - My Orders Last 24 Hours: My Active Orders 03/23/20 17:16 Chest wo Cont [CT] Stat - Assessment/Plan Last 24 Hours: My Active Orders 03/23/20 17:16 Chest wo Cont [CT] Stat
--- NOTE | 2020-03-23 17:15 | CR ---
INDICATION: cough and COVID symptoms TECHNIQUE: Chest 1 view COMPARISON: FINDINGS: Cardiovascular and mediastinum: Heart size and vasculature are normal in caliber and appearance. Lungs and pleural spaces: Subtle densities in the right lung base suspected. No sign of pleural effusion. No pneumothorax. Bones and soft tissues: No significant findings. IMPRESSION: Mild right basilar infiltrate suspected. Dictated by Chavo Aguilar MD @ Mar 23 2020 5:12PM Signed by Dr. Chavo Aguilar @ Mar 23 2020 5:13PM
[2020-03-23] MEDS ORDERED: Cefdinir 300 MG Cap PO ONE (17:18)
[2020-03-23] MEDS ORDERED: Doxycycline 100 MG Cap PO ONE (17:18)
[2020-03-23 18:18] VITALS: BP 144/68; PULSE 63
--- NOTE | 2020-03-23 18:19 | CT ---
INDICATION: Clinical suspicion for pneumonia TECHNIQUE: CT chest without contrast. COMPARISON: None FINDINGS: Cardiovascular structures: Heart size is normal. Thoracic aorta and main pulmonary artery are normal in caliber. Mediastinum and best: No sign of mass or adenopathy. Lungs: Clear. Pleura and pericardium: No effusions. Chest wall and axilla: No mass or adenopathy. Bones: No significant findings. Upper abdomen: Unremarkable. IMPRESSION: Unremarkable unenhanced chest CT. No evidence for pneumonia. Dictated by Chavo Davis MD @ 03/23/2020 6:17:26 PM Please note that all CT scans at this facility use dose modulation, iterative reconstruction, and/or weight-based dosing when appropriate to reduce radiation dose to as low as reasonably achievable. Dictated by: Chavo Davis MD @ 03/23/2020 18:17:39 (Electronically Signed)
== END 2020-03-23 18:15 | disposition home or self-care (01) ==
LOC: MW.ED 15:45
DX: J20.9 Acute bronchitis, unspecified (principal); B34.9 Viral infection, unspecified; K21.9 Gastro-esophageal reflux disease without esophagitis; J45.909 Unspecified asthma, uncomplicated; E78.00 Pure hypercholesterolemia, unspecified; I10 Essential (primary) hypertension; E66.9 Obesity, unspecified; F41.9 Anxiety disorder, unspecified; F32.9 Major depressive disorder, single episode, unspecified; E03.9 Hypothyroidism, unspecified; E11.9 Type 2 diabetes mellitus without complications; Z21 Asymptomatic human immunodeficiency virus [HIV] infection status; Z88.2 Allergy status to sulfonamides; Z88.8 Allergy status to other drugs, medicaments and biological substances; Z20.828 Contact with and (suspected) exposure to other viral communicable diseases; Z79.899 Other long term (current) drug therapy; Z68.41 Body mass index [BMI] 40.0-44.9, adult
CPT/HCPCS: 71045; 71250; 99285; A9270; U0002; 99283

== ENCOUNTER 2020-03-27 14:18 | Emergency (ER) | payer MEDICARE, MEDICAID ==
[2020-03-27] MEDS ORDERED: Ketorolac 30 MG/ML SDV IM ONE (15:14)
--- NOTE | 2020-03-27 15:19 | EDM.PDOC ---
ED HPI GENERAL MEDICAL PROBLEM - General Chief Complaint: Respiratory Problem Stated Complaint: SINUS INFECTION Time Seen by Provider: 03/27/20 14:26 Source of Information: Reports: Patient History Limitations: Reports: No Limitations - History of Present Illness INITIAL COMMENTS - FREE TEXT/NARRATIVE: HISTORY AND PHYSICAL: History of present illness: Patient is a 59-year-old female who presents to the ED today with concern of nasal congestion, sinus pain, and slight cough. Patient states she was seen in the ED and evaluated for this and was told that she had bronchitis. Patient states that she would like a shot of Toradol for her bronchitis as she just got a call from her primary care provider who called in an antibiotic for a sinus infection. Patient states that she was already worked up for her symptoms and was just hoping to get an antibiotic which her primary care provider just sent her as she was checking in to the emergency room and states that since she is here, would like a Toradol shot. Denies any new symptoms or concerns. Patient denies fever, chills, chest pain, shortness of breath,. Denies headache, neck stiff ness, change in vision, syncope, or near syncope. Denies nausea, vomiting, abdominal pain, diarrhea, constipation, or dysuria. Has not noted any blood in urine or stool. Patient has been eating and drinking appropriately. Review of systems: As per history of present illness and below otherwise all systems reviewed and negative. Past medical history: As per history of present illness and as reviewed below otherwise noncontributo ry. Surgical history: As per history of present illness and as reviewed below otherwise noncontributory. Social history: See social history for further information Family history: As per history of present illness and as reviewed below otherwise noncontributory. Physical exam: General: Patient is alert, oriented, and in no acute distress. Patient sitting comfortably on exam table. HEENT: Atraumatic, normocephalic, pupils equal and reactive bilaterally, negative for conjunctival pallor or scleral icterus, mucous membranes moist, TMs normal bilaterally, throat clear, neck supple, nontender, trachea midline. No drooling or trismus noted. No meningeal signs. No hot potato voice noted. Lungs: Clear to auscultation, breath sounds equal bilaterally, chest nontender. Heart: S1S2, regular rate and rhythm without overt murmur Abdomen: Soft, nondistended, nontender. Negative for masses or hepatosplenomegaly. Negative for costovertebral tenderness. Pelvis: Stable nontender. 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: Deferred. Rectal: Deferred. Skin: Intact, warm, dry. No lesions or rashes noted. Extremities: Atraumatic, negative for cords or calf pain. Neurovascular unremarkable. Neuro: Awake, alert, oriented. Cranial nerves II through XII unremarkable. Cerebellum unremarkable. Motor and sensory unremarkable throughout. Exam nonfocal. Notes: Discussed the importance for follow up with a primary care provider. Voices understanding and is agreeable to plan of care. Denies any further questions or concerns at this time. Diagnostics: None Therapeutics: Toradol Prescription: None Impression: Viral syndrome Plan: 1. You can alternate ibuprofen and Tylenol as directed for pain and discomfort. Follow up wit bennett primary care provider as discussed. Return to the ED as needed and as discussed. Definitive disposition and diagnosis as appropriate pending reevaluation and review of above. sinus, head, chest Pain Score (Numeric/FACES): 7 - Related Data Allergies Allergy/AdvReac Type Severity Reaction Status Date / Time doxepin [Doxepin] Allergy Blurred Verified 03/27/20 14:53 Vision lisinopril Allergy Rash Verified 03/27/20 14:53 Dagmpdp-Hkb-Hnt Reductase Allergy Cannot Verified 03/27/20 14:53 Inhibitor Remember sulfamethoxazole Allergy Weakness Verified 03/27/20 14:53 [From Bactrim] trimethoprim [From Bactrim] Allergy Weakness Verified 03/27/20 14:53 Home Meds: Home Meds Estrogens, Conjugated [Premarin Vaginal Crm] 1 applic VAG Q48H PRN 12/14/13 [History] Losartan/Hydrochlorothiazide [Losartan-HCTZ 100-12.5 MG] 1 each PO DAILY 12/14/13 [History] Levothyroxine Sodium [Synthroid] 200 mcg PO ACBREAKFAST 04/06/14 [History] ALPRAZolam [Xanax] 2 mg PO TID PRN 04/17/14 [History] Rosuvastatin [Crestor] 20 mg PO BEDTIME 04/17/14 [History] metFORMIN [Glucophage] 1,000 mg PO BID 04/17/14 [History] traMADol [Ultram] 100 mg PO TID PRN 04/17/14 [History] Sertraline HCl 200 mg PO DAILY 04/01/15 [History] Prochlorperazine Maleate 10 mg PO DAILY PRN 12/20/15 [History] amLODIPine Besylate [Norvasc] 5 mg PO DAILY 12/20/15 [History] Lidocaine 5% [Lidoderm 5%] 1 each TOP DAILY PRN 01/04/16 [History] Levocetirizine Dihydrochloride 5 mg PO BEDTIME 08/26/16 [History] Albuterol Sulfate [Albuterol Sulfate Hfa] 18 gm IH Q4H PRN #1 hfa.aer.ad 09/27/19 [Rx] Elviteg/Cob/Emtri/Tenof Alafen [Genvoya Tablet] 1 tab PO DAILY 09/27/19 [History] Exenatide Microspheres [Bydureon Pen] 2 mg SQ WEEKLY 09/27/19 [History] Fluticasone Propion/Salmeterol [Advair 250-50 Diskus] 1 puff IH BID PRN 09/27/19 [History] Ipratropium [Atrovent 0.06% Nasal [place]] 2 spray JONE TID PRN 09/27/19 [History] Liothyronine [Cytomel] 10 mcg PO DAILY 09/27/19 [History] Furosemide [Lasix] 20 mg PO DAILY 02/21/20 [History] Omeprazole Magnesium [Prilosec Otc] 20 mg PO DAILY #30 tablet. 02/22/20 [Rx] Ondansetron [Zofran ODT] 4 mg PO Q6H PRN #12 tab.dis 02/22/20 [Rx] Albuterol Sulfate 2.5 mg IH TID 10 Days #30 ml 03/23/20 [Rx] Dm/Acetaminophen/Doxylamine [Vicks Nyquil Cold & Flu Liquid] 236 ml PO BEDTIME 5 Days #1 liquid 03/23/20 [Rx] Past Medical History - Past Health History Medical/Surgical History: Denies Medical/Surgical History HEENT History: Reports: Impaired Vision Other HEENT History: uses reading glasses, has upper and lower dentures but only uses the upper Cardiovascular History: Reports: High Cholesterol, Hypertension Respiratory History: Reports: Asthma, Pneumonia, Recurrent, Other (See Below) Other Respiratory History: recent sinus infection Gastrointestinal History: Reports: GERD, Hemorrhoids 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 History: Reports: None 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: Musculoskeletal History: Reports: Back Pain, Chronic, Fracture Other Musculoskeletal History: hx fx right ankle Neurological History: Reports: Other (See Below) Other Neuro History: was told she had a "mini stroke" many years ago, no residual Psychiatric History: Reports: Anxiety, Depression Endocrine/Metabolic History: Reports: Diabetes, Type II, Hypothyroidism, Obesity/BMI 30+ Hematologic History: Reports: None Immunologic History: Reports: HIV Oncologic (Cancer) History: Reports: Basal Cell Carcinoma Dermatologic History: Reports: None - Infectious Disease History Infectious Disease History: Reports: HIV-Human Immunodeficiency Virus - Past Surgical History Head Surgeries/Procedures: Reports: None Female Surgical History: Reports: Hysterectomy, Salpingo-Oophorectomy Social & Family History - Family History Family Medical History: Noncontributory - Tobacco Use Smoking Status *Q: Current Every Day Smoker Years of Tobacco use: 1 Packs/Tins Daily: 1 - Caffeine Use Caffeine Use: Reports: None Caffeine Use Comment: 2/day - Recreational Drug Use Recreational Drug Use: No ED ROS GENERAL - Review of Systems Review Of Systems: Comprehensive ROS is negative, except as noted in HPI. ED EXAM, GENERAL - Physical Exam Exam: See Below (see dictation) Course - Vital Signs Last Recorded V/S: Last Vital Signs Temp 97.3 F 03/27/20 14:49 Pulse 75 03/27/20 14:49 Resp 20 03/27/20 14:49 BP 127/59 L 03/27/20 14:49 Pulse Ox 96 03/27/20 14:49 Departure - Departure Time of Disposition: 15:13 Disposition: Home, Self-Care 01 Clinical Impression: Viral syndrome - Discharge Information Referrals: Chas Mitchell MD [Primary Care Provider] - Additional Instructions: The following information is given to patients seen in the emergency department who are being discharged to home. This information is to outline your options for follow-up care. We provide all patients seen in our emergency department with a follow-up referral. The need for follow-up, as well as the timing and circumstances, are variable depending upon the specifics of your emergency department visit. If you don't have a primary care physician on staff, we will provide you with a referral. We always advise you to contact your personal physician following an emergency department visit to inform them of the circumstance of the visit and for follow-up with them and/or the need for any referrals to a consulting specialist. The emergency department will also refer you to a specialist when appropriate. This referral assures that you have the opportunity for follow-up care with a specialist. All of these measure are taken in an effort to provide you with optimal care, which includes your follow-up. Under all circumstances we always encourage you to contact your private physician who remains a resource for coordinating your care. When calling for follow-up care, please make the office aware that this follow-up is from your recent emergency room visit. If for any reason you are refused follow-up, please contact the [facility] Emergency Department at and asked to speak to the emergency department charge nurse. [facility] Primary Care [address] [place] [id number] [id number] 1. You can alternate ibuprofen and Tylenol as directed for pain and discomfort. Follow up wit bennett primary care provider as discussed. Return to the ED as needed and as discussed. Sepsis Event Note (ED) - Evaluation Sepsis Screening Result: No Definite Risk - Focused Exam Vital Signs: Vital Signs Temp Pulse Resp BP Pulse Ox 03/27/20 14:49 97.3 F 75 20 127/59 L 96
[2020-03-27 15:52] VITALS: BP 117/53; PULSE 64
== END 2020-03-27 15:52 | disposition home or self-care (01) ==
LOC: MW.ED 14:18
DX: B34.9 Viral infection, unspecified (principal); I10 Essential (primary) hypertension; E78.00 Pure hypercholesterolemia, unspecified; J45.909 Unspecified asthma, uncomplicated; K21.9 Gastro-esophageal reflux disease without esophagitis; F41.9 Anxiety disorder, unspecified; F32.9 Major depressive disorder, single episode, unspecified; E11.9 Type 2 diabetes mellitus without complications; E03.9 Hypothyroidism, unspecified; F17.210 Nicotine dependence, cigarettes, uncomplicated; E66.9 Obesity, unspecified; Z68.41 Body mass index [BMI] 40.0-44.9, adult; Z88.8 Allergy status to other drugs, medicaments and biological substances; Z88.2 Allergy status to sulfonamides; Z88.1 Allergy status to other antibiotic agents; Z79.899 Other long term (current) drug therapy
CPT/HCPCS: 96372; 99283; J1885; 99282

== ENCOUNTER 2020-04-13 21:06 | Emergency (ER) | payer MEDICARE, MEDICAID ==
[2020-04-13] MEDS ORDERED: Ketorolac 60 MG/2 ML SDV IM ONE (21:45)
--- NOTE | 2020-04-13 21:49 | EDM.PDOC ---
<Tanner Villatoro - Last Filed: 04/13/20 22:45> ED HPI GENERAL MEDICAL PROBLEM - General Chief Complaint: ENT Problem Stated Complaint: SORE THROAT/COUGH Time Seen by Provider: 04/13/20 21:15 - Related Data Allergies Allergy/AdvReac Type Severity Reaction Status Date / Time doxepin [Doxepin] Allergy Blurred Verified 04/13/20 21:28 Vision lisinopril Allergy Rash Verified 04/13/20 21:28 Jyoglkc-His-Eko Reductase Allergy Cannot Verified 04/13/20 21:28 Inhibitor Remember sulfamethoxazole Allergy Weakness Verified 04/13/20 21:28 [From Bactrim] trimethoprim [From Bactrim] Allergy Weakness Verified 04/13/20 21:28 Home Meds: Home Meds Estrogens, Conjugated [Premarin Vaginal Crm] 1 applic VAG Q48H PRN 12/14/13 [History] Losartan/Hydrochlorothiazide [Losartan-HCTZ 100-12.5 MG] 1 each PO DAILY 12/14/13 [History] Levothyroxine Sodium [Synthroid] 200 mcg PO ACBREAKFAST 04/06/14 [History] ALPRAZolam [Xanax] 2 mg PO TID PRN 04/17/14 [History] Rosuvastatin [Crestor] 20 mg PO BEDTIME 04/17/14 [History] metFORMIN [Glucophage] 1,000 mg PO BID 04/17/14 [History] traMADol [Ultram] 100 mg PO TID PRN 04/17/14 [History] Sertraline HCl 200 mg PO DAILY 04/01/15 [History] Prochlorperazine Maleate 10 mg PO DAILY PRN 12/20/15 [History] amLODIPine Besylate [Norvasc] 5 mg PO DAILY 12/20/15 [History] Lidocaine 5% [Lidoderm 5%] 1 each TOP DAILY PRN 01/04/16 [History] Levocetirizine Dihydrochloride 5 mg PO BEDTIME 08/26/16 [History] Albuterol Sulfate [Albuterol Sulfate Hfa] 18 gm IH Q4H PRN #1 hfa.aer.ad 09/27/19 [Rx] Elviteg/Cob/Emtri/Tenof Alafen [Genvoya Tablet] 1 tab PO DAILY 09/27/19 [History] Exenatide Microspheres [Bydureon Pen] 2 mg SQ WEEKLY 09/27/19 [History] Fluticasone Propion/Salmeterol [Advair 250-50 Diskus] 1 puff IH BID PRN 09/27/19 [History] Ipratropium [Atrovent 0.06% Nasal [place]] 2 spray JONE TID PRN 09/27/19 [History] Liothyronine [Cytomel] 10 mcg PO DAILY 09/27/19 [History] Furosemide [Lasix] 20 mg PO DAILY 02/21/20 [History] Omeprazole Magnesium [Prilosec Otc] 20 mg PO DAILY #30 tablet. 02/22/20 [Rx] Ondansetron [Zofran ODT] 4 mg PO Q6H PRN #12 tab.dis 02/22/20 [Rx] Albuterol Sulfate 2.5 mg IH TID 10 Days #30 ml 03/23/20 [Rx] Dm/Acetaminophen/Doxylamine [Vicks Nyquil Cold & Flu Liquid] 236 ml PO BEDTIME 5 Days #1 liquid 03/23/20 [Rx] Benzonatate [Tessalon Perle] 100 mg PO TID PRN #15 capsule 04/13/20 [Rx] EKG INTERPRETATION EKG Date: 04/13/20 Time: 20:26 Rhythm: NSR Rate (Beats/Min): 64 [place]: Normal P-Wave: Present QRS: Normal ST-T: Normal QT: Normal Course - Vital Signs Text/Narrative:: Patient was signed out to me by APC, chest x-ray pending, strep pending as well at the time of signout. Patient has stable vital signs. Chest x-ray is clear. Strep is negative. Does not appear to have any labored breathing, respiratory distress, and is otherwise nontoxic. I believe she is appropriate for outpatient management and follow-up. Return precautions provided. Otherwise stable at discharge. Departure - Departure Time of Disposition: 22:46 Disposition: Home, Self-Care 01 Clinical Impression: Cough Pharyngitis Qualifiers: Pharyngitis/tonsillitis etiology: unspecified etiology Qualified Code(s): J02.9 - Acute pharyngitis, unspecified - Discharge Information Prescriptions: Benzonatate [Tessalon Perle] 100 mg PO TID PRN #15 capsule PRN Reason: Cough Instructions: Viral Respiratory Infection, [id number] Referrals: Christine Mitchell MD [Primary Care Provider] - Forms: ED Department Discharge Additional Instructions: The following information is given to patients seen in the emergency department who are being discharged to home. This information is to outline your options for follow-up care. We provide all patients seen in our emergency department with a follow-up referral. The need for follow-up, as well as the timing and circumstances, are variable depending upon the specifics of your emergency department visit. If you don't have a primary care physician on staff, we will provide you with a referral. We always advise you to contact your personal physician following an emergency department visit to inform them of the circumstance of the visit and for follow-up with them and/or the need for any referrals to a consulting specialist. The emergency department will also refer you to a specialist when appropriate. This referral assures that you have the opportunity for follow-up care with a specialist. All of these measure are taken in an effort to provide you with optimal care, which includes your follow-up. Under all circumstances we always encourage you to contact your private physician who remains a resource for coordinating your care. When calling for follow-up care, please make the office aware that this follow-up is from your recent emergency room visit. If for any reason you are refused follow-up, please contact the [facility] Emergency Department at and asked to speak to the emergency department charge nurse. [facility] [address] [place] [id number] [facility] [address] [place] [id number] 1. Use cough drops and/or other over the counter medications as needed for throat discomfort as discussed. Drink small but frequent sips of fluid to prevent dehydration. Take medication as prescribed. 2. Alternate Ibuprofen and Tylenol as directed for pain and discomfort. 3. Follow up with your primary care provider as discussed. 4. Return to the ED as needed and as discussed. <Tonya Love - Last Filed: 04/14/20 10:10> ED HPI GENERAL MEDICAL PROBLEM - General Source of Information: Reports: Patient History Limitations: Reports: No Limitations - History of Present Illness INITIAL COMMENTS - FREE TEXT/NARRATIVE: HISTORY AND PHYSICAL: History of present illness: Patient is a 59-year-old female, who is well known to myself, who presents to the ED today with concern of sore throat and slight cough that has been ongoing for over 1 month. Patient was seen in the ED by myself on 03/27/2020 and at this time was being evaluated for nasal congestion, sinus pain and cough. Patient was seen prior before that by her primary care provider and was diagnosed with bronchitis and given an antibiotic. Patient states following the antibiotic she has improvement of her sinuses but has continued to have the sore throat and cough despite this since her initial evaluation by her primary care provider. Patient states she is here today because she would like a steroid shot. Patient states that she was supposed to follow-up with her primary care provider but decided to cancel the appointment last week. Patient states she smokes a pack of cigarettes a day. Patient denies fever, chills, chest pain, shortness of breath. Denies headache, neck stiff ness, change in vision, syncope, or near syncope. Denies nausea, vomiting, abdominal pain, diarrhea, constipation, or dysuria. Has not noted any blood in urine or stool. Patient has been eating and drinking appropriately. Review of systems: As per history of present illness and below otherwise all systems reviewed and negative. Past medical history: As per history of present illness and as reviewed below otherwise noncontributory. Surgical history: As per history of present illness and as reviewed below otherwise noncontributory. Social history: See social history for further information Family history: As per history of present illness and as reviewed below otherwise noncontributory. Physical exam: General: Patient is alert, oriented, and in no acute distress. Patient sitting comfortably on exam table. HEENT: Atraumatic, normocephalic, pupils equal and reactive bilaterally, negative for conjunctival pallor or scleral icterus, mucous membranes moist, TMs normal bilaterally, throat clear, uvula midline, neck supple, nontender, trachea midline. No drooling or trismus noted. No meningeal signs. No hot potato voice noted. Lungs: Patient speaking clearly without breathlessness, no wheezing or stridor, no accessory muscle use or respiratory distress. Auscultation deferred due to current COV-ID 19 outbreak. Heart: Auscultation deferred due to current COV-ID 19 outbreak. Abdomen: Soft, nondistended, nontender. Negative for masses or hepatosplenomegaly. Negative for costovertebral tenderness. Pelvis: Stable nontender. 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: Deferred. Rectal: Deferred. Skin: Intact, warm, dry. No lesions or rashes noted. Extremities: Atraumatic, negative for cords or calf pain. Neurovascular unremarkable. Neuro: Awake, alert, oriented. Cranial nerves II through XII unremarkable. Cerebellum unremarkable. Motor and sensory unremarkable throughout. Exam nonfocal. Notes: Vitals stable and reviewed by me. Patient has been having these symptoms for over a month and has been on a course of antibiotics 2 weeks ago. Patient canceled/did not show up for a follow-up appointment with her primary care provider that was scheduled for last week in regards to ongoing symptoms. I do feel that patients symptoms warrant further follow up outpatient as she is currently stable, non toxic, in no acute distress, breathing comfortably without wheezing, stridor and symptoms have been ongoing for [address] Villatoro has assumed care of patient and will follow remaining diagnostics and disposition. Diagnostics: EKG, CXR, Strep Therapeutics: Toradol Prescription: Adolfo Valdez Impression: Pharyngitis Cough Plan: 1. Use cough drops and/or other over the counter medications as needed for throat discomfort as discussed. Drink small but frequent sips of fluid to prevent dehydration. Take medication as prescribed. 2. Alternate Ibuprofen and Tylenol as directed for pain and discomfort. 3. Follow up with your primary care provider as discussed. 4. Return to the ED as needed and as discussed. Definitive disposition and diagnosis as appropriate pending reevaluation and review of above. 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: Musculoskeletal History: Reports: Back Pain, Chronic, Fracture Other Musculoskeletal History: hx fx right ankle Neurological History: Reports: Other (See Below) Other Neuro History: was told she had a "mini stroke" many years ago, no residual Psychiatric History: Reports: Anxiety, Depression Endocrine/Metabolic History: Reports: Diabetes, Type II, Hypothyroidism, Obesity/BMI 30+ Hematologic History: Reports: None Immunologic History: Reports: HIV Oncologic (Cancer) History: Reports: Basal Cell Carcinoma Dermatologic History: Reports: None - Infectious Disease History Infectious Disease History: Reports: HIV-Human Immunodeficiency Virus - Past Surgical History Head Surgeries/Procedures: Reports: None Female Surgical History: Reports: Hysterectomy, Salpingo-Oophorectomy Social & Family History - Family History Family Medical History: Noncontributory - Tobacco Use Smoking Status *Q: Current Every Day Smoker Years of Tobacco use: 4 Packs/Tins Daily: 1 - Caffeine Use Caffeine Use: Reports: Energy Drinks, Soda Caffeine Use Comment: 2/day - Recreational Drug Use Recreational Drug Use: No ED ROS GENERAL - Review of Systems Review Of Systems: Comprehensive ROS is negative, except as noted in HPI. ED EXAM, GENERAL - Physical Exam Exam: See Below (see dictation) Course - Vital Signs Last Recorded V/S: Last Vital Signs Temp 96.5 F L 04/13/20 21:29 Pulse 69 04/13/20 22:59 Resp 17 04/13/20 22:59 BP 119/73 04/13/20 22:59 Pulse Ox 97 04/13/20 22:59 - Orders/Labs/Meds Orders: Active Orders 24 hr Category Date Time Status CULTURE STREP A CONFIRMATION [RM] Stat Lab 04/13/20 22:24 Results STREP SCRN A RAPID W CULT CONF [RM] Stat Lab 04/13/20 22:24 Results Meds: Medications Discontinued Medications Generic Name Dose Route Start Last Admin Trade Name Tierra PRN Reason Stop Dose Admin Ketorolac Tromethamine 60 mg 04/13/20 21:45 04/13/20 22:04 Toradol IM 04/13/20 21:46 60 mg ONETIME ONE Administration Sepsis Event Note (ED) - Evaluation Sepsis Screening Result: No Definite Risk - Focused Exam Vital Signs: Vital Signs Pulse Resp BP Pulse Ox 04/13/20 22:59 69 17 119/73 97 - My Orders Last 24 Hours: My Active Orders 04/13/20 22:24 CULTURE STREP A CONFIRMATION [RM] Stat STREP SCRN A RAPID W CULT CONF [] Stat - Assessment/Plan Last 24 Hours: My Active Orders 04/13/20 22:24 CULTURE STREP A CONFIRMATION [RM] Stat STREP SCRN A RAPID W CULT CONF [RM] Stat
--- NOTE | 2020-04-13 22:40 | CR ---
Chest: Supine view of the chest was obtained. Comparison: Prior chest x-ray of 09/28/19. Heart size and mediastinum are normal. Lungs are clear with no acute parenchymal change. Bony structures show scattered endplate spurring within the spine. Impression: 1. Nothing acute is seen on frontal chest x-ray. Diagnostic code #1 Study was dictated in MDT
[2020-04-13 23:06] VITALS: BP 119/73; PULSE 69
== END 2020-04-13 23:00 | disposition home or self-care (01) ==
LOC: MW.ED 21:06
DX: J02.9 Acute pharyngitis, unspecified (principal); I10 Essential (primary) hypertension; J45.909 Unspecified asthma, uncomplicated; K21.9 Gastro-esophageal reflux disease without esophagitis; E11.9 Type 2 diabetes mellitus without complications; E66.9 Obesity, unspecified; F41.9 Anxiety disorder, unspecified; F32.9 Major depressive disorder, single episode, unspecified; Z21 Asymptomatic human immunodeficiency virus [HIV] infection status; F17.210 Nicotine dependence, cigarettes, uncomplicated; Z68.41 Body mass index [BMI] 40.0-44.9, adult; Z90.710 Acquired absence of both cervix and uterus; Z79.899 Other long term (current) drug therapy; Z88.2 Allergy status to sulfonamides; Z88.8 Allergy status to other drugs, medicaments and biological substances; Z88.1 Allergy status to other antibiotic agents
CPT/HCPCS: 71045; 87081; 87880; 93005; 96372; 99284; J1885; 99283

== ENCOUNTER 2020-04-15 13:37 | Emergency (ER) | payer MEDICARE, MEDICAID ==
--- NOTE | 2020-04-15 13:51 | EDM.PDOC ---
ED HPI GENERAL MEDICAL PROBLEM - General Chief Complaint: Skin Complaint Stated Complaint: SORE ON RT BIG TOE Time Seen by Provider: 04/15/20 13:39 Source of Information: Reports: Patient History Limitations: Reports: No Limitations - History of Present Illness INITIAL COMMENTS - FREE TEXT/NARRATIVE: HISTORY AND PHYSICAL: History of present illness: Patient is a 59-year-old female who presents to the emergency room with complaints of skin breakdown on the left great toe. She states she noticed a "sore" to the medial aspect of the left great toe. Her daughter helped her cl essence the site and states she has had some foul-smelling discharge coming from the area. She does have a history of type 2 diabetes and does take medications for this. Patient denies any fever, chills, headache, change in vision, syncope or near syncope. Denies any chest pain, back pain, shortness of breath or cough. Denies any GI or symptoms. Blood sugars have been appropriate. No recent injury, trauma or falls. Review of systems: As per history of present illness and below otherwise all systems reviewed and negative. Past medical history: As per history of present illness and as reviewed below otherwise noncontributory. Surgical history: As per history of present illness and as reviewed below otherwise noncontributory. Social history: See social history for further information Family history: As per history of present illness and as reviewed below otherwise noncontributory. Physical exam: General: Well developed and well nourished. Alert and orientated x 3. Nontoxic i n appearance and in no acute distress. Vital signs are stable and have been reviewed by me. Nursing notes were reviewed. HEENT: Atraumatic, normocephalic, pupils equal and reactive bilaterally, negat shanae for conjunctival pallor or scleral icterus, mucous membranes moist, TMs normal bilaterally, throat clear, neck supple, nontender, trachea midline. No drooling or trismus noted. No meningeal signs. No hot potato voice noted. Lungs: Clear to auscultation, breath sounds equal bilaterally, chest nontender. Normal work of breathing, no accessory muscles used. Heart: S1S2, regular rate and rhythm without overt murmur Abdomen: Soft, nondistended, nontender. Skin: Approximately a dime size area of skin breakdown on the medial aspect of the left great toe with mild erythema surrounding. No fluctuance or induration noted. Remaining skin is intact, warm, dry. No lesions or rashes noted. Hematologic: No petechiae or purpra. Mucosa appropriate color and normal nail bed color and refill. Extremities: Atraumatic, moves all extremities per self without difficulty or deficits, negative for cords or calf pain. Neurovascular unremarkable. Neuro: Awake, alert, oriented. Cranial nerves II through XII unremarkable. Cerebellum unremarkable. Motor and sensory unremarkable throughout. Exam nonfocal. Psychiatric: Mood and affect are appropriate. Normal thought process. Answering questions appropriately. Notes: I have spoken with the patient and discussed today's findings, in addition to providing specific details for plan of care. The patient is stable for discharge, counseling was provided and we discussed in great detail signs and symptoms that would prompt them to return to the Emergency Department. Medication, follow up and supportive care measures were reviewed and discussed. Voices understanding and is agreeable to plan of care. Denies any further questions or concerns at this time. Diagnostics: None Therapeutics: Wound care, bacitracin, Keflex Prescription: Keflex Impression: Diabetic foot ulcer Plan: 1. Today your exam appears that you have a diabetic foot sore. Keep the skin clean and dry. Continue to monitor for signs of improvement. Should the area become more red, increase in drainage or new symptoms develop please return to the emergency room for further evaluation. 2. Take the antibiotic as prescribed. Take your home medications as directed. You can use Tylenol and/or ibuprofen as needed for pain management. 3. We encourage you to follow up with your primary care provider and/or recommended specialist in the next few days for re-evaluation and further care/management. Definitive disposition and diagnosis as appropriate pending reevaluation and review of above. R big toe Pain Score (Numeric/FACES): 5 - Related Data Allergies Allergy/AdvReac Type Severity Reaction Status Date / Time doxepin [Doxepin] Allergy Blurred Verified 04/13/20 21:28 Vision lisinopril Allergy Rash Verified 04/13/20 21:28 Zxjtvie-[id number]-Zaw Reductase Allergy Cannot Verified 04/13/20 21:28 Inhibitor Remember sulfamethoxazole Allergy Weakness Verified 04/13/20 21:28 [From Bactrim] trimethoprim [From Bactrim] Allergy Weakness Verified 04/13/20 21:28 Home Meds: Home Meds Estrogens, Conjugated [Premarin Vaginal Crm] 1 applic VAG Q48H PRN 12/14/13 [History] Losartan/Hydrochlorothiazide [Losartan-HCTZ 100-12.5 MG] 1 each PO DAILY 12/14/13 [History] Levothyroxine Sodium [Synthroid] 200 mcg PO ACBREAKFAST 04/06/14 [History] ALPRAZolam [Xanax] 2 mg PO TID PRN 04/17/14 [History] Rosuvastatin [Crestor] 20 mg PO BEDTIME 04/17/14 [History] metFORMIN [Glucophage] 1,000 mg PO BID 04/17/14 [History] traMADol [Ultram] 100 mg PO TID PRN 04/17/14 [History] Sertraline HCl 200 mg PO DAILY 04/01/15 [History] Prochlorperazine Maleate 10 mg PO DAILY PRN 12/20/15 [History] amLODIPine Besylate [Norvasc] 5 mg PO DAILY 12/20/15 [History] Lidocaine 5% [Lidoderm 5%] 1 each TOP DAILY PRN 01/04/16 [History] Levocetirizine Dihydrochloride 5 mg PO BEDTIME 08/26/16 [History] Albuterol Sulfate [Albuterol Sulfate Hfa] 18 gm IH Q4H PRN #1 hfa.aer.ad 11/12 [Rx] Elviteg/Cob/Emtri/Tenof Alafen [Genvoya Tablet] 1 tab PO DAILY 09/27/19 [History] Exenatide Microspheres [Bydureon Pen] 2 mg SQ WEEKLY 09/27/19 [History] Fluticasone Propion/Salmeterol [Advair 250-50 Diskus] 1 puff IH BID PRN 09/27/19 [History] Ipratropium [Atrovent 0.06% Nasal [place]] 2 spray JONE TID PRN 09/27/19 [History] Liothyronine [Cytomel] 10 mcg PO DAILY 09/27/19 [History] Furosemide [Lasix] 20 mg PO DAILY 02/21/20 [History] Omeprazole Magnesium [Prilosec Otc] 20 mg PO DAILY #30 tablet. 02/22/20 [Rx] Ondansetron [Zofran ODT] 4 mg PO Q6H PRN #12 tab.dis 02/22/20 [Rx] Albuterol Sulfate 2.5 mg IH TID 10 Days #30 ml 03/23/20 [Rx] Benzonatate [Tessalon Perle] 100 mg PO TID PRN #15 capsule 04/13/20 [Rx] cephALEXin [Keflex] 500 mg PO Q8H 7 Days #21 cap 04/15/20 [Rx] Past Medical History - Past Health History Medical/Surgical History: Denies Medical/Surgical History HEENT History: Reports: Impaired Vision Other HEENT History: uses reading glasses, has upper and lower dentures but only uses the upper Cardiovascular History: Reports: High Cholesterol, Hypertension Respiratory History: Reports: Asthma, Pneumonia, Recurrent, Other (See Below) Other Respiratory History: recent sinus infection Gastrointestinal History: Reports: GERD, Hemorrhoids 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 History: Reports: None 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: Musculoskeletal History: Reports: Back Pain, Chronic, Fracture Other Musculoskeletal History: hx fx right ankle Neurological History: Reports: Other (See Below) Other Neuro History: was told she had a "mini stroke" many years ago, no residual Psychiatric History: Reports: Anxiety, Depression Endocrine/Metabolic History: Reports: Diabetes, Type II, Hypothyroidism, Obesity/BMI 30+ Hematologic History: Reports: None Immunologic History: Reports: HIV Oncologic (Cancer) History: Reports: Basal Cell Carcinoma Dermatologic History: Reports: None - Infectious Disease History Infectious Disease History: Reports: HIV-Human Immunodeficiency Virus - Past Surgical History Head Surgeries/Procedures: Reports: None Female Surgical History: Reports: Hysterectomy, Salpingo-Oophorectomy Social & Family History - Family History Family Medical History: Noncontributory - Caffeine Use Caffeine Use: Reports: Energy Drinks, Soda Caffeine Use Comment: 2/day ED ROS GENERAL - Review of Systems Review Of Systems: Comprehensive ROS is negative, except as noted in HPI. ED EXAM, SKIN/RASH Exam: See Below (See dictation) Course - Vital Signs Last Recorded V/S: Last Vital Signs Temp 96.1 F L 04/15/20 13:53 Pulse 80 04/15/20 13:53 Resp 20 04/15/20 13:53 BP 128/55 L 04/15/20 13:53 Pulse Ox 96 04/15/20 13:53 - Orders/Labs/Meds Meds: Medications Discontinued Medications Generic Name Dose Route Start Last Admin Trade Name Tierra PRN Reason Stop Dose Admin Bacitracin 1 dose 04/15/20 13:58 Bacitracin Oint 1 Gm TOP 04/15/20 13:59 ONETIME ONE Cephalexin 500 mg 04/15/20 13:59 Keflex PO 04/15/20 14:00 ONETIME ONE Departure - Departure Time of Disposition: 14:02 Disposition: Home, Self-Care 01 Clinical Impression: Diabetic foot ulcer Qualifiers: Diabetic foot ulcer location: toe Diabetes mellitus type: type 2 Laterality: left Non-pressure ulcer stage: limited to breakdown of skin Qualified Code(s): E11.621 - Type 2 diabetes mellitus with foot ulcer; L97.521 - Non-pressure chronic ulcer of other part of left foot limited to breakdown of skin - Discharge Information Prescriptions: cephALEXin [Keflex] 500 mg PO Q8H 7 Days #21 cap Instructions: Diabetes Mellitus and Foot Care Referrals: Chas Mitchell MD [Primary Care Provider] - Forms: ED Department Discharge Additional Instructions: The following information is given to patients seen in the emergency department who are being discharged to home. This information is to outline your options for follow-up care. We provide all patients seen in our emergency department with a follow-up referral. The need for follow-up, as well as the timing and circumstances, are variable depending upon the specifics of your emergency department visit. If you don't have a primary care physician on staff, we will provide you with a referral. We always advise you to contact your personal physician following an emergency department visit to inform them of the circumstance of the visit and for follow-up with them and/or the need for any referrals to a consulting specialist. The emergency department will also refer you to a specialist when appropriate. This referral assures that you have the opportunity for follow-up care with a specialist. All of these measure are taken in an effort to provide you with optimal care, which includes your follow-up. Under all circumstances we always encourage you to contact your private physician who remains a resource for coordinating your care. When calling for follow-up care, please make the office aware that this follow-up is from your recent emergency room visit. If for any reason you are refused follow-up, please contact the [facility] Emergency Department at and asked to speak to the emergency department charge nurse. [facility] [address] [place] [address] [facility] [address] [place] [address] Thank you for choosing the [facility] emergency department in [place] for your medical needs today. It was a pleasure caring for you. Today you were seen in the emergency department for foot ulcer. 1. Today your exam appears that you have a diabetic foot sore. Keep the skin clean and dry. Continue to monitor for signs of improvement. Should the area become more red, increase in drainage or new symptoms develop please return to the emergency room for further evaluation. 2. Take the antibiotic as prescribed. Take your home medications as directed. You can use Tylenol and/or ibuprofen as needed for pain management. 3. We encourage you to follow up with your primary care provider and/or recommended specialist in the next few days for re-evaluation and further care/management. Sepsis Event Note (ED) - Focused Exam Vital Signs: Vital Signs Temp Pulse Resp BP Pulse Ox 04/15/20 13:53 96.1 F L 80 20 128/55 L 96
[2020-04-15] MEDS ORDERED: Bacitracin Oint 1 GM U/D Packet TOP ONE (13:58)
[2020-04-15] MEDS ORDERED: Cephalexin 500 MG Cap PO ONE (13:59)
[2020-04-15 14:11] VITALS: BP 125/62; PULSE 79
== END 2020-04-15 14:11 | disposition home or self-care (01) ==
LOC: MW.ED 13:37
DX: E11.621 Type 2 diabetes mellitus with foot ulcer (principal); L97.521 Non-pressure chronic ulcer of other part of left foot limited to breakdown of skin; I10 Essential (primary) hypertension; E78.00 Pure hypercholesterolemia, unspecified; J45.909 Unspecified asthma, uncomplicated; K21.9 Gastro-esophageal reflux disease without esophagitis; E11.9 Type 2 diabetes mellitus without complications; E66.9 Obesity, unspecified; F41.9 Anxiety disorder, unspecified; F32.9 Major depressive disorder, single episode, unspecified; Z21 Asymptomatic human immunodeficiency virus [HIV] infection status; Z90.710 Acquired absence of both cervix and uterus; Z88.2 Allergy status to sulfonamides; Z88.8 Allergy status to other drugs, medicaments and biological substances; Z79.84 Long term (current) use of oral hypoglycemic drugs; Z79.899 Other long term (current) drug therapy; Z68.39 Body mass index [BMI] 39.0-39.9, adult
CPT/HCPCS: 99282; A9270

== ENCOUNTER 2020-04-18 01:46 | Emergency (ER) | payer MEDICARE, MEDICAID ==
--- NOTE | 2020-04-18 02:10 | EDM.PDOC ---
ED HPI GENERAL MEDICAL PROBLEM - General Chief Complaint: Wound Recheck Stated Complaint: RED GUERLINE ON BIG TOE- RIGHT FOOT Time Seen by Provider: 04/18/20 02:20 - History of Present Illness INITIAL COMMENTS - FREE TEXT/NARRATIVE: HISTORY AND PHYSICAL: History of present illness: This a 59-year-old female with history significant diabetes who presents ER today secondary to concerns about her wound to her big toe. Patient reports that she was seen and evaluated for this and was started on Keflex. Patient reports that she noticed some increased redness around the wound so came to the ER for evaluation. Patient denies any fevers, shakes, chills, streaking of redness up her foot. Patient denies any significant drainage. Review of systems: As per history of present illness and below otherwise all systems reviewed and n egative. Past medical history: As per history of present illness and as reviewed below otherwise noncontributory. Surgical history: As per history of present illness and as reviewed below otherwise noncontributory. Social history: No reported history of drug or alcohol abuse. Family history: As per history of present illness and as reviewed below otherwise noncontributory. Physical exam: Constitutional: Patient is oriented to person, place, and time. Appears well- developed and well-nourished. No distress. HEENT: Moist mucous membranes Head: Normocephalic and atraumatic Eyes: Right eye exhibits no discharge. Left eye exhibits no discharge. No scleral icterus Neck: Normal range of motion. No tracheal deviation present. Cardiovascular: Normal rate and regular rhythm. Pulmonary: Effort normal, no respiratory distress. Abdominal: No distention Musculoskeletal: Normal range of motion Neurologic: Alert and oriented to person, place and time. Skin: [place], warm and dry. Psychiatric: Normal mood and affect. Behavior is normal. Judgment and thought content normal. Nursing note and vital signs have been reviewed Patient's ER physical exam is significant for well healing wound to the inner aspect of her big toe with minimal surrounding erythema. No drainage, no lymphangitic streaking. Assessment and plan: This is a 59-year-old female who is here for wound check. Patient does have diabetes and is currently on Keflex. Patient's wound looks clean and dry and appears to be healing well at this time without any evidence of worsening infection. Patient will be discharged home with reassurance and instructions to follow-up with her doctor for reevaluation as scheduled. Reassessment at the time of disposition demonstrates that the patient is in no acute distress. The patient has remained stable throughout the entire ED visit and is without objective evidence for acute process requiring urgent intervention or hospitalization. The patient is stable for discharge, counseling is provided as documented above, discussed symptomatic treatment and specific conditions for return. I have spoken with the patient/caregive and discussed todays findings, in a ddition to providing specific details for the plan of care. Questions are answered and there is agreement with the plan. right greater toe Pain Score (Numeric/FACES): 5 - Related Data Allergies Allergy/AdvReac Type Severity Reaction Status Date / Time doxepin [Doxepin] Allergy Blurred Verified 04/18/20 02:02 Vision lisinopril Allergy Rash Verified 04/18/20 02:02 Szllafp-Jbu-Vty Reductase Allergy Cannot Verified 04/18/20 02:02 Inhibitor Remember sulfamethoxazole Allergy Weakness Verified 04/18/20 02:02 [From Bactrim] trimethoprim [From Bactrim] Allergy Weakness Verified 04/18/20 02:02 Home Meds: Home Meds Estrogens, Conjugated [Premarin Vaginal Crm] 1 applic VAG Q48H PRN 12/14/13 [History] Losartan/Hydrochlorothiazide [Losartan-HCTZ 100-12.5 MG] 1 each PO DAILY 12/14/13 [History] Levothyroxine Sodium [Synthroid] 200 mcg PO ACBREAKFAST 04/06/14 [History] ALPRAZolam [Xanax] 2 mg PO TID PRN 04/17/14 [History] Rosuvastatin [Crestor] 20 mg PO BEDTIME 04/17/14 [History] metFORMIN [Glucophage] 1,000 mg PO BID 04/17/14 [History] traMADol [Ultram] 100 mg PO TID PRN 04/17/14 [History] Sertraline HCl 200 mg PO DAILY 04/01/15 [History] Prochlorperazine Maleate 10 mg PO DAILY PRN 12/20/15 [History] amLODIPine Besylate [Norvasc] 5 mg PO DAILY 12/20/15 [History] Lidocaine 5% [Lidoderm 5%] 1 each TOP DAILY PRN 01/04/16 [History] Levocetirizine Dihydrochloride 5 mg PO BEDTIME 08/26/16 [History] Albuterol Sulfate [Albuterol Sulfate Hfa] 18 gm IH Q4H PRN #1 hfa.aer.ad 09/27/19 [Rx] Elviteg/Cob/Emtri/Tenof Alafen [Genvoya Tablet] 1 tab PO DAILY 09/27/19 [History] Exenatide Microspheres [Bydureon Pen] 2 mg SQ WEEKLY 09/27/19 [History] Fluticasone Propion/Salmeterol [Advair 250-50 Diskus] 1 puff IH BID PRN 09/27/19 [History] Ipratropium [Atrovent 0.06% Nasal [place]] 2 spray JONE TID PRN 09/27/19 [History] Liothyronine [Cytomel] 10 mcg PO DAILY 09/27/19 [History] Furosemide [Lasix] 20 mg PO DAILY 02/21/20 [History] Omeprazole Magnesium [Prilosec Otc] 20 mg PO DAILY #30 tablet.dr 02/22/20 [Rx] Ondansetron [Zofran ODT] 4 mg PO Q6H PRN #12 tab.dis 02/22/20 [Rx] Albuterol Sulfate 2.5 mg IH TID 10 Days #30 ml 03/23/20 [Rx] Benzonatate [Tessalon Perle] 100 mg PO TID PRN #15 capsule 04/13/20 [Rx] cephALEXin [Keflex] 500 mg PO Q8H 7 Days #21 cap 04/15/20 [Rx] Past Medical History - Past Health History Medical/Surgical History: Denies Medical/Surgical History HEENT History: Reports: Impaired Vision Other HEENT History: uses reading glasses, has upper and lower dentures but only uses the upper Cardiovascular History: Reports: High Cholesterol, Hypertension Respiratory History: Reports: Asthma, Pneumonia, Recurrent, Other (See Below) Other Respiratory History: recent sinus infection Gastrointestinal History: Reports: GERD, Hemorrhoids 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 History: Reports: 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: Musculoskeletal History: Reports: Back Pain, Chronic, Fracture Other Musculoskeletal History: hx fx right ankle Neurological History: Reports: Other (See Below) Other Neuro History: was told she had a "mini stroke" many years ago, no residual Psychiatric History: Reports: Anxiety, Depression Endocrine/Metabolic History: Reports: Diabetes, Type II, Hypothyroidism, Obesity/BMI 30+ Hematologic History: Reports: None Immunologic History: Reports: HIV Oncologic (Cancer) History: Reports: Basal Cell Carcinoma Dermatologic History: Reports: None - Infectious Disease History Infectious Disease History: Reports: HIV-Human Immunodeficiency Virus - Past Surgical History Head Surgeries/Procedures: Reports: None Female Surgical History: Reports: Hysterectomy, Salpingo-Oophorectomy Social & Family History - Family History Family Medical History: Noncontributory - Caffeine Use Caffeine Use: Reports: Energy Drinks, Soda Caffeine Use Comment: 2/day ED ROS GENERAL - Review of Systems Review Of Systems: See Below ED EXAM, GENERAL - Physical Exam Exam: See Below Course - Vital Signs Last Recorded V/S: Last Vital Signs Temp 97.4 F 04/18/20 02:34 Pulse 78 04/18/20 02:34 Resp 18 04/18/20 02:34 BP 136/67 04/18/20 02:34 Pulse Ox 96 04/18/20 02:34 Departure - Departure Time of Disposition: 02:09 Disposition: Home, Self-Care 01 Condition: Good Clinical Impression: Cellulitis - Discharge Information Instructions: Cellulitis, Adult Referrals: Chas Mitchell MD [Primary Care Provider] - Forms: ED Department Discharge Additional Instructions: Continue your current course of therapy. Continue taking your antibiotics. Please make an appointment to see your doctor for reevaluation within the next week. The following information is given to patients seen in the emergency department who are being discharged to home. This information is to outline your options for follow-up care. We provide all patients seen in our emergency department with a follow-up referral. The need for follow-up, as well as the timing and circumstances, are variable depending upon the specifics of your emergency department visit. If you don't have a primary care physician on staff, we will provide you with a referral. We always advise you to contact your personal physician following an emergency department visit to inform them of the circumstance of the visit and for follow-up with them and/or the need for any referrals to a consulting specialist. The emergency department will also refer you to a specialist when appropriate. This referral assures that you have the opportunity for follow-up care with a s pecialist. All of these measure are taken in an effort to provide you with optimal care, which includes your follow-up. Under all circumstances we always encourage you to contact your private physici an who remains a resource for coordinating your care. When calling for follow-up care, please make the office aware that this follow-up is from your recent emergency room visit. If for any reason you are refused follow-up, please contact the [facility] Emergency Department at and asked to speak to the emergency department charge nurse. Sepsis Event Note (ED) - Evaluation Sepsis Screening Result: No Definite Risk - Focused Exam Vital Signs: Vital Signs Temp Pulse Resp BP Pulse Ox 04/18/20 02:34 97.4 F 78 18 136/67 96 04/18/20 02:03 97.7 F 89 18 143/53 H 97
[2020-04-18 02:34] VITALS: BP 136/67; PULSE 78
== END 2020-04-18 02:35 | disposition home or self-care (01) ==
LOC: MW.ED 01:46
DX: E11.628 Type 2 diabetes mellitus with other skin complications (principal); L03.031 Cellulitis of right toe; E78.00 Pure hypercholesterolemia, unspecified; I10 Essential (primary) hypertension; J45.909 Unspecified asthma, uncomplicated; K21.9 Gastro-esophageal reflux disease without esophagitis; F41.9 Anxiety disorder, unspecified; F32.9 Major depressive disorder, single episode, unspecified; E03.9 Hypothyroidism, unspecified; B20 Human immunodeficiency virus [HIV] disease; E66.9 Obesity, unspecified; Z79.899 Other long term (current) drug therapy; Z79.84 Long term (current) use of oral hypoglycemic drugs; Z68.41 Body mass index [BMI] 40.0-44.9, adult; Z88.1 Allergy status to other antibiotic agents; Z88.8 Allergy status to other drugs, medicaments and biological substances; Z88.2 Allergy status to sulfonamides
CPT/HCPCS: 99282

== ENCOUNTER 2020-05-13 19:36 | Emergency (ER) | payer MEDICARE, MEDICAID ==
[2020-05-13] MEDS ORDERED: Ibuprofen 600 MG Tab PO ONE (20:06)
--- NOTE | 2020-05-13 20:19 | EDM.PDOC ---
ED HPI GENERAL MEDICAL PROBLEM - General Chief Complaint: Headache Stated Complaint: SEVERE HEADACHE Time Seen by Provider: 05/13/20 19:55 - History of Present Illness INITIAL COMMENTS - FREE TEXT/NARRATIVE: CHIEF COMPLAINT(S): Headache HISTORY OF PRESENT ILLNESS: This is a 59-year-old woman with a past medical history of HIV on therapy and tobacco use disorder who comes to the emergency department with a chief complaint of headache. The patient states that for approximately 1 day now she has been experiencing a headache which she describes as all over and throbbing. She states that she tried to sleep and took Mucinex without any relief. She rates her pain as 4 out of 10. She denies any diplopia or blurred vision. She denies any numbness, tingling, weakness, trouble walking, trouble speaking, trouble swallowing. She states that nothing has controlled her headache. She states that is progressively gotten worse. She states that she has associated cough which is nonproductive, sore throat, and diffuse body aches. She denies any fevers or chills. She states that she is concerned about coronavirus as everyone in her neighborhood has it. She states that she always wears her mask. She denies any other symptoms. REVIEW OF SYSTEMS: Constitutional: Positive for body aches denies fever, chills. Eyes: Denies eye pain Ears, Nose, Mouth, & Throat: Positive for sore throat denies earache Cardiovascular: Denies chest pain Respiratory: Positive for nonproductive cough. Denies shortness of breath Gastrointestinal: Denies Nausea, vomiting, diarrhea, hematochezia. 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: Denies hematuria Skin:Denies a rash Neurological: Positive for headache. Denies numbness, tingling, weakness Psychiatric: Positive for anxiety and depression PAST MEDICAL HISTORY: As per history of present illness and as reviewed below otherwise noncontributory. SURGICAL HISTORY: As per history of present illness and as reviewed below otherwise noncontributory. LMP: Hysterectomy SOCIAL HISTORY: As per history of present illness and as reviewed below otherwise noncontributory. FAMILY HISTORY: As per history of present illness and as reviewed below otherwise noncontributory. EXAMINATION OF ORGAN SYSTEMS/BODY AREAS: Constitutional: Blood pressure is 113/51, heart rate 86, respiratory rate 16 with an oxygen saturation of 96% on room air. Temperature 36.5 General: Overall well-appearing woman who is in no acute distress Psychiatric: Appropriate mood and affect. Eyes: No scleral icterus or conjunctival erythema pupils equal round reactive to light. Extraocular movements intact. ENMT: Moist mucous membranes. No pharyngeal erythema no tonsillar exudates. No anterior posterior cervical lymphadenopathy. Cardiovascular: Regular, rate, and rythym. No gallops, murmurs, or rubs. Bilateral upper extremity pulses symmetric and intact. No peripheral edema. No JVD. Respiratory: Lungs clear to auscultation bilaterally. No wheezes, rales, or rhonchi. Speaking in full sentences. Gastrointestinal: Soft, non-tender, non-distended. Normoactive bowel sounds 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: No suprapubic tenderness Musculoskeletal: Normal range of motion. Skin: No lesions or abrasions. Neurological: AOx4. CN grossly intact. Strength 5/5 in bilateral upper and lower extremity. Sensation is intact bilaterally in upper and lower extremity. Gait appears normal. MEDICAL DECISION MAKING AND COURSE IN THE ED WITH INTERPRETATION/REVIEW OF DIAGNOSTIC STUDIES: This is a 59-year-old woman with a past medical history of HIV on therapy and tobacco use disorder who comes to the emergency department with 1 day of headache, body aches, sore throat, and nonproductive cough in a patient who has normal vital signs. I did have a discussion with the patient regarding her CD4 count. She states that she recently had an appointment with Dr. Guidry and he told her that everything was within normal limits. She is not on prophylactic antibiotics. At this time given the patient's normal vital signs we will obtain a chest x-ray. I do not believe any labs are indicated. Of note: The patient's daughter also checked and at the same time with the same symptoms. She is undergoing a coronavirus swab. I do not believe we need to repeat this. The radiological images were viewed by myself along with reading the report from the radiologist. Chest x-ray did not reveal any acute cardiopulmonary process. After chest x-ray did discuss with the patient that at this time given concern for pulse coronavirus that she should still quarantine even though the test was negative for her daughter. Daughter did consent for sharing of this information. She is to return for any new or worsening symptoms. She was amenable to discharge at this time and had no further questions DISPOSITION: The patient was discharged home in stable condition. The patient will follow up with primary care doctor CONDITION: Fair PROCEDURES: None FINAL IMPRESSION(S)/DIAGNOSES: 1. Acute viral syndrome 2. Acute headache likely secondary to #1 Catalino Steward M.D. Generalized Pain Score (Numeric/FACES): 5 - Related Data Allergies Allergy/AdvReac Type Severity Reaction Status Date / Time doxepin [Doxepin] Allergy Blurred Verified 05/13/20 19:56 Vision lisinopril Allergy Rash Verified 05/13/20 19:56 [id number] Reductase Allergy Cannot Verified 05/13/20 19:56 Inhibitor Remember sulfamethoxazole Allergy Weakness Verified 05/13/20 19:56 [From Bactrim] trimethoprim [From Bactrim] Allergy Weakness Verified 05/13/20 19:56 Home Meds: Home Meds Estrogens, Conjugated [Premarin Vaginal Crm] 1 applic VAG Q48H PRN 12/14/13 [History] Losartan/Hydrochlorothiazide [Losartan-HCTZ 100-12.5 MG] 1 each PO DAILY 12/14/13 [History] Levothyroxine Sodium [Synthroid] 200 mcg PO ACBREAKFAST 04/06/14 [History] ALPRAZolam [Xanax] 2 mg PO TID PRN 04/17/14 [History] Rosuvastatin [Crestor] 20 mg PO BEDTIME 04/17/14 [History] metFORMIN [Glucophage] 1,000 mg PO BID 04/17/14 [History] traMADol [Ultram] 100 mg PO TID PRN 04/17/14 [History] Sertraline HCl 200 mg PO DAILY 04/01/15 [History] Prochlorperazine Maleate 10 mg PO DAILY PRN 12/20/15 [History] amLODIPine Besylate [Norvasc] 5 mg PO DAILY 12/20/15 [History] Lidocaine 5% [Lidoderm 5%] 1 each TOP DAILY PRN 01/04/16 [History] Levocetirizine Dihydrochloride 5 mg PO BEDTIME 08/26/16 [History] Albuterol Sulfate [Albuterol Sulfate Hfa] 18 gm IH Q4H PRN #1 hfa.aer.ad 09/27/19 [Rx] Elviteg/Cob/Emtri/Tenof Alafen [Genvoya Tablet] 1 tab PO DAILY 09/27/19 [History] Exenatide Microspheres [Bydureon Pen] 2 mg SQ WEEKLY 09/27/19 [History] Fluticasone Propion/Salmeterol [Advair 250-50 Diskus] 1 puff IH BID PRN 09/27/19 [History] Ipratropium [Atrovent 0.06% Nasal [place]] 2 spray JONE TID PRN 09/27/19 [History] Liothyronine [Cytomel] 10 mcg PO DAILY 09/27/19 [History] Furosemide [Lasix] 20 mg PO DAILY 02/21/20 [History] Omeprazole Magnesium [Prilosec Otc] 20 mg PO DAILY #30 tablet.dr 02/22/20 [Rx] Ondansetron [Zofran ODT] 4 mg PO Q6H PRN #12 tab.dis 02/22/20 [Rx] Albuterol Sulfate 2.5 mg IH TID 10 Days #30 ml 03/23/20 [Rx] Benzonatate [Tessalon Perle] 100 mg PO TID PRN #15 capsule 04/13/20 [Rx] cephALEXin [Keflex] 500 mg PO Q8H 7 Days #21 cap 04/15/20 [Rx] Past Medical History - Past Health History Medical/Surgical History: Denies Medical/Surgical History HEENT History: Reports: Impaired Vision Other HEENT History: uses reading glasses, has upper and lower dentures but only uses the upper Cardiovascular History: Reports: High Cholesterol, Hypertension Respiratory History: Reports: Asthma, Pneumonia, Recurrent, Other (See Below) Other Respiratory History: recent sinus infection Gastrointestinal History: Reports: GERD, Hemorrhoids 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 History: Reports: None 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: Musculoskeletal History: Reports: Back Pain, Chronic, Fracture Other Musculoskeletal History: hx fx right ankle Neurological History: Reports: Other (See Below) Other Neuro History: was told she had a "mini stroke" many years ago, no residual Psychiatric History: Reports: Anxiety, Depression Endocrine/Metabolic History: Reports: Diabetes, Type II, Hypothyroidism, Obesity/BMI 30+ Hematologic History: Reports: None Immunologic History: Reports: HIV Oncologic (Cancer) History: Reports: Basal Cell Carcinoma Dermatologic History: Reports: None - Infectious Disease History Infectious Disease History: Reports: HIV-Human Immunodeficiency Virus - Past Surgical History Head Surgeries/Procedures: Reports: None Female Surgical History: Reports: Hysterectomy, Salpingo-Oophorectomy Social & Family History - Family History Family Medical History: Noncontributory - Tobacco Use Second Hand Smoke Exposure: Yes - Caffeine Use Caffeine Use: Reports: Coffee Caffeine Use Comment: 2/day - Recreational Drug Use Recreational Drug Use: No ED ROS GENERAL - Review of Systems Review Of Systems: See Below ED EXAM, GENERAL - Physical Exam Exam: See Below Course - Vital Signs Last Recorded V/S: Last Vital Signs Temp 36.5 C 05/13/20 19:52 Pulse 71 05/13/20 20:45 Resp 18 05/13/20 20:45 BP 121/47 L 05/13/20 20:45 Pulse Ox 93 L 05/13/20 20:45 - Orders/Labs/Meds Meds: Medications Discontinued Medications Generic Name Dose Route Start Last Admin Trade Name Tierra PRN Reason Stop Dose Admin Ibuprofen 600 mg 05/13/20 20:06 05/13/20 20:19 Motrin PO 05/13/20 20:07 600 mg ONETIME ONE Administration Departure - Departure Time of Disposition: 20:48 Disposition: Home, Self-Care 01 Condition: Fair Clinical Impression: Viral syndrome - Discharge Information *PRESCRIPTION DRUG MONITORING PROGRAM REVIEWED*: No *COPY OF PRESCRIPTION DRUG MONITORING REPORT IN PATIENT JOSE: No Instructions: Viral Respiratory Infection, [id number], Dehydration, Adult, [id number] Referrals: Chas Mitchell MD [Primary Care Provider] - Forms: ED Department Discharge Additional Instructions: The patient is informed of any results of their evaluation and diagnostic workup and all questions are answered. They are given discharge instructions and return precautions. The patient is stable for discharge. The patient states they understand and agree with the plan and that they will return if their symptoms get worse or if they have any new concerns. The following information is given to patients seen in the emergency department who are being discharged to home. This information is to outline your options for follow-up care. We provide all patients seen in our emergency department with a follow-up referral. The need for follow-up, as well as the timing and circumstances, are variable depending upon the specifics of your emergency department visit. If you don't have a primary care physician on staff, we will provide you with a referral. We always advise you to contact your personal physician following an emergency department visit to inform them of the circumstance of the visit and for follow-up with them and/or the need for any referrals to a consulting specialist. The emergency department will also refer you to a specialist when appropriate. This referral assures that you have the opportunity for follow-up care with a specialist. All of these measure are taken in an effort to provide you with optimal care, which includes your follow-up. Under all circumstances we always encourage you to contact your private physician who remains a resource for coordinating your care. When calling for follow-up care, please make the office aware that this follow-up is from your recent emergency room visit. If for any reason you are refused follow-up, please contact the [facility] Emergency Department at and asked to speak to the emergency department charge nurse. Please continue to maintain hydration at home and use Tylenol and Motrin for headache relief. Continue to quarantine as coronavirus test are not 100% accurate until symptoms resolve. Return to the emergency department for worsening shortness of breath or any new or concerning symptoms. Please follow- up with her primary care physician within 1 week [facility] [address] [place] [address] [place] [address] Sepsis Event Note (ED) - Evaluation Sepsis Screening Result: No Definite Risk - Focused Exam Vital Signs: Vital Signs Temp Pulse Resp BP Pulse Ox 05/13/20 20:45 71 18 121/47 L 93 L 05/13/20 19:52 36.5 C 86 16 113/51 L 96
--- NOTE | 2020-05-13 20:35 | CR ---
INDICATION: Shortness of breath TECHNIQUE: Probable upright AP view of the chest COMPARISON: Repeat chest radiograph 04/13/2020 FINDINGS: The lungs are clear. There is no sizable pleural effusion or pneumothorax. The cardiomediastinal silhouette is normal. The visualized osseous structures are unremarkable. IMPRESSION: No acute intrathoracic process. Dictated by Epifanio Khoury MD @ May 13 2020 8:34PM Signed by Dr. Epifanio Khoury @ May 13 2020 8:35PM
[2020-05-13 22:10] VITALS: BP 121/47; PULSE 71
== END 2020-05-13 20:56 | disposition home or self-care (01) ==
LOC: MW.ED 19:36
DX: B34.9 Viral infection, unspecified (principal); E78.00 Pure hypercholesterolemia, unspecified; E66.9 Obesity, unspecified; I10 Essential (primary) hypertension; E11.9 Type 2 diabetes mellitus without complications; E03.9 Hypothyroidism, unspecified; F41.9 Anxiety disorder, unspecified; F32.9 Major depressive disorder, single episode, unspecified; J45.909 Unspecified asthma, uncomplicated; Z88.2 Allergy status to sulfonamides; Z88.8 Allergy status to other drugs, medicaments and biological substances; Z77.22 Contact with and (suspected) exposure to environmental tobacco smoke (acute) (chronic); Z90.710 Acquired absence of both cervix and uterus; Z21 Asymptomatic human immunodeficiency virus [HIV] infection status; Z79.84 Long term (current) use of oral hypoglycemic drugs; Z79.899 Other long term (current) drug therapy
CPT/HCPCS: 71045; 99284; A9270; 99283

== ENCOUNTER 2020-05-27 22:24 | Emergency (ER) | payer MEDICARE, MEDICAID ==
[2020-05-27 22:28] VITALS: BP 155/106; PULSE 95
[2020-05-27] MEDS ORDERED: Acetaminophen 325 MG Tab PO ONE (22:38)
[2020-05-27] MEDS ORDERED: Ibuprofen 600 MG Tab PO ONE (22:38)
--- NOTE | 2020-05-27 23:01 | EDM.PDOC ---
ED HPI GENERAL MEDICAL PROBLEM - General Chief Complaint: General Stated Complaint: fall Time Seen by Provider: 05/27/20 22:29 - History of Present Illness INITIAL COMMENTS - FREE TEXT/NARRATIVE: HISTORY AND PHYSICAL: History of present illness: This a 59-year-old female who presents ER today secondary to a fall. Patient reports that she walked outside to smoke a cigarette and tripped over an object and fell down hit her head. Patient presents ER today complaining of right knee pain as well as pain to her neck and head. Patient denies any loss of consciousness. Patient has any recent fevers, shakes, chills, nausea, vomiting, diarrhea, dysuria, frequency, urgency, chest pain, shortness of breath. Patient has any weakness to her upper or lower extremities. Review of systems: As per history of present illness and below otherwise all systems reviewed and negative. Past medical history: As per history of present illness and as reviewed below otherwise noncontributory. Surgical history: As per history of present illness and as reviewed below otherwise noncontributory. Social history: No reported history of drug or alcohol abuse. Family history: As per history of present illness and as reviewed below otherwise noncontributory. Physical exam: Constitutional: Patient is oriented to person, place, and time. Appears well- developed and well-nourished. No distress. HEENT: Moist mucous membranes Head: Normocephalic and atraumatic Eyes: Right eye exhibits no discharge. Left eye exhibits no discharge. No scleral icterus Neck: Normal range of motion. No tracheal deviation present. Cardiovascular: Normal rate and regular rhythm. Pulmonary: Effort normal, no respiratory distress. Abdominal: No distention Musculoskeletal: Normal range of motion Neurologic: Alert and oriented to person, place and time. Skin: [place], warm and dry. Psychiatric: Normal mood and affect. Behavior is normal. Judgment and thought content normal. Nursing note and vital signs have been reviewed Patient has no T-spine or L-spine tenderness to palpation. Patient has no left upper or right upper quadrant tenderness to palpation. Patient has no crepitus to palpation to the anterior chest wall. Patient is neurologically intact. Patient does not present with any signs or or symptoms that would be consistent with acute intracranial, intra-abdominal, intrathoracic, or long bone injury. All long bones have been palpated and range of motion been performed and there is no evidence of any acute pathology. Patient with tenderness palpation to her neck diffusely. No point C-spine tenderness. Patient has tenderness palpation to her right parietal region. Patient has tenderness to palpation to her right knee. Patient is ambulating in the ED without difficulty. Diagnostics: CT head and C-spine Right knee x-ray Therapeutics: Tylenol/Motrin Assessment and plan: 59-year-old female who presents ER today secondary to a fall. Patient is complaining of pain diffusely to her neck and head from the fall. Patient has had no loss of consciousness. Patient is complaining of pain to her right knee. Patient reports that she has been ambulating without difficulty after the incident. Patient has been given acetaminophen and ibuprofen to assist her with her pain. Patient will have an x-ray of her right knee as well as CT of her head and C-spine. Definitive disposition and diagnosis as appropriate pending reevaluation and review of above. right knee Pain Score (Numeric/FACES): 1 - Related Data Allergies Allergy/AdvReac Type Severity Reaction Status Date / Time doxepin [Doxepin] Allergy Blurred Verified 05/27/20 22:28 Vision lisinopril Allergy Rash Verified 05/27/20 22:28 [id number]-[id number]-Ymq Reductase Allergy Cannot Verified 05/27/20 22:28 Inhibitor Remember sulfamethoxazole Allergy Weakness Verified 05/27/20 22:28 [From Bactrim] trimethoprim [From Bactrim] Allergy Weakness Verified 05/27/20 22:28 Home Meds: Home Meds Estrogens, Conjugated [Premarin Vaginal Crm] 1 applic VAG Q48H PRN 12/14/13 [History] Losartan/Hydrochlorothiazide [Losartan-HCTZ 100-12.5 MG] 1 each PO DAILY 12/14/13 [History] Levothyroxine Sodium [Synthroid] 200 mcg PO ACBREAKFAST 04/06/14 [History] ALPRAZolam [Xanax] 2 mg PO TID PRN 04/17/14 [History] Rosuvastatin [Crestor] 20 mg PO BEDTIME 04/17/14 [History] metFORMIN [Glucophage] 1,000 mg PO BID 04/17/14 [History] traMADol [Ultram] 100 mg PO TID PRN 04/17/14 [History] Sertraline HCl 200 mg PO DAILY 04/01/15 [History] Prochlorperazine Maleate 10 mg PO DAILY PRN 12/20/15 [History] amLODIPine Besylate [Norvasc] 5 mg PO DAILY 12/20/15 [History] Lidocaine 5% [Lidoderm 5%] 1 each TOP DAILY PRN 01/04/16 [History] Levocetirizine Dihydrochloride 5 mg PO BEDTIME 08/26/16 [History] Albuterol Sulfate [Albuterol Sulfate Hfa] 18 gm IH Q4H PRN #1 hfa.aer.ad 09/27/19 [Rx] Elviteg/Cob/Emtri/Tenof Alafen [Genvoya Tablet] 1 tab PO DAILY 09/27/19 [History] Exenatide Microspheres [Bydureon Pen] 2 mg SQ WEEKLY 09/27/19 [History] Fluticasone Propion/Salmeterol [Advair 250-50 Diskus] 1 puff IH BID PRN 09/27/19 [History] Ipratropium [Atrovent 0.06% Nasal [place]] 2 spray JONE TID PRN 09/27/19 [History] Liothyronine [Cytomel] 10 mcg PO DAILY 09/27/19 [History] Furosemide [Lasix] 20 mg PO DAILY 02/21/20 [History] Omeprazole Magnesium [Prilosec Otc] 20 mg PO DAILY #30 tablet. 02/22/20 [Rx] Ondansetron [Zofran ODT] 4 mg PO Q6H PRN #12 tab.dis 02/22/20 [Rx] Albuterol Sulfate 2.5 mg IH TID 10 Days #30 ml 03/23/20 [Rx] Benzonatate [Tessalon Perle] 100 mg PO TID PRN #15 capsule 04/13/20 [Rx] cephALEXin [Keflex] 500 mg PO Q8H 7 Days #21 cap 04/15/20 [Rx] Cyclobenzaprine [Flexeril] 10 mg PO TID PRN #20 tab 05/27/20 [Rx] Ibuprofen 600 mg PO Q6HR PRN #30 tablet 05/27/20 [Rx] Past Medical History - Past Health History Medical/Surgical History: Denies Medical/Surgical History HEENT History: Reports: Impaired Vision Other HEENT History: uses reading glasses, has upper and lower dentures but only uses the upper Cardiovascular History: Reports: High Cholesterol, Hypertension Respiratory History: Reports: Asthma, Pneumonia, Recurrent, Other (See Below) Other Respiratory History: recent sinus infection Gastrointestinal History: Reports: GERD, Hemorrhoids 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 History: Reports: None 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: Musculoskeletal History: Reports: Back Pain, Chronic, Fracture Other Musculoskeletal History: hx fx right ankle Neurological History: Reports: Other (See Below) Other Neuro History: was told she had a "mini stroke" many years ago, no r esidual Psychiatric History: Reports: Anxiety, Depression Endocrine/Metabolic History: Reports: Diabetes, Type II, Hypothyroidism, Obesity/BMI 30+ Hematologic History: Reports: None Immunologic History: Reports: HIV Oncologic (Cancer) History: Reports: Basal Cell Carcinoma Dermatologic History: Reports: None - Infectious Disease History Infectious Disease History: Reports: HIV-Human Immunodeficiency Virus - Past Surgical History Head Surgeries/Procedures: Reports: None Female Surgical History: Reports: Hysterectomy, Salpingo-Oophorectomy Social & Family History - Family History Family Medical History: Noncontributory - Tobacco Use Tobacco Use Status *Q: Current Every Day Tobacco User Years of Tobacco use: 1 Packs/Tins Daily: 1 - Caffeine Use Caffeine Use: Reports: Coffee Caffeine Use Comment: 2/day - Recreational Drug Use Recreational Drug Use: Yes Recreational Drug Type: Reports: Marijuana/Hashish ED ROS GENERAL - Review of Systems Review Of Systems: See Below ED EXAM, GENERAL - Physical Exam Exam: See Below Course - Vital Signs Last Recorded V/S: Last Vital Signs Temp 97.4 F 05/27/20 22:25 Pulse 95 05/27/20 22:25 Resp 16 05/27/20 22:25 BP 155/106 H 05/27/20 22:25 Pulse Ox 96 05/27/20 22:25 - Orders/Labs/Meds Meds: Medications Discontinued Medications Generic Name Dose Route Start Last Admin Trade Name Tierra PRN Reason Stop Dose Admin Acetaminophen 650 mg 05/27/20 22:38 05/27/20 22:44 Tylenol PO 05/27/20 22:39 650 mg NOW ONE Administration Ibuprofen 600 mg 05/27/20 22:38 05/27/20 22:44 Motrin PO 05/27/20 22:39 600 mg ONETIME ONE Administration Departure - Departure Time of Disposition: 23:50 Disposition: Home, Self-Care 01 Condition: Good Clinical Impression: Head injury due to trauma, Neck pain, Contusion of right knee, Tobacco use disorder, Fall in elderly patient - Discharge Information Prescriptions: Cyclobenzaprine [Flexeril] 10 mg PO TID PRN #20 tab PRN Reason: Muscle Spasm Ibuprofen 600 mg PO Q6HR PRN #30 tablet PRN Reason: Pain Instructions: Fall Prevention in the Home, Adult, [id number], Head Injury, Adult, Musculoskeletal Pain Referrals: Chas Mitchell MD [Primary Care Provider] - Forms: ED Department Discharge Additional Instructions: You have been seen in the ER secondary to a fall. Your x-rays did not reveal any acute fracture of your cervical spine or head or knees. There is no pathology or abnormality identified in the CT scan of your brain. Please be careful when you are ambulating. Get plenty of rest over the next 1 to 2 days. Apply ice to the areas of discomfort. You may take ibuprofen and Tylenol as needed to help with your pain. The following information is given to patients seen in the emergency department who are being discharged to home. This information is to outline your options for follow-up care. We provide all patients seen in our emergency department with a follow-up referral. The need for follow-up, as well as the timing and circumstances, are variable depending upon the specifics of your emergency department visit. If you don't have a primary care physician on staff, we will provide you with a referral. We always advise you to contact your personal physician following an emergency department visit to inform them of the circumstance of the visit and for follow-up with them and/or the need for any referrals to a consulting specialist. The emergency department will also refer you to a specialist when appropriate. This referral assures that you have the opportunity for follow-up care with a specialist. All of these measure are taken in an effort to provide you with optimal care, which includes your follow-up. Under all circumstances we always encourage you to contact your private physician who remains a resource for coordinating your care. When calling for follow-up care, please make the office aware that this follow-up is from your recent emergency room visit. If for any reason you are refused follow-up, please contact the [facility] Emergency Department at and asked to speak to the emergency department charge nurse. Sepsis Event Note (ED) - Evaluation Sepsis Screening Result: No Definite Risk
--- NOTE | 2020-05-27 23:22 | CR ---
Indication: Knee pain, fall Technique: Three views Comparison: Right knee 03/08/2018 Findings: Bones: Alignment is normal. No fractures or bone lesions. Joint spaces: No dislocation or knee effusion. Patellofemoral osteophytes consistent with osteoarthritis. Soft tissues: Unremarkable. Dictated by Eloy Aguillon MD @ May 27 2020 11:19PM Signed by Dr. Eloy Aguillon @ May 27 2020 11:21PM
--- NOTE | 2020-05-27 23:33 | CT ---
INDICATION: Fall TECHNIQUE: CT head without contrast. COMPARISON: 10/21/2017 FINDINGS: The ventricles and sulci are stable. There is no mass effect or midline shift. Foci of periventricular hypodensity are suggestive of mild chronic small vessel ischemic changes. Again seen is a focus of encephalomalacia in the anterior right frontal white matter suggestive of a chronic infarct. There is no loss of patel-white differentiation. There is no evidence of an acute intracranial hemorrhage. No acute calvarial fracture is seen. The visualized paranasal sinuses and mastoid air cells are clear. The visualized orbits are within normal limits. IMPRESSION: Stable appearance of the brain. No evidence of an acute intracranial hemorrhage, mass effect or loss of patel-white differentiation. Please note that all CT scans at this facility use dose modulation, iterative reconstruction, and/or weight-based dosing when appropriate to reduce radiation dose to as low as reasonably achievable. Dictated by Wellington Wheeler MD @ May 27 2020 11:22PM Signed by Dr. Wellington Wheeler @ May 27 2020 11:31PM
--- NOTE | 2020-05-27 23:39 | CT ---
INDICATION: Fall TECHNIQUE: CT cervical spine without contrast. COMPARISON: 09/01/2016 FINDINGS: There is straightening of the cervical lordosis. The craniocervical and atlantoaxial alignments are near anatomical. There is no evidence of an acute cervical spine fracture. There is no significant precervical soft tissue swelling. Mild degenerative changes are noted. IMPRESSION: No evidence of an acute cervical spine fracture. Please note that all CT scans at this facility use dose modulation, iterative reconstruction, and/or weight-based dosing when appropriate to reduce radiation dose to as low as reasonably achievable. Dictated by Wellington Wheeler MD @ May 27 2020 11:22PM Signed by Dr. Wellington Wheeler @ May 27 2020 11:37PM
== END 2020-05-28 | disposition home or self-care (01) ==
LOC: MW.ED 22:24
DX: S09.90XA Unspecified injury of head, initial encounter (principal); S80.01XA Contusion of right knee, initial encounter; F17.210 Nicotine dependence, cigarettes, uncomplicated; E78.00 Pure hypercholesterolemia, unspecified; I10 Essential (primary) hypertension; J45.909 Unspecified asthma, uncomplicated; K21.9 Gastro-esophageal reflux disease without esophagitis; F41.9 Anxiety disorder, unspecified; F32.9 Major depressive disorder, single episode, unspecified; M54.2 Cervicalgia; E11.9 Type 2 diabetes mellitus without complications; E03.9 Hypothyroidism, unspecified; B20 Human immunodeficiency virus [HIV] disease; E66.9 Obesity, unspecified; Z68.41 Body mass index [BMI] 40.0-44.9, adult; Z88.1 Allergy status to other antibiotic agents; Z88.8 Allergy status to other drugs, medicaments and biological substances; Z88.2 Allergy status to sulfonamides; Z79.84 Long term (current) use of oral hypoglycemic drugs; Z79.899 Other long term (current) drug therapy; W01.0XXA Fall on same level from slipping, tripping and stumbling without subsequent striking against object, initial encounter
CPT/HCPCS: 70450; 72125; 73562; 99284; A9270

== ENCOUNTER 2020-06-04 16:56 | Emergency (ER) | payer MEDICARE, MEDICAID ==
--- NOTE | 2020-06-04 18:24 | EDM.PDOC ---
<Jameson Mayo - Last Filed: 06/04/20 18:36> ED HPI GENERAL MEDICAL PROBLEM - General Chief Complaint: Respiratory Problem Stated Complaint: COVID Time Seen by Provider: 06/04/20 17:32 Source of Information: Reports: Patient History Limitations: Reports: No Limitations - History of Present Illness INITIAL COMMENTS - FREE TEXT/NARRATIVE: 59-year-old female past medical history depression, psychiatric problems, hyperlipidemia, hypertension, anxiety presents for shortness of breath, nonproductive cough, subjective fevers, sore throat, headache, body aches x3 days. She notes that last week she was exposed to COVID-19 and she is very concerned about COVID-19 infection. - Related Data Allergies Allergy/AdvReac Type Severity Reaction Status Date / Time doxepin [Doxepin] Allergy Blurred Verified 06/04/20 19:17 Vision lisinopril Allergy Rash Verified 06/04/20 19:17 [id number] Reductase Allergy Cannot Verified 06/04/20 19:17 Inhibitor Remember sulfamethoxazole Allergy Weakness Verified 06/04/20 19:17 [From Bactrim] trimethoprim [From Bactrim] Allergy Weakness Verified 06/04/20 19:17 Home Meds: Home Meds Estrogens, Conjugated [Premarin Vaginal Crm] 1 applic VAG Q48H PRN 12/14/13 [History] Losartan/Hydrochlorothiazide [Losartan-HCTZ 100-12.5 MG] 1 each PO DAILY 12/14/13 [History] Levothyroxine Sodium [Synthroid] 200 mcg PO ACBREAKFAST 04/06/14 [History] ALPRAZolam [Xanax] 2 mg PO TID PRN 04/17/14 [History] Rosuvastatin [Crestor] 20 mg PO BEDTIME 04/17/14 [History] metFORMIN [Glucophage] 1,000 mg PO BID 04/17/14 [History] traMADol [Ultram] 100 mg PO TID PRN 04/17/14 [History] Sertraline HCl 200 mg PO DAILY 04/01/15 [History] Prochlorperazine Maleate 10 mg PO DAILY PRN 12/20/15 [History] amLODIPine Besylate [Norvasc] 5 mg PO DAILY 12/20/15 [History] Lidocaine 5% [Lidoderm 5%] 1 each TOP DAILY PRN 01/04/16 [History] Levocetirizine Dihydrochloride 5 mg PO BEDTIME 08/26/16 [History] Albuterol Sulfate [Albuterol Sulfate Hfa] 18 gm IH Q4H PRN #1 hfa.aer.ad 09/27/19 [Rx] Elviteg/Cob/Emtri/Tenof Alafen [Genvoya Tablet] 1 tab PO DAILY 09/27/19 [History] Exenatide Microspheres [Bydureon Pen] 2 mg SQ WEEKLY 09/27/19 [History] Fluticasone Propion/Salmeterol [Advair 250-50 Diskus] 1 puff IH BID PRN 09/27/19 [History] Ipratropium [Atrovent 0.06% Nasal [place]] 2 spray JONE TID PRN 09/27/19 [History] Liothyronine [Cytomel] 10 mcg PO DAILY 09/27/19 [History] Furosemide [Lasix] 20 mg PO DAILY 02/21/20 [History] Omeprazole Magnesium [Prilosec Otc] 20 mg PO DAILY #30 tablet.dr 02/22/20 [Rx] Ondansetron [Zofran ODT] 4 mg PO Q6H PRN #12 tab.dis 02/22/20 [Rx] Albuterol Sulfate 2.5 mg IH TID 10 Days #30 ml 03/23/20 [Rx] Benzonatate [Tessalon Perle] 100 mg PO TID PRN #15 capsule 04/13/20 [Rx] cephALEXin [Keflex] 500 mg PO Q8H 7 Days #21 cap 04/15/20 [Rx] Past Medical History - Past Health History Medical/Surgical History: Denies Medical/Surgical History HEENT History: Reports: Impaired Vision Other HEENT History: uses reading glasses, has upper and lower dentures but only uses the upper Cardiovascular History: Reports: High Cholesterol, Hypertension Respiratory History: Reports: Asthma, Pneumonia, Recurrent, Other (See Below) Other Respiratory History: recent sinus infection Gastrointestinal History: Reports: GERD, Hemorrhoids 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 History: Reports: None THERAPEUTIC SUPPORT STAFF History: Reports: Musculoskeletal History: Reports: Back Pain, Chronic, Fracture Other Musculoskeletal History: hx fx right ankle Neurological History: Reports: Other (See Below) Other Neuro History: was told she had a "mini stroke" many years ago, no residual Psychiatric History: Reports: Anxiety, Depression Endocrine/Metabolic History: Reports: Diabetes, Type II, Hypothyroidism, Obesity/BMI 30+ Hematologic History: Reports: None Immunologic History: Reports: HIV Oncologic (Cancer) History: Reports: Basal Cell Carcinoma Dermatologic History: Reports: None - Infectious Disease History Infectious Disease History: Reports: HIV-Human Immunodeficiency Virus - Past Surgical History Head Surgeries/Procedures: Reports: None Female Surgical History: Reports: Hysterectomy, Salpingo-Oophorectomy Social & Family History - Family History Family Medical History: No Pertinent Family History - Caffeine Use Caffeine Use: Reports: Coffee Caffeine Use Comment: 2/day ED ROS GENERAL - Review of Systems Review Of Systems: Comprehensive ROS is negative, except as noted in HPI. ED EXAM, GENERAL - Physical Exam Exam: See Below Exam Limited By: No Limitations General Appearance: Alert, WD/WN, No Apparent Distress, Anxious Throat/Mouth: Normal Voice, No Airway Compromise Head: Atraumatic, Normocephalic Neck: Normal Inspection Respiratory/Chest: No Respiratory Distress, Lungs Clear, Normal Breath Sounds, No Accessory Muscle Use Cardiovascular: Normal Peripheral Pulses, Regular Rate, Rhythm GI/Abdominal: Soft, Non-Tender Neurological: Alert, Normal Gait Psychiatric: Normal Affect, Normal Mood Skin Exam: Warm, Dry, Intact, Normal Color Course - Re-Assessments/Exams Free Text/Narrative Re-Assessment/Exam: 06/04/20 18:25 We will get COVID-19 testing, will get chest x-ray. Patient's vitals are normal, suspicion for serious pathology is low. Departure - Departure Disposition: Home, Self-Care 01 Clinical Impression: Viral illness - Discharge Information Instructions: Viral Illness, Adult Referrals: Chas Mitchell MD [Primary Care Provider] - Forms: ED Department Discharge Additional Instructions: The following information is given to patients seen in the emergency department who are being discharged to home. This information is to outline your options for follow-up care. We provide all patients seen in our emergency department with a follow-up referral. The need for follow-up, as well as the timing and circumstances, are variable depending upon the specifics of your emergency department visit. If you don't have a primary care physician on staff, we will provide you with a referral. We always advise you to contact your personal physician following an emergency department visit to inform them of the circumstance of the visit and for follow-up with them and/or the need for any referrals to a consulting specialist. The emergency department will also refer you to a specialist when appropriate. This referral assures that you have the opportunity for follow-up care with a specialist. All of these measure are taken in an effort to provide you with optimal care, which includes your follow-up. Under all circumstances we always encourage you to contact your private physician who remains a resource for coordinating your care. When calling for follow-up care, please make the office aware that this follow-up is from your recent emergency room visit. If for any reason you are refused follow-up, please contact the [facility] Emergency Department at and asked to speak to the emergency department charge nurse. Please follow up with your primary care physician. If you do not have a primary care physician, see below: [facility] [address] [place] [id number] [address] [id number] <Junior Ladd - Last Filed: 06/04/20 21:02> Course - Vital Signs Last Recorded V/S: Last Vital Signs Temp 97.0 F 06/04/20 19:19 Pulse 63 06/04/20 20:21 Resp 16 06/04/20 20:21 BP 138/81 06/04/20 20:21 Pulse Ox 95 06/04/20 20:21 - Orders/Labs/Meds Orders: Active Orders 24 hr Category Date Time Status CORONAVIRUS COVID-19 PCR PHL Stat Lab 06/04/20 20:00 Received Labs: Laboratory Tests 06/04/20 Range/Units 20:00 SARS CoV-2 RNA Rapid DELL NEGATIVE (NEGATIVE) Meds: Medications Discontinued Medications Generic Name Dose Route Start Last Admin Trade Name Freq PRN Reason Stop Dose Admin Acetaminophen 1,000 mg 06/04/20 18:30 06/04/20 19:24 Tylenol Extra Strength PO 06/04/20 18:31 1,000 mg ONETIME ONE Administration Ibuprofen 600 mg 06/04/20 18:30 06/04/20 19:23 Motrin PO 06/04/20 18:31 600 mg ONETIME ONE Administration Departure - Departure Time of Disposition: 21:02 Condition: Good - Discharge Information *PRESCRIPTION DRUG MONITORING PROGRAM REVIEWED*: Not Applicable *COPY OF PRESCRIPTION DRUG MONITORING REPORT IN PATIENT JOSE: Not Applicable Sepsis Event Note (ED) - Focused Exam Vital Signs: Vital Signs Temp Pulse Resp BP Pulse Ox 06/04/20 20:21 63 16 138/81 95 06/04/20 19:19 97.0 F 73 18 113/62 97
[2020-06-04] MEDS ORDERED: Ibuprofen 600 MG Tab PO ONE (18:30)
[2020-06-04] MEDS ORDERED: Acetaminophen 500 MG Tab PO ONE (18:30)
--- NOTE | 2020-06-04 19:08 | CR ---
HISTORY: Shortness of breath COMPARISON: 05/13/2020 FINDINGS: A portable erect AP view of the chest was obtained at 1825 hours. The lungs remain clear. No focal or diffuse infiltrates are present. The heart remains normal in size. The mediastinum is normal in appearance. The osseous structures are normal in appearance for the patient`s age. IMPRESSION: Normal portable chest single view. Dictated by Jose Elizabeth MD @ Jun 04 2020 7:06PM Signed by Dr. Jose Elizabeth @ Jun 04 2020 7:07PM
--- NOTE | 2020-06-04 19:41 | PCM.SN.2 ---
- Free Text/Narrative Note: Patient is a 59-year-old female who was signed out to me by previous provider. Patient presents here with her daughter durable for spouse COVID-19 concerned that the virus. Patient is satting well looks well on exam. Patient had x-ray was negative. Will obtain Covid test and will likely discharge patient home. Patient Covid test negative patient vital signs remained stable patient or discharge home.
[2020-06-04 20:21] VITALS: PULSE 63
[2020-06-04 22:39] VITALS: BP 138/61
== END 2020-06-04 21:21 | disposition home or self-care (01) ==
LOC: MW.ED 16:56
DX: B34.9 Viral infection, unspecified (principal); E78.00 Pure hypercholesterolemia, unspecified; I10 Essential (primary) hypertension; J45.909 Unspecified asthma, uncomplicated; E11.9 Type 2 diabetes mellitus without complications; E03.9 Hypothyroidism, unspecified; E66.9 Obesity, unspecified; Z68.41 Body mass index [BMI] 40.0-44.9, adult; Z20.828 Contact with and (suspected) exposure to other viral communicable diseases; Z88.8 Allergy status to other drugs, medicaments and biological substances; Z88.2 Allergy status to sulfonamides; Z88.1 Allergy status to other antibiotic agents; Z79.899 Other long term (current) drug therapy; Z79.84 Long term (current) use of oral hypoglycemic drugs
CPT/HCPCS: 71045; 99285; A9270; U0002; 99282

== ENCOUNTER 2020-08-20 18:48 | Emergency (ER) | payer MEDICARE, MEDICAID ==
[2020-08-20] MEDS ORDERED: Ibuprofen 400 MG Tab PO ONE (19:30)
[2020-08-20] MEDS ORDERED: Lidocaine 2% Viscous Solution 15 ML Cup PO ONE (19:32)
--- NOTE | 2020-08-20 20:05 | CR ---
INDICATION: Cough. COMPARISON: Chest radiograph 06/04/2020. TECHNIQUE: Single AP portable chest. FINDINGS: Normal size cardiac silhouette. Clear lung cevallos with no evidence of acute pneumonic infiltrates or CHF. No pneumothorax or pleural effusion. IMPRESSION: Negative portable AP chest. Dictated by Nanci Thomson MD @ Aug 20 2020 8:03PM Signed by Dr. Nanci Thomson @ Aug 20 2020 8:04PM
--- NOTE | 2020-08-20 21:06 | EDM.PDOC ---
ED HPI GENERAL MEDICAL PROBLEM - General Chief Complaint: ENT Problem Stated Complaint: THROAT PAIN Time Seen by Provider: 08/20/20 19:05 - History of Present Illness INITIAL COMMENTS - FREE TEXT/NARRATIVE: CHIEF COMPLAINT(S): Sore throat HISTORY OF PRESENT ILLNESS: This is a 59-year-old woman with a past medical history of asthma and tobacco use disorder who comes to the emergency department with a chief complaint of sore throat. The patient states that yesterday she warmed up a chicken strip in the microwave and after she ate it she thought she burned her throat. She states that she had a sore throat prior to this. She states that after she burned herself that her throat started to worsen. She denies any trouble breathing, inability to open mouth, blistering. She states that she tried cough drops without any relief. She denies any neck pain, ear pain or headache. She states that she called RN hotline and they recommended to go to the ER because they were concerned for a retained bone. The patient states that this was a chicken strip and there was no bones. In addition she states that she would like to get tested for Covid. She states that she has had increased cough for the last 2 weeks which is productive. She does not know the color. She states that this happens occasionally. She denies any chest pain, shortness of breath, fever or chills. She states that she is using her inhaler approximately 3 times a day. She denies any other symptoms. REVIEW OF SYSTEMS: Constitutional: Denies fever, chills. Eyes: Denies eye pain Ears, Nose, Mouth, & Throat: positive for sore throat Cardiovascular: Denies chest pain Respiratory: Positive for productive cough. Denies shortness of breath Gastrointestinal: Denies Nausea, vomiting, diarrhea, hematochezia. 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: Denies hematuria Skin:Denies a rash Neurological: Denies blurred vision Psychiatric: Denies depression PAST MEDICAL HISTORY: As per history of present illness and as reviewed below otherwise noncontributory. SURGICAL HISTORY: As per history of present illness and as reviewed below otherwise noncontributory. SOCIAL HISTORY: As per history of present illness and as reviewed below otherwise noncontributory. FAMILY HISTORY: As per history of present illness and as reviewed below otherwise noncontributory. EXAMINATION OF ORGAN SYSTEMS/BODY AREAS: Constitutional: Blood pressure 141/63, heart rate 89, respiratory rate 18 with an oxygen saturation 95% on room air. Temperature 36.2 General: Overall well-appearing woman who is in no acute distress. Psychiatric: Appropriate mood and affect. Eyes: No scleral icterus or conjunctival erythema ENMT: Moist mucous membranes. Mild pharyngeal erythema. No swelling. Uvula is midline. No stridor. No trismus. No tonsillar swelling or exudates. Cardiovascular: Regular, rate, and rhythm. No gallops, murmurs, or rubs. Bilateral upper extremity pulses symmetric and intact. No peripheral edema. No JVD. Respiratory: Lungs clear to auscultation bilaterally. No wheezes, rales, or rhonchi. Gastrointestinal: Soft, non-tender, non-distended. Normoactive bowel sounds 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: No suprapubic tenderness Musculoskeletal: Normal range of motion. Skin: No lesions or abrasions. Neurological: Alert, GCS 15 MEDICAL DECISION MAKING AND COURSE IN THE ED WITH INTERPRETATION/REVIEW OF DIAGNOSTIC STUDIES: This is a 59-year-old woman with a past medical history of asthma and tobacco use disorder who comes to the emergency department with sore throat which preceded an event where she had hot chicken and some productive cough. At this time I do believe her sore throat is possibly secondary to viral pharyngitis given that there is no exudates and given that the patient has the cough. The patient has stable vital signs. Therefore at this time I did di scuss with patient that there is no signs of swelling, trismus, stridor we do not need to do any further work-up. Encourage Tylenol and Motrin. For her cough I do believe is secondary to her tobacco use. However we will obtain a chest x-ray and a Covid swab. I did provide the patient with viscous lidocaine for symptomatic relief given her sore throat. Laboratory: Covid is negative. The radiological images were viewed by myself along with reading the report from the radiologist. Chest x-ray does not reveal any acute cardiopulmonary process. After period of observation the emergency department. The patient continued to remain stable. I did discuss with her at this time I do believe her cough is likely secondary to her tobacco use. I discussed the importance of cessation of tobacco. I did discuss that she should follow-up with her primary care physician. I encouraged her to continue use of Tylenol and Motrin for her sore throat. She is to follow-up with her primary care physician. If she has any new or worsening symptoms she should return to the emergency department. She was amenable discharge at this time and had no further questions DISPOSITION: The patient was discharged home in stable condition. The patient will follow up with PCP as needed CONDITION: Fair PROCEDURES: None FINAL IMPRESSION(S)/DIAGNOSES: 1. Acute pharyngitis likely secondary to viral source 2. Acute cough likely secondary tobacco use disorder Catalino Steward M.D. Throat Pain Score (Numeric/FACES): 8 - Related Data Allergies Allergy/AdvReac Type Severity Reaction Status Date / Time doxepin [Doxepin] Allergy Blurred Verified 08/20/20 19:17 Vision lisinopril Allergy Rash Verified 08/20/20 19:17 [id number] Reductase Allergy Cannot Verified 08/20/20 19:17 Inhibitor Remember sulfamethoxazole Allergy Weakness Verified 08/20/20 19:17 [From Bactrim] trimethoprim [From Bactrim] Allergy Weakness Verified 08/20/20 19:17 Home Meds: Home Meds Estrogens, Conjugated [Premarin Vaginal Crm] 1 applic VAG Q48H PRN 12/14/13 [History] Losartan/Hydrochlorothiazide [Losartan-HCTZ 100-12.5 MG] 1 each PO DAILY 12/14/13 [History] Levothyroxine Sodium [Synthroid] 200 mcg PO ACBREAKFAST 04/06/14 [History] ALPRAZolam [Xanax] 2 mg PO TID PRN 04/17/14 [History] Rosuvastatin [Crestor] 20 mg PO BEDTIME 04/17/14 [History] metFORMIN [Glucophage] 1,000 mg PO BID 04/17/14 [History] traMADol [Ultram] 100 mg PO TID PRN 04/17/14 [History] Sertraline HCl 200 mg PO DAILY 04/01/15 [History] Prochlorperazine Maleate 10 mg PO DAILY PRN 12/20/15 [History] amLODIPine Besylate [Norvasc] 5 mg PO DAILY 12/20/15 [History] Lidocaine 5% [Lidoderm 5%] 1 each TOP DAILY PRN 01/04/16 [History] Levocetirizine Dihydrochloride 5 mg PO BEDTIME 08/26/16 [History] Albuterol Sulfate [Albuterol Sulfate Hfa] 18 gm IH Q4H PRN #1 hfa.aer.ad 09/27/19 [Rx] Elviteg/Cob/Emtri/Tenof Alafen [Genvoya Tablet] 1 tab PO DAILY 09/27/19 [History] Exenatide Microspheres [Bydureon Pen] 2 mg SQ WEEKLY 09/27/19 [History] Fluticasone Propion/Salmeterol [Advair 250-50 Diskus] 1 puff IH BID PRN 09/27/19 [History] Ipratropium [Atrovent 0.06% Nasal [place]] 2 spray JONE TID PRN 09/27/19 [History] Liothyronine [Cytomel] 10 mcg PO DAILY 09/27/19 [History] Furosemide [Lasix] 20 mg PO DAILY 02/21/20 [History] Omeprazole Magnesium [Prilosec Otc] 20 mg PO DAILY #30 tablet.dr 02/22/20 [Rx] Ondansetron [Zofran ODT] 4 mg PO Q6H PRN #12 tab.dis 02/22/20 [Rx] Albuterol Sulfate 2.5 mg IH TID 10 Days #30 ml 03/23/20 [Rx] Benzonatate [Tessalon Perle] 100 mg PO TID PRN #15 capsule 04/13/20 [Rx] cephALEXin [Keflex] 500 mg PO Q8H 7 Days #21 cap 04/15/20 [Rx] Past Medical History - Past Health History Medical/Surgical History: Denies Medical/Surgical History HEENT History: Reports: Impaired Vision Other HEENT History: uses reading glasses, has upper Cardiovascular History: Reports: High Cholesterol, Hypertension Respiratory History: Reports: Asthma, Pneumonia, Recurrent, Other (See Below) Other Respiratory History: sinus infection Gastrointestinal History: Reports: GERD, Hemorrhoids 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 History: Reports: None 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: Musculoskeletal History: Reports: Back Pain, Chronic, Fracture Other Musculoskeletal History: hx fx right ankle Neurological History: Reports: Other (See Below) Other Neuro History: was told she had a "mini stroke" many years ago, no residual Psychiatric History: Reports: Anxiety, Depression Endocrine/Metabolic History: Reports: Diabetes, Type II, Hypothyroidism, Obesity/BMI 30+ Hematologic History: Reports: None Immunologic History: Reports: HIV Oncologic (Cancer) History: Reports: Basal Cell Carcinoma Dermatologic History: Reports: None - Infectious Disease History Infectious Disease History: Reports: HIV-Human Immunodeficiency Virus - Past Surgical History Head Surgeries/Procedures: Reports: None HEENT Surgical History: Reports: None Cardiovascular Surgical History: Reports: None Respiratory Surgical History: Reports: None GI Surgical History: Reports: None Other GI Surgeries/Procedures: hemorrhoidectomy Female Surgical History: Reports: Hysterectomy, Salpingo-Oophorectomy Endocrine Surgical History: Reports: None Neurological Surgical History: Reports: None Musculoskeletal Surgical History: Reports: None Other Musculoskeletal Surgeries/Procedures:: right little finger. Right foot Oncologic Surgical History: Reports: None Dermatological Surgical History: Reports: Other (See Below) Social & Family History - Family History Family Medical History: No Pertinent Family History - Tobacco Use Tobacco Use Status *Q: Current Every Day Tobacco User Years of Tobacco use: 2 Packs/Tins Daily: 1 - Caffeine Use Caffeine Use: Reports: None Caffeine Use Comment: 2/day - Recreational Drug Use Recreational Drug Use: Yes Recreational Drug Type: Reports: Marijuana/Hashish Recreational Drug Use Frequency: Rarely ED ROS ENT - Review of Systems Review Of Systems: See Below ED EXAM, ENT - Physical Exam Exam: See Below Course - Vital Signs Last Recorded V/S: Last Vital Signs Temp 36.2 C 08/20/20 19:18 Pulse 85 08/20/20 21:23 Resp 16 08/20/20 21:23 BP 144/63 H 08/20/20 21:23 Pulse Ox 95 08/20/20 21:23 - Orders/Labs/Meds Labs: Laboratory Tests 08/20/20 Range/Units 19:55 SARS-CoV-2 RNA (DELL) NEGATIVE (NEGATIVE) Meds: Medications Discontinued Medications Generic Name Dose Route Start Last Admin Trade Name Freq PRN Reason Stop Dose Admin Ibuprofen 400 mg 08/20/20 19:30 08/20/20 19:52 Motrin PO 08/20/20 19:31 400 mg ONETIME ONE Administration Lidocaine HCl 15 ml 08/20/20 19:32 08/20/20 19:52 Xylocaine 2% Viscous PO 08/20/20 19:33 15 ml ONETIME ONE Administration Departure - Departure Time of Disposition: 21:05 Disposition: Home, Self-Care 01 Condition: Fair Clinical Impression: Pharyngitis Qualifiers: Pharyngitis/tonsillitis etiology: unspecified etiology Qualified Code(s): J02.9 - Acute pharyngitis, unspecified - Discharge Information *PRESCRIPTION DRUG MONITORING PROGRAM REVIEWED*: No *COPY OF PRESCRIPTION DRUG MONITORING REPORT IN PATIENT JOSE: No Instructions: Smoking Tobacco Information, Adult, Pharyngitis, [id number] Referrals: Chas Mitchell MD [Primary Care Provider] - Forms: ED Department Discharge Additional Instructions: You were evaluated today on an emergent basis. I do believe your sore throat is likely secondary to a pharyngitis likely from a virus given that it started before you had chicken. I recommend continued use of Tylenol and Motrin for pain relief. I would refrain from eating or drinking anything hot until your sore throat improves. In addition I did discuss with you that it is important that you try to quit smoking. Please follow-up with your primary care physician for a plan. Return to the emergency department for any new or worsening symptoms such as trouble breathing or fever. [facility] - Primary Care [address] [place] [address] [place] [address] The patient is informed of any results of their evaluation and diagnostic workup and all questions are answered. They are given discharge instructions and return precautions. The patient is stable for discharge. The patient states they understand and agree with the plan and that they will return if their symptoms get worse or if they have any new concerns. The following information is given to patients seen in the emergency department who are being discharged to home. This information is to outline your options for follow-up care. We provide all patients seen in our emergency department with a follow-up referral. The need for follow-up, as well as the timing and circumstances, are variable depending upon the specifics of your emergency department visit. If you don't have a primary care physician on staff, we will provide you with a referral. We always advise you to contact your personal physician following an emergency department visit to inform them of the circumstance of the visit and for follow-up with them and/or the need for any referrals to a consulting specialist. The emergency department will also refer you to a specialist when appropriate. This referral assures that you have the opportunity for follow-up care with a specialist. All of these measure are taken in an effort to provide you with optimal care, which includes your follow-up. Under all circumstances we always encourage you to contact your private physician who remains a resource for coordinating your care. When calling for follow-up care, please make the office aware that this follow-up is from your recent emergency room visit. If for any reason you are refused follow-up, please contact the [facility] Emergency Department at and asked to speak to the emergency department charge nurse. Sepsis Event Note (ED) - Evaluation Sepsis Screening Result: No Definite Risk - Focused Exam Vital Signs: Vital Signs Temp Pulse Resp BP Pulse Ox 08/20/20 21:23 85 16 144/63 H 95 08/20/20 19:18 36.2 C 89 18 141/63 H 95
[2020-08-20 21:23] VITALS: BP 144/63; PULSE 85
== END 2020-08-20 21:23 | disposition home or self-care (01) ==
LOC: MW.ED 18:48
DX: J02.9 Acute pharyngitis, unspecified (principal); E78.00 Pure hypercholesterolemia, unspecified; I10 Essential (primary) hypertension; J45.909 Unspecified asthma, uncomplicated; K21.9 Gastro-esophageal reflux disease without esophagitis; E11.9 Type 2 diabetes mellitus without complications; B20 Human immunodeficiency virus [HIV] disease; E03.9 Hypothyroidism, unspecified; E66.9 Obesity, unspecified; Z68.39 Body mass index [BMI] 39.0-39.9, adult; Z88.1 Allergy status to other antibiotic agents; Z88.8 Allergy status to other drugs, medicaments and biological substances; Z88.2 Allergy status to sulfonamides; Z20.822 Contact with and (suspected) exposure to COVID-19; Z79.84 Long term (current) use of oral hypoglycemic drugs; Z79.899 Other long term (current) drug therapy; Z72.0 Tobacco use
CPT/HCPCS: 71045; 99283; A9270; U0002

== ENCOUNTER 2020-10-07 16:34 | Emergency (ER) | payer MEDICARE, MEDICAID ==
--- NOTE | 2020-10-07 16:52 | EDM.PDOC ---
ED HPI GENERAL MEDICAL PROBLEM - General Chief Complaint: 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 Problem Stated Complaint: POSSIBLE UTI Time Seen by Provider: 10/07/20 16:42 - History of Present Illness INITIAL COMMENTS - FREE TEXT/NARRATIVE: History of present illness: [] Patient reports dysuria. She has several days of burning when she urinates. She does not have any back pain fever nausea or vomiting. She did not have any complications. She thinks he may have a UTI. Review of systems: As per history of present illness and below otherwise all systems reviewed and negative. Past medical history: As per history of present illness and as reviewed below otherwise noncontributory. Surgical history: As per history of present illness and as reviewed below otherwise noncontributory. Social history: No reported history of drug or alcohol abuse. Family history: As per history of present illness and as reviewed below otherwise noncontributory. Physical exam: Constitutional - well developed, well-nourished and in no acute distress HEENT - normocephalic, no evidence of trauma - external nose and mouth normal - no mass in neck and no JVD - mucosae moist EYES - full EOM, PERRL, no icterus - no evidence of inflammation, injection, or drainage Respiratory - no respiratory distress, equal bilateral expansion, lungs clear to auscultation and no abnormal lung sounds Cardiovascular - Regular Rhythm with S1 and S2 appreciated and no murmur, gallop or rub. GI - abdomen soft without distension or organomegaly - normal bowel sounds - no guard or rebound Musculoskeletal no gross deformity of long bones or joints - no tenderness, s welling or edema Neurologic - Alert and oriented times four - CN II-XII grossly intact - motor sensory and coordination symmetrically normal Psychiatric - appropriate mood and affect with normal thought content Hematologic - No petechiae or purpura - mucosa appropriate color and sclera not pale - normal nail bed color and refill Integument - no rash or evidence of trauma - normal turgor Diagnostics: [] Therapeutics: [] Impression: [] Plan: [] Definitive disposition and diagnosis as appropriate pending reevaluation and review of above. Bladder Pain Score (Numeric/FACES): 5 - Related Data Allergies Allergy/AdvReac Type Severity Reaction Status Date / Time doxepin [Doxepin] Allergy Blurred Verified 10/07/20 16:53 Vision lisinopril Allergy Rash Verified 10/07/20 16:53 Ksxwiif-[id number] Reductase Allergy Cannot Verified 10/07/20 16:53 Inhibitor Remember sulfamethoxazole Allergy Weakness Verified 10/07/20 16:53 [From Bactrim] trimethoprim [From Bactrim] Allergy Weakness Verified 10/07/20 16:53 Home Meds: Home Meds Estrogens, Conjugated [Premarin Vaginal Crm] 1 applic VAG Q48H PRN 12/14/13 [History] Losartan/Hydrochlorothiazide [Losartan-HCTZ 100-12.5 MG] 1 each PO DAILY 12/14/13 [History] Levothyroxine Sodium [Synthroid] 200 mcg PO ACBREAKFAST 04/06/14 [History] ALPRAZolam [Xanax] 2 mg PO TID PRN 04/17/14 [History] Rosuvastatin [Crestor] 20 mg PO BEDTIME 04/17/14 [History] metFORMIN [Glucophage] 1,000 mg PO BID 04/17/14 [History] traMADol [Ultram] 100 mg PO TID PRN 04/17/14 [History] Sertraline HCl 200 mg PO DAILY 04/01/15 [History] Prochlorperazine Maleate 10 mg PO DAILY PRN 12/20/15 [History] amLODIPine Besylate [Norvasc] 5 mg PO DAILY 12/20/15 [History] Lidocaine 5% [Lidoderm 5%] 1 each TOP DAILY PRN 01/04/16 [History] Levocetirizine Dihydrochloride 5 mg PO BEDTIME 08/26/16 [History] Albuterol Sulfate [Albuterol Sulfate Hfa] 18 gm IH Q4H PRN #1 hfa.aer.ad 09/27/19 [Rx] Elviteg/Cob/Emtri/Tenof Alafen [Genvoya Tablet] 1 tab PO DAILY 09/27/19 [History] Exenatide Microspheres [Bydureon Pen] 2 mg SQ WEEKLY 09/27/19 [History] Fluticasone Propion/Salmeterol [Advair 250-50 Diskus] 1 puff IH BID PRN 09/27/19 [History] Ipratropium [Atrovent 0.06% Nasal [place]] 2 spray JONE TID PRN 09/27/19 [History] Liothyronine [Cytomel] 10 mcg PO DAILY 09/27/19 [History] Furosemide [Lasix] 20 mg PO DAILY 02/21/20 [History] Omeprazole Magnesium [Prilosec Otc] 20 mg PO DAILY #30 tablet.dr 02/22/20 [Rx] Ondansetron [Zofran ODT] 4 mg PO Q6H PRN #12 tab.dis 02/22/20 [Rx] Albuterol Sulfate 2.5 mg IH TID 10 Days #30 ml 03/23/20 [Rx] Benzonatate [Tessalon Perle] 100 mg PO TID PRN #15 capsule 04/13/20 [Rx] cephALEXin [Keflex] 500 mg PO Q8H 7 Days #21 cap 04/15/20 [Rx] Ciprofloxacin HCl [Cipro] 500 mg PO BID #14 tablet 10/07/20 [Rx] Past Medical History - Past Health History Medical/Surgical History: Denies Medical/Surgical History HEENT History: Reports: Impaired Vision Other HEENT History: uses reading glasses, has upper Cardiovascular History: Reports: High Cholesterol, Hypertension Respiratory History: Reports: Asthma, Pneumonia, Recurrent, Other (See Below) Other Respiratory History: sinus infection Gastrointestinal History: Reports: GERD, Hemorrhoids 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 History: Reports: 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: Musculoskeletal History: Reports: Back Pain, Chronic, Fracture Other Musculoskeletal History: hx fx right ankle Neurological History: Reports: Other (See Below) Other Neuro History: was told she had a "mini stroke" many years ago, no resid ual Psychiatric History: Reports: Anxiety, Depression Endocrine/Metabolic History: Reports: Diabetes, Type II, Hypothyroidism, Obesity/BMI 30+ Hematologic History: Reports: None Immunologic History: Reports: HIV Oncologic (Cancer) History: Reports: Basal Cell Carcinoma Dermatologic History: Reports: None - Infectious Disease History Infectious Disease History: Reports: HIV-Human Immunodeficiency Virus - Past Surgical History Head Surgeries/Procedures: Reports: None HEENT Surgical History: Reports: None Cardiovascular Surgical History: Reports: None Respiratory Surgical History: Reports: None GI Surgical History: Reports: None Other GI Surgeries/Procedures: hemorrhoidectomy Female Surgical History: Reports: Hysterectomy, Salpingo-Oophorectomy Endocrine Surgical History: Reports: None Neurological Surgical History: Reports: None Musculoskeletal Surgical History: Reports: None Other Musculoskeletal Surgeries/Procedures:: right little finger. Right foot Oncologic Surgical History: Reports: None Dermatological Surgical History: Reports: Other (See Below) Social & Family History - Family History Family Medical History: No Pertinent Family History - Caffeine Use Caffeine Use: Reports: None Caffeine Use Comment: 2/day ED ROS GENERAL - Review of Systems Review Of Systems: Comprehensive ROS is negative, except as noted in HPI. ED EXAM, GENERAL - Physical Exam Exam: See Below Free Text/Narrative:: My physical exam is in the HPI Course - Vital Signs Last Recorded V/S: Last Vital Signs Temp 36.3 C 10/07/20 16:54 Pulse 77 10/07/20 16:54 Resp 18 10/07/20 16:54 BP 146/69 H 10/07/20 16:54 Pulse Ox 97 10/07/20 16:54 - Orders/Labs/Meds Orders: Active Orders 24 hr Category Date Time Status CULTURE URINE [RM] Stat Lab 10/07/20 17:32 Ordered UA W/DIAZ RFLX IF INDICATED [URIN] Routine Lab 10/07/20 16:49 Received Labs: Laboratory Tests 10/07/20 Range/Units 16:47 Urine Color Cancelled Urine Appearance Cancelled Urine pH Cancelled Ur Specific [place] Cancelled Urine Protein Cancelled Urine Glucose (UA) Cancelled Urine Ketones Cancelled Urine Occult Blood Cancelled Urine Nitrite Cancelled Urine Bilirubin Cancelled Urine Ictotest Cancelled Urine Urobilinogen Cancelled Ur Leukocyte Esterase Cancelled U Hyaline Cast (Auto) Cancelled Urine RBC Cancelled Urine WBC Cancelled Ur Epithelial Cells Cancelled Ur Squamous Epith Cells Cancelled Ur Renal Epithelial Cell Cancelled Calcium Oxalate Crystal Cancelled Uric Acid Crystals Cancelled Triple Phos Crystals Cancelled Other Crystals Cancelled Amorphous Sediment Cancelled Urine Bacteria Cancelled Fine Granular Casts Cancelled Coarse Granular Casts Cancelled Waxy Casts Cancelled RBC Casts Cancelled WBC Casts Cancelled Urine Mucus Cancelled Urine Other Cancelled Urine Trichomonas Cancelled Urine Yeast Cancelled Urine Sperm Cancelled Ur Oval Fat Bodies Cancelled Urinalysis Comment Cancelled Departure - Departure Time of Disposition: 17:33 Disposition: Home, Self-Care 01 Condition: Good Clinical Impression: Acute cystitis - Discharge Information Prescriptions: Ciprofloxacin HCl [Cipro] 500 mg PO BID #14 tablet Instructions: Urinary Tract Infection, Adult, [id number] Referrals: Chas Mitchell MD [Primary Care Provider] - Forms: ED Department Discharge Additional Instructions: [facility] - Primary Care [address] [place] [address] [facility] [address] [place] [address] The following information is given to patients seen in the emergency department who are being discharged to home. This information is to outline your options for follow-up care. We provide all patients seen in our emergency department with a follow-up referral. The need for follow-up, as well as the timing and circumstances, are variable depending upon the specifics of your emergency department visit. If you don't have a primary care physician on staff, we will provide you with a referral. We always advise you to contact your personal physician following an emergency department visit to inform them of the circumstance of the visit and for follow-up with them and/or the need for any referrals to a consulting specialist. The emergency department will also refer you to a specialist when appropriate. T his referral assures that you have the opportunity for follow-up care with a specialist. All of these measure are taken in an effort to provide you with optimal care, which includes your follow-up. Under all circumstances we always encourage you to contact your private physician who remains a resource for coordinating your care. When calling for follow-up care, please make the office aware that this follow-up is from your recent emergency room visit. If for any reason you are refused follow-up, please contact the [facility] Emergency Department at and asked to speak to the emergency department charge nurse. Sepsis Event Note (ED) - Focused Exam Vital Signs: Vital Signs Temp Pulse Resp BP Pulse Ox 10/07/20 16:54 36.3 C 77 18 146/69 H 97 - My Orders Last 24 Hours: My Active Orders 10/07/20 16:49 UA W/DIAZ RFLX IF INDICATED [URIN] Routine 10/07/20 17:32 CULTURE URINE [RM] Stat - Assessment/Plan Last 24 Hours: My Active Orders 10/07/20 16:49 UA W/DIAZ RFLX IF INDICATED [URIN] Routine 10/07/20 17:32 CULTURE URINE [RM] Stat
[2020-10-07 18:09] VITALS: BP 139/75; PULSE 69
== END 2020-10-07 18:06 | disposition home or self-care (01) ==
LOC: MW.ED 16:34
DX: N30.90 Cystitis, unspecified without hematuria (principal); E78.00 Pure hypercholesterolemia, unspecified; I10 Essential (primary) hypertension; J45.909 Unspecified asthma, uncomplicated; K21.9 Gastro-esophageal reflux disease without esophagitis; E11.9 Type 2 diabetes mellitus without complications; E03.9 Hypothyroidism, unspecified; E66.9 Obesity, unspecified; B20 Human immunodeficiency virus [HIV] disease; Z88.8 Allergy status to other drugs, medicaments and biological substances; Z88.2 Allergy status to sulfonamides; Z88.1 Allergy status to other antibiotic agents; Z79.84 Long term (current) use of oral hypoglycemic drugs; Z79.899 Other long term (current) drug therapy
CPT/HCPCS: 81003; 87086; 99282; 99283

== ENCOUNTER 2020-10-20 04:18 | Emergency (ER) | payer MEDICARE, MEDICAID ==
[2020-10-20] MEDS ORDERED: Fluconazole 150 MG Tab PO ONE (05:37)
--- NOTE | 2020-10-20 05:38 | EDM.PDOC ---
ED HPI GENERAL MEDICAL PROBLEM - General Chief Complaint: 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 Problem Stated Complaint: UTI Time Seen by Provider: 10/20/20 05:12 - History of Present Illness INITIAL COMMENTS - FREE TEXT/NARRATIVE: HISTORY AND PHYSICAL: History of present illness: This a 59-year-old female who presents ER today secondary to burning sensation around her vaginal region when she urinates. Patient reports that she is currently finishing treatment for urinary tract infection. Patient has a cataract procedure scheduled next week. Patient has any recent fevers, shakes, chills, nausea, vomiting, diarrhea, abdominal pain. Patient reports multiple urinary tract infections in the past Review of systems: As per history of present illness and below otherwise all systems reviewed and negative. Past medical history: As per history of present illness and as reviewed below otherwise noncontributory. Surgical history: As per history of present illness and as reviewed below otherwise noncontributory. Social history: No reported history of drug or alcohol abuse. Family history: As per history of present illness and as reviewed below otherwise noncontributory. Physical exam: This patient was seen and evaluated during the 2019 SARS-CoV-2 novel coronavirus pandemic period. Community viral transmission is ongoing at time of this encounter and the emergency department is operating under pandemic response procedures. Constitutional: Patient is oriented to person, place, and time. Appears well- developed and well-nourished. No distress. HEENT: Moist mucous membranes Head: Normocephalic and atraumatic Eyes: Right eye exhibits no discharge. Left eye exhibits no discharge. No scleral icterus Neck: Normal range of motion. No tracheal deviation present. Cardiovascular: Normal rate and regular rhythm. Pulmonary: Effort normal, no respiratory distress. Abdominal: No distention Musculoskeletal: Normal range of motion Neurologic: Alert and oriented to person, place and time. Skin: [place], warm and dry. Psychiatric: Normal mood and affect. Behavior is normal. Judgment and thought content normal. Nursing note and vital signs have been reviewed Diagnostics: UA normal Therapeutics: Diflucan Assessment and plan: This is a 59-year-old female who presents ER today with burning sensation of the skin over labia and vaginal region when she urinates. Patient's UA is normal. Patient symptoms appear to be consistent with a yeast infection. Patient will get started on Diflucan and will be given instructions to utilize Monistat [id number]. Reassessment at the time of disposition demonstrates that the patient is in no acute distress. The patient has remained stable throughout the entire ED visit and is without objective evidence for acute process requiring urgent intervention or hospitalization. The patient is stable for discharge, counseling is provided as documented above, discussed symptomatic treatment and specific conditions for return. I have spoken with the patient/caregiver and discussed todays findings, in addition to providing specific details for the plan of care. Questions are answered and there is agreement with the plan. Definitive disposition and diagnosis as appropriate pending reevaluation and review of above. general Pain Score (Numeric/FACES): 6 - Related Data Allergies Allergy/AdvReac Type Severity Reaction Status Date / Time doxepin [Doxepin] Allergy Blurred Verified 10/20/20 05:22 Vision lisinopril Allergy Rash Verified 10/20/20 05:22 Ncumaou-Rbx-Chp Reductase Allergy Cannot Verified 10/20/20 05:22 Inhibitor Remember sulfamethoxazole Allergy Weakness Verified 10/20/20 05:22 [From Bactrim] trimethoprim [From Bactrim] Allergy Weakness Verified 10/20/20 05:22 Home Meds: Home Meds Estrogens, Conjugated [Premarin Vaginal Crm] 1 applic VAG Q48H PRN 12/14/13 [History] Losartan/Hydrochlorothiazide [Losartan-HCTZ 100-12.5 MG] 1 each PO DAILY 12/14/13 [History] Levothyroxine Sodium [Synthroid] 200 mcg PO ACBREAKFAST 04/06/14 [History] ALPRAZolam [Xanax] 2 mg PO TID PRN 04/17/14 [History] Rosuvastatin [Crestor] 20 mg PO BEDTIME 04/17/14 [History] metFORMIN [Glucophage] 1,000 mg PO BID 04/17/14 [History] traMADol [Ultram] 100 mg PO TID PRN 04/17/14 [History] Sertraline HCl 200 mg PO DAILY 04/01/15 [History] Prochlorperazine Maleate 10 mg PO DAILY PRN 12/20/15 [History] amLODIPine Besylate [Norvasc] 5 mg PO DAILY 12/20/15 [History] Lidocaine 5% [Lidoderm 5%] 1 each TOP DAILY PRN 01/04/16 [History] Levocetirizine Dihydrochloride 5 mg PO BEDTIME 08/26/16 [History] Albuterol Sulfate [Albuterol Sulfate Hfa] 18 gm IH Q4H PRN #1 hfa.aer.ad 09/27/19 [Rx] Elviteg/Cob/Emtri/Tenof Alafen [Genvoya Tablet] 1 tab PO DAILY 09/27/19 [History] Exenatide Microspheres [Bydureon Pen] 2 mg SQ WEEKLY 09/27/19 [History] Fluticasone Propion/Salmeterol [Advair 250-50 Diskus] 1 puff IH BID PRN 09/27/19 [History] Ipratropium [Atrovent 0.06% Nasal [place]] 2 spray JONE TID PRN 09/27/19 [History] Liothyronine [Cytomel] 10 mcg PO DAILY 09/27/19 [History] Furosemide [Lasix] 20 mg PO DAILY 02/21/20 [History] Omeprazole Magnesium [Prilosec Otc] 20 mg PO DAILY #30 tablet.dr 02/22/20 [Rx] Ondansetron [Zofran ODT] 4 mg PO Q6H PRN #12 tab.dis 02/22/20 [Rx] Albuterol Sulfate 2.5 mg IH TID 10 Days #30 ml 03/23/20 [Rx] Benzonatate [Tessalon Perle] 100 mg PO TID PRN #15 capsule 04/13/20 [Rx] cephALEXin [Keflex] 500 mg PO Q8H 7 Days #21 cap 04/15/20 [Rx] Ciprofloxacin HCl [Cipro] 500 mg PO BID #14 tablet 10/07/20 [Rx] Past Medical History - Past Health History Medical/Surgical History: Denies Medical/Surgical History HEENT History: Reports: Impaired Vision Other HEENT History: uses reading glasses, has upper Cardiovascular History: Reports: High Cholesterol, Hypertension Respiratory History: Reports: Asthma, Pneumonia, Recurrent, Other (See Below) Other Respiratory History: sinus infection Gastrointestinal History: Reports: GERD, Hemorrhoids 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 History: Reports: None 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: Musculoskeletal History: Reports: Back Pain, Chronic, Fracture Other Musculoskeletal History: hx fx right ankle Neurological History: Reports: Other (See Below) Other Neuro History: was told she had a "mini stroke" many years ago, no residual Psychiatric History: Reports: Anxiety, Depression Endocrine/Metabolic History: Reports: Diabetes, Type II, Hypothyroidism, Obesity/BMI 30+ Hematologic History: Reports: None Immunologic History: Reports: HIV Oncologic (Cancer) History: Reports: Basal Cell Carcinoma Dermatologic History: Reports: None - Infectious Disease History Infectious Disease History: Reports: HIV-Human Immunodeficiency Virus - Past Surgical History Head Surgeries/Procedures: Reports: None HEENT Surgical History: Reports: None Cardiovascular Surgical History: Reports: None Respiratory Surgical History: Reports: None GI Surgical History: Reports: None Other GI Surgeries/Procedures: hemorrhoidectomy Female Surgical History: Reports: Hysterectomy, Salpingo-Oophorectomy Endocrine Surgical History: Reports: None Neurological Surgical History: Reports: None Musculoskeletal Surgical History: Reports: None Other Musculoskeletal Surgeries/Procedures:: right little finger. Right foot Oncologic Surgical History: Reports: None Dermatological Surgical History: Reports: Other (See Below) Social & Family History - Family History Family Medical History: No Pertinent Family History - Caffeine Use Caffeine Use: Reports: None Caffeine Use Comment: 2/day ED ROS GENERAL - Review of Systems Review Of Systems: See Below ED EXAM, GENERAL - Physical Exam Exam: See Below Course - Vital Signs Last Recorded V/S: Last Vital Signs Temp 97.0 F 10/20/20 05:16 Pulse 69 10/20/20 05:16 Resp 18 10/20/20 05:16 BP 117/63 10/20/20 05:16 Pulse Ox 95 10/20/20 05:16 - Orders/Labs/Meds Labs: Laboratory Tests 10/20/20 Range/Units 05:10 Urine Color YELLOW Urine Appearance SLT CLOUDY Urine pH 5.0 (5.0-8.0) Ur Specific [place] >= 1.030 (1.001-1.035) Urine Protein NEGATIVE (NEGATIVE) mg/dL Urine Glucose (UA) NEGATIVE (NEGATIVE) mg/dL Urine Ketones TRACE H (NEGATIVE) mg/dL Urine Occult Blood NEGATIVE (NEGATIVE) Urine Nitrite NEGATIVE (NEGATIVE) Urine Bilirubin SMALL H (NEGATIVE) Urine Urobilinogen 0.2 (<2.0) EU/dL Ur Leukocyte Esterase NEGATIVE (NEGATIVE) Departure - Departure Time of Disposition: 05:35 Disposition: Home, Self-Care 01 Condition: Good Clinical Impression: Yeast vaginitis - Discharge Information Instructions: Vaginal Yeast Infection, Adult Referrals: Chas Mitchell MD [Primary Care Provider] - Additional Instructions: Your seen and evaluated in the ER today secondary to pain and discomfort around her vaginal region when you urinate. Your urinalysis is normal does not show any evidence of infection. Symptoms that you are presenting with appear to be consistent with a vaginal yeast infection. He will be given a dose of Diflucan here in the ED and I recommend they go to the drugstore and purchase Monistat vaginal yeast cream to assist with the symptoms. Please make an appointment to see your family doctor for a full woman's health exam. The following information is given to patients seen in the emergency department who are being discharged to home. This information is to outline your options f or follow-up care. We provide all patients seen in our emergency department with a follow-up referral. The need for follow-up, as well as the timing and circumstances, are variable depending upon the specifics of your emergency department visit. If you don't have a primary care physician on staff, we will provide you with a referral. We always advise you to contact your personal physician following an emergency department visit to inform them of the circumstance of the visit and for follow-up with them and/or the need for any referrals to a consulting specialist. The emergency department will also refer you to a specialist when appropriate. This referral assures that you have the opportunity for follow-up care with a specialist. All of these measure are taken in an effort to provide you with optimal care, which includes your follow-up. Under all circumstances we always encourage you to contact your private physician who remains a resource for coordinating your care. When calling for follow-up care, please make the office aware that this follow-up is from your recent emergency room visit. If for any reason you are refused follow-up, please contact the [facility] Emergency Department at and asked to speak to the emergency department charge nurse. [facility] - Primary Care [address] [place] [id number] [facility] [address] [place] [id number] Sepsis Event Note (ED) - Evaluation Sepsis Screening Result: No Definite Risk - Focused Exam Vital Signs: Vital Signs Temp Pulse Resp BP Pulse Ox 10/20/20 05:16 97.0 F 69 18 117/63 95
[2020-10-20] MEDS ORDERED: Fluconazole 100 MG Tab PO ONE (05:47)
[2020-10-20 06:00] VITALS: BP 105/68; PULSE 62
== END 2020-10-20 06:00 | disposition home or self-care (01) ==
LOC: MW.ED 04:18
DX: B37.3 Candidiasis of vulva and vagina (principal); E78.00 Pure hypercholesterolemia, unspecified; I10 Essential (primary) hypertension; J45.909 Unspecified asthma, uncomplicated; K21.9 Gastro-esophageal reflux disease without esophagitis; E11.9 Type 2 diabetes mellitus without complications; E03.9 Hypothyroidism, unspecified; E66.9 Obesity, unspecified; Z68.41 Body mass index [BMI] 40.0-44.9, adult; Z88.8 Allergy status to other drugs, medicaments and biological substances; Z88.2 Allergy status to sulfonamides; Z79.84 Long term (current) use of oral hypoglycemic drugs; Z79.899 Other long term (current) drug therapy
CPT/HCPCS: 81001; 99283; A9270; 99282

== ENCOUNTER 2020-10-22 19:43 | Emergency (ER) | payer MEDICARE, MEDICAID ==
[2020-10-22 19:52] VITALS: BP 150/69; PULSE 65
[2020-10-22] MEDS ORDERED: Bacitracin Oint 1 GM U/D Packet TOP ONE (20:11)
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
== END 2020-10-22 20:22 | disposition home or self-care (01) ==
LOC: MW.ED 19:43
DX: T24.111A Burn of first degree of right thigh, initial encounter (principal); E78.00 Pure hypercholesterolemia, unspecified; I10 Essential (primary) hypertension; J45.909 Unspecified asthma, uncomplicated; K21.9 Gastro-esophageal reflux disease without esophagitis; E11.9 Type 2 diabetes mellitus without complications; E03.9 Hypothyroidism, unspecified; E66.9 Obesity, unspecified; Z68.41 Body mass index [BMI] 40.0-44.9, adult; Z88.8 Allergy status to other drugs, medicaments and biological substances; Z88.2 Allergy status to sulfonamides; Z88.1 Allergy status to other antibiotic agents; Z79.84 Long term (current) use of oral hypoglycemic drugs; Z79.899 Other long term (current) drug therapy; X12.XXXA Contact with other hot fluids, initial encounter
CPT/HCPCS: 99282; 99283

== ENCOUNTER 2020-12-15 21:04 | Emergency (ER) | payer MEDICARE, MEDICAID ==
[2020-12-15] MEDS ORDERED: Sodium Chloride 0.9% 2.5 ML Syringe FLUSH PRN (21:37)
[2020-12-15] MEDS ORDERED: Aspirin 81 MG Tab.Chew PO ONE (21:37)
[2020-12-15] MEDS ORDERED: Sodium Chloride 0.9% 10 ML Syringe FLUSH PRN (21:37)
[2020-12-15] MEDS ORDERED: Albuterol/Ipratropium 3.0-0.5 MG/3 ML Neb Soln NEB ONE (21:37)
--- NOTE | 2020-12-15 21:51 | EDM.PDOC ---
ED HPI GENERAL MEDICAL PROBLEM - General Chief Complaint: General Stated Complaint: CHEST PAIN Time Seen by Provider: 12/15/20 21:05 Source of Information: Reports: Patient History Limitations: Reports: No Limitations - History of Present Illness INITIAL COMMENTS - FREE TEXT/NARRATIVE: 60-year-old female past medical history hypertension, tobacco use, anxiety, chronic back pain, frequent falls, diabetes presents for chest pain and cough. Patient notes that she recently stopped smoking yesterday. She states that for the last 2 days she has been having a left anterior chest pain and left upper back pain. It is associated with a minimally productive cough. It is worse when she is coughing. No fevers. No lower extremity swelling or edema. No abdominal pain, nausea, vomiting. Left Chest Pain Score (Numeric/FACES): 9 - Related Data Allergies Allergy/AdvReac Type Severity Reaction Status Date / Time doxepin [Doxepin] Allergy Blurred Verified 12/15/20 21:22 Vision lisinopril Allergy Rash Verified 12/15/20 21:22 Hdxncgu-Olj-Ekn Reductase Allergy Cannot Verified 12/15/20 21:22 Inhibitor Remember sulfamethoxazole Allergy Weakness Verified 12/15/20 21:22 [From Bactrim] trimethoprim [From Bactrim] Allergy Weakness Verified 12/15/20 21:22 Home Meds: Home Meds Estrogens, Conjugated [Premarin Vaginal Crm] 1 applic VAG Q48H PRN 12/14/13 [History] Losartan/Hydrochlorothiazide [Losartan-HCTZ 100-12.5 MG] 1 each PO DAILY 12/14/13 [History] Levothyroxine Sodium [Synthroid] 200 mcg PO ACBREAKFAST 04/06/14 [History] ALPRAZolam [Xanax] 2 mg PO TID PRN 04/17/14 [History] Rosuvastatin [Crestor] 20 mg PO BEDTIME 04/17/14 [History] metFORMIN [Glucophage] 1,000 mg PO BID 04/17/14 [History] traMADol [Ultram] 100 mg PO TID PRN 04/17/14 [History] Sertraline HCl 200 mg PO DAILY 04/01/15 [History] Prochlorperazine Maleate 10 mg PO DAILY PRN 12/20/15 [History] amLODIPine Besylate [Norvasc] 5 mg PO DAILY 12/20/15 [History] Lidocaine 5% [Lidoderm 5%] 1 each TOP DAILY PRN 01/04/16 [History] Levocetirizine Dihydrochloride 5 mg PO BEDTIME 08/26/16 [History] Albuterol Sulfate [Albuterol Sulfate Hfa] 18 gm IH Q4H PRN #1 hfa.aer.ad 09/27/19 [Rx] Elviteg/Cob/Emtri/Tenof Alafen [Genvoya Tablet] 1 tab PO DAILY 09/27/19 [History] Exenatide Microspheres [Bydureon Pen] 2 mg SQ WEEKLY 09/27/19 [History] Fluticasone Propion/Salmeterol [Advair 250-50 Diskus] 1 puff IH BID PRN 09/27/19 [History] Ipratropium [Atrovent 0.06% Nasal [place]] 2 spray JONE TID PRN 09/27/19 [History] Liothyronine [Cytomel] 10 mcg PO DAILY 09/27/19 [History] Furosemide [Lasix] 20 mg PO DAILY 02/21/20 [History] Omeprazole Magnesium [Prilosec Otc] 20 mg PO DAILY #30 tablet. 02/22/20 [Rx] Ondansetron [Zofran ODT] 4 mg PO Q6H PRN #12 tab.dis 02/22/20 [Rx] Albuterol Sulfate 2.5 mg IH TID 10 Days #30 ml 03/23/20 [Rx] Benzonatate [Tessalon Perle] 100 mg PO TID PRN #15 capsule 04/13/20 [Rx] cephALEXin [Keflex] 500 mg PO Q8H 7 Days #21 cap 04/15/20 [Rx] Ciprofloxacin HCl [Cipro] 500 mg PO BID #14 tablet 10/07/20 [Rx] Azithromycin [Zithromax] 250 mg PO ASDIRECTED #6 tablet 12/15/20 [Rx] Past Medical History - Past Health History Medical/Surgical History: Denies Medical/Surgical History HEENT History: Reports: Impaired Vision Other HEENT History: uses reading glasses, has upper Cardiovascular History: Reports: High Cholesterol, Hypertension Respiratory History: Reports: Asthma, Pneumonia, Recurrent, Other (See Below) Other Respiratory History: sinus infection Gastrointestinal History: Reports: GERD, Hemorrhoids 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 History: Reports: None 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: Musculoskeletal History: Reports: Back Pain, Chronic, Fracture Other Musculoskeletal History: hx fx right ankle Neurological History: Reports: Other (See Below) Other Neuro History: was told she had a "mini stroke" many years ago, no residual Psychiatric History: Reports: Anxiety, Depression Endocrine/Metabolic History: Reports: Diabetes, Type II, Hypothyroidism, Obesity/BMI 30+ Hematologic History: Reports: None Immunologic History: Reports: HIV Oncologic (Cancer) History: Reports: Basal Cell Carcinoma Dermatologic History: Reports: None - Infectious Disease History Infectious Disease History: Reports: HIV-Human Immunodeficiency Virus - Past Surgical History Head Surgeries/Procedures: Reports: None HEENT Surgical History: Reports: None Cardiovascular Surgical History: Reports: None Respiratory Surgical History: Reports: None GI Surgical History: Reports: None Other GI Surgeries/Procedures: hemorrhoidectomy Female Surgical History: Reports: Hysterectomy, Salpingo-Oophorectomy Endocrine Surgical History: Reports: None Neurological Surgical History: Reports: None Musculoskeletal Surgical History: Reports: None Other Musculoskeletal Surgeries/Procedures:: right little finger. Right foot Oncologic Surgical History: Reports: None Dermatological Surgical History: Reports: Other (See Below) Social & Family History - Family History Family Medical History: No Pertinent Family History - Caffeine Use Caffeine Use: Reports: None Caffeine Use Comment: 2/day ED ROS GENERAL - Review of Systems Review Of Systems: Comprehensive ROS is negative, except as noted in HPI. ED EXAM, GENERAL - Physical Exam Exam: See Below Exam Limited By: No Limitations General Appearance: Alert, WD/WN, No Apparent Distress Ears: Normal External Exam Throat/Mouth: Normal Voice, No Airway Compromise Head: Atraumatic, Normocephalic Neck: Normal Inspection Respiratory/Chest: No Respiratory Distress, Lungs Clear, Normal Breath Sounds, No Accessory Muscle Use Cardiovascular: Normal Peripheral Pulses, Regular Rate, Rhythm, No Edema Extremities: Normal Inspection Neurological: Alert, Normal Cognition, Normal Gait Psychiatric: Normal Affect, Normal Mood Skin Exam: Warm, Dry, Intact, Normal Color #1 Interpretation EKG Date: 12/15/20 Time: 21:33 Rhythm: NSR Rate (Beats/Min): 68 [place]: Normal P-Wave: Present QRS: Normal ST-T: Normal QT: Normal WA/PQ Interval: 131 EKG Interpretation Comments: Normal EKG Course - Vital Signs Last Recorded V/S: Last Vital Signs Temp 97.0 F 12/15/20 21:23 Pulse 95 12/15/20 21:23 Resp 18 12/15/20 21:23 BP 146/77 H 12/15/20 21:23 Pulse Ox 94 L 12/15/20 21:23 - Orders/Labs/Meds Orders: Active Orders 24 hr Category Date Time Status EKG Documentation Completion [RC] STAT Care 12/15/20 21:37 Active Sodium Chloride 0.9% [Saline Flush] Med 12/15/20 21:37 Active 10 ml FLUSH ASDIRECTED PRN Sodium Chloride 0.9% [Saline Flush] Med 12/15/20 21:37 Active 2.5 ml FLUSH ASDIRECTED PRN Saline Lock Insert [OM.PC] Stat Oth 12/15/20 21:38 Ordered Medication Orders Sodium Chloride (Sodium Chloride 0.9% 10 Ml Syringe) 10 ml FLUSH ASDIRECTED PRN PRN Reason: Keep Vein Open Last Admin: 12/15/20 23:45 Dose: 10 ml Documented by: MITCH Sodium Chloride (Sodium Chloride 0.9% 2.5 Ml Syringe) 2.5 ml FLUSH ASDIRECTED PRN PRN Reason: Keep Vein Open Last Admin: 12/15/20 23:45 Dose: 2.5 ml Documented by: MITCH Labs: Laboratory Tests 12/15/20 12/15/20 12/15/20 Range/Units 21:20 21:20 21:20 WBC 13.48 H (4.0-11.0) K/uL RBC 5.33 (4.30-5.90) M/uL Hgb 17.0 H (12.0-16.0) g/dL Hct 49.6 H (36.0-46.0) % MCV 93.1 (80.0-98.0) fL MCH 31.9 (27.0-32.0) pg MCHC 34.3 (31.0-37.0) g/dL RDW Std Deviation 46.2 (28.0-62.0) fl RDW Coeff of [place] 14 (11.0-15.0) % Plt Count 219 (150-400) K/uL MPV 10.60 (7.40-12.00) fL Neut % (Auto) 66.8 (48.0-80.0) % Lymph % (Auto) 28.4 (16.0-40.0) % [place] % (Auto) 3.2 (0.0-15.0) % Eos % (Auto) 1.3 (0.0-7.0) % Baso % (Auto) 0.3 (0.0-1.5) % Neut # (Auto) 9.0 H (1.4-5.7) K/uL Lymph # (Auto) 3.8 H (0.6-2.4) K/uL [place] # (Auto) 0.4 (0.0-0.8) K/uL Eos # (Auto) 0.2 (0.0-0.7) K/uL Baso # (Auto) 0.0 (0.0-0.1) K/uL Nucleated RBC % 0.0 /100WBC Nucleated RBCs # 0 K/uL D-Dimer, Quantitative 0.28 (0.0-0.50) mg/L FEU Sodium 141 (136-145) mmol/L Potassium 4.3 (3.5-5.1) mmol/L Chloride 104 (98-107) mmol/L Carbon Dioxide 28.5 (21.0-32.0) mmol/L BUN 14 (7.0-18.0) mg/dL Creatinine 1.2 H (0.6-1.0) mg/dL Est Cr Clr Drug Dosing 44.86 mL/min Estimated GFR (MDRD) 45.8 ml/min Glucose 189 H (74-106) mg/dL Calcium 9.2 (8.5-10.1) mg/dL Total Bilirubin 0.4 (0.2-1.0) mg/dL AST 24 (15-37) IU/L ALT 34 (14-63) IU/L Alkaline Phosphatase 67 (46-116) U/L Troponin I < 0.050 (0.000-0.056) ng/mL B-Natriuretic Peptide (<100) PG/ML Total Protein 7.3 (6.4-8.2) g/dL Albumin 3.7 (3.4-5.0) g/dL Globulin 3.6 (2.6-4.0) g/dL Albumin/Globulin Ratio 1.0 (0.9-1.6) SARS-CoV-2 RNA (DELL) (NEGATIVE) 12/15/20 12/15/20 Range/Units 21:20 22:39 WBC (4.0-11.0) K/uL RBC (4.30-5.90) M/uL Hgb (12.0-16.0) g/dL Hct (36.0-46.0) % MCV (80.0-98.0) fL MCH (27.0-32.0) pg MCHC (31.0-37.0) g/dL RDW Std Deviation (28.0-62.0) fl RDW Coeff of Edgar (11.0-15.0) % Plt Count (150-400) K/uL MPV (7.40-12.00) fL Neut % (Auto) (48.0-80.0) % Lymph % (Auto) (16.0-40.0) % [place] % (Auto) (0.0-15.0) % Eos % (Auto) (0.0-7.0) % Baso % (Auto) (0.0-1.5) % Neut # (Auto) (1.4-5.7) K/uL Lymph # (Auto) (0.6-2.4) K/uL [place] # (Auto) (0.0-0.8) K/uL Eos # (Auto) (0.0-0.7) K/uL Baso # (Auto) (0.0-0.1) K/uL Nucleated RBC % /100WBC Nucleated RBCs # K/uL D-Dimer, Quantitative (0.0-0.50) mg/L FEU Sodium (136-145) mmol/L Potassium (3.5-5.1) mmol/L Chloride (98-107) mmol/L Carbon Dioxide (21.0-32.0) mmol/L BUN (7.0-18.0) mg/dL Creatinine (0.6-1.0) mg/dL Est Cr Clr Drug Dosing mL/min Estimated GFR (MDRD) ml/min Glucose (74-106) mg/dL Calcium (8.5-10.1) mg/dL Total Bilirubin (0.2-1.0) mg/dL AST (15-37) IU/L ALT (14-63) IU/L Alkaline Phosphatase (46-116) U/L Troponin I (0.000-0.056) ng/mL B-Natriuretic Peptide 28 (<100) PG/ML Total Protein (6.4-8.2) g/dL Albumin (3.4-5.0) g/dL Globulin (2.6-4.0) g/dL Albumin/Globulin Ratio (0.9-1.6) SARS-CoV-2 RNA (DELL) NEGATIVE (NEGATIVE) Meds: Medications Generic Name Dose Route Start Last Admin Trade Name Freq PRN Reason Stop Dose Admin Sodium Chloride 10 ml 12/15/20 21:37 12/15/20 23:45 Sodium Chloride 0.9% 10 Ml Syringe FLUSH 10 ml ASDIRECTED PRN Administration Keep Vein Open Sodium Chloride 2.5 ml 12/15/20 21:37 12/15/20 23:45 Sodium Chloride 0.9% 2.5 Ml Syringe FLUSH 2.5 ml ASDIRECTED PRN Administration Keep Vein Open Discontinued Medications Generic Name Dose Route Start Last Admin Trade Name Freq PRN Reason Stop Dose Admin Albuterol/Ipratropium 3 ml 12/15/20 21:37 12/15/20 22:28 Albuterol/Ipratropium 3.0-0.5 Mg/3 Ml Neb Soln NEB 12/15/20 21:38 3 ml ONETIME ONE Administration Aspirin 324 mg 12/15/20 21:37 12/15/20 22:26 Aspirin 81 Mg Tab.Chew PO 12/15/20 21:38 324 mg ONETIME ONE Administration - Re-Assessments/Exams Free Text/Narrative Re-Assessment/Exam: 12/15/20 23:51 CXR unremarkable; will d/c with azithromycin considering patient's symptoms and h/o TOB use and mild leukocytosis Departure - Departure Time of Disposition: 23:52 Disposition: Home, Self-Care 01 Condition: Good Clinical Impression: Shortness of breath - Discharge Information Prescriptions: Azithromycin [Zithromax] 250 mg PO ASDIRECTED #6 tablet Instructions: Shortness of Breath, Adult Referrals: Chas Mitchell MD [Primary Care Provider] - Forms: ED Department Discharge Additional Instructions: The following information is given to patients seen in the emergency department who are being discharged to home. This information is to outline your options for follow-up care. We provide all patients seen in our emergency department with a follow-up referral. The need for follow-up, as well as the timing and circumstances, are variable depending upon the specifics of your emergency department visit. If you don't have a primary care physician on staff, we will provide you with a referral. We always advise you to contact your personal physician following an emergency department visit to inform them of the circumstance of the visit and for follow-up with them and/or the need for any referrals to a consulting specialist. The emergency department will also refer you to a specialist when appropriate. This referral assures that you have the opportunity for follow-up care with a specialist. All of these measure are taken in an effort to provide you with optimal care, which includes your follow-up. Under all circumstances we always encourage you to contact your private physician who remains a resource for coordinating your care. When calling for follow-up care, please make the office aware that this follow-up is from your recent emergency room visit. If for any reason you are refused follow-up, please contact the [facility] Emergency Department at and asked to speak to the emergency department charge nurse. Please follow up with your primary care physician. If you do not have a primary care physician, see below: [facility] [address] [place] [id number] [facility] [address] [place] [id number] [facility] - Pediatric Clinic [address] [place] [id number] Sepsis Event Note (ED) - Evaluation Sepsis Screening Result: No Definite Risk - Focused Exam Vital Signs: Vital Signs Temp Pulse Resp BP Pulse Ox 12/15/20 21:23 97.0 F 95 18 146/77 H 94 L - My Orders Last 24 Hours: My Active Orders 12/15/20 21:37 EKG Documentation Completion [RC] STAT Sodium Chloride 0.9% [Saline Flush] 10 ml FLUSH ASDIRECTED PRN Sodium Chloride 0.9% [Saline Flush] 2.5 ml FLUSH ASDIRECTED PRN 12/15/20 21:38 Saline Lock Insert [OM.PC] Stat - Assessment/Plan Last 24 Hours: My Active Orders 12/15/20 21:37 EKG Documentation Completion [RC] STAT Sodium Chloride 0.9% [Saline Flush] 10 ml FLUSH ASDIRECTED PRN Sodium Chloride 0.9% [Saline Flush] 2.5 ml FLUSH ASDIRECTED PRN 12/15/20 21:38 Saline Lock Insert [OM.PC] Stat
[2020-12-15 22:10] LABS: BLOOD UREA NITROGEN,BUN 14 mg/dL (7.0-18.0); CARBON DIOXIDE,CO2 28.5 mmol/L (21.0-32.0); CHLORIDE,CL 104 mmol/L (98-107); GLUCOSE RANDOM 189 mg/dL (74-106); POTASSIUM,K 4.3 mmol/L (3.5-5.1); SODIUM,NA 141 mmol/L (136-145)
--- NOTE | 2020-12-15 23:50 | CR ---
Indication: Chest pain. Technique: AP portable view of the chest. Comparison: None Findings: Heart is normal in size. The lungs are clear. No infiltrate, pleural effusion, or pneumothorax is identified. Impression: No acute cardiopulmonary process Dictated by Suma Fenton MD @ 12/15/2020 11:48:[address] Suma Fenton @ Dec 15 2020 11:48PM
[2020-12-16 00:17] VITALS: BP 141/78; PULSE 78
== END 2020-12-16 00:19 | disposition home or self-care (01) ==
LOC: MW.ED 21:04
DX: R06.02 Shortness of breath (principal); E78.00 Pure hypercholesterolemia, unspecified; I10 Essential (primary) hypertension; J45.909 Unspecified asthma, uncomplicated; K21.9 Gastro-esophageal reflux disease without esophagitis; E11.9 Type 2 diabetes mellitus without complications; Z79.84 Long term (current) use of oral hypoglycemic drugs; Z20.822 Contact with and (suspected) exposure to COVID-19; Z88.8 Allergy status to other drugs, medicaments and biological substances; Z88.2 Allergy status to sulfonamides; Z88.1 Allergy status to other antibiotic agents; Z79.899 Other long term (current) drug therapy
CPT/HCPCS: 36415; 71045; 80053; 83880; 84484; 85025; 85379; 93005; 99285; A9270; U0002; 93010; 99284; J7620-GY

== ENCOUNTER 2021-02-09 22:20 | Emergency (ER) | payer MEDICARE, MEDICAID ==
[2021-02-09 22:59] VITALS: BP 146/60; PULSE 87
[2021-02-09] MEDS ORDERED: Acetaminophen 325 MG Tab PO ONE (23:35)
--- NOTE | 2021-02-09 23:35 | EDM.PDOC ---
ED HPI GENERAL MEDICAL PROBLEM - General Chief Complaint: ENT Problem Stated Complaint: POSSIBLE SINUS INFECTION Time Seen by Provider: 02/09/21 23:13 - History of Present Illness INITIAL COMMENTS - FREE TEXT/NARRATIVE: HISTORY AND PHYSICAL: History of present illness: This is a 60-year-old female who presents to the ER today secondary to sinus congestion has been persistent for over a week. Patient reports that she feels that her sinuses are clogged up and that she has a lot of postnasal drip irritating the back of her throat with some irritation in her eyes for approximately 1 to 2 weeks. She reports that she did go to the walk-in clinic and was started on doxycycline and a Medrol Dosepak and reports that the exactly does not yet resolved her symptoms. Patient denies any recent fevers, shakes, chills, nausea, vomiting, diarrhea, dysuria, frequency, urgency. Patient reports that she has been taking Mucinex as well as Sudafed despite her history of hypertension. Patient does have a history of hypertension and HIV. Patient has any abdominal pain. Patient has any double vision or blurred vision. Patient has any nuchal rigidity or photophobia. Review of systems: As per history of present illness and below otherwise all systems reviewed and negative. Past medical history: As per history of present illness and as reviewed below otherwise noncontributory. Surgical history: As per history of present illness and as reviewed below otherwise noncontributory. Social history: No reported history of drug abuse. Family history: As per history of present illness and as reviewed below otherwise nonco ntributory. Physical exam: This patient was seen and evaluated during the 2019 SARS-CoV-2 novel coronavirus pandemic period. Community viral transmission is ongoing at time of this encounter and the emergency department is operating under pandemic response procedures. Constitutional: Patient is oriented to person, place, and time. Appears well- developed and well-nourished. No distress. HEENT: Moist mucous membranes, neck supple, no nuchal rigidity, no photophobia, no Kernig's sign or Brudzinski sign, patient does not present with signs or symptoms of be consistent with meningitis. Head: Normocephalic and atraumatic Eyes: Right eye exhibits no discharge. Left eye exhibits no discharge. No scleral icterus Neck: Normal range of motion. No tracheal deviation present. Cardiovascular: Normal rate and regular rhythm. Pulmonary: Effort normal, no respiratory distress. Abdominal: No distention Musculoskeletal: Normal range of motion Neurologic: Neuro: A&Ox3. Cranial nerves II-XII grossly intact, 5/5 strength to bilateral upper and lower extremities, sensation intact to bilateral upper and lower extremities, no nystagmus, PERRLA, EOMI, normal speech, proprioception intact to bilateral lower extremities, normal finger to nose test, gait normal Skin: [place], warm and dry. Psychiatric: Normal mood and affect. Behavior is normal. Judgment and thought content normal. Nursing note and vital signs have been reviewed Assessment and plan: 60-year-old female who presents ER today secondary to sinus congestion and concerns that she is having a persistent sinus infection despite being on doxycycline. Patient has not had any fevers. Patient's presentation appears to be more consistent with allergic sinusitis and will get started on Claritin and Benadryl Aleve and Tylenol to assist with her pain. I encouraged patient to follow-up with PCP for further management of her symptoms if they should persist. Patient does not present with any signs or symptoms of be concerning for meningitis, subarachnoid hemorrhage, intracranial hemorrhage or other acute intracranial processes. Reassessment at the time of disposition demonstrates that the patient is in no acute distress. The patient has remained stable throughout the entire ED visit and is without objective evidence for acute process requiring urgent intervention or hospitalization. The patient is stable for discharge, counseling is provided as documented above, discussed symptomatic treatment and specific conditions for return. I have spoken with the patient/caregiver and discussed todays findings, in a ddition to providing specific details for the plan of care. Questions are answered and there is agreement with the plan. Definitive disposition and diagnosis as appropriate pending reevaluation and re view of above. Face/Facial Pain Score (Numeric/FACES): 9 - Related Data Allergies Allergy/AdvReac Type Severity Reaction Status Date / Time doxepin [Doxepin] Allergy Blurred Verified 12/15/20 21:22 Vision lisinopril Allergy Rash Verified 12/15/20 21:22 Wkgkuro-Vhc-Avv Reductase Allergy Cannot Verified 12/15/20 21:22 Inhibitor Remember sulfamethoxazole Allergy Weakness Verified 12/15/20 21:22 [From Bactrim] trimethoprim [From Bactrim] Allergy Weakness Verified 12/15/20 21:22 Home Meds: Home Meds Estrogens, Conjugated [Premarin Vaginal Crm] 1 applic VAG Q48H PRN 12/14/13 [History] Losartan/Hydrochlorothiazide [Losartan-HCTZ 100-12.5 MG] 1 each PO DAILY [History] Levothyroxine Sodium [Synthroid] 200 mcg PO ACBREAKFAST 04/06/14 [History] ALPRAZolam [Xanax] 2 mg PO TID PRN 04/17/14 [History] Rosuvastatin [Crestor] 20 mg PO BEDTIME 04/17/14 [History] metFORMIN [Glucophage] 1,000 mg PO BID 04/17/14 [History] traMADol [Ultram] 100 mg PO TID PRN 04/17/14 [History] Sertraline HCl 200 mg PO DAILY 04/01/15 [History] Prochlorperazine Maleate 10 mg PO DAILY PRN 12/20/15 [History] amLODIPine Besylate [Norvasc] 5 mg PO DAILY 12/20/15 [History] Lidocaine 5% [Lidoderm 5%] 1 each TOP DAILY PRN 01/04/16 [History] Levocetirizine Dihydrochloride 5 mg PO BEDTIME 08/26/16 [History] Albuterol Sulfate [Albuterol Sulfate Hfa] 18 gm IH Q4H PRN #1 hfa.aer.ad 09/27/19 [Rx] Elviteg/Cob/Emtri/Tenof Alafen [Genvoya Tablet] 1 tab PO DAILY 09/27/19 [History] Exenatide Microspheres [Bydureon Pen] 2 mg SQ WEEKLY 09/27/19 [History] Fluticasone Propion/Salmeterol [Advair 250-50 Diskus] 1 puff IH BID PRN 09/27/19 [History] Ipratropium [Atrovent 0.06% Nasal [place]] 2 spray JONE TID PRN 09/27/19 [History] Liothyronine [Cytomel] 10 mcg PO DAILY 09/27/19 [History] Furosemide [Lasix] 20 mg PO DAILY 02/21/20 [History] Omeprazole Magnesium [Prilosec Otc] 20 mg PO DAILY #30 tablet. 02/22/20 [Rx] Ondansetron [Zofran ODT] 4 mg PO Q6H PRN #12 tab.dis 02/22/20 [Rx] Albuterol Sulfate 2.5 mg IH TID 10 Days #30 ml 03/23/20 [Rx] Benzonatate [Tessalon Perle] 100 mg PO TID PRN #15 capsule 04/13/20 [Rx] cephALEXin [Keflex] 500 mg PO Q8H 7 Days #21 cap 04/15/20 [Rx] Ciprofloxacin HCl [Cipro] 500 mg PO BID #14 tablet 10/07/20 [Rx] Azithromycin [Zithromax] 250 mg PO ASDIRECTED #6 tablet 12/15/20 [Rx] Past Medical History - Past Health History Medical/Surgical History: Denies Medical/Surgical History HEENT History: Reports: Impaired Vision Other HEENT History: uses reading glasses, has upper Cardiovascular History: Reports: High Cholesterol, Hypertension Respiratory History: Reports: Asthma, Pneumonia, Recurrent, Other (See Below) Other Respiratory History: sinus infection Gastrointestinal History: Reports: GERD, Hemorrhoids 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 History: Reports: None 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: Musculoskeletal History: Reports: Back Pain, Chronic, Fracture Other Musculoskeletal History: hx fx right ankle Neurological History: Reports: Other (See Below) Other Neuro History: was told she had a "mini stroke" many years ago, no residual Psychiatric History: Reports: Anxiety, Depression Endocrine/Metabolic History: Reports: Diabetes, Type II, Hypothyroidism, Obesity/BMI 30+ Hematologic History: Reports: None Immunologic History: Reports: HIV Oncologic (Cancer) History: Reports: Basal Cell Carcinoma Dermatologic History: Reports: None - Infectious Disease History Infectious Disease History: Reports: HIV-Human Immunodeficiency Virus - Past Surgical History Head Surgeries/Procedures: Reports: None HEENT Surgical History: Reports: None Cardiovascular Surgical History: Reports: None Respiratory Surgical History: Reports: None GI Surgical History: Reports: None Other GI Surgeries/Procedures: hemorrhoidectomy Female Surgical History: Reports: Hysterectomy, Salpingo-Oophorectomy Endocrine Surgical History: Reports: None Neurological Surgical History: Reports: None Musculoskeletal Surgical History: Reports: None Other Musculoskeletal Surgeries/Procedures:: right little finger. Right foot Oncologic Surgical History: Reports: None Dermatological Surgical History: Reports: Other (See Below) Social & Family History - Family History Family Medical History: No Pertinent Family History - Tobacco Use Tobacco Use Status *Q: Current Every Day Tobacco User Years of Tobacco use: 20 Packs/Tins Daily: 1 - Caffeine Use Caffeine Use: Reports: Coffee Caffeine Use Comment: 2/day - Recreational Drug Use Recreational Drug Use: No ED ROS GENERAL - Review of Systems Review Of Systems: See Below ED EXAM, GENERAL - Physical Exam Exam: See Below Course - Vital Signs Last Recorded V/S: Last Vital Signs Temp 96.5 F L 02/09/21 22:53 Pulse 87 02/09/21 22:53 Resp 18 02/09/21 22:53 BP 146/60 H 02/09/21 22:53 Pulse Ox 96 02/09/21 22:53 Departure - Departure Time of Disposition: 23:33 Disposition: Home, Self-Care 01 Condition: Good Clinical Impression: Allergic sinusitis, Sinus headache - Discharge Information Instructions: Allergic Rhinitis, Adult, Cxts-bb-Bqay, Sinus Headache, [id number] Referrals: Chas Mitchell MD [Primary Care Provider] - Additional Instructions: You were seen and evaluated in the ER today secondary to signs and symptoms most consistent with allergic rhinitis/sinusitis. Please continue the medications that were already prescribed to you however I would recommend that you take Claritin 10 mg daily as well as Benadryl 50 mg 4 times a day to assist with your symptoms. Please make an appointment see your family doctor for reevaluation. You may take acetaminophen 500 mg every 4-6 hours as needed for pain. The following information is given to patients seen in the emergency department who are being discharged to home. This information is to outline your options for follow-up care. We provide all patients seen in our emergency department with a follow-up referral. The need for follow-up, as well as the timing and circumstances, are variable depending upon the specifics of your emergency department visit. If you don't have a primary care physician on staff, we will provide you with a referral. We always advise you to contact your personal physician following an emergency department visit to inform them of the circumstance of the visit and for follow-up with them and/or the need for any referrals to a consulting specialist. The emergency department will also refer you to a specialist when appropriate. This referral assures that you have the opportunity for follow-up care with a specialist. All of these measure are taken in an effort to provide you with optimal care, which includes your follow-up. Under all circumstances we always encourage you to contact your private physician who remains a resource for coordinating your care. When calling for follow-up care, please make the office aware that this follow-up is from your recent emergency room visit. If for any reason you are refused follow-up, please contact the [facility] Emergency Department at and asked to speak to the emergency department charge nurse. [facility] - Primary Care [address] [place] [id number] [facility] [address] [place] [id number] Sepsis Event Note (ED) - Evaluation Sepsis Screening Result: No Definite Risk - Focused Exam Vital Signs: Vital Signs Temp Pulse Resp BP Pulse Ox 02/09/21 22:53 96.5 F L 87 18 146/60 H 96
[2021-02-09] MEDS ORDERED: Ketorolac 30 MG/ML SDV IM ONE (23:52)
== END 2021-02-10 00:02 | disposition home or self-care (01) ==
LOC: MW.ED 22:20
DX: J30.9 Allergic rhinitis, unspecified (principal); E78.00 Pure hypercholesterolemia, unspecified; I10 Essential (primary) hypertension; K21.9 Gastro-esophageal reflux disease without esophagitis; E11.9 Type 2 diabetes mellitus without complications; E03.9 Hypothyroidism, unspecified; E66.9 Obesity, unspecified; Z68.41 Body mass index [BMI] 40.0-44.9, adult; Z72.0 Tobacco use; Z88.8 Allergy status to other drugs, medicaments and biological substances; Z88.2 Allergy status to sulfonamides; Z79.84 Long term (current) use of oral hypoglycemic drugs; Z79.899 Other long term (current) drug therapy
CPT/HCPCS: 96372; 99283; J1885

== ENCOUNTER 2021-03-19 00:02 | Emergency (ER) | payer MEDICARE, MEDICAID ==
[2021-03-19 00:11] VITALS: BP 121/55
--- NOTE | 2021-03-19 00:11 | EDM.PDOC ---
ED HPI GENERAL MEDICAL PROBLEM - General Chief Complaint: Lower Extremity Injury/Pain Stated Complaint: FALL Time Seen by Provider: 03/19/21 00:04 - History of Present Illness INITIAL COMMENTS - FREE TEXT/NARRATIVE: History of present illness: [] The patient was with a friend. She fell forward landed on her knees. Her left hip hurts so bad she could not get up. The patient also complains of headache that started today in the right and left frontal area but she has had sinus congestion for more than that time for several days. The patient's pain in the knees and hip are moderately severe and worse with attempts to bear weight and range of motion. They do not radiate. They are constant. Patient also complains of pain in the lowest part of her neck. That is posterior. She feels like she pulled something when she fell. The patient also is off antibiotics 2 days and her sinus congestion is getting worse since that time. She is on Claritin. Review of systems: As per history of present illness and below otherwise all systems reviewed and negative. Past medical history: As per history of present illness and as reviewed below otherwise noncontributory. Surgical history: As per history of present illness and as reviewed below otherwise noncontributory. Social history: No reported history of drug or alcohol abuse. Family history: As per history of present illness and as reviewed below otherwise no ncontributory. Physical exam: Constitutional - well developed, well-nourished and in no acute distress HEENT -tenderness of the frontal sinuses. Neck supple. Normocephalic, no evidence of trauma - external nose and mouth normal - no mass in neck and no JVD - mucosae moist EYES - full EOM, PERRL, no icterus - no evidence of inflammation, injection, or drainage Respiratory - no respiratory distress, equal bilateral expansion, lungs clear to auscultation and no abnormal lung sounds Cardiovascular - Regular Rhythm with S1 and S2 appreciated and no murmur, gallop or rub. GI - abdomen soft without distension or organomegaly - normal bowel sounds - no guard or rebound Musculoskeletal tenderness with abrasions in the prepatellar soft tissues of the knees. Tenderness of the left hip. No gross deformity of long bones or joints - no tenderness, swelling or edema Neurologic - Alert and oriented times four - CN II-XII grossly intact - motor sensory and coordination symmetrically normal Psychiatric - appropriate mood and affect with normal thought content Hematologic - No petechiae or purpura - mucosa appropriate color and sclera not pale - normal nail bed color and refill Integument - no rash or evidence of trauma - normal turgor Diagnostics: [] Therapeutics: [] Impression: [] Plan: [] Definitive disposition and diagnosis as appropriate pending reevaluation and review of above. Left Hip Pain Score (Numeric/FACES): 8 - Related Data Allergies Allergy/AdvReac Type Severity Reaction Status Date / Time doxepin [Doxepin] Allergy Blurred Verified 03/19/21 00:31 Vision lisinopril Allergy Rash Verified 03/19/21 00:31 Wkdvdra-Xsi-Axc Reductase Allergy Cannot Verified 03/19/21 00:31 Inhibitor Remember sulfamethoxazole Allergy Weakness Verified 03/19/21 00:31 [From Bactrim] trimethoprim [From Bactrim] Allergy Weakness Verified 03/19/21 00:31 Home Meds: Home Meds Estrogens, Conjugated [Premarin Vaginal Crm] 1 applic VAG Q48H PRN 12/14/13 [History] Losartan/Hydrochlorothiazide [Losartan-HCTZ 100-12.5 MG] 1 each PO DAILY 12/14/13 [History] Levothyroxine Sodium [Synthroid] 200 mcg PO ACBREAKFAST 04/06/14 [History] ALPRAZolam [Xanax] 2 mg PO TID PRN 04/17/14 [History] Rosuvastatin [Crestor] 20 mg PO BEDTIME 04/17/14 [History] metFORMIN [Glucophage] 1,000 mg PO BID 04/17/14 [History] traMADol [Ultram] 100 mg PO TID PRN 04/17/14 [History] Sertraline HCl 200 mg PO DAILY 04/01/15 [History] Prochlorperazine Maleate 10 mg PO DAILY PRN 12/20/15 [History] amLODIPine Besylate [Norvasc] 5 mg PO DAILY 12/20/15 [History] Lidocaine 5% [Lidoderm 5%] 1 each TOP DAILY PRN 01/04/16 [History] Levocetirizine Dihydrochloride 5 mg PO BEDTIME 08/26/16 [History] Albuterol Sulfate [Albuterol Sulfate Hfa] 18 gm IH Q4H PRN #1 hfa.aer.ad 09/27/19 [Rx] Elviteg/Cob/Emtri/Tenof Alafen [Genvoya Tablet] 1 tab PO DAILY 09/27/19 [History] Exenatide Microspheres [Bydureon Pen] 2 mg SQ WEEKLY 09/27/19 [History] Fluticasone Propion/Salmeterol [Advair 250-50 Diskus] 1 puff IH BID PRN 09/27/19 [History] Ipratropium [Atrovent 0.06% Nasal [place]] 2 spray JONE TID PRN 09/27/19 [History] Liothyronine [Cytomel] 10 mcg PO DAILY 09/27/19 [History] Furosemide [Lasix] 20 mg PO DAILY 02/21/20 [History] Omeprazole Magnesium [Prilosec Otc] 20 mg PO DAILY #30 tablet. 02/22/20 [Rx] Ondansetron [Zofran ODT] 4 mg PO Q6H PRN #12 tab.dis 02/22/20 [Rx] Albuterol Sulfate 2.5 mg IH TID 10 Days #30 ml 03/23/20 [Rx] Benzonatate [Tessalon Perle] 100 mg PO TID PRN #15 capsule 04/13/20 [Rx] cephALEXin [Keflex] 500 mg PO Q8H 7 Days #21 cap 04/15/20 [Rx] Ciprofloxacin HCl [Cipro] 500 mg PO BID #14 tablet 10/07/20 [Rx] Azithromycin [Zithromax] 250 mg PO ASDIRECTED #6 tablet 12/15/20 [Rx] Amoxicillin/Clavulanate K [Augmentin 875-125 MG] 1 tab PO BID 10 Days #20 tab 03/19/21 [Rx] Past Medical History - Past Health History Medical/Surgical History: Denies Medical/Surgical History HEENT History: Reports: Impaired Vision Other HEENT History: uses reading glasses, has upper Cardiovascular History: Reports: High Cholesterol, Hypertension Respiratory History: Reports: Asthma, Pneumonia, Recurrent, Other (See Below) Other Respiratory History: sinus infection Gastrointestinal History: Reports: GERD, Hemorrhoids 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 History: Reports: None 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: Musculoskeletal History: Reports: Back Pain, Chronic, Fracture Other Musculoskeletal History: hx fx right ankle Neurological History: Reports: Other (See Below) Other Neuro History: was told she had a "mini stroke" many years ago, no residual Psychiatric History: Reports: Anxiety, Depression Endocrine/Metabolic History: Reports: Diabetes, Type II, Hypothyroidism, Obe sity/BMI 30+ Hematologic History: Reports: None Immunologic History: Reports: HIV Oncologic (Cancer) History: Reports: Basal Cell Carcinoma Dermatologic History: Reports: None - Infectious Disease History Infectious Disease History: Reports: HIV-Human Immunodeficiency Virus - Past Surgical History Head Surgeries/Procedures: Reports: None HEENT Surgical History: Reports: None Cardiovascular Surgical History: Reports: None Respiratory Surgical History: Reports: None GI Surgical History: Reports: None Other GI Surgeries/Procedures: hemorrhoidectomy Female Surgical History: Reports: Hysterectomy, Salpingo-Oophorectomy Endocrine Surgical History: Reports: None Neurological Surgical History: Reports: None Musculoskeletal Surgical History: Reports: None Other Musculoskeletal Surgeries/Procedures:: right little finger. Right foot Oncologic Surgical History: Reports: None Dermatological Surgical History: Reports: Other (See Below) Social & Family History - Family History Family Medical History: No Pertinent Family History - Caffeine Use Caffeine Use: Reports: Coffee Caffeine Use Comment: 2/day Review of Systems - Review of Systems Review Of Systems: Comprehensive ROS is negative, except as noted in HPI. ED EXAM, GENERAL - Physical Exam Exam: See Below Free Text/Narrative:: My physical exam is in the HPI Course - Vital Signs Last Recorded V/S: Last Vital Signs Temp 36.3 C 03/19/21 00:04 Pulse 74 03/19/21 00:04 Resp 16 03/19/21 00:04 BP 121/55 L 03/19/21 00:04 Pulse Ox 96 03/19/21 00:04 - Orders/Labs/Meds Orders: Active Orders 24 hr Category Date Time Status DME for Discharge [COMM] Stat Oth 03/19/21 02:08 Ordered Meds: Medications Discontinued Medications Generic Name Dose Route Start Last Admin Trade Name Jrq PRN Reason Stop Dose Admin Tramadol HCl 50 mg 03/19/21 01:08 03/19/21 01:15 Tramadol 50 Mg Tab PO 03/19/21 01:09 50 mg ONETIME ONE Administration Departure - Departure Time of Disposition: 02:25 Disposition: Home, Self-Care 01 Condition: Good Clinical Impression: Fall, Acute frontal sinusitis, Contusion of left knee, initial encounter, Contusion of right knee, initial encounter, Fracture of patella, left, closed, Fracture of patella - Discharge Information Instructions: Contusion, [id number], How to Use a Knee Immobilizer, [id number]-[id number], Patellar Fracture, Adult, Sinusitis, Adult, Ppcb-[id number] Forms: ED Department Discharge Additional Instructions: [facility] - Primary Care [address] [place] [address] [facility] [address] [place] [id number] [facility] Professional Building [address], [address] [place] [address] The following information is given to patients seen in the emergency department who are being discharged to home. This information is to outline your options for follow-up care. We provide all patients seen in our emergency department with a follow-up referral. The need for follow-up, as well as the timing and circumstances, are variable depending upon the specifics of your emergency department visit. If you don't have a primary care physician on staff, we will provide you with a referral. We always advise you to contact your personal physician following an emergency department visit to inform them of the circumstance of the visit and for follow-up with them and/or the need for any referrals to a consulting specialist. The emergency department will also refer you to a specialist when appropriate. This referral assures that you have the opportunity for follow-up care with a specialist. All of these measure are taken in an effort to provide you with optimal care, which includes your follow-up. Under all circumstances we always encourage you to contact your private physician who remains a resource for coordinating your care. When calling for follow-up care, please make the office aware that this follow-up is from your recent emergency room visit. If for any reason you are refused follow-up, please contact the [facility] Emergency Department at and asked to speak to the emergency department charge nurse. Sepsis Event Note (ED) - Focused Exam Vital Signs: Vital Signs Temp Pulse Resp BP Pulse Ox 03/19/21 00:04 36.3 C 74 16 121/55 L 96 - My Orders Last 24 Hours: My Active Orders 03/19/21 02:08 DME for Discharge [COMM] Stat - Assessment/Plan Last 24 Hours: My Active Orders 03/19/21 02:08 DME for Discharge [COMM] Stat
[2021-03-19] MEDS ORDERED: traMADol 50 MG Tab PO ONE (01:08)
--- NOTE | 2021-03-19 01:42 | CR ---
INDICATION: Fall, pain TECHNIQUE: X-ray left hip, two views in the single view of the pelvis COMPARISON: None FINDINGS: The alignment is normal. Negative for acute fracture or dislocation. The joint spaces are preserved. There is increased sclerosis along the sacroiliac joints bilaterally. Findings may represent degenerative change or bilateral sacroiliitis. Overlying soft tissues unremarkable. IMPRESSION: Negative for acute fracture or dislocation. Dictated by Violet Bradley MD @ 03/19/2021 1:41:[address] Violet Bradley @ Mar 19 2021 1:41AM
--- NOTE | 2021-03-19 01:46 | CR ---
INDICATION: Fall, bilateral knee pain. TECHNIQUE: X-ray bilateral knees, 3 views. COMPARISON: X-ray bilateral knees 03/03/2021. FINDINGS: There is mild tricompartmental joint space narrowing with marginal osteophytes. The alignment is normal. There is a lucent line which extends through the medial aspect of the left patella, which could represent a nondisplaced fracture. Otherwise negative for acute fracture or dislocation. The overlying soft tissues within normal limits. IMPRESSION: 1. Lucent line through the medial aspect of the left patella, could represent a nondisplaced fracture. Recommend correlation with point tenderness. 2. 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 Dictated by Violet Bradley MD @ 03/19/2021 1:45:[address] Violet Bradley @ Mar 19 2021 1:45AM
--- NOTE | 2021-03-19 01:52 | CT ---
INDICATION: Fall, neck pain TECHNIQUE: CT cervical spine without contrast. COMPARISON: CT cervical spine 05/27/2020 FINDINGS: There is normal cervical lordosis. The vertebral body heights are maintained and in good alignment. Negative for acute fracture. The facets are properly aligned. Stable mild degenerative changes are present. The prevertebral soft tissues are within normal limits. The visualized portion of the lung apices are clear. IMPRESSION: Negative for acute fracture. Please note that all CT scans at this facility use dose modulation, iterative reconstruction, and/or weight-based dosing when appropriate to reduce radiation dose to as low as reasonably achievable. Dictated by Violet Bradley MD @ 03/19/2021 1:51:[address] Violet Bradley @ Mar 19 2021 1:51AM
--- NOTE | 2021-03-19 01:56 | CT ---
INDICATION: Fall, headache TECHNIQUE: CT head without contrast. COMPARISON: CT head 05/27/2020 FINDINGS: The ventricles are in proportion to the cortical sulci and consistent with patient`s stated age. There is a stable focal area of encephalomalacia within the right frontal lobe. The patel-white matter junction is distinct. Negative for acute intracranial hemorrhage, extra-axial fluid collection or midline shift. The bony calvarium is intact. The overlying soft tissues unremarkable. IMPRESSION: Stable noncontrast CT examination of the head. Negative for acute intracranial abnormality. Please note that all CT scans at this facility use dose modulation, iterative reconstruction, and/or weight-based dosing when appropriate to reduce radiation dose to as low as reasonably achievable. Dictated by Violet Bradley MD @ 03/19/2021 1:56:[address] Violet Bradley @ Mar 19 2021 1:56AM
[2021-03-19 03:12] VITALS: PULSE 72
== END 2021-03-19 03:00 | disposition home or self-care (01) ==
LOC: MW.ED 00:02
DX: S82.091A Other fracture of right patella, initial encounter for closed fracture (principal); J01.10 Acute frontal sinusitis, unspecified; E78.00 Pure hypercholesterolemia, unspecified; I10 Essential (primary) hypertension; E03.9 Hypothyroidism, unspecified; K21.9 Gastro-esophageal reflux disease without esophagitis; E11.9 Type 2 diabetes mellitus without complications; E66.9 Obesity, unspecified; Z68.30 Body mass index [BMI] 30.0-30.9, adult; Z88.1 Allergy status to other antibiotic agents; Z88.8 Allergy status to other drugs, medicaments and biological substances; Z79.899 Other long term (current) drug therapy; W17.89XA Other fall from one level to another, initial encounter
CPT/HCPCS: 70450; 72125; 73502; 73562; 99284; A9270

== ENCOUNTER 2021-05-20 18:41 | Emergency (ER) | payer MEDICARE, MEDICAID ==
[2021-05-20] MEDS ORDERED: Sodium Chloride 0.9% 2.5 ML Syringe FLUSH PRN (18:47)
[2021-05-20] MEDS ORDERED: Sodium Chloride 0.9% 10 ML Syringe FLUSH PRN (18:47)
--- NOTE | 2021-05-20 19:19 | EDM.PDOC ---
ED HPI GENERAL MEDICAL PROBLEM - General Chief Complaint: Chest Pain Stated Complaint: HEART RACING, BOY TINGLING Time Seen by Provider: 05/20/21 18:53 Source of Information: Reports: Patient History Limitations: Reports: No Limitations - History of Present Illness INITIAL COMMENTS - FREE TEXT/NARRATIVE: HISTORY AND PHYSICAL: History of present illness: Patient is a 60-year-old female who presents to the emergency room with complaints of chest pain and generalized paresthesias since 2pm this afternoon. Symptoms started with tingling sensation to her fingertips and lips. She states she felt like she was having a panic attack. She did take her alprazolam and proceeded to go to [facility]. Upon arrival at [facility] she started to have some generalized chest pain and palpitations. The paresthesias now vary (move from finger tips/whole body/ just lips) but is never unilateral. She took a second dose of her alprazolam at 6:15 PM and proceeded to present to the emergency r oom. Patient denies any fever, chills, headache, change in vision, syncope or near syncope. Denies any chest pain, back pain, shortness of breath or cough. Denies any abdominal pain, nausea, vomiting, diarrhea, constipation or dysuria. Has not noted any blood in urine or stool. Patient has been eating and drinking appropriately. No recent travel or sick contacts. Review of systems: As per history of present illness and below otherwise all systems reviewed and negative. Past medical history: As per history of present illness and as reviewed below otherwise noncontributory. Surgical history: As per history of present illness and as reviewed below otherwise noncontributory. Social history: See social history for further information Family history: As per history of present illness and as reviewed below otherwise noncontributory. Physical exam: General: Well developed and well nourished 60-year-old female. Alert and orientated x 3. Nontoxic in appearance and in no acute distress. Vital signs are stable and have been reviewed by me. Nursing notes were reviewed. HEENT: Atraumatic, normocephalic, pupils equal and reactive bilaterally, negative for conjunctival pallor or scleral icterus, mucous membranes moist, TMs normal bilaterally, throat clear, neck supple, nontender, trachea midline. No drooling or trismus noted. No meningeal signs. No hot potato voice noted. Lungs: Clear to auscultation bilaterally. No wheezes, rales, or rhonchi. Chest nontender. Normal work of breathing, no accessory muscles used. Heart: S1S2, regular rate and rhythm without overt murmur, gallops, or rubs. No JVD. No peripheral edema Abdomen: Soft, nondistended, nontender. Normoactive bowel sounds. Negative for masses or costovertebral tenderness. Skin: Intact, warm, dry. No lesions or rashes noted. Hematologic: No petechiae or purpra. Mucosa appropriate color and normal nail bed color and refill. Extremities: Atraumatic, moves all extremities per self without difficulty or deficits, negative for cords or calf pain. Neurovascular unremarkable. Neuro: Awake, alert, oriented. Cranial nerves II through XII unremarkable. Cerebellum unremarkable. Motor and sensory unremarkable throughout. Exam nonfocal. Psychiatric: Mood and affect are appropriate. Normal thought process. Answering questions appropriately. Please note that the patient was seen and evaluated during the 2019 SARS-CoV-2 novel coronavirus pandemic period. Community viral transmission is ongoing at time of this encounter and the emergency department is operating under pandemic response procedures. Medical Decision Making: Patient is a 60-year-old female who presents to the emergency room with complaints of intermittent tingling sensation and chest pain since 2 PM. She states she did feel that this was anxiety related although her alprazolam did not alleviate her symptoms completely. She wanted to come to the emergency room for evaluation. She also would like to be evaluated for a UTI as she chronically gets them. Patient's physical exam is unremarkable. She is well appearing. Her vital signs are stable. We will do a full cardiac work-up at this time. Leukocytosis noted. No source is noted. Urine is unremarkable. Troponin is negative. TSH is slightly low although she does take Synthroid. Chest x-ray is unremarkable. I have talked with the patient about today's findings, in addition to providing specific details for plan of care. Reassessment at the time of disposition demonstrates that the patient is in no acute distress. The patient is stable for discharge, counseling was provided and we discussed in great detail signs and symptoms that would prompt them to return to the Emergency Department. Medication, follow up and supportive care measures were reviewed and discussed. Voices understanding and is agreeable to plan of care. Denies any further questions or concerns at this time. Diagnostics: CBC, CMP, UA, troponin, EKG, chest x-ray, COVID-19 Therapeutics: IV fluid Prescription: None Impression: Palpitations Hyperthyroid Plan: 1. You were evaluated today on an emergent basis. Your labs are normal with the exception that your TSH level was low, I would like you to follow up with your primary care provider to have this re-check and possibly need your Synthroid adjusted. 2. You can alternate Tylenol and ibuprofen as needed for pain and fever management. 3. We encourage you to follow up with Dr Padilla (cardiology) in the next few days for re-evaluation and further care/management. 4. If your symptoms should worsen, new symptoms develop or any of the signs and symptoms we discussed should arise please return to the emergency room or call 911 (if needed). Definitive disposition and diagnosis as appropriate pending reevaluation and review of above. Chest Pain Score (Numeric/FACES): 8 - Related Data Allergies Allergy/AdvReac Type Severity Reaction Status Date / Time doxepin [Doxepin] Allergy Blurred Verified 05/20/21 18:52 Vision lisinopril Allergy Rash Verified 05/20/21 18:52 Ourhsif-TVF-TvM Reductase Allergy Cannot Verified 05/20/21 18:52 Inhibitor Remember [Jqdvapd-Ssg-Fdc Reductase Inhibitor] sulfamethoxazole Allergy Weakness Verified 05/20/21 18:52 [From Bactrim] trimethoprim [From Bactrim] Allergy Weakness Verified 05/20/21 18:52 Home Meds: Home Meds Estrogens, Conjugated [Premarin Vaginal Crm] 1 applic VAG Q48H PRN 12/14/13 [History] Losartan/Hydrochlorothiazide [Losartan-HCTZ 100-12.5 MG] 1 each PO DAILY 12/14/13 [History] Levothyroxine Sodium [Synthroid] 200 mcg PO ACBREAKFAST 04/06/14 [History] ALPRAZolam [Xanax] 2 mg PO TID PRN 04/17/14 [History] Rosuvastatin [Crestor] 20 mg PO BEDTIME 04/17/14 [History] metFORMIN [Glucophage] 1,000 mg PO BID 04/17/14 [History] traMADol [Ultram] 100 mg PO TID PRN 04/17/14 [History] Sertraline HCl 200 mg PO DAILY 04/01/15 [History] Prochlorperazine Maleate 10 mg PO DAILY PRN 12/20/15 [History] amLODIPine Besylate [Norvasc] 5 mg PO DAILY 12/20/15 [History] Lidocaine 5% [Lidoderm 5%] 1 each TOP DAILY PRN 01/04/16 [History] Levocetirizine Dihydrochloride 5 mg PO BEDTIME 08/26/16 [History] Albuterol Sulfate [Albuterol Sulfate Hfa] 18 gm IH Q4H PRN #1 hfa.aer.ad 09/27/19 [Rx] Elviteg/Cob/Emtri/Tenof Alafen [Genvoya Tablet] 1 tab PO DAILY 09/27/19 [History] Exenatide Microspheres [Bydureon Pen] 2 mg SQ WEEKLY 09/27/19 [History] Fluticasone Propion/Salmeterol [Advair 250-50 Diskus] 1 puff IH BID PRN 09/27/19 [History] Ipratropium [Atrovent 0.06% Nasal [place]] 2 spray JONE TID PRN 09/27/19 [History] Liothyronine [Cytomel] 10 mcg PO DAILY 09/27/19 [History] Furosemide [Lasix] 20 mg PO DAILY 02/21/20 [History] Omeprazole Magnesium [Prilosec Otc] 20 mg PO DAILY #30 tablet. 02/22/20 [Rx] Ondansetron [Zofran ODT] 4 mg PO Q6H PRN #12 tab.dis 02/22/20 [Rx] Albuterol Sulfate 2.5 mg IH TID 10 Days #30 ml 03/23/20 [Rx] Benzonatate [Tessalon Perle] 100 mg PO TID PRN #15 capsule 04/13/20 [Rx] cephALEXin [Keflex] 500 mg PO Q8H 7 Days #21 cap 04/15/20 [Rx] Ciprofloxacin HCl [Cipro] 500 mg PO BID #14 tablet 10/07/20 [Rx] Azithromycin [Zithromax] 250 mg PO ASDIRECTED #6 tablet 12/15/20 [Rx] Amoxicillin/Clavulanate K [Augmentin 875-125 MG] 1 tab PO BID 10 Days #20 tab 03/19/21 [Rx] Past Medical History - Past Health History Medical/Surgical History: Denies Medical/Surgical History HEENT History: Reports: Impaired Vision Other HEENT History: uses reading glasses, has upper Cardiovascular History: Reports: High Cholesterol, Hypertension Respiratory History: Reports: Asthma, Pneumonia, Recurrent, Other (See Below) Other Respiratory History: sinus infection Gastrointestinal History: Reports: GERD, Hemorrhoids 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 History: Reports: None [employer] History: Reports: Musculoskeletal History: Reports: Back Pain, Chronic, Fracture Other Musculoskeletal History: hx fx right ankle Neurological History: Reports: Other (See Below) Other Neuro History: was told she had a "mini stroke" many years ago, no residual Psychiatric History: Reports: Anxiety, Depression Endocrine/Metabolic History: Reports: Diabetes, Type II, Hypothyroidism, Obesity/BMI 30+ Hematologic History: Reports: None Immunologic History: Reports: HIV Oncologic (Cancer) History: Reports: Basal Cell Carcinoma Dermatologic History: Reports: None - Infectious Disease History Infectious Disease History: Reports: HIV-Human Immunodeficiency Virus - Past Surgical History Head Surgeries/Procedures: Reports: None HEENT Surgical History: Reports: None Cardiovascular Surgical History: Reports: None Respiratory Surgical History: Reports: None GI Surgical History: Reports: None Other GI Surgeries/Procedures: hemorrhoidectomy Female Surgical History: Reports: Hysterectomy, Salpingo-Oophorectomy Endocrine Surgical History: Reports: None Neurological Surgical History: Reports: None Musculoskeletal Surgical History: Reports: None Other Musculoskeletal Surgeries/Procedures:: right little finger. Right foot Oncologic Surgical History: Reports: None Dermatological Surgical History: Reports: Other (See Below) Social & Family History - Family History Family Medical History: No Pertinent Family History - Tobacco Use Second Hand Smoke Exposure: No - Caffeine Use Caffeine Use: Reports: None Caffeine Use Comment: 2/day - Recreational Drug Use Recreational Drug Use: No ED ROS GENERAL - Review of Systems Review Of Systems: Comprehensive ROS is negative, except as noted in HPI. ED EXAM, GENERAL - Physical Exam Exam: See Below (See dictation) Course - Vital Signs Last Recorded V/S: Last Vital Signs Temp 97.8 F 05/20/21 18:49 Pulse 76 05/20/21 21:05 Resp 20 05/20/21 21:05 BP 150/90 H 05/20/21 21:05 Pulse Ox 99 05/20/21 21:05 - Orders/Labs/Meds Orders: Active Orders 24 hr Category Date Time Status CORONAVIRUS COVID-19 DELL [MOLEC] Stat Lab 05/20/21 18:47 Ordered Saline Lock Insert [OM.PC] Stat Oth 05/20/21 18:47 Ordered Labs: Laboratory Tests 05/20/21 05/20/21 05/20/21 Range/Units 18:58 18:58 19:22 WBC 14.48 H (4.0-11.0) K/uL RBC 4.95 (4.30-5.90) M/uL Hgb 15.6 (12.0-16.0) g/dL Hct 47.0 H (36.0-46.0) % MCV 94.9 (80.0-98.0) fL MCH 31.5 (27.0-32.0) pg MCHC 33.2 (31.0-37.0) g/dL RDW Std Deviation 48.9 (28.0-62.0) fl RDW Coeff of Edgar 14 (11.0-15.0) % Plt Count 170 (150-400) K/uL MPV 10.00 (7.40-12.00) fL Neut % (Auto) 65.5 (48.0-80.0) % Lymph % (Auto) 29.3 (16.0-40.0) % Parker % (Auto) 4.1 (0.0-15.0) % Eos % (Auto) 1.0 (0.0-7.0) % Baso % (Auto) 0.1 (0.0-1.5) % Neut # (Auto) 9.5 H (1.4-5.7) K/uL Lymph # (Auto) 4.2 H (0.6-2.4) K/uL Parker # (Auto) 0.6 (0.0-0.8) K/uL Eos # (Auto) 0.1 (0.0-0.7) K/uL Baso # (Auto) 0.0 (0.0-0.1) K/uL Nucleated RBC % 0.0 /100WBC Nucleated RBCs # 0 K/uL Sodium 141 (136-145) mmol/L Potassium 3.4 L (3.5-5.1) mmol/L Chloride 105 (98-107) mmol/L Carbon Dioxide 28.2 (21.0-32.0) mmol/L BUN 24 H (7.0-18.0) mg/dL Creatinine 0.9 (0.6-1.0) mg/dL Est Cr Clr Drug Dosing 59.81 mL/min Estimated GFR (MDRD) > 60.0 ml/min Glucose 124 H (74-106) mg/dL Calcium 9.2 (8.5-10.1) mg/dL Total Bilirubin 0.3 (0.2-1.0) mg/dL AST 13 L (15-37) IU/L ALT 34 (14-63) IU/L Alkaline Phosphatase 59 (46-116) U/L Troponin I < 0.050 (0.000-0.056) ng/mL Total Protein 6.6 (6.4-8.2) g/dL Albumin 3.0 L (3.4-5.0) g/dL Globulin 3.6 (2.6-4.0) g/dL Albumin/Globulin Ratio 0.8 L (0.9-1.6) TSH, Ultra Sensitive 0.32 L (0.36-3.74) uIU/mL Urine Color YELLOW Urine Appearance CLEAR Urine pH 5.5 (5.0-8.0) Ur Specific [place] 1.010 (1.001-1.035) Urine Protein NEGATIVE (NEGATIVE) mg/dL Urine Glucose (UA) NEGATIVE (NEGATIVE) mg/dL Urine Ketones NEGATIVE (NEGATIVE) mg/dL Urine Occult Blood TRACE-INTACT H (NEGATIVE) Urine Nitrite NEGATIVE (NEGATIVE) Urine Bilirubin NEGATIVE (NEGATIVE) Urine Urobilinogen 0.2 (<2.0) EU/dL Ur Leukocyte Esterase NEGATIVE (NEGATIVE) Urine RBC 0-2 (0-2/HPF) Urine WBC 0-1 (0-5/HPF) Ur Epithelial Cells RARE (NONE-FEW) Urine Bacteria RARE (NEGATIVE) Meds: Medications Discontinued Medications Generic Name Dose Route Start Last Admin Trade Name Freq PRN Reason Stop Dose Admin Sodium Chloride 10 ml 05/20/21 18:47 05/20/21 20:53 Sodium Chloride 0.9% 10 Ml Syringe FLUSH 10 ml ASDIRECTED PRN Administration Keep Vein Open Sodium Chloride 2.5 ml 05/20/21 18:47 05/20/21 20:53 Sodium Chloride 0.9% 2.5 Ml Syringe FLUSH 2.5 ml ASDIRECTED PRN Administration Keep Vein Open Departure - Departure Time of Disposition: 21:24 Disposition: Home, Self-Care 01 Clinical Impression: Palpitations Instructions: Nonspecific Chest Pain, Adult, [id number] Referrals: PCP,None [Ordering Only Provider] - Forms: ED Department Discharge Additional Instructions: The following information is given to patients seen in the emergency department who are being discharged to home. This information is to outline your options for follow-up care. We provide all patients seen in our emergency department with a follow-up referral. The need for follow-up, as well as the timing and circumstances, are variable depending upon the specifics of your emergency department visit. If you don't have a primary care physician on staff, we will provide you with a referral. We always advise you to contact your personal physician following an emergency department visit to inform them of the circumstance of the visit and for follow-up with them and/or the need for any referrals to a consulting specialist. The emergency department will also refer you to a specialist when appropriate. This referral assures that you have the opportunity for follow-up care with a specialist. All of these measure are taken in an effort to provide you with optimal care, which includes your follow-up. Under all circumstances we always encourage you to contact your private physician who remains a resource for coordinating your care. When calling for follow-up care, please make the office aware that this follow-up is from your recent emergency room visit. If for any reason you are refused follow-up, please contact the [facility] Emergency Department at and asked to speak to the emergency department charge nurse. [facility] [address] [place] [id number] [address] [address] Thank you for choosing the [facility] emergency department in [place] for your medical needs today. It was a pleasure caring for you. Today you were seen in the emergency department for palpitations. 1. You were evaluated today on an emergent basis. Your labs are normal with the exception that your TSH level was low, I would like you to follow up with your primary care provider to have this re-check and possibly need your Synthroid adjusted. 2. You can alternate Tylenol and ibuprofen as needed for pain and fever management. 3. We encourage you to follow up with Dr Padilla (cardiology) in the next few days for re-evaluation and further care/management. 4. If your symptoms should worsen, new symptoms develop or any of the signs and symptoms we discussed should arise please return to the emergency room or call 911 (if needed). Sepsis Event Note (ED) - Evaluation Sepsis Screening Result: No Definite Risk - Focused Exam Vital Signs: Vital Signs Temp Pulse Resp BP Pulse Ox 05/20/21 21:05 76 20 150/90 H 99 05/20/21 18:49 97.8 F 102 H 20 170/76 H 98 - My Orders Last 24 Hours: My Active Orders 05/20/21 18:47 CORONAVIRUS COVID-19 DELL [MOLEC] Stat Saline Lock Insert [OM.PC] Stat - Assessment/Plan Last 24 Hours: My Active Orders 05/20/21 18:47 CORONAVIRUS COVID-19 DELL [MOLEC] Stat Saline Lock Insert [OM.PC] Stat
[2021-05-20 19:39] LABS: BLOOD UREA NITROGEN,BUN 24 mg/dL (7.0-18.0); CARBON DIOXIDE,CO2 28.2 mmol/L (21.0-32.0); CHLORIDE,CL 105 mmol/L (98-107); GLUCOSE RANDOM 124 mg/dL (74-106); POTASSIUM,K 3.4 mmol/L (3.5-5.1); SODIUM,NA 141 mmol/L (136-145)
--- NOTE | 2021-05-20 19:41 | PCM.EKG ---
#1 Interpretation Time: 19:41 EKG Interpretation Comments: EKG: NSR, nonspecific ST/T changes, Rate -79
--- NOTE | 2021-05-20 19:57 | CR ---
Clinical INDICATION: Chest pain. COMPARISON: 12/15/2020. FINDINGS: When allowing for AP technique, the heart is normal in size. There is mild unfolding of the thoracic aorta. The lungs are clear. The pulmonary vasculature and pleural surfaces appear normal. The bony thorax appears intact. IMPRESSION: No acute process identified. Dictated by Kee Felipe MD @ 05/20/2021 7:56:02 PM (Electronically Signed)
[2021-05-20 21:06] VITALS: BP 150/90; PULSE 76
== END 2021-05-20 21:06 | disposition home or self-care (01) ==
LOC: MW.ED 18:41
DX: E05.90 Thyrotoxicosis, unspecified without thyrotoxic crisis or storm (principal); E78.00 Pure hypercholesterolemia, unspecified; I10 Essential (primary) hypertension; J45.909 Unspecified asthma, uncomplicated; K21.9 Gastro-esophageal reflux disease without esophagitis; E11.9 Type 2 diabetes mellitus without complications; E03.9 Hypothyroidism, unspecified; E66.9 Obesity, unspecified; Z68.39 Body mass index [BMI] 39.0-39.9, adult; Z88.8 Allergy status to other drugs, medicaments and biological substances; Z88.2 Allergy status to sulfonamides; Z88.1 Allergy status to other antibiotic agents; Z79.899 Other long term (current) drug therapy
CPT/HCPCS: 36415; 71045; 71045-26; 80053; 81001; 84443; 84484; 85025; 93005; 99285-25

== ENCOUNTER 2021-07-07 21:11 | Emergency (ER) | payer MEDICARE, MEDICAID ==
[2021-07-07 21:36] VITALS: BP 131/61; PULSE 83
== END 2021-07-07 23:07 ==
LOC: MW.ED 21:11
DX: Z53.21 Procedure and treatment not carried out due to patient leaving prior to being seen by health care provider (principal)

== ENCOUNTER 2021-08-02 17:52 | Emergency (ER) | payer MEDICARE, MEDICAID ==
[2021-08-02] MEDS ORDERED: Ketorolac 60 MG/2 ML SDV IM ONE (18:28)
--- NOTE | 2021-08-02 18:28 | EDM.PDOC ---
ED HPI GENERAL MEDICAL PROBLEM - General Chief Complaint: Lower Extremity Injury/Pain Stated Complaint: LEG INJURY Time Seen by Provider: 08/02/21 17:56 Source of Information: Reports: Patient History Limitations: Reports: No Limitations - History of Present Illness INITIAL COMMENTS - FREE TEXT/NARRATIVE: HISTORY AND PHYSICAL: History of present illness: Patient is a 60-year-old female who presents to the emergency room with complaints of right knee and low back pain. She states she is a dog outside that was freezing and decided to let him in her house when a baby gate had fallen over hitting her in the right knee causing her to catch herself from tripping/falling and she twisted her low back. She did not fall to the ground nor hit her head. There was no loss of consciousness. She was ambulatory into the emergency room. She states she has a history of low back pain and had an MRI done last year that showed bulging disks. She is concerned that when she twisted wrong "something happened.. I'm pretty sore". She denies any numbness, tingling, saddle paresthesia or weakness. Denies any urinary or fecal incontinence. Patient denies any fever, chills, headache, change in vision, syncope or near syncope. Denies any chest pain, back pain, shortness of breath or cough. Denies any abdominal pain, nausea, vomiting, diarrhea, constipation or dysuria. Has not noted any blood in urine or stool. Patient has been eating and drinking appropriately. No recent travel or sick contacts. Review of systems: As per history of present illness and below otherwise all systems reviewed and negative. Past medical history: As per history of present illness and as reviewed below otherwise noncontributory. Surgical history: As per history of present illness and as reviewed below otherwise noncontributory. Social history: See social history for further information Family history: As per history of present illness and as reviewed below otherwise noncontributory. Physical exam: General: Well developed and well nourished. Alert and orientated x 3. Nontoxic in appearance and in no acute distress. Vital signs are stable and have been reviewed by me. Nursing notes were reviewed. HEENT: Atraumatic, normocephalic, pupils equal and reactive bilaterally, negative for conjunctival pallor or scleral icterus, mucous membranes moist, TMs normal bilaterally, throat clear, neck supple, nontender, trachea midline. No drooling or trismus noted. No meningeal signs. No hot potato voice noted. Lungs: Clear to auscultation bilaterally. No wheezes, rales, or rhonchi. Chest nontender. Normal work of breathing, no accessory muscles used. Heart: S1S2, regular rate and rhythm without overt murmur, gallops, or rubs. No JVD. No peripheral edema Abdomen: Soft, nondistended, nontender. Normoactive bowel sounds. Negative for masses or costovertebral tenderness. C-spine/Back: No pinpoint vertebral tenderness upon palpation. No crepitus, step-offs or obvious deformities. Paraspinous muscular tenderness to the low lumbar region bilaterally. Patient is ambulatory into the emergency room without difficulty or deficit. Able to rock back on heels and walk on toes. Denies any urinary or fecal incontinence. Denies any numbness, tingling or saddle paresthesia. No concerns of serious infection, fracture or cord compression, or cauda equina syndrome. Deep tendon reflexes brisk bilaterally. Skin: Intact, warm, dry. No lesions or rashes noted. Hematologic: No petechiae or purpra. Mucosa appropriate color and normal nail bed color and refill. Extremities: Early bruising noted to the lateral aspect of the patella on the right. Moves all extremities per self without difficulty or deficits, negative for cords or calf pain. Neurovascular unremarkable. Neuro: Awake, alert, oriented. Cranial nerves II through XII unremarkable. Cerebellum unremarkable. Motor and sensory unremarkable throughout. Exam nonfocal. Psychiatric: Mood and affect are appropriate. Normal thought process. Answering questions appropriately. Please note that the patient was seen and evaluated during the 2019 SARS-CoV-2 novel coronavirus pandemic period. Community viral transmission is ongoing at time of this encounter and the emergency department is operating under pandemic response procedures. Medical Decision Making: Patient is a 60-year-old female who presents to the emergency room with complaints of right knee pain and low back pain after being hit by a baby gate on the right knee and catching herself falling resulting in her twisting wrong. We will do an x-ray of the knee. She is requesting imaging of her lumbar back even though it does appear muscular in nature. There is no bony tenderness but paraspinous muscular tenderness all across the low lumbar region. Patient is also requesting Toradol IM shot stating that this works best for her pain. X-ray shows no acute abnormality. CT of the lumbar spine shows no evidence of acute lumbar vertebral fracture. Mild degenerative anterolisthesis and likely mild spinal stenosis at L4-5. Patient does feel improved after the IM Toradol. She states she will follow-up with her primary care provider, Dr. Mitchell. I have talked with the patient about today's findings, in addition to providing specific details for plan of care. Reassessment at the time of disposition demonstrates that the patient is in no acute distress. The patient is stable for discharge, counseling was provided and we discussed in great detail signs and symptoms that would prompt them to return to the Emergency Department. Medication, follow up and supportive care measures were reviewed and discussed. Voices understanding and is agreeable to plan of care. Denies any further questions or concerns at this time. Diagnostics: Lumbar spine CT, x-ray right knee Therapeutics: Toradol IM Prescription: None Impression: Right knee contusion Acute on chronic back pain Plan: 1. You were evaluated today on an emergent basis. Your x-ray of the knee and CT of the back show no new or acute findings. Rest and ice as able. 2. You can alternate Tylenol and ibuprofen as needed for pain and fever management. 3. We encourage you to follow up with your primary care provider for re- evaluation and further care/management. 4. If your symptoms should worsen, new symptoms develop or any of the signs and symptoms we discussed should arise please return to the emergency room or call 911 (if needed). Definitive disposition and diagnosis as appropriate pending reevaluation and review of above. right lower extremity Pain Score (Numeric/FACES): 9 - Related Data Allergies Allergy/AdvReac Type Severity Reaction Status Date / Time doxepin [Doxepin] Allergy Blurred Verified 08/02/21 18:08 Vision lisinopril Allergy Rash Verified 08/02/21 18:08 Snocagt-KMB-BkC Reductase Allergy Cannot Verified 08/02/21 18:08 Inhibitor Remember [Hxxaswn-Dgm-Uoc Reductase Inhibitor] sulfamethoxazole Allergy Weakness Verified 08/02/21 18:08 [From Bactrim] trimethoprim [From Bactrim] Allergy Weakness Verified 08/02/21 18:08 Home Meds: Home Meds Estrogens, Conjugated [Premarin Vaginal Crm] 1 applic VAG Q48H PRN 12/14/13 [History] Losartan/Hydrochlorothiazide [Losartan-HCTZ 100-12.5 MG] 1 each PO DAILY 12/14/13 [History] Levothyroxine Sodium [Synthroid] 200 mcg PO ACBREAKFAST 04/06/14 [History] ALPRAZolam [Xanax] 2 mg PO TID PRN 04/17/14 [History] Rosuvastatin [Crestor] 20 mg PO BEDTIME 04/17/14 [History] metFORMIN [Glucophage] 1,000 mg PO BID 04/17/14 [History] traMADol [Ultram] 100 mg PO TID PRN 04/17/14 [History] Sertraline HCl 200 mg PO DAILY 04/01/15 [History] Prochlorperazine Maleate 10 mg PO DAILY PRN 12/20/15 [History] amLODIPine Besylate [Norvasc] 5 mg PO DAILY 12/20/15 [History] Lidocaine 5% [Lidoderm 5%] 1 each TOP DAILY PRN 01/04/16 [History] Levocetirizine Dihydrochloride 5 mg PO BEDTIME 08/26/16 [History] Albuterol Sulfate [Albuterol Sulfate Hfa] 18 gm IH Q4H PRN #1 hfa.aer.ad 09/27/19 [Rx] Elviteg/Cob/Emtri/Tenof Alafen [Genvoya Tablet] 1 tab PO DAILY 09/27/19 [History] Exenatide Microspheres [Bydureon Pen] 2 mg SQ WEEKLY 09/27/19 [History] Fluticasone Propion/Salmeterol [Advair 250-50 Diskus] 1 puff IH BID PRN 09/27/19 [History] Ipratropium [Atrovent 0.06% Nasal [place]] 2 spray JONE TID PRN 09/27/19 [History] Liothyronine [Cytomel] 10 mcg PO DAILY 09/27/19 [History] Furosemide [Lasix] 20 mg PO DAILY 02/21/20 [History] Omeprazole Magnesium [Prilosec Otc] 20 mg PO DAILY #30 tablet. 02/22/20 [Rx] Ondansetron [Zofran ODT] 4 mg PO Q6H PRN #12 tab.dis 07/30/20 [Rx] Albuterol Sulfate 2.5 mg IH TID 10 Days #30 ml 03/23/20 [Rx] Benzonatate [Tessalon Perle] 100 mg PO TID PRN #15 capsule 04/13/20 [Rx] cephALEXin [Keflex] 500 mg PO Q8H 7 Days #21 cap 04/15/20 [Rx] Ciprofloxacin HCl [Cipro] 500 mg PO BID #14 tablet 10/07/20 [Rx] Azithromycin [Zithromax] 250 mg PO ASDIRECTED #6 tablet 12/15/20 [Rx] Amoxicillin/Clavulanate K [Augmentin 875-125 MG] 1 tab PO BID 10 Days #20 tab 03/19/21 [Rx] Past Medical History - Past Health History Medical/Surgical History: Denies Medical/Surgical History HEENT History: Reports: Impaired Vision Other HEENT History: uses reading glasses, has upper Cardiovascular History: Reports: High Cholesterol, Hypertension Respiratory History: Reports: Asthma, Pneumonia, Recurrent, Other (See Below) Other Respiratory History: sinus infection Gastrointestinal History: Reports: GERD, Hemorrhoids 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 History: Reports: None [employer] History: Reports: Musculoskeletal History: Reports: Back Pain, Chronic, Fracture Other Musculoskeletal History: hx fx right ankle Neurological History: Reports: Other (See Below) Other Neuro History: was told she had a "mini stroke" many years ago, no residual Psychiatric History: Reports: Anxiety, Depression Endocrine/Metabolic History: Reports: Diabetes, Type II, Hypothyroidism, Obes ity/BMI 30+ Hematologic History: Reports: None Immunologic History: Reports: HIV Oncologic (Cancer) History: Reports: Basal Cell Carcinoma Dermatologic History: Reports: None - Infectious Disease History Infectious Disease History: Reports: HIV-Human Immunodeficiency Virus - Past Surgical History Head Surgeries/Procedures: Reports: None HEENT Surgical History: Reports: None Cardiovascular Surgical History: Reports: None Respiratory Surgical History: Reports: None GI Surgical History: Reports: None Other GI Surgeries/Procedures: hemorrhoidectomy Female Surgical History: Reports: Hysterectomy, Salpingo-Oophorectomy Endocrine Surgical History: Reports: None Neurological Surgical History: Reports: None Musculoskeletal Surgical History: Reports: None Other Musculoskeletal Surgeries/Procedures:: right little finger. Right foot Oncologic Surgical History: Reports: None Dermatological Surgical History: Reports: Other (See Below) Social & Family History - Family History Family Medical History: No Pertinent Family History - Tobacco Use Tobacco Use Status *Q: Current Every Day Tobacco User Years of Tobacco use: 3 Packs/Tins Daily: 1 - Caffeine Use Caffeine Use: Reports: None Caffeine Use Comment: 2/day - Recreational Drug Use Recreational Drug Use: No Review of Systems - Review of Systems Review Of Systems: Comprehensive ROS is negative, except as noted in HPI. ED EXAM, GENERAL - Physical Exam Exam: See Below (See dictation) Course - Vital Signs Last Recorded V/S: Last Vital Signs Temp 96.7 F L 08/02/21 18:08 Pulse 75 08/02/21 18:08 Resp 18 08/02/21 18:08 BP Pulse Ox - Orders/Labs/Meds Orders: Active Orders 24 hr Category Date Time Status Lumbar Spine wo Cont [CT] Stat Exams 08/02/21 18:21 Ordered Meds: Medications Discontinued Medications Generic Name Dose Route Start Last Admin Trade Name Freq PRN Reason Stop Dose Admin Ketorolac Tromethamine 60 mg 08/02/21 18:28 08/02/21 18:33 Ketorolac 60 Mg/2 Ml Sdv IM 08/02/21 18:29 60 mg ONETIME ONE Administration Departure - Departure Time of Disposition: 19:17 Disposition: Home, Self-Care 01 Clinical Impression: Acute exacerbation of chronic low back pain Contusion of knee, right Qualifiers: Encounter type: initial encounter Qualified Code(s): S80.01XA - Contusion of right knee, initial encounter - Discharge Information Instructions: Knee Sprain, Adult, Pnjb-co-Erix Forms: ED Department Discharge Additional Instructions: The following information is given to patients seen in the emergency department who are being discharged to home. This information is to outline your options for follow-up care. We provide all patients seen in our emergency department with a follow-up referral. The need for follow-up, as well as the timing and circumstances, are variable depending upon the specifics of your emergency department visit. If you don't have a primary care physician on staff, we will provide you with a referral. We always advise you to contact your personal physician following an emergency department visit to inform them of the circumstance of the visit and for follow-up with them and/or the need for any referrals to a consulting specialist. The emergency department will also refer you to a specialist when appropriate. This referral assures that you have the opportunity for follow-up care with a specialist. All of these measure are taken in an effort to provide you with optimal care, which includes your follow-up. Under all circumstances we always encourage you to contact your private physician who remains a resource for coordinating your care. When calling for follow-up care, please make the office aware that this follow-up is from your recent emergency room visit. If for any reason you are refused follow-up, please contact the [facility] Emergency Department at and asked to speak to the emergency department charge nurse. [facility] [address] [place] [address] [facility] [address] [place] [id number] Thank you for choosing the [facility] emergency department in [facility] for your medical needs today. It was a pleasure caring for you. Today you were seen in the emergency department for knee and back pain 1. You were evaluated today on an emergent basis. Your x-ray of the knee and CT of the back show no new or acute findings. Rest and ice as able. 2. You can alternate Tylenol and ibuprofen as needed for pain and fever management. 3. We encourage you to follow up with your primary care provider for re- evaluation and further care/management. 4. If your symptoms should worsen, new symptoms develop or any of the signs and symptoms we discussed should arise please return to the emergency room or call 911 (if needed). Sepsis Event Note (ED) - Evaluation Sepsis Screening Result: No Definite Risk - Focused Exam Vital Signs: Vital Signs Temp Pulse Resp 08/02/21 18:08 96.7 F L 75 18 - My Orders Last 24 Hours: My Active Orders 08/02/21 18:21 Lumbar Spine wo Cont [CT] Stat - Assessment/Plan Last 24 Hours: My Active Orders 08/02/21 18:21 Lumbar Spine wo Cont [CT] Stat
--- NOTE | 2021-08-02 19:10 | CR ---
Indication: Fall, knee pain Technique: Three views of the right knee Comparison: None Findings: There is no evidence of acute fracture or joint dislocation. There is no appreciable joint effusion. Minimal degenerative changes are noted. The surrounding soft tissues are unremarkable. Impression: No acute abnormality. Dictated by Epifanio Khoury MD @ 08/02/2021 7:08:26 PM (Electronically Signed)
--- NOTE | 2021-08-02 19:16 | CT ---
Indication: Fall, back pain Technique: Nonenhanced axial CT imaging through the lumbar spine. Sagittal and coronal reconstructions are provided. Comparison: None Findings: The lumbar vertebral bodies are normal in height. There is no evidence of acute fracture. There is no prevertebral edema or paraspinal hematoma. Mild multilevel degenerative disc disease is present, without significant disc height loss. There is also multilevel facet arthropathy, most pronounced L4-5. There is mild anterolisthesis and likely mild spinal stenosis at L4-5. There is no appreciable neural foraminal stenosis. Degenerative changes are noted in the sacroiliac joints. Impression: 1. No evidence of acute lumbar vertebral fracture. 2. Mild degenerative anterolisthesis and likely mild spinal stenosis at L4-5. Please note that all CT scans at this facility use dose modulation, iterative reconstruction, and/or weight-based dosing when appropriate to reduce radiation dose to as low as reasonably achievable. Dictated by Epifanio Khoury MD @ 08/02/2021 7:15:52 PM (Electronically Signed)
[2021-08-02 19:33] VITALS: BP 142/81; PULSE 71
== END 2021-08-02 19:33 | disposition home or self-care (01) ==
LOC: MW.ED 17:52
DX: S80.01XA Contusion of right knee, initial encounter (principal); M54.50 Low back pain, unspecified; G89.29 Other chronic pain; I10 Essential (primary) hypertension; J45.909 Unspecified asthma, uncomplicated; E78.00 Pure hypercholesterolemia, unspecified; K21.9 Gastro-esophageal reflux disease without esophagitis; E11.9 Type 2 diabetes mellitus without complications; E03.9 Hypothyroidism, unspecified; E66.9 Obesity, unspecified; Z68.41 Body mass index [BMI] 40.0-44.9, adult; Z72.0 Tobacco use; Z88.8 Allergy status to other drugs, medicaments and biological substances; Z88.2 Allergy status to sulfonamides; Z79.84 Long term (current) use of oral hypoglycemic drugs; Z79.899 Other long term (current) drug therapy; W20.8XXA Other cause of strike by thrown, projected or falling object, initial encounter; Y92.009 Unspecified place in unspecified non-institutional (private) residence as the place of occurrence of the external cause
CPT/HCPCS: 72131; 73562; 96372; 99284; J1885

== ENCOUNTER 2021-08-07 15:23 | Emergency (ER) | payer MEDICARE, MEDICAID ==
[2021-08-07] MEDS ORDERED: predniSONE 20 MG Tab PO ONE (16:03)
[2021-08-07] MEDS ORDERED: Albuterol 8 GM Inhaler INH ONE (16:05)
[2021-08-07 16:41] LABS: BLOOD UREA NITROGEN,BUN 12 mg/dL (7.0-18.0); CARBON DIOXIDE,CO2 25.6 mmol/L (21.0-32.0); CHLORIDE,CL 106 mmol/L (98-107); GLUCOSE RANDOM 215 mg/dL (74-106); POTASSIUM,K 3.9 mmol/L (3.5-5.1); SODIUM,NA 143 mmol/L (136-145)
[2021-08-07 18:27] VITALS: BP 126/60; PULSE 89
== END 2021-08-07 18:32 | disposition home or self-care (01) ==
LOC: MW.ED 15:23
DX: J44.9 Chronic obstructive pulmonary disease, unspecified (principal); E78.00 Pure hypercholesterolemia, unspecified; I10 Essential (primary) hypertension; J45.909 Unspecified asthma, uncomplicated; K21.9 Gastro-esophageal reflux disease without esophagitis; E11.9 Type 2 diabetes mellitus without complications; E03.9 Hypothyroidism, unspecified; E66.9 Obesity, unspecified; Z88.8 Allergy status to other drugs, medicaments and biological substances; Z88.2 Allergy status to sulfonamides; Z79.84 Long term (current) use of oral hypoglycemic drugs; Z79.899 Other long term (current) drug therapy
CPT/HCPCS: 36415; 71045; 80053; 83880; 84484; 85025; 93005; 99285; A9270

== ENCOUNTER 2021-09-03 21:52 | Emergency (ER) | payer MEDICARE, MEDICAID ==
[2021-09-03] MEDS ORDERED: Sodium Chloride 0.9% 10 ML Syringe FLUSH PRN (22:12)
[2021-09-03] MEDS ORDERED: Sodium Chloride 0.9% 2.5 ML Syringe FLUSH PRN (22:12)
[2021-09-03] MEDS ORDERED: Albuterol 8 GM Inhaler INH ONE (22:13)
[2021-09-03 23:00] LABS: BLOOD UREA NITROGEN,BUN 23 mg/dL (7.0-18.0); CARBON DIOXIDE,CO2 25.8 mmol/L (21.0-32.0); CHLORIDE,CL 108 mmol/L (98-107); GLUCOSE RANDOM 252 mg/dL (74-106); SODIUM,NA 144 mmol/L (136-145)
[2021-09-03 23:11] LABS: CORONAVIRUS COVID-19 NAA NEGATIVE (NEGATIVE); INFLUENZA A NAA NEGATIVE (NEGATIVE); INFLUENZA B NAA NEGATIVE (NEGATIVE)
[2021-09-03] MEDS ORDERED: prednisoLONE Soln 15 MG/5 ML UD Cup PO ONE (23:20)
[2021-09-03 23:40] VITALS: BP 128/72; PULSE 75
== END 2021-09-03 23:41 | disposition home or self-care (01) ==
LOC: MW.ED 21:52
DX: J40 Bronchitis, not specified as acute or chronic (principal); I10 Essential (primary) hypertension; E78.00 Pure hypercholesterolemia, unspecified; K21.9 Gastro-esophageal reflux disease without esophagitis; E11.9 Type 2 diabetes mellitus without complications; E03.9 Hypothyroidism, unspecified; E66.9 Obesity, unspecified; Z68.41 Body mass index [BMI] 40.0-44.9, adult; Z88.8 Allergy status to other drugs, medicaments and biological substances; Z88.2 Allergy status to sulfonamides; Z79.84 Long term (current) use of oral hypoglycemic drugs; Z79.899 Other long term (current) drug therapy; Z20.822 Contact with and (suspected) exposure to COVID-19
CPT/HCPCS: 0240U; 36415; 71046; 80053; 83880; 84484; 85025; 93005; 99284; A9270; 93010

== ENCOUNTER 2021-09-05 15:22 | Emergency (ER) | payer MEDICARE, MEDICAID ==
[2021-09-05] MEDS ORDERED: Albuterol/Ipratropium 3.0-0.5 MG/3 ML Neb Soln NEB ONE (16:15)
[2021-09-05 18:03] VITALS: BP 140/58; PULSE 76
== END 2021-09-05 18:04 | disposition home or self-care (01) ==
LOC: MW.ED 15:22
DX: J44.1 Chronic obstructive pulmonary disease with (acute) exacerbation (principal); B34.9 Viral infection, unspecified; B20 Human immunodeficiency virus [HIV] disease; E78.00 Pure hypercholesterolemia, unspecified; K21.9 Gastro-esophageal reflux disease without esophagitis; I10 Essential (primary) hypertension; E11.9 Type 2 diabetes mellitus without complications; E03.9 Hypothyroidism, unspecified; E66.9 Obesity, unspecified; Z68.41 Body mass index [BMI] 40.0-44.9, adult; Z88.1 Allergy status to other antibiotic agents; Z88.8 Allergy status to other drugs, medicaments and biological substances; Z79.899 Other long term (current) drug therapy; Z72.0 Tobacco use
CPT/HCPCS: 94640; 99284; 99284-25; J7620-GY

== ENCOUNTER 2021-09-10 10:05 | Emergency (ER) | payer MEDICARE, MEDICAID ==
[2021-09-10 11:23] VITALS: PULSE 67
[2021-09-10] MEDS ORDERED: Albuterol/Ipratropium 3.0-0.5 MG/3 ML Neb Soln NEB ONE (11:41)
[2021-09-10 13:34] VITALS: BP 135/70
== END 2021-09-10 13:33 | disposition home or self-care (01) ==
LOC: MW.ED 10:05
DX: J45.909 Unspecified asthma, uncomplicated (principal); B20 Human immunodeficiency virus [HIV] disease; E11.9 Type 2 diabetes mellitus without complications; E03.9 Hypothyroidism, unspecified; E66.9 Obesity, unspecified; Z68.41 Body mass index [BMI] 40.0-44.9, adult; Z88.8 Allergy status to other drugs, medicaments and biological substances; Z88.2 Allergy status to sulfonamides; Z88.1 Allergy status to other antibiotic agents; Z79.899 Other long term (current) drug therapy; Z20.822 Contact with and (suspected) exposure to COVID-19
CPT/HCPCS: 71046; 99285; U0002; 99283; J7620-GY

== ENCOUNTER 2021-10-02 18:41 | Emergency (ER) | payer MEDICARE, MEDICAID ==
[2021-10-02 20:40] LABS: BLOOD UREA NITROGEN,BUN 23 mg/dL (7.0-18.0); CARBON DIOXIDE,CO2 22.7 mmol/L (21.0-32.0); CHLORIDE,CL 102 mmol/L (98-107); GLUCOSE RANDOM 201 mg/dL (74-106); POTASSIUM,K 4.2 mmol/L (3.5-5.1); SODIUM,NA 139 mmol/L (136-145)
[2021-10-02] MEDS ORDERED: Magnesium Oxide 400 MG Tab PO ONE (20:45)
[2021-10-02 21:33] VITALS: BP 115/76; PULSE 66
== END 2021-10-02 21:48 | disposition home or self-care (01) ==
LOC: MW.ED 18:41
DX: M62.838 Other muscle spasm (principal); E83.42 Hypomagnesemia; I10 Essential (primary) hypertension; E11.9 Type 2 diabetes mellitus without complications; E03.9 Hypothyroidism, unspecified; K21.9 Gastro-esophageal reflux disease without esophagitis; J45.909 Unspecified asthma, uncomplicated; F41.9 Anxiety disorder, unspecified; F32.9 Major depressive disorder, single episode, unspecified; Z68.41 Body mass index [BMI] 40.0-44.9, adult; Z79.899 Other long term (current) drug therapy; Z88.8 Allergy status to other drugs, medicaments and biological substances; Z88.2 Allergy status to sulfonamides; Z88.1 Allergy status to other antibiotic agents
CPT/HCPCS: 36415; 80053; 82550; 83735; 84100; 85025; 93005; 99283; A9270; 93010

== ENCOUNTER 2021-10-26 22:13 | Emergency (ER) | payer MEDICARE, MEDICAID ==
[2021-10-26 23:20] VITALS: BP 157/81; PULSE 88
== END 2021-10-26 23:20 | disposition home or self-care (01) ==
LOC: MW.ED 22:13
DX: R07.89 Other chest pain (principal); J44.9 Chronic obstructive pulmonary disease, unspecified; I10 Essential (primary) hypertension; E78.00 Pure hypercholesterolemia, unspecified; K21.9 Gastro-esophageal reflux disease without esophagitis; E11.9 Type 2 diabetes mellitus without complications; E03.9 Hypothyroidism, unspecified; B20 Human immunodeficiency virus [HIV] disease; Z79.899 Other long term (current) drug therapy; Z88.8 Allergy status to other drugs, medicaments and biological substances; Z88.0 Allergy status to penicillin
CPT/HCPCS: 93005; 93010; 99283; 99284-25

== ENCOUNTER 2021-12-29 03:50 | Emergency (ER) | payer MEDICARE, MEDICAID ==
[2021-12-29] MEDS ORDERED: Dexamethasone 10 MG/ML SDV IM STA (04:20)
[2021-12-29 05:04] VITALS: BP 150/90; PULSE 64
== END 2021-12-29 05:05 | disposition home or self-care (01) ==
LOC: MW.ED 03:50
DX: R06.2 Wheezing (principal); I10 Essential (primary) hypertension; E78.00 Pure hypercholesterolemia, unspecified; K21.9 Gastro-esophageal reflux disease without esophagitis; E11.9 Type 2 diabetes mellitus without complications; E03.9 Hypothyroidism, unspecified; F41.9 Anxiety disorder, unspecified; F32.A Depression, unspecified; E66.9 Obesity, unspecified; Z68.41 Body mass index [BMI] 40.0-44.9, adult; Z79.899 Other long term (current) drug therapy; Z79.84 Long term (current) use of oral hypoglycemic drugs; Z88.8 Allergy status to other drugs, medicaments and biological substances; Z88.1 Allergy status to other antibiotic agents; Z21 Asymptomatic human immunodeficiency virus [HIV] infection status
CPT/HCPCS: 96372; 99284; J1100; 99283

== ENCOUNTER 2021-12-31 19:29 | Emergency (ER) | payer MEDICARE, MEDICAID ==
[2021-12-31 20:53] VITALS: BP 145/81; PULSE 74
== END 2021-12-31 20:53 | disposition home or self-care (01) ==
LOC: MW.ED 19:29
DX: J30.2 Other seasonal allergic rhinitis (principal); E78.00 Pure hypercholesterolemia, unspecified; I10 Essential (primary) hypertension; J45.909 Unspecified asthma, uncomplicated; K21.9 Gastro-esophageal reflux disease without esophagitis; E11.9 Type 2 diabetes mellitus without complications; E03.9 Hypothyroidism, unspecified; E66.9 Obesity, unspecified; Z68.41 Body mass index [BMI] 40.0-44.9, adult; Z90.710 Acquired absence of both cervix and uterus; Z79.899 Other long term (current) drug therapy; Z79.84 Long term (current) use of oral hypoglycemic drugs; Z88.2 Allergy status to sulfonamides; Z88.8 Allergy status to other drugs, medicaments and biological substances
CPT/HCPCS: 71046; 71046-26; 99282; 99284-25

== ENCOUNTER 2022-04-27 11:57 | Emergency (ER) | payer MEDICARE, MEDICAID ==
[2022-05-22 12:34] LABS: CORONAVIRUS COVID-19 NAA NEGATIVE (NEGATIVE); INFLUENZA A NAA NEGATIVE (NEGATIVE); INFLUENZA B NAA NEGATIVE (NEGATIVE)
== END 2022-04-27 12:53 | disposition home or self-care (01) ==
LOC: MW.ED 11:57
DX: J02.9 Acute pharyngitis, unspecified (principal); Z20.822 Contact with and (suspected) exposure to COVID-19
CPT/HCPCS: 0240U; 99283

== ENCOUNTER 2022-08-09 15:59 | Emergency (ER) | payer MEDICARE, MEDICAID ==
[2022-08-09 17:43] LABS: CORONAVIRUS COVID-19 NAA NEGATIVE (NEGATIVE); INFLUENZA A NAA NEGATIVE (NEGATIVE); INFLUENZA B NAA NEGATIVE (NEGATIVE)
[2022-08-09 18:01] VITALS: BP 129/47; PULSE 76
== END 2022-08-09 18:01 | disposition home or self-care (01) ==
LOC: MW.ED 15:59
DX: J01.10 Acute frontal sinusitis, unspecified (principal); I10 Essential (primary) hypertension; E78.00 Pure hypercholesterolemia, unspecified; J45.909 Unspecified asthma, uncomplicated; K21.9 Gastro-esophageal reflux disease without esophagitis; E11.9 Type 2 diabetes mellitus without complications; E03.9 Hypothyroidism, unspecified; E66.9 Obesity, unspecified; Z68.41 Body mass index [BMI] 40.0-44.9, adult; Z72.0 Tobacco use; Z88.2 Allergy status to sulfonamides; Z79.899 Other long term (current) drug therapy; Z79.84 Long term (current) use of oral hypoglycemic drugs; Z20.822 Contact with and (suspected) exposure to COVID-19
CPT/HCPCS: 0240U; 99283

== ENCOUNTER 2022-08-30 11:09 | Emergency (ER) | payer MEDICARE, MEDICAID ==
[2022-08-30 11:56] LABS: CORONAVIRUS COVID-19 NAA NEGATIVE (NEGATIVE); INFLUENZA A NAA NEGATIVE (NEGATIVE); INFLUENZA B NAA NEGATIVE (NEGATIVE); RESPIRATORY SYNCYTIAL VIR NAA NEGATIVE (NEGATIVE)
[2022-08-30 13:14] VITALS: BP 139/70; PULSE 88
== END 2022-08-30 13:08 | disposition home or self-care (01) ==
LOC: MW.ED 11:09
DX: J40 Bronchitis, not specified as acute or chronic (principal); K21.9 Gastro-esophageal reflux disease without esophagitis; I10 Essential (primary) hypertension; E11.9 Type 2 diabetes mellitus without complications; E03.9 Hypothyroidism, unspecified; E66.9 Obesity, unspecified; Z68.41 Body mass index [BMI] 40.0-44.9, adult; Z88.8 Allergy status to other drugs, medicaments and biological substances; Z88.1 Allergy status to other antibiotic agents; Z79.899 Other long term (current) drug therapy; Z86.16 Personal history of COVID-19; Z20.822 Contact with and (suspected) exposure to COVID-19
CPT/HCPCS: 0241U; 71045; 87651; 99284; 99283

== ENCOUNTER 2022-11-15 20:26 | Emergency (ER) | payer MEDICARE, MEDICAID ==
[2022-11-15] MEDS ORDERED: diphenhydrAMINE 50 MG Cap PO ONE (21:16)
[2022-11-15] MEDS ORDERED: Cefdinir 300 MG Cap PO ONE (21:36)
[2022-11-15 22:02] VITALS: BP 127/51; PULSE 96
[2022-11-15 22:08] LABS: CORONAVIRUS COVID-19 NAA NEGATIVE (NEGATIVE); INFLUENZA A NAA NEGATIVE (NEGATIVE); INFLUENZA B NAA NEGATIVE (NEGATIVE); RESPIRATORY SYNCYTIAL VIR NAA NEGATIVE (NEGATIVE)
== END 2022-11-15 21:59 | disposition home or self-care (01) ==
LOC: MW.ED 20:26
DX: N39.0 Urinary tract infection, site not specified (principal); N30.00 Acute cystitis without hematuria; J06.9 Acute upper respiratory infection, unspecified; E66.9 Obesity, unspecified; Z68.41 Body mass index [BMI] 40.0-44.9, adult; E03.9 Hypothyroidism, unspecified; E11.9 Type 2 diabetes mellitus without complications; I10 Essential (primary) hypertension; J45.909 Unspecified asthma, uncomplicated; E78.00 Pure hypercholesterolemia, unspecified; K21.9 Gastro-esophageal reflux disease without esophagitis; Z88.8 Allergy status to other drugs, medicaments and biological substances; Z88.1 Allergy status to other antibiotic agents; Z79.899 Other long term (current) drug therapy; Z79.84 Long term (current) use of oral hypoglycemic drugs; Z88.2 Allergy status to sulfonamides; Z20.822 Contact with and (suspected) exposure to COVID-19
CPT/HCPCS: 0241U; 71045; 81001; 87086; 99283; A9270; 87088; 87186

== ENCOUNTER 2022-12-25 02:13 | Emergency (ER) | payer MEDICARE, MEDICAID ==
[2022-12-25] MEDS ORDERED: cefTRIAXone 1 GM Vial IM ONE (02:38)
[2022-12-25] MEDS ORDERED: Lidocaine 1% PF 2 ML SDV INJECT ONE (02:41)
[2022-12-25] MEDS ORDERED: Lidocaine 1% PF 2 ML SDV INJECT STA (02:41)
[2022-12-25 02:51] VITALS: BP 139/84; PULSE 88
== END 2022-12-25 02:50 | disposition home or self-care (01) ==
LOC: MW.ED 02:13
DX: N30.00 Acute cystitis without hematuria (principal); J44.9 Chronic obstructive pulmonary disease, unspecified; E11.9 Type 2 diabetes mellitus without complications; E78.00 Pure hypercholesterolemia, unspecified; I10 Essential (primary) hypertension; J45.909 Unspecified asthma, uncomplicated; Z79.899 Other long term (current) drug therapy; Z88.1 Allergy status to other antibiotic agents; Z88.8 Allergy status to other drugs, medicaments and biological substances; Z79.84 Long term (current) use of oral hypoglycemic drugs
CPT/HCPCS: 96372; 99283; J0696; J3490

== ENCOUNTER 2023-01-13 18:52 | Emergency (ER) | payer MEDICARE, MEDICAID ==
[2023-01-13] MEDS ORDERED: cefTRIAXone 1 GM Vial IM ONE (19:39)
[2023-01-13] MEDS ORDERED: Phenazopyridine 200 MG Tab PO ONE (19:40)
[2023-01-13] MEDS ORDERED: Fluconazole 150 MG Tab PO ONE (19:44)
[2023-01-13] MEDS ORDERED: metroNIDAZOLE 250 MG Tab PO ONE (19:44)
[2023-01-13] MEDS ORDERED: Lidocaine 1% PF 2 ML SDV INJECT ONE (20:43)
[2023-01-13 21:37] VITALS: BP 112/65; PULSE 72
== END 2023-01-13 21:35 | disposition home or self-care (01) ==
LOC: MW.ED 18:52
DX: N39.0 Urinary tract infection, site not specified (principal); N76.0 Acute vaginitis; E78.00 Pure hypercholesterolemia, unspecified; I10 Essential (primary) hypertension; J45.909 Unspecified asthma, uncomplicated; K21.9 Gastro-esophageal reflux disease without esophagitis; E11.9 Type 2 diabetes mellitus without complications; E03.9 Hypothyroidism, unspecified; E66.9 Obesity, unspecified; Z68.41 Body mass index [BMI] 40.0-44.9, adult; Z86.16 Personal history of COVID-19; Z88.8 Allergy status to other drugs, medicaments and biological substances; Z88.2 Allergy status to sulfonamides; Z79.84 Long term (current) use of oral hypoglycemic drugs; Z79.899 Other long term (current) drug therapy
CPT/HCPCS: 96372; 99283; A9270; J0696; J3490

== ENCOUNTER 2023-03-28 23:55 | Emergency (ER) | payer MEDICARE, MEDICAID ==
[2023-03-29 02:18] VITALS: BP 192/85; PULSE 72
== END 2023-03-29 03:48 | disposition left against medical advice (07) ==
LOC: MW.ED 23:55
DX: Z53.21 Procedure and treatment not carried out due to patient leaving prior to being seen by health care provider (principal)

== ENCOUNTER 2023-04-04 14:30 | Emergency (ER) | payer MEDICARE, MEDICAID ==
[2023-04-04] MEDS ORDERED: Albuterol/Ipratropium 3.0-0.5 MG/3 ML Neb Soln NEB ONE (15:33)
[2023-04-04 18:09] VITALS: BP 117/63; PULSE 74
[2023-04-04] MEDS ORDERED: Dexamethasone 4 MG Tab PO ONE (18:11)
== END 2023-04-04 18:27 | disposition home or self-care (01) ==
LOC: MW.ED 14:30
DX: J45.901 Unspecified asthma with (acute) exacerbation (principal); J00 Acute nasopharyngitis [common cold]; F17.210 Nicotine dependence, cigarettes, uncomplicated; I10 Essential (primary) hypertension; E78.00 Pure hypercholesterolemia, unspecified; E11.9 Type 2 diabetes mellitus without complications; E66.9 Obesity, unspecified; Z68.41 Body mass index [BMI] 40.0-44.9, adult; Z86.73 Personal history of transient ischemic attack (TIA), and cerebral infarction without residual deficits; Z20.822 Contact with and (suspected) exposure to COVID-19; Z86.16 Personal history of COVID-19; Z88.1 Allergy status to other antibiotic agents; Z88.2 Allergy status to sulfonamides; Z88.8 Allergy status to other drugs, medicaments and biological substances; Z79.84 Long term (current) use of oral hypoglycemic drugs; Z79.899 Other long term (current) drug therapy
CPT/HCPCS: 71046; 87651; 99285; J8540; U0002; 99283; J7620-GY

== ENCOUNTER 2023-04-10 14:21 | Emergency (ER) | payer MEDICARE, MEDICAID ==
[2023-04-10 15:23] LABS: CORONAVIRUS COVID-19 NAA NEGATIVE (NEGATIVE); INFLUENZA A NAA NEGATIVE (NEGATIVE); INFLUENZA B NAA NEGATIVE (NEGATIVE)
[2023-04-10 16:50] VITALS: BP 122/60; PULSE 70
== END 2023-04-10 16:51 | disposition home or self-care (01) ==
LOC: MW.ED 14:21
DX: J40 Bronchitis, not specified as acute or chronic (principal); E78.00 Pure hypercholesterolemia, unspecified; I10 Essential (primary) hypertension; E11.9 Type 2 diabetes mellitus without complications; E66.9 Obesity, unspecified; Z68.41 Body mass index [BMI] 40.0-44.9, adult; Z79.899 Other long term (current) drug therapy; Z79.84 Long term (current) use of oral hypoglycemic drugs; Z88.8 Allergy status to other drugs, medicaments and biological substances; Z88.2 Allergy status to sulfonamides; Z20.822 Contact with and (suspected) exposure to COVID-19
CPT/HCPCS: 0240U; 71045; 99284; 99283

== ENCOUNTER 2023-06-24 17:53 | Emergency (ER) | payer MEDICARE, MEDICAID ==
[2023-06-24] MEDS ORDERED: Sodium Chloride 0.9% 1,000 ML IV ONE (18:18)
[2023-06-24] MEDS ORDERED: traMADol 50 MG Tab PO ONE (18:20)
[2023-06-24] MEDS ORDERED: Ketorolac 30 MG/ML SDV IVPUSH STA (18:50)
[2023-06-24] MEDS ORDERED: Cyclobenzaprine 10 MG Tab PO STA (18:50)
[2023-06-24 19:05] LABS: BASOPHILS ABSOLUTE AUTO 0.03 K/uL (0.00-0.20); BASOPHILS PERCENT AUTO 0.2 % (0.0-1.0); EOSINOPHILS ABSOLUTE AUTO 0.13 K/uL (0.00-0.45); HEMATOCRIT 38.7 % (37.0-47.0); HEMOGLOBIN 13.1 g/dL (12.0-16.0); IMMATURE GRAN ABSOLUTE AUTO 0.03 K/uL (0.00-0.05); IMMATURE GRAN PERCENT AUTO 0.2 % (0.0-0.4); LYMPHOCYTES ABSOLUTE AUTO 2.24 K/uL (1.00-4.80); LYMPHOCYTES PERCENT AUTO 17.1 % (24.0-44.0); MEAN CORPUSCULAR HEMOGLOBIN 29.5 pg (28.0-32.0); MEAN CORPUSCULAR HGB CONC 33.9 g/dL (32.0-36.0); MEAN CORPUSCULAR VOLUME 87.2 fL (83.0-99.0); MEAN PLATELET VOLUME 10.1 fL (9.4-12.3); MONOCYTES ABSOLUTE AUTO 0.58 K/uL (0.00-0.80); MONOCYTES PERCENT AUTO 4.4 % (0.0-8.0); NEUTROPHILS ABSOLUTE AUTO 10.07 K/uL (1.80-7.70); NEUTROPHILS PERCENT AUTO 77.1 % (41.0-71.0); PLATELET COUNT,PLT 212 K/uL (150-400); RED BLOOD CELL COUNT 4.44 M/uL (4.10-5.30); WHITE BLOOD CELL COUNT,WBC 13.08 K/uL (3.9-11.3)
[2023-06-24 19:31] LABS: ALBUMIN 3.3 g/dL (3.4-5.0); BILIRUBIN TOTAL 0.3 mg/dL (0.2-1.0); CALCIUM 9.4 mg/dL (8.5-10.1); CARBON DIOXIDE,CO2 27.3 mmol/L (21.0-32.0); CREATININE 0.8 mg/dL (0.6-1.0); EST CRCL DRUG DOSING (CG) 65.61 mL/min; POTASSIUM,K 4.3 mmol/L (3.5-5.1); PROTEIN TOTAL,TP 6.6 g/dL (6.4-8.2)
[2023-06-24 19:43] VITALS: PULSE 74
[2023-06-24 19:43] LABS: CORONAVIRUS COVID-19 NAA NEGATIVE (NEGATIVE); INFLUENZA A NAA NEGATIVE (NEGATIVE); INFLUENZA B NAA NEGATIVE (NEGATIVE)
[2023-06-24] MEDS ORDERED: Iopamidol 755 MG/ML 500 ML Multipack Bottle IVPUSH ONE (19:59)
[2023-06-24 21:10] VITALS: BP 152/47
== END 2023-06-24 21:08 | disposition home or self-care (01) ==
LOC: MW.ED 17:53
DX: R51.9 Headache, unspecified (principal); I10 Essential (primary) hypertension; K21.9 Gastro-esophageal reflux disease without esophagitis; E78.00 Pure hypercholesterolemia, unspecified; E11.9 Type 2 diabetes mellitus without complications; Z88.2 Allergy status to sulfonamides; Z88.8 Allergy status to other drugs, medicaments and biological substances; Z79.899 Other long term (current) drug therapy; Z79.891 Long term (current) use of opiate analgesic; Z79.84 Long term (current) use of oral hypoglycemic drugs; Z90.49 Acquired absence of other specified parts of digestive tract; Z90.710 Acquired absence of both cervix and uterus; Z20.822 Contact with and (suspected) exposure to COVID-19
CPT/HCPCS: 0240U; 36415; 70487; 80053; 85025; 96361; 96374; 99284; A9270; J1885; J7030; Q9967; 99283

== ENCOUNTER 2023-08-23 18:12 | Emergency (ER) | payer MEDICARE, MEDICAID ==
[2023-08-23] MEDS ORDERED: Lidocaine 4% 1 each Patch TOP STA (20:14)
[2023-08-23 21:39] VITALS: BP 180/90; PULSE 78
== END 2023-08-23 21:38 | disposition home or self-care (01) ==
LOC: MW.ED 18:12
DX: M25.562 Pain in left knee (principal); M25.462 Effusion, left knee; I10 Essential (primary) hypertension; E78.00 Pure hypercholesterolemia, unspecified; K21.9 Gastro-esophageal reflux disease without esophagitis; E11.40 Type 2 diabetes mellitus with diabetic neuropathy, unspecified; Z86.16 Personal history of COVID-19; Z90.49 Acquired absence of other specified parts of digestive tract; Z90.710 Acquired absence of both cervix and uterus; Z79.84 Long term (current) use of oral hypoglycemic drugs; Z79.899 Other long term (current) drug therapy; Z88.8 Allergy status to other drugs, medicaments and biological substances; Z88.2 Allergy status to sulfonamides; Z88.1 Allergy status to other antibiotic agents
CPT/HCPCS: 73562; 93971; 99284; A9270; 99283

== ENCOUNTER 2023-12-03 12:36 | Emergency (ER) | payer MEDICARE, MEDICAID ==
[2023-12-03 14:29] VITALS: BP 160/66; PULSE 76
== END 2023-12-03 13:45 | disposition home or self-care (01) ==
LOC: MW.ED 12:36
DX: J01.10 Acute frontal sinusitis, unspecified (principal); I10 Essential (primary) hypertension; E78.00 Pure hypercholesterolemia, unspecified; K21.9 Gastro-esophageal reflux disease without esophagitis; E11.40 Type 2 diabetes mellitus with diabetic neuropathy, unspecified; B20 Human immunodeficiency virus [HIV] disease; Z79.84 Long term (current) use of oral hypoglycemic drugs; Z90.710 Acquired absence of both cervix and uterus; Z90.49 Acquired absence of other specified parts of digestive tract; Z86.16 Personal history of COVID-19; Z79.899 Other long term (current) drug therapy; Z88.1 Allergy status to other antibiotic agents; Z88.8 Allergy status to other drugs, medicaments and biological substances
CPT/HCPCS: 99283

== ENCOUNTER 2023-12-05 13:46 | Emergency (ER) | payer MEDICARE, MEDICAID ==
[2023-12-05 14:01] VITALS: BP 156/100; PULSE 75
[2023-12-05 14:25] LABS: BASOPHILS ABSOLUTE AUTO 0.03 K/uL (0.00-0.20); BASOPHILS PERCENT AUTO 0.3 % (0.0-1.0); EOSINOPHILS ABSOLUTE AUTO 0.15 K/uL (0.00-0.45); EOSINOPHILS PERCENT AUTO 1.6 % (0.0-6.0); HEMATOCRIT 39.5 % (37.0-47.0); IMMATURE GRAN ABSOLUTE AUTO 0.03 K/uL (0.00-0.05); IMMATURE GRAN PERCENT AUTO 0.3 % (0.0-0.4); LYMPHOCYTES ABSOLUTE AUTO 2.02 K/uL (1.00-4.80); MEAN CORPUSCULAR HGB CONC 32.9 g/dL (32.0-36.0); MEAN CORPUSCULAR VOLUME 91.2 fL (83.0-99.0); MEAN PLATELET VOLUME 9.7 fL (9.4-12.3); MONOCYTES PERCENT AUTO 4.1 % (0.0-8.0); NEUTROPHILS ABSOLUTE AUTO 7.01 K/uL (1.80-7.70); NEUTROPHILS PERCENT AUTO 72.7 % (41.0-71.0); PLATELET COUNT,PLT 181 K/uL (150-400); RED BLOOD CELL COUNT 4.33 M/uL (4.10-5.30); WHITE BLOOD CELL COUNT,WBC 9.64 K/uL (3.9-11.3)
[2023-12-05 14:49] LABS: A/G RATIO 0.9 (0.9-1.6); ALBUMIN 2.9 g/dL (3.4-5.0); BILIRUBIN TOTAL 0.3 mg/dL (0.2-1.0); CALCIUM 8.6 mg/dL (8.5-10.1); CARBON DIOXIDE,CO2 24.2 mmol/L (21.0-32.0); CREATININE 0.8 mg/dL (0.6-1.0); EST CRCL DRUG DOSING (CG) 64.77 mL/min; POTASSIUM,K 3.9 mmol/L (3.5-5.1); PROTEIN TOTAL,TP 6.3 g/dL (6.4-8.2)
[2023-12-05 15:39] LABS: CORONAVIRUS COVID-19 NAA NEGATIVE (NEGATIVE); INFLUENZA A NAA NEGATIVE (NEGATIVE); INFLUENZA B NAA NEGATIVE (NEGATIVE); RESPIRATORY SYNCYTIAL VIR NAA NEGATIVE (NEGATIVE)
== END 2023-12-05 16:06 | disposition home or self-care (01) ==
LOC: MW.ED 13:46
DX: B34.9 Viral infection, unspecified (principal); I10 Essential (primary) hypertension; E78.00 Pure hypercholesterolemia, unspecified; E11.9 Type 2 diabetes mellitus without complications; K21.9 Gastro-esophageal reflux disease without esophagitis; Z75.8 Other problems related to medical facilities and other health care; Z88.1 Allergy status to other antibiotic agents; Z88.8 Allergy status to other drugs, medicaments and biological substances; Z88.6 Allergy status to analgesic agent; Z88.2 Allergy status to sulfonamides; Z79.84 Long term (current) use of oral hypoglycemic drugs; Z79.899 Other long term (current) drug therapy; Z79.51 Long term (current) use of inhaled steroids; Z21 Asymptomatic human immunodeficiency virus [HIV] infection status; Z90.710 Acquired absence of both cervix and uterus
CPT/HCPCS: 0241U; 36415; 71046; 80053; 85025; 99283

== ENCOUNTER 2024-04-22 22:57 | Emergency (ER) | payer MEDICARE, MEDICAID ==
[2024-04-22] MEDS ORDERED: Sodium Chloride 0.9% 2.5 ML Syringe FLUSH PRN (23:12)
[2024-04-22] MEDS ORDERED: Sodium Chloride 0.9% 10 ML Syringe FLUSH PRN (23:12)
[2024-04-22 23:19] LABS: BASOPHILS ABSOLUTE AUTO 0.05 K/uL (0.00-0.20); BASOPHILS PERCENT AUTO 0.5 % (0.0-1.0); EOSINOPHILS ABSOLUTE AUTO 0.17 K/uL (0.00-0.45); EOSINOPHILS PERCENT AUTO 1.8 % (0.0-6.0); HEMATOCRIT 39.7 % (37.0-47.0); IMMATURE GRAN ABSOLUTE AUTO 0.02 K/uL (0.00-0.05); IMMATURE GRAN PERCENT AUTO 0.2 % (0.0-0.4); LYMPHOCYTES ABSOLUTE AUTO 3.08 K/uL (1.00-4.80); LYMPHOCYTES PERCENT AUTO 32.5 % (24.0-44.0); MEAN CORPUSCULAR HEMOGLOBIN 29.7 pg (28.0-32.0); MEAN CORPUSCULAR HGB CONC 32.7 g/dL (32.0-36.0); MEAN CORPUSCULAR VOLUME 90.8 fL (83.0-99.0); MEAN PLATELET VOLUME 9.7 fL (9.4-12.3); MONOCYTES ABSOLUTE AUTO 0.43 K/uL (0.00-0.80); MONOCYTES PERCENT AUTO 4.5 % (0.0-8.0); NEUTROPHILS ABSOLUTE AUTO 5.74 K/uL (1.80-7.70); NEUTROPHILS PERCENT AUTO 60.5 % (41.0-71.0); PLATELET COUNT,PLT 185 K/uL (150-400); RED BLOOD CELL COUNT 4.37 M/uL (4.10-5.30); WHITE BLOOD CELL COUNT,WBC 9.49 K/uL (3.9-11.3)
[2024-04-22 23:42] LABS: A/G RATIO 1.1 (0.9-1.6); ALBUMIN 3.3 g/dL (3.4-5.0); BILIRUBIN TOTAL 0.3 mg/dL (0.2-1.0); CALCIUM 9.2 mg/dL (8.5-10.1); CARBON DIOXIDE,CO2 28.3 mmol/L (21.0-32.0); CREATININE 0.8 mg/dL (0.6-1.0); EST CRCL DRUG DOSING (CG) 72.61 mL/min; POTASSIUM,K 3.8 mmol/L (3.5-5.1); PROTEIN TOTAL,TP 6.2 g/dL (6.4-8.2)
[2024-04-23 00:01] LABS: CORONAVIRUS COVID-19 NAA NEGATIVE (NEGATIVE); INFLUENZA A NAA NEGATIVE (NEGATIVE); INFLUENZA B NAA NEGATIVE (NEGATIVE); RESPIRATORY SYNCYTIAL VIR NAA NEGATIVE (NEGATIVE)
[2024-04-23 00:38] VITALS: BP 149/62; PULSE 71
== END 2024-04-23 00:38 ==
LOC: MW.ED 22:57
DX: J06.9 Acute upper respiratory infection, unspecified (principal); B97.89 Other viral agents as the cause of diseases classified elsewhere; I10 Essential (primary) hypertension; E78.00 Pure hypercholesterolemia, unspecified; K21.9 Gastro-esophageal reflux disease without esophagitis; E11.9 Type 2 diabetes mellitus without complications; Z90.49 Acquired absence of other specified parts of digestive tract; Z90.710 Acquired absence of both cervix and uterus; Z79.899 Other long term (current) drug therapy; Z79.890 Hormone replacement therapy; Z79.2 Long term (current) use of antibiotics; Z88.8 Allergy status to other drugs, medicaments and biological substances; Z88.2 Allergy status to sulfonamides; Z88.1 Allergy status to other antibiotic agents
CPT/HCPCS: 0241U; 36415; 71046; 80053; 84484; 85025; 93005; 99285; 93010; 99282

== ENCOUNTER 2024-05-06 03:33 | Emergency (ER) | payer MEDICARE, MEDICAID ==
[2024-05-06 04:17] LABS: BASOPHILS ABSOLUTE AUTO 0.04 K/uL (0.00-0.20); BASOPHILS PERCENT AUTO 0.3 % (0.0-1.0); EOSINOPHILS ABSOLUTE AUTO 0.12 K/uL (0.00-0.45); HEMATOCRIT 33.9 % (37.0-47.0); HEMOGLOBIN 11.1 g/dL (12.0-16.0); IMMATURE GRAN ABSOLUTE AUTO 0.11 K/uL (0.00-0.05); IMMATURE GRAN PERCENT AUTO 0.9 % (0.0-0.4); LYMPHOCYTES ABSOLUTE AUTO 2.34 K/uL (1.00-4.80); MEAN CORPUSCULAR HEMOGLOBIN 29.7 pg (28.0-32.0); MEAN CORPUSCULAR HGB CONC 32.7 g/dL (32.0-36.0); MEAN CORPUSCULAR VOLUME 90.6 fL (83.0-99.0); MEAN PLATELET VOLUME 9.8 fL (9.4-12.3); MONOCYTES ABSOLUTE AUTO 0.56 K/uL (0.00-0.80); MONOCYTES PERCENT AUTO 4.8 % (0.0-8.0); NEUTROPHILS ABSOLUTE AUTO 8.54 K/uL (1.80-7.70); PLATELET COUNT,PLT 161 K/uL (150-400); RED BLOOD CELL COUNT 3.74 M/uL (4.10-5.30); WHITE BLOOD CELL COUNT,WBC 11.71 K/uL (3.9-11.3)
[2024-05-06 05:02] LABS: CALCIUM 8.9 mg/dL (8.5-10.1); CARBON DIOXIDE,CO2 25.8 mmol/L (21.0-32.0); CREATININE 0.7 mg/dL (0.6-1.0); EST CRCL DRUG DOSING (CG) 74.02 mL/min; POTASSIUM,K 3.7 mmol/L (3.5-5.1)
[2024-05-06 05:23] VITALS: BP 140/78; PULSE 78
== END 2024-05-06 05:21 | disposition home or self-care (01) ==
LOC: MW.ED 03:33
DX: R06.02 Shortness of breath (principal); I10 Essential (primary) hypertension; E78.00 Pure hypercholesterolemia, unspecified; K21.9 Gastro-esophageal reflux disease without esophagitis; E11.9 Type 2 diabetes mellitus without complications; F17.210 Nicotine dependence, cigarettes, uncomplicated; Z79.899 Other long term (current) drug therapy; Z79.84 Long term (current) use of oral hypoglycemic drugs; Z88.8 Allergy status to other drugs, medicaments and biological substances; Z88.2 Allergy status to sulfonamides
CPT/HCPCS: 36415; 71046; 71046-26; 80048; 84484; 85025; 93005; 93010; 99282; 99285

== ENCOUNTER 2024-10-17 16:26 | Emergency (ER) | payer MEDICARE, MEDICAID ==
[2024-10-17 17:36] VITALS: BP 147/49; PULSE 80
[2024-10-17] MEDS: Lidocaine 4% Patch TOP STA (17:47)
== END 2024-10-17 18:48 | disposition home or self-care (01) ==
LOC: MW.ED 16:26
DX: S40.011A Contusion of right shoulder, initial encounter (principal); I10 Essential (primary) hypertension; E78.00 Pure hypercholesterolemia, unspecified; E11.9 Type 2 diabetes mellitus without complications; Z21 Asymptomatic human immunodeficiency virus [HIV] infection status; Z75.8 Other problems related to medical facilities and other health care; Z88.5 Allergy status to narcotic agent; Z88.8 Allergy status to other drugs, medicaments and biological substances; Z88.2 Allergy status to sulfonamides; Z79.890 Hormone replacement therapy; Z79.899 Other long term (current) drug therapy; Z79.51 Long term (current) use of inhaled steroids; Z79.84 Long term (current) use of oral hypoglycemic drugs; W18.2XXA Fall in (into) shower or empty bathtub, initial encounter; Y93.89 Activity, other specified
CPT/HCPCS: 73030; 99283; A9270

== ENCOUNTER 2024-11-27 22:59 | Emergency (ER) | payer MEDICARE, MEDICAID ==
[2024-11-27] MEDS ORDERED: Sodium Chloride 0.9% 1,000 ML IV ONE (23:11)
[2024-11-27] MEDS ORDERED: droPERidol 2.5 MG/ML SDV IVPUSH PRN (23:14)
[2024-11-27] MEDS: Sodium Chloride 0.9% 500 ML IV STA (23:19)
[2024-11-27] MEDS: Sodium Chloride 0.9% 500 ML IV ONE (23:19)
[2024-11-27 23:20] LABS: BASOPHILS ABSOLUTE AUTO 0.05 K/uL (0.00-0.20); BASOPHILS PERCENT AUTO 0.3 % (0.0-1.0); EOSINOPHILS ABSOLUTE AUTO 0.21 K/uL (0.00-0.45); EOSINOPHILS PERCENT AUTO 1.3 % (0.0-6.0); HEMATOCRIT 42.9 % (37.0-47.0); HEMOGLOBIN 14.4 g/dL (12.0-16.0); IMMATURE GRAN ABSOLUTE AUTO 0.07 K/uL (0.00-0.05); IMMATURE GRAN PERCENT AUTO 0.4 % (0.0-0.4); LYMPHOCYTES ABSOLUTE AUTO 3.46 K/uL (1.00-4.80); LYMPHOCYTES PERCENT AUTO 20.7 % (24.0-44.0); MEAN CORPUSCULAR HEMOGLOBIN 29.5 pg (28.0-32.0); MEAN CORPUSCULAR HGB CONC 33.6 g/dL (32.0-36.0); MEAN CORPUSCULAR VOLUME 87.9 fL (83.0-99.0); MEAN PLATELET VOLUME 9.9 fL (9.4-12.3); MONOCYTES ABSOLUTE AUTO 0.67 K/uL (0.00-0.80); NEUTROPHILS ABSOLUTE AUTO 12.24 K/uL (1.80-7.70); NEUTROPHILS PERCENT AUTO 73.3 % (41.0-71.0); PLATELET COUNT,PLT 189 K/uL (150-400); RED BLOOD CELL COUNT 4.88 M/uL (4.10-5.30)
[2024-11-27] MEDS: Pantoprazole 40 MG in Sodium Chloride 0.9% 10 ML IVPUSH ONE (23:20)
[2024-11-27] MEDS: Ketorolac 30 MG/ML SDV IVPUSH ONE (23:23)
[2024-11-27 23:41] LABS: A/G RATIO 1.1 (0.9-1.6); ALANINE AMINOTRANSFERASE,ALT 17 IU/L (14-63); ALBUMIN 3.4 g/dL (3.4-5.0); ALKALINE PHOSPHATASE 80 U/L (46-116); ASPARTATE AMNIOTRANSFERASE,AST 17 IU/L (15-37); BILIRUBIN TOTAL 0.4 mg/dL (0.2-1.0); BLOOD UREA NITROGEN,BUN 16 mg/dL (7.0-18.0); CALCIUM 9.1 mg/dL (8.5-10.1); CARBON DIOXIDE,CO2 27.1 mmol/L (21.0-32.0); CHLORIDE,CL 107 mmol/L (98-107); CREATININE 0.8 mg/dL (0.6-1.0); GLUCOSE RANDOM 77 mg/dL (74-106); LIPASE 79 U/L (16-77); POTASSIUM,K 3.6 mmol/L (3.5-5.1); PROTEIN TOTAL,TP 6.4 g/dL (6.4-8.2); SODIUM,NA 145 mmol/L (136-145)
[2024-11-27 23:42] LABS: HEMOGLOBIN A1C 5.2 %
[2024-11-27] MEDS ORDERED: HYDROmorphone 0.5 MG/0.5 ML Syringe IVPUSH PRN (23:45)
[2024-11-27 23:56] LABS: ESTIMATED GFR 82 mL/min (>60)
[2024-11-28 00:12] LABS: APPEARANCE,URINE CLEAR; BILIRUBIN,URINE NEGATIVE (NEGATIVE); COLOR,URINE YELLOW; GLUCOSE,URINE NEGATIVE (NEGATIVE); KETONES,URINE NEGATIVE (NEGATIVE); LEUKOCYTE ESTERASE,URINE NEGATIVE (NEGATIVE); NITRITE,URINE NEGATIVE (NEGATIVE); OCCULT BLOOD,URINE SMALL (NEGATIVE); PROTEIN,URINE NEGATIVE (NEGATIVE); UROBILINOGEN,URINE 0.2 EU/dL (<2.0)
[2024-11-28 00:22] LABS: BACTERIA,URINE 1+ (NEGATIVE); EPITHELIAL CELLS,URINE FEW (NONE-FEW); WBC,URINE 0-2 (0-5/HPF)
[2024-11-28] MEDS: Iopamidol 755 Mg/ML 100 ML Bottle IVPUSH ONE (00:35)
[2024-11-28 01:11] VITALS: BP 173/65; PULSE 62
== END 2024-11-28 01:10 | disposition home or self-care (01) ==
LOC: MW.ED 22:59
DX: R10.31 Right lower quadrant pain (principal); R10.32 Left lower quadrant pain; R10.10 Upper abdominal pain, unspecified; E78.00 Pure hypercholesterolemia, unspecified; I10 Essential (primary) hypertension; K21.9 Gastro-esophageal reflux disease without esophagitis; E11.9 Type 2 diabetes mellitus without complications; Z21 Asymptomatic human immunodeficiency virus [HIV] infection status; Z86.69 Personal history of other diseases of the nervous system and sense organs; Z88.8 Allergy status to other drugs, medicaments and biological substances; Z88.2 Allergy status to sulfonamides; Z79.890 Hormone replacement therapy; Z79.899 Other long term (current) drug therapy; Z79.51 Long term (current) use of inhaled steroids
CPT/HCPCS: 36415; 74018; 74177; 80053; 81001; 83036; 83605; 83690; 85025; 96361; 96374; 96375; 99284; J1885; J2470; J7040; Q9967; 99283

== ENCOUNTER 2025-03-15 17:58 | Emergency (ER) | payer MEDICARE, MEDICAID ==
[2025-03-15] MEDS: Acetaminophen/HYDROcodone 325-5 MG Tab PO ONE (19:10)
[2025-03-15 20:38] VITALS: BP 135/57; PULSE 65
== END 2025-03-15 20:37 | disposition home or self-care (01) ==
LOC: MW.ED 17:58
DX: S39.011A Strain of muscle, fascia and tendon of abdomen, initial encounter (principal); S39.012A Strain of muscle, fascia and tendon of lower back, initial encounter; I10 Essential (primary) hypertension; E78.00 Pure hypercholesterolemia, unspecified; K21.9 Gastro-esophageal reflux disease without esophagitis; E11.42 Type 2 diabetes mellitus with diabetic polyneuropathy; Z90.49 Acquired absence of other specified parts of digestive tract; Z90.710 Acquired absence of both cervix and uterus; Z88.8 Allergy status to other drugs, medicaments and biological substances; Z79.84 Long term (current) use of oral hypoglycemic drugs; Z79.51 Long term (current) use of inhaled steroids; Z79.890 Hormone replacement therapy; Z79.899 Other long term (current) drug therapy; Z75.3 Unavailability and inaccessibility of health-care facilities; X58.XXXA Exposure to other specified factors, initial encounter
CPT/HCPCS: 74176; 99284; A9270; 99283